=== PATIENT | male | born 1950 | race Caucasian/White ===

== ENCOUNTER 2024-03-06 22:46 | Inpatient (IN) | payer OTHER, SELFPAY ==
[2024-03-06 19:27] VITALS: BMI 22.1
[2024-03-06 19:30] VITALS: BP 133/78
[2024-03-06] MEDS: MORPHINE SULFATE 4 MG IV (21:06)
[2024-03-06] MEDS: ZOFRAN 4 MG IV (21:06)
[2024-03-06 21:09] LABS: % Basophils 0.1 % (0-2); % Immature Granulocytes 0.8 % (0-0.5); % Lymphocytes 7.8 % (20.5-51.1); % Monocytes 3.4 % (1.7-9.3); % Neutrophils 87.9 % (42.2-75.2); Absolute Immature Granulocytes 0.1 10^3/uL (0-0.05); Absolute Monocytes 0.4 10^3/uL (0.1-0.6); Absolute Neutrophils 11.5 10^3/uL (1.4-6.5); Hematocrit 31.8 % (39.0-52.0); Hemoglobin 11.1 g/dL (13.0-18.0); Mean Corp Hgb Conc. 34.9 g/dL (33.0-37.0); Mean Corpuscular Hgb 29.1 pg (27.0-31.0); Mean Corpuscular Volume 83.2 fL (80.0-94.0); Mean Platelet Volume 10.3 fL (7.4-10.4); Nucleated Red Blood Cells % 0 % (-); Platelet Count 184 10^3/uL (130-400); Red Blood Cell Count 3.82 10^6/uL (4.70-6.10); Red Cell Dist. Width 13.3 % (11.5-14.5); White Blood Cell Count 13.1 10^3/uL (4.8-10.8)
[2024-03-06 21:23] LABS: ALT (SGPT) 20 U/L (0-50); AST (SGOT) 34 U/L (17-59); Albumin 4.4 g/dl (3.5-5.0); Alkaline Phosphatase 99 U/L (38-126); Blood Urea Nitrogen 55 mg/dl (9-20); Calcium 9.4 mg/dl (8.4-10.2); Carbon Dioxide 17 mmol/L (22-30); Chloride 100 mmol/L (98-107); Estimated Creatinine Clearance 20 ml/min; Glucose 172 mg/dl (70-99); Potassium 4.8 mmol/L (3.5-5.1); Sodium 131 mmol/L (135-145); Total Bilirubin 0.7 mg/dl (0.2-1.3); Total Protein 7.5 g/dl (6.3-8.2); eGFR 20.57
[2024-03-06 21:27] VITALS: BP 148/109
[2024-03-06] MEDS: DILAUDID 0.5 MG IV (21:39)
[2024-03-06 21:45] LABS: Urine Albumin Trace (Neg - Trace); Urine Bilirubin 1+ (Negative); Urine Glucose Negative (Negative); Urine Ketone Trace (Negative); Urine Leukocyte Negative (Negative); Urine Nitrite Negative (Negative); Urine Occult Blood Trace (Negative); Urine Urobilinogen Negative (Neg - 1+)
[2024-03-06 21:46] LABS: Urine Character Clear (Clear); Urine Color Yellow
--- NOTE | 2024-03-06 21:47 | ED.GENMED ---
History of Present Illness
General
Chief Complaint: Abdominal Pain
Source: patient and family
Exam Limitations: clinical condition
Time Seen by Provider: 03/06/24 20:22
Travel History
Have you had any contact with someone who has COVID-19?: No
Do you have any symptoms of coronavirus? Fever > 100 degrees, chills, cough, shortness of breath, sore throat, loss of taste or smell, muscle aches, or headache?: No
History of Present Illness
History of Present Illness:
74-year-old male who presents with severe lower abdominal pain. Patient states last urination was around 1 PM. Patient states he was sitting at home and got a little dizzy and then got severe pain. Pain is in his lower pelvis and lower abdomen
rating it around his rectum and scrotum. Also radiates to his low back. No fevers. No vomiting. Pain came on relatively suddenly
Past History
Past History
ED Past Medical History: HTN, Hypercholesterolemia, MS and Other (Patient reports history of kidney disease)
Phy Exam
Physical Exam
Physical Exam:
CONSTITUTIONAL Patient alert and oriented to person, place and time. Severe pain distress. Vital signs reviewed.
HEAD atraumatic, normocephalic.
EYES eyelids normal to inspection, Extraocular muscles intact, Conjunctiva normal, Sclera normal.
NECK normal range of motion, Trachea midline, no jugular venous distention.
RESPIRATORY CHEST No respiratory distress noted, Chest expansion equal
ABDOMEN moderate lower abdominal distention, severe lower abdominal tenderness..
BACK normal inspection, no obvious deformities
UPPER EXTREMITY range of motion normal, Motor strength normal, no cyanosis, no edema.
LOWER EXTREMITY range of motion normal, Motor strength normal, no cyanosis, no edema.
NEURO Speech normal, No focal motor deficits, [place] coma scale 15, Memory normal, Cranial Nerves intact to screening exam.
Course
Orders/Labs/Results
Orders:
Orders
03/06/24 20:36
Kraft Placement- Treatment ONCE
Reason for insertion: Acute Retention
03/06/24 20:37
CT Abd/pel Without Iv Or Oral Urgent
Comment:
Reason For Exam: severe abd pain
03/06/24 20:55
Morphine Sulfate 4 mg IV NOW STA
Ondansetron Injectable [Zofran] 4 mg IV NOW STA
03/06/24 21:04
Complete Blood Count/With Diff Urgent
Comprehensive Metabolic Panel Urgent
03/06/24 21:30
Urinalysis Reflex To Culture Urgent
Date Specimen was Collected: 03/06/24
Time Specimen was Collected: 21:28
Urine Microscopic Reflex Cult Urgent
03/06/24 21:32
CT Abd/pelvis Angio W/wo Iv Stat
Comment:
Reason For Exam: RUPTURED ILIAC ANEURYSM
03/06/24 21:36
Type+Screen Urgent
PT/INR [Prothrombin Time] Urgent
PTT Urgent
03/06/24 21:37
HYDROmorphone [Dilaudid] 0.5 mg .ROUTE .STK-MED ONE
03/06/24 21:38
HYDROmorphone [Dilaudid] 0.5 mg IV NOW STA
03/06/24 21:45
IV Insert/Care/Rem.- Treatment PRN
03/06/24 21:52
* Blood Bank Products Urgent
Blood Bank Products: *Packed RBC Leuko(PRBC's)
Quantity: 2
Transfuse Today: Yes
Reason: Bleeding
03/06/24 22:04
Heparin Sodium,Porcine/Ns/Pf [Heparin 2000 Units/1000 ml] 2,000 unit in 1,000 ml .ROUTE .STK-MED
Lidocaine HCl/Pf [Xylocaine-Mpf 1% Vial] 50 mg .ROUTE .STK-MED ONE
03/06/24 22:21
Admit/Transfer Patient As Directed
Co-Sign Provider:
Level of Care: Inpatient admission
Assign to:: ICU
Physician / Group: Que
Diagnosis: R Internal Iliac Artery Aneurysm
Reason for Hospitalization: R Internal Iliac Artery Aneurysm
Expected length of stay greater than two midnights?: Yes
ELOS- Estimated Length of Stay in days: 5
I certify the patient meets the requirements for IP care: Yes
03/06/24 22:22
Code Status As Directed
Resuscitation Status: Full Code
03/06/24 22:24
Fentanyl Citrate/Pf [Sublimaze] 100 mcg .ROUTE .STK-MED ONE
03/06/24 22:37
HYDROmorphone [Dilaudid] 0.25 mg IV PACU-Q5MPRN PRN
HYDROmorphone [Dilaudid] 0.5 mg IV PACU-Q5MPRN PRN
Meperidine [Demerol] 12.5 mg IV PACU-Q5MPRN PRN
Ondansetron Injectable [Zofran] 4 mg IV PACU-ONCEPRN PRN
Prochlorperazine [Compazine] 5 mg IV PACU-ONCEPRN PRN
Notify MD As Directed
Notify physician if: for SDS patients with known or suspected sleep obstructive sleep apnea, monitor in the
PACU.
Notify MD for any apneic/desaturation episodes
O2 Therapy [RESP] Urgent
Titrate/Wean O2 to maintain O2 sat greater than (%): 92
Special Instructions: -Provide supplemental oxygen to achieve O2 sat of 92% or greater.
-After 15 min, may wean O2 and discontinue if patient is able to maintain O2 sat of 92%
or greater during recovery period.
If patient is a discharge home, without oxygen therapy, notify anestheiologist if
unable to maintain O2 SAT of 92% or greater on room air for MD clearance.
03/06/24 22:45
0.9% Sodium Chloride 1000 ml [Nss] 1,000 ml IV PER PROTOCOL
Abnormal Lab Results
03/06/24 03/06/24 03/06/24
21:04 21:30 21:36
WBC 13.1 H 10^3/uL
(4.8-10.8)
RBC 3.82 L 10^6/uL
(4.70-6.10)
Hgb 11.1 L g/dL
(13.0-18.0)
Hct 31.8 L %
(39.0-52.0)
Abs Immat Gran (auto) 0.1 H 10^3/uL
(0-0.05)
Absolute Neuts (auto) 11.5 H 10^3/uL
(1.4-6.5)
Absolute Lymphs (auto) 1.0 L 10^3/uL
(1.2-3.4)
Immature Gran % 0.8 H %
(0-0.5)
Neutrophils % 87.9 H %
(42.2-75.2)
Lymphocytes % 7.8 L %
(20.5-51.1)
Sodium 131 L mmol/L
(135-145)
Carbon Dioxide 17 L mmol/L
(22-30)
BUN 55 H mg/dl
(9-20)
Creatinine 3.1 H mg/dL
(0.7-1.3)
Glucose 172 H mg/dl
(70-99)
Urine Ketones Trace A
(Negative)
Ur Occult Blood Reflex Trace A
(Negative)
Urine Bilirubin 1+ A
(Negative)
Urine RBC 7-10 A /HPF
(0-2)
Urine Bacteria (Reflex) Few A
(Negative)
Crossmatch IS Only See Detail
03/06/24 21:04
03/06/24 21:04
Vital Signs
Initial and Last Documented VS:
Initial Vital Signs
Pulse Resp BP Pulse Ox
75 18 133/78 95
03/06/24 19:30 03/06/24 19:30 03/06/24 19:30 03/06/24 19:30
Last Documented Vital Signs
Pulse Resp BP Pulse Ox
92 15 148/109 95
03/06/24 21:45 03/06/24 21:45 03/06/24 21:27 03/06/24 19:30
MDM/Problems Addressed
Differential Diagnosis Includes:
Bladder outlet obstruction, perforated bowel, aortic aneurysm, vascular emergency
MDM/Problems Addressed:
Ruptured internal iliac artery rhythm, acute renal failure
*Radiology
Radiology exam reviewed: preliminary read by ED provider
*Pulse Oximetry
Patient hypoxic: no
*Nail Machine Operator Interpretation
Rate: normal
Interpretation: normal
Rhythm: sinus
*Critical Care Note
Total Time (30-74mins, 75-104mins- exclusive of procedures): 80 minutes
Data Reviewed
Source: patient and family
Prescriptions/Medications Considered But Not Given:
Consider blood transfusion but so far blood pressure okay
Patient Management
Discussion with other providers: Hospitalist and Labor Relations Specialist (Dr. Regalado)
Escalation/DeEscalation of care consider admission/obs:
74-year-old male with acute onset of severe lower abdominal and back pain. Found to have ruptured internal iliac aneurysm. Immediately upon CT, discussed with vascular. Reviewed CT and vascular OR team was called in. Patient remains
hemodynamically stable at this time. Still does have pain and attempting to control pain. ICU aware. 2 units of blood are on hold. Hospitalist aware
ED Attending Note
-
Portions of this chart may have been created with voice recognition software.� Occasional wrong word or��sound alike� substitutions may have occurred due to the inherent limitations of voice recognition software.
Discharge Plan
Departure
Patient Disposition: Admit
Date of Disposition: 03/06/24
Time of Disposition: 21:44
Admit to: ICU
Presentation/result/management discussed w/ accepting MD/DO: Hospitalist
Discharge Problem:
RUPTURED INTERNAL ILIAC ARTERY ANEURYSM , Acute renal failure
Interventions
Interventions:
*Risk Screen - Suicide Last Done: 03/06/24 19:30
*General Assessment Last Done: 03/06/24 19:30
*Neglect/Abuse Screening Last Done: 03/06/24 19:30
*Nursing Disposition Last Done: 03/06/24 22:58
SV-Oonvnj-Bcxdiozqav Assessment Last Done: 03/06/24 21:58
Discharge Date and Time
Discharge Date/Time: 03/06/24 22:59
--- NOTE | 2024-03-06 21:54 | PHANOTE ---
med rec note daughter in room stated that patient pcp placed patient Lasix 20mg daily, Imdur 60mg daily, Coreg 6.25 bid, hydralazine 25mg, [id number] daily Synthroid 75mcg daily on hold since 02/24/24
[2024-03-06 21:55] LABS: Urine Squamous Cell 0-2 /LPF (Few)
[2024-03-06 21:56] LABS: Urine Bacteria Few (Negative); Urine White Cell 0-2 /HPF (0-5)
[2024-03-06 22:05] LABS: INR 1.16; PT 14.6 Sec (11.4-14.6)
--- NOTE | 2024-03-06 22:35 | W.PN.UPDATE ---
Update Note
Progress Note Update
Seen and examined in preop area. Discussed with the emergency room on my way to the hospital emergently. Briefly 74-year-old male with no prior knowledge of aneurysmal history. Presented with acute onset of lower abdominal pain. Significant pain
noted. Was having urinary retention today as well. Kraft catheter was inserted due to bladder findings on ultrasound in ER. Noncontrast CAT scan was concerning for internal iliac artery aneurysm and rupture. CT angiogram quickly ordered as per
my request. Completed and reviewed by me. On exam/patient is awake and alert. He is moderately uncomfortable. His hemodynamics are reasonable as noted in the charting. His abdomen is soft. He is tender diffusely in the lower quadrant specially
on the right side. His feet are warm with palpable pedal pulses.
CT angiogram reviewed. Large likely saccular/plaque rupture related internal iliac artery aneurysm. Measures 8.5 x 7.7 cm. Heavily calcified vessels.
Plan/ Emergent OR for emergent endovascular (possible open) repair of ruptured internal iliac artery aneurysm (right). Discussed with patient. Plan for likely coil embolization and stent graft exclusion. Discussed with patient possible need for
staged abdominal exploration or washout/decompression of hematoma if needed. Discussed emergent nature. Patient understands all wishes to proceed.
--- NOTE | 2024-03-06 22:40 | HPS.HSE ---
Family Physician
-
Family Physician: Bo Miller
Chief Complaint
-
Abd Pain
History of Present Illness
Patient is a 74y M with PMH significant for ASCVD who presents to ED complaining of abdominal pain. History obtained from patient and family at the bedside. Patient has felt somewhat poorly for the past 3-4 days. He has had mild malaise, poor
appetite and other vague symptoms for much of the week. Today around 3 PM patient developed acute and severe lower abdominal pain. He had persistent and severe pain at home and presented to the ED for further evaluation. Patient was in
significant pain and CT scan done in the ED revealed ruptured R internal iliac artery aneurysm.
Medical History
Past Medical History
Past Medical History: Reports Other
Additional Past Medical History:
ASCVD
ADAN s/p Cardiac Cath / LA (Resolved / Improved)
Chronic HFpEF
Past Surgical History: Reports Other
Additional Past Surgical History:
PTCA with Stent x 5 total
Right Inguinal Herniorrhaphy
Social History
Tobacco: Non-smoker
Alcohol: Daily
Drug: None
Family History
Family History: Not pertinent
Allergies / Home Medications
Allergies reflects when Allergies were last updated in [facility].
Home Medications with original date entered in [facility]
Allergy/Medication List:
Allergies
Allergy/AdvReac Type Severity Reaction Status Date / Time
No Known Allergies Allergy Unverified 03/06/24 19:34
Home Medications
aspirin 81 mg tablet,delayed release 81 mg PO DAILY 03/06/24
atorvastatin 80 mg tablet (Lipitor) 80 mg PO DAILY 03/06/24
Review of Systems
-
History Source: Patient and Family
Constitutional: Denies Fever or Chills
Respiratory: Denies Cough or Trouble Breathing
Cardiac: Denies Chest Pain or Palpitations
Abdomen/GI: Reports Abdominal Pain; Denies Nausea, Vomiting or Diarrhea
: Reports Flank Pain; Denies Dysuria or Frequency
Musculoskeletal: Denies Joint Pain or Edema
Neurological: Denies Dizzy or Headache
Physical Exam
Vital Signs
Vital Signs
Pulse Resp BP Pulse Ox
92 15 148/109 95
03/06/24 21:45 03/06/24 21:45 03/06/24 21:27 03/06/24 19:30
Physical Exam
General: Other (74y M in severe distress secondary to abdominal pain.)
HEENT: Moist mucous membranes and PERRLA
Respiratory: Other (Decreased at bases - otherwise clear.)
Cardiac: S1/S2 and Tachycardia; No Murmur
GI: Other (Exquisite tenderness in the lower abdomen.)
Musculoskeletal: No Clubbing, No Cyanosis and No Edema
Neuro: AO x 3
Hematologic/Lymphatic: Other (Pedal pulses are appreciable bilaterally.)
Laboratory Results
-
03/06/24 21:04
03/06/24 21:04
Laboratory Results
PT 14.6 Sec (11.4-14.6) 03/06/24 21:36
INR 1.16 03/06/24 21:36
APTT 25.0 Sec (23.4-35.0) 03/06/24 21:36
Total Bilirubin 0.7 mg/dl (0.2-1.3) 03/06/24 21:04
AST 34 U/L (17-59) 03/06/24 21:04
ALT 20 U/L (0-50) 03/06/24 21:04
Alkaline Phosphatase 99 U/L (38-126) 03/06/24 21:04
Impression/Plan
-
A/P: Patient is a 74y M with PMH significant for ASCVD who presents to ED complaining of abdominal pain.
Acute Right Internal Iliac Artery Aneurysm Rupture
Intra-Abdominal Hematoma secondary to the above
- Patient taken emergently to the OR for Vascular Surgery / repair of ruptured aneurysm.
- Post-op admit to ICU for ongoing care.
- Post-op instructions per Vascular Surgery.
- Impulse control with IV labetalol for high BP / pulse / etc.
- Adjust meds as needed for adequate hemodynamic control.
- Pain control / supportive care as needed.
Acute Blood Loss Anemia secondary to the above
- Follow H&H and transfuse as needed for Hgb < 7 or symptoms.
- Hemostasis / bleeding control as noted above.
- Hold antiplatelets acutely, but would resume low-dose ASA when OK with Vascular Surgery.
Obstructive Uropathy secondary to abdominal hematoma
ADAN secondary to the above
- SCr = 3.1. No available baseline, but normal renal function per daughter.
- CT shows R ureteral compression / obstruction secondary to hematoma.
- Follow post-op for changes.
- If hematoma not evacuated / obstruction persists, would need IR for perc nephrostomy placement.
- IVF support, avoid nephrotoxic agents as able, avoid hypotension.
- Follow for improvement in renal function / return to baseline.
- Risk for secondary kidney injury as well given CTA, endovascular procedure, etc.
ASCVD
- Stable. History of PTCA with 5 coronary stents.
- Most prior hospitalizations were at [facility]. Send for records.
- Currently on only ASA 81mg and atorvastatin as an outpatient.
- Follow for any new chest pain, dyspnea, etc.
- Monitor on tele. EKG PRN.
Benign Hypertension
Chronic HFpEF
- Stable. No evidence of volume overload on exam.
- Daughter notes that Imdur and daily Lasix (20mg) were discontinued mid-January.
- No other recent med changes.
- Follow I/Os, daily weights, etc.
- Monitor for evidence of hypervolemia and dose diuretics PRN.
Alcohol Use Disorder
- Daily alcohol intake per family.
- Monitor MSAS and treat with BZDs PRN for any withdrawal symptoms.
- Monitor labs / lytes and replace or replete as needed.
DVT Prophylaxis: SCDs
Code Status: Full
[2024-03-06 23:39] LABS: Glucose - Point of Care 149 mg/dl (70-99)
[2024-03-07] VITALS (27 sets, daily range): BP systolic 122–187; BP diastolic 70–109; BMI 22.1
[2024-03-07 01:00] LABS: Glucose - Point of Care 132 mg/dl (70-99)
--- NOTE | 2024-03-07 01:00 | W.IMMPOSTOP ---
Surgical Immed Post Op Note
-
Primary Surgeon: Fabricio
Assisting Surgeon: None
Pre-op Diagnosis: Ruptured R internal iliac artery aneurysm
Post-op Diagnosis: same
Procedure Performed: Endovascular repair ruptured R internal iliac artery aneurysm with coil embolization and placement of external iliac artery stent graft (overlapping x 2) with [place] Excluder iliac limbs x 2. Percutaneous R femoral artery
closure. 6F angioseal closure L femoral artery.
Anesthesia Type: General
Specimen / Cultures: none
Estimated Blood Loss: 75cc
Complications: none
Operative Findings: palpable 2+ R DP/PT and 2+ L PT upon completion
[2024-03-07] MEDS: DILAUDID 0.25 MG IV (01:06)
[2024-03-07] MEDS: DEMEROL 12.5 MG IV ×2 (01:06→01:15)
[2024-03-07] MEDS: NSS 1000 IV ×2 (01:31→13:52)
[2024-03-07 01:44] LABS: Hemoglobin 9.1 g/dL (13.0-18.0); Mean Corpuscular Hgb 29.2 pg (27.0-31.0); Mean Corpuscular Volume 83.3 fL (80.0-94.0); Mean Platelet Volume 10.6 fL (7.4-10.4); Platelet Count 133 10^3/uL (130-400); Red Blood Cell Count 3.12 10^6/uL (4.70-6.10); Red Cell Dist. Width 13.6 % (11.5-14.5); White Blood Cell Count 10.5 10^3/uL (4.8-10.8)
[2024-03-07 01:57] LABS: Blood Urea Nitrogen 52 mg/dl (9-20); Carbon Dioxide 17 mmol/L (22-30); Chloride 106 mmol/L (98-107); Estimated Creatinine Clearance 22 ml/min; Glucose 138 mg/dl (70-99); Sodium 132 mmol/L (135-145); eGFR 23.24
[2024-03-07] MEDS: TRANDATE 10 MG IV (02:25)
--- NOTE | 2024-03-07 03:30 | PTCARENOTE ---
Rec'd patient from PACU around 0200. Patient in bed. AAOx3. Right and left groins assessed. Right groin approximated, closed with surgical glue. Left groin covered with dressing; c/d/i. +Doppler dp and pt pulses bilaterally. NSR on tele monitor. BP
elevated. Left radial a-line alarming for SBP 190-200s. Labetalol administered as ordered with little improvement. Order for Cardene gtt obtained. Goal SBP 100-[address] Regalado. +BS. Right lower abdomen distended; slightly tender. No BMs. Kraft in
place. Patient educated on restrictions and bedrest orders. No complaints. Call golden within reach.
[2024-03-07] MEDS: CARDENE 200 IV (03:33)
--- NOTE | 2024-03-07 03:38 | PTCARENOTE ---
Cardene gtt initiated.
--- NOTE | 2024-03-07 06:55 | W.PN.UPDATE ---
Update Note
Progress Note Update
Patient is hypertensive with SBP 190s- 200s, Labetalol was given and not effective. Cardene gtt was started.
[2024-03-07] MEDS: THIAMINE INJECTION 200 MG IV ×2 (07:41→19:52)
[2024-03-07] MEDS: PROTONIX IV 40 MG IV (07:41)
[2024-03-07] MEDS: NSS (PRESERVATIVE FREE) 10 ML IV (07:41)
[2024-03-07] MEDS: FOLVITE 1 MG PO (07:42)
[2024-03-07 07:44] LABS: Hematocrit 24.6 % (39.0-52.0); Hemoglobin 8.6 g/dL (13.0-18.0); Mean Corpuscular Volume 82.8 fL (80.0-94.0); Mean Platelet Volume 10.7 fL (7.4-10.4); Platelet Count 133 10^3/uL (130-400); Red Blood Cell Count 2.97 10^6/uL (4.70-6.10); Red Cell Dist. Width 13.5 % (11.5-14.5); White Blood Cell Count 8.4 10^3/uL (4.8-10.8)
--- NOTE | 2024-03-07 07:46 | W.PN.HOSP.TC ---
Today's Communication/Plan
-
further care per vascular
follow H&H, transfuse as needed
control BP
Assessment / Plan
Assessment / Plan
pt is a 74 year old male
Acute Right Internal Iliac Artery Aneurysm Rupture with Intra-Abdominal Hematoma--Patient taken emergently to the OR for Vascular Surgery/repair of ruptured aneurysm--apprec vascular input--follow H&H, control BP--further care per vascular surgery
Acute Blood Loss Anemia due to ruptured iliac artery aneurysm--trend H&H and transfuse as needed--Hold antiplatelets acutely, but would resume low-dose ASA when OK with Vascular Surgery.
ADAN due to Obstructive Uropathy secondary to abdominal hematoma--await labs--CT shows R ureteral compression/obstruction secondary to hematoma--If obstruction persists, would need IR for perc nephrostomy placement--IVF support, avoid nephrotoxic
agents as able, avoid hypotension-- Risk for secondary kidney injury as well given CTA, endovascular procedure, etc--consider renal consult if no improvement
ASCVD--Stable--History of PTCA with 5 coronary stents--Currently on only ASA 81mg and atorvastatin as an outpatient.
Essential Hypertension with Chronic HFpEF-- no exacerbation--Daughter notes that Imdur and daily Lasix (20mg) were discontinued mid-January--Follow I/Os, daily weights, etc.
Alcohol Use Disorder--Daily alcohol intake per family--Monitor MSAS and treat with BZDs PRN for any withdrawal symptom--Monitor labs / lytes and replace or replete as needed.
DVT Prophylaxis: SCDs
Code Status: Full
Anticipated Discharge: > 48 hours
Subjective/Interval History
-
Date of Service: March 07, 2024
pt without c/o--has virtually no pain
Objective Data
-
Labs:
Laboratory Results
03/06/24 03/06/24 03/07/24
21:04 21:36 01:36
WBC 13.1 H 10.5
Hgb 11.1 L 9.1 L
Hct 31.8 L 26.0 L
Plt Count 184 133 D
PT 14.6
INR 1.16
APTT 25.0
Sodium 131 L 132 L
Potassium 4.8 5.0
Chloride 100 106
Carbon Dioxide 17 L 17 L
BUN 55 H 52 H
Creatinine 3.1 H 2.8 H
Glucose 172 H 138 H
Calcium 9.4 8.0 L
Total Bilirubin 0.7
AST 34
ALT 20
Alkaline Phosphatase 99
03/07/24 03/07/24 03/07/24
07:20 07:20 07:20
WBC 8.4
Hgb 8.6 L Pending
Hct 24.6 L Pending
Plt Count 133
PT Pending
INR Pending
APTT Pending
Sodium Pending
Potassium Pending
Chloride Pending
Carbon Dioxide Pending
BUN Pending
Creatinine Pending
Glucose Pending
Calcium Pending
Total Bilirubin
AST
ALT
Alkaline Phosphatase
03/07/24 03/07/24
13:10 19:10
WBC
Hgb Pending Pending
Hct Pending Pending
Plt Count
PT
INR
APTT
Sodium
Potassium
Chloride
Carbon Dioxide
BUN
Creatinine
Glucose
Calcium
Total Bilirubin
AST
ALT
Alkaline Phosphatase
Vital Signs:
max temp for 24 hours
03/07/24
01:45
Temp 98.8 F
Vital Signs
Temp Pulse Resp BP Pulse Ox
97.9 F 69 15 127/71 100
03/07/24 07:30 03/07/24 06:00 03/07/24 06:00 03/07/24 05:00 03/07/24 06:00
I&O
03/06/24 03/07/24 03/08/24
06:59 06:59 06:59
Intake Total 700 / 700
Output Total 450 / 450
Balance 250 / 250
Review of Systems
-
All other systems: Reviewed and negative
Physical Exam
-
General: Well Developed, Well Nourished and No Apparent Distress
HEENT: Normocephalic and Atraumatic; Negative Oxygen
Respiratory: Clear to Auscultation; Negative Wheezes or Rhonchi
Cardiac: Regular Rhythm and S1/S2; Negative Murmur
GI: Soft, Nontender, Nondistended and Normal Bowel Sounds
Genito-urinary: Kraft
Musculoskeletal: No Clubbing, No Cyanosis and No Edema
Neuro: Awake and Alert
[2024-03-07 07:53] LABS: INR 1.25; PT 15.5 Sec (11.4-14.6)
[2024-03-07 07:54] LABS: APTT 29.3 Sec (23.4-35.0)
[2024-03-07 07:59] LABS: Magnesium 2.1 mg/dl (1.6-2.3)
[2024-03-07 07:59] LABS: Blood Urea Nitrogen 53 mg/dl (9-20); Calcium 8.4 mg/dl (8.4-10.2); Carbon Dioxide 19 mmol/L (22-30); Chloride 105 mmol/L (98-107); Estimated Creatinine Clearance 21 ml/min; Glucose 159 mg/dl (70-99); Potassium 4.8 mmol/L (3.5-5.1); Sodium 133 mmol/L (135-145); eGFR 22.29
--- NOTE | 2024-03-07 08:11 | PTCARENOTE ---
Rec'd pt at 0700. Pt AAOx3, follows commands, ARREDONDO. Monitor SR. Lungs CTA, pox 97% RA. Cardene gtts infusing at 5mg/hr, right radial a-line in place, SBP~20mm higher on a-line than NIBP. Kraft draining yellow urine. Right groin puncture site intact,
surgical adhesive in place. Left groin with dressing C/D/I. +weak palpable PT/DP pulses. Pt states he has minimal groin soreness, not requiring any medical intervention.
--- NOTE | 2024-03-07 11:22 | CON.INTV ---
Consultation
Consultation Request
Date/Time Consultation Requested: 03/06/2024
Date/Time Consultation Performed: 03/06/2024
Requesting Provider: Dr. Grey
Performing Provider: Dr. Jarod Mcnulty
Reason for Consultation: Status post repair of ruptured aneurysm by vascular
Medical History
-
History of Present Illness:
74-year-old male with past medical history significant for peripheral vascular disease, came to the emergency room on 03/06/2024 complaining of abdominal pain. Apparently he has not been feeling well 3 to 4 days prior to coming to the emergency room.
Afternoon of admission developed acute lower abdominal pain. CT of the chest in the emergency room revealed rupture right internal iliac artery aneurysm.
Emergently taken by vascular for repair.
Underwent internal iliac artery aneurysm: Polarization with placement of external iliac artery stent graft. Right femoral artery closure.
Currently in the critical care unit.
Past Medical History
Past Medical History: Other (See assessment and plan section)
Social History
Tobacco: Non-smoker
Alcohol: Daily
Drug: None
Family History
Family History: Reviewed & Not Pertinent
Allergies / Home Medications
Allergies
Allergy/AdvReac Type Severity Reaction Status Date / Time
No Known Allergies Allergy Unverified 03/06/24 19:34
Home Medications
�Medication �Instructions �Recorded �Confirmed �Last Taken �Type
aspirin 81 mg tablet,delayed 81 mg PO DAILY Blood Clot 03/06/24 03/06/24 03/06/24 History
release Prevention/Tx
atorvastatin 80 mg tablet (Lipitor) 80 mg PO DAILY High Cholesterol 03/06/24 03/06/24 03/06/24 History
Review of Systems
-
History Source: Patient
All other systems: Negative unless noted
Vitals / Labs / Diagnostic Testing
Vital Signs
Temp Pulse Resp BP Pulse Ox
98.4 F 82 17 130/80 98
03/07/24 11:19 03/07/24 08:45 03/07/24 08:45 03/07/24 08:00 03/07/24 08:45
Lab Data
03/07/24 07:20
Laboratory Results
03/06/24 03/07/24
21:36 07:20
PT 14.6 15.5 H
INR 1.16 1.25
APTT 25.0 29.3
Diagnostic Testing:
Physical Exam
-
HEENT: Normocephalic
Cardiovascular: S1/S2 and Regular Rhythm
Respiratory: Clear and Non-Labored Respirations
GI: Soft and Non Distended
Neurology: Awake, Oriented, AO x 3 and No Motor Deficits
Skin: Warm and Other (Right groin incision appears intact without hematoma)
General: Respiratory Distress (n)
Assessment
-
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
Status post:Endovascular repair ruptured R internal iliac artery aneurysm with coil embolization and placement of external iliac artery stent graft (overlapping x 2) with Rollingstone Excluder iliac limbs x 2. Percutaneous R femoral artery closure 03/06/2024
Acute blood loss anemia
Acute kidney injury-obstructive uropathy secondary to abdominal hematoma
CT abdomen pelvis reviewed: Large retroperitoneal hematoma compressing the ureter in the right with hydronephrosis
Non-anion gap metabolic acidosis secondary to renal dysfunction
Conditions present prior admission:
Coronary artery disease status post coronary stents in the past
Hypertension
Daily alcohol use
Hypertension
Chronic heart failure with preserved ejection fraction
Assessment and plan:
Postoperative day 0
Hemodynamically stable
Pain relatively controlled
Vascular surgery following
Continue with neurovascular checks
Analgesia with narcotics, watch respiratory status closely.
-
Hemodynamic monitoring
Blood pressure control-nicardipine
May need to start oral antihypertensive
-
Acute blood loss anemia: Status post 1 unit packed red blood cells
Follow H&H
Benign abdominal exam
Continue to monitor closely
-
Acute kidney injury: Obstructive uropathy
Follow BMP, electrolytes, urinary output. Kraft with clear urine
Repeat labs later
Hopefully improves as the hematoma has stabilized.
Continue IV hydration
If there is no improvement may need to consult renal and interventional radiology
At risk for contrast-induced nephropathy as well
-
Follow metabolic acidosis, if worsening then bicarbonate drip may be needed.
-
Daily alcohol use: Monitor for alcohol withdrawal.
MSAS protocol
-
Regular diet with aspiration precautions
-
DVT prophylaxis with SCDs
-
If stable later today, may consider discontinuation of arterial line and possibly transfer to telemetry. Will reevaluate in the afternoon.
--- NOTE | 2024-03-07 12:23 | W.CON.NEPH ---
Consultation
-
Date/Time Consultation Requested: 03/07/24 0930
Date/Time Consultation Performed: 03/07/24 1230
Requesting Provider: Girish Garcia
Performing Provider: Arin Sofia
Reason for Consultation: ADAN with CKD
Medical History
-
Chief Complaint: abd pain
History of Present Illness:
74y M with PMH significant for ASCVD s/p stent on ASA, CKD stage 3b, hyperkalemia, chr anemia, HLD on statin who presents to ED complaining of abdominal pain. Patient has felt somewhat poorly for the past 3-4 days. He has had mild malaise, poor
appetite and other vague symptoms for much of the week. He had persistent and severe pain and unable to urinate at home and presented to the ED for further evaluation on 03/06 and found to have ruptured R internal iliac artery aneurysm with abd
hematoma and Rt ureter compression with Right side hydronephrosis. He is s/p Endovascular repair ruptured R internal iliac artery aneurysm with coil embolization and placement of external iliac artery stent graft emergently on 03/06/2024. His cr on
admit was at3.1 and now at 2.9. His BP increased post op in ICU hence briefly on cardene gtt. He denies use of NSAIDs, no CP or sob. He has h/o DCHF but no longer on diuretics.
Had admit at [facility] in Nov and treated for ?CHF, cr was 2.5 improved to 2 at d/c, He supposed to be Plavix, levothyroxine, Imdur, coreg, hydralazine, lasix, Lisinopril from d/c but he is not taking them since Nov.
Past Medical History
ASCVD
ADAN s/p Cardiac Cath / NH (Resolved / Improved)
Chronic HFpEF
CKD3b
Past Surgical History: Other (PTCA with Stent x 5 total Right Inguinal Herniorrhaphy)
Social History
retired [employer]
Tobacco: Non-Smoker
Alcohol: Daily (1-2beer daily)
Drug: None
Living: With Family
Family History
no CKD
Family History: Not Pertinent
Allergies / Home Medications
Allergy/AdvReac Type Severity Reaction Status Date / Time
No Known Allergies Allergy Unverified 03/06/24 19:34
�Medication �Instructions �Recorded �Confirmed �Type
aspirin 81 mg tablet,delayed 81 mg PO DAILY Blood Clot 03/06/24 03/06/24 History
release Prevention/Tx
atorvastatin 80 mg tablet (Lipitor) 80 mg PO DAILY High Cholesterol 03/06/24 03/06/24 History
Review of Systems
-
all complete 12 point ROS have been inquired and found negative other than stated in HPI
Physical Exam
Vital Signs
Vital Signs
Temp Pulse Resp BP Pulse Ox
98.4 F 75 15 137/80 99
03/07/24 11:19 03/07/24 11:15 03/07/24 11:15 03/07/24 11:18 03/07/24 11:15
Lab Results
WBC 8.4 10^3/uL (4.8-10.8) 03/07/24 07:20
RBC 2.97 10^6/uL (4.70-6.10) L 03/07/24 07:20
Plt Count 133 10^3/uL (130-400) 03/07/24 07:20
eGFR 22.29 03/07/24 07:20
Albumin 4.4 g/dl (3.5-5.0) 03/06/24 21:04
CT angio:4/5
Abnormal Lab Results
03/06/24 03/06/24 03/06/24
21:04 21:30 21:36
WBC 13.1 H
RBC 3.82 L
Hgb 11.1 L
Hct 31.8 L
MPV
Abs Immat Gran (auto) 0.1 H
Absolute Neuts (auto) 11.5 H
Absolute Lymphs (auto) 1.0 L
Immature Gran % 0.8 H
Neutrophils % 87.9 H
Lymphocytes % 7.8 L
PT
Sodium 131 L
Carbon Dioxide 17 L
BUN 55 H
Creatinine 3.1 H
Glucose 172 H
Calcium
Urine Ketones Trace A
Ur Occult Blood Reflex Trace A
Urine Bilirubin 1+ A
Urine RBC 7-10 A
Urine Bacteria (Reflex) Few A
POC Glucose
Crossmatch IS Only See Detail
03/06/24 03/07/24 03/07/24
23:25 00:57 01:36
WBC
RBC 3.12 L
Hgb 9.1 L
Hct 26.0 L
MPV 10.6 H
Abs Immat Gran (auto)
Absolute Neuts (auto)
Absolute Lymphs (auto)
Immature Gran %
Neutrophils %
Lymphocytes %
PT
Sodium 132 L
Carbon Dioxide 17 L
BUN 52 H
Creatinine 2.8 H
Glucose 138 H
Calcium 8.0 L
Urine Ketones
Ur Occult Blood Reflex
Urine Bilirubin
Urine RBC
Urine Bacteria (Reflex)
POC Glucose 149 H 132 H
Crossmatch IS Only
03/07/24
07:20
WBC
RBC 2.97 L
Hgb 8.6 L
Hct 24.6 L
MPV 10.7 H
Abs Immat Gran (auto)
Absolute Neuts (auto)
Absolute Lymphs (auto)
Immature Gran %
Neutrophils %
Lymphocytes %
PT 15.5 H
Sodium 133 L
Carbon Dioxide 19 L
BUN 53 H
Creatinine 2.9 H
Glucose 159 H
Calcium
Urine Ketones
Ur Occult Blood Reflex
Urine Bilirubin
Urine RBC
Urine Bacteria (Reflex)
POC Glucose
Crossmatch IS Only
CLINICAL INDICATION: Ruptured right iliac aneurysm.
TECHNIQUE: A CT examination of the abdomen and pelvis was performed without intravenous contrast. A CTA examination of the abdomen and pelvis was performed following the administration of nonionic intravenous contrast material. Images were acquired
during the arterial and portal venous phases of enhancement. Oral contrast was not administered. Coronal and sagittal reformatted images were obtained. 3-D reformatted images were obtained. Automatic exposure control radiation dose reduction
technology was utilized.
COMPARISON: Comparison is made with a noncontrast CT examination of the abdomen and pelvis performed 03/06/2024 at 21:15 hours.
FINDINGS:
CHEST: There is severe calcific atherosclerotic plaque in the coronary arteries and descending thoracic aorta. There is a 1.3 x 0.9 x 1.7 cm saccular aneurysm or penetrating ulcer protruding from the left side of the distal descending thoracic
aorta. The imaged lower lungs are clear.
ABDOMEN: There is moderate to severe atrophy of the medial segment of the left lobe of the liver. There is mild diffuse thickening of the gallbladder wall. There is no pericholecystic inflammation. There is no biliary dilatation. The pancreas and
spleen appear normal. The right adrenal gland appears normal. There is a 1.1 cm adenoma in the body of the left adrenal gland.
There is severe right hydroureteronephrosis secondary to an obstruction of the distal right ureter which is located between the large right internal iliac artery aneurysm and urinary bladder, surrounded by acute extraperitoneal hemorrhage. There is
mild left hydroureteronephrosis. There is moderate bilateral renal cortical volume loss. The right renal nephrogram is delayed compared with the left.
There is severe calcific atherosclerotic plaque in the abdominal aorta, superior mesenteric artery, left renal artery, and iliac arteries. There is fusiform aneurysmal dilatation of the infrarenal abdominal aorta measuring 2.6 cm AP dimension. There
is no retroperitoneal or mesenteric lymphadenopathy.
There is no abnormal distention or wall thickening in the stomach, duodenum, or jejunum. There is no upper abdominal ascites or pneumoperitoneum.
PELVIS: There is no abnormal small bowel wall thickening or distention. The appendix is not clearly identified. Most of the colon is collapsed. There is no ascites. There is no pelvic lymphadenopathy. There is a Salas catheter in the urinary
bladder. The urinary bladder is displaced anteriorly and collapsed.
There is a large 7.9 x 8.4 x 7.3 cm right internal iliac artery aneurysm which has ruptured into the extraperitoneum of the right side of the pelvis. There is evidence for acute arterial extravasation from the inferior and posterior wall the
ruptured aneurysm. There is a large acute extraperitoneal hemorrhage in the pelvis which extends posteriorly into the presacral space and surrounds the rectum. The hemorrhage extends anteriorly around the urinary bladder extending over the dome of
the urinary bladder. There is high attenuation extravasated contrast material accumulating anterior and to the left of the aneurysm between the urinary bladder and aneurysm on the portal venous phase of imaging measuring 4.2 x 7.2 cm in size (axial
image #94, series #601). The large aneurysm displaces the right external iliac artery anteriorly.
SKELETON: There are chronic superior endplate fractures of T11, L1, and L2 with moderate loss of vertebral body height at L1 and mild loss of vertebral body height at T11 and L2. There is severe discogenic degenerative disease at L4/L5 and L5/S1.
There is moderate bilateral facet joint arthrosis at L4/L5 and L5/S1. There is mild bilateral osteoarthritis of the sacroiliac joints. There is very severe osteoarthritis in the right hip. There is mild to moderate osteoarthritis in the left hip.
IMPRESSION:
1. LARGE AMOUNT of ACUTE ACTIVE ARTERIAL EXTRAVASATION from a LARGE 8.4 cm ACUTE RUPTURED RIGHT INTERNAL ILIAC ARTERY ANEURYSM into a large extensive extraperitoneal hemorrhage.
2. LARGE ACUTE EXPANDING EXTRAPERITONEAL HEMORRHAGE in the right side, inferior, and anterior aspect of the extraperitoneal space of the pelvis with extravasated contrast material accumulating anterior to the aneurysm and posterior to the urinary
bladder.
3. Fusiform infrarenal abdominal aortic aneurysm (2.6 cm AP dimension).
4. Severe calcific atherosclerotic plaque in the abdominal aorta, superior mesenteric artery, left renal artery, and iliac arteries.
5. Severe right hydronephrosis secondary to distal right ureteral obstruction.
6. Mild left hydroureteronephrosis.
7. Moderate chronic bilateral renal disease.
8. Salas catheter within the urinary bladder.
9. 1.7 cm saccular aneurysm or penetrating ulcer along the left side of the distal descending thoracic aorta.
CXR:
IMPRESSION:
1. Clear lungs.
2. Mild cardiomegaly without evidence of decompensated CHF.
Physical Exam
General: Awake, Alert, Oriented, AOx3, No Distress and Nontoxic
HEENT: EOMI and Anicteric
Respiratory: Clear, Normal Excursion and Nonlabored Respirations
Cardiac: S1/S2, Regular Rate/Rhythm and Other
Abdomen: Soft, Nontender and Other (mild distension)
Musculoskeletal: No Cyanosis and No Edema
Skin: No Rash
Neuro: Nonfocal/Grossly Intact
Psych: Mood/afflect pleasant, Insight/judgement good and Appropriate
Assessment/Plan
-
IMP:
Acute Right Internal Iliac Artery Aneurysm Rupture
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
Intra-Abdominal Hematoma secondary to the above
Acute Blood Loss Anemia secondary to the above
ADAN with CKD [id number] -baseline cr 2-2.5 in [facility]
Obstructive Uropathy secondary to abdominal hematoma
Non gap met acidosis
ASCVD-History of PTCA with 5 coronary stents.
Benign Hypertension
Chronic HFpEF
Alcohol Use Disorder
h/o hyperkalemia
HYpoantremia
PLan:
A/w abd pain, found ruptured R iliac art aneurysm s/p repair on 03/06 emergently
ADAN with CKD [id number] from extrinsic obst from above, hydro Rt>left noted on CT
expect to improve now that compression relieved on distal ureter, however has contrast exposure on 03/06
UA with microhematuria, no prior baseline UA
keep salas, non oliguric, may need to check imaging for hdyro in next few days
monitor hb and prn transfusion
BP are high off cardene gtt,restart coreg and hydralazine as previously he was on
vol status stable
would still cont IVF today
labs in am
d/w nursing and vasc
Data Reviewed
-
Radiology: Report Reviewed by me
CT Scan: Report Reviewed by me
Labs: Labs Reviewed by me and Discussed with Patient
--- NOTE | 2024-03-07 13:07 | W.PN.VS ---
Today's Communication / Plan
-
See plan below for today 03/07/2024.
Assessment/Plan
-
Postoperative day #1 status post endovascular repair of ruptured right internal iliac artery aneurysm.
� Overall doing well.
� I asked nephrology to see, currently Dr. Erickson is seeing patient. She notes that he does have history of chronic renal insufficiency with baseline creatinine between 2-2.5 (per [facility] notes). Appreciate their assistance. Will defer continuation
of IV fluids to them. She also is working on PO antihypertensive control.
� Arterial line can be removed, discussed with nursing.
� Continue Kraft for today, per nephrology as well.
� Out of bed to chair.
-
Total Time Spent with Patient (in minutes): 15
Subjective Data
-
Date of Service: March 07, 2024
Patient without complaints this morning. He notes his abdominal pain preoperatively has essentially resolved. Slight discomfort in the groins at incision sites. But otherwise no complaints. Feels well.
Objective Data
-
Vital Signs
Temp Pulse Resp BP Pulse Ox
98.4 F 75 15 137/80 99
03/07/24 11:19 03/07/24 11:15 03/07/24 11:15 03/07/24 11:18 03/07/24 11:15
Intake and Output
03/06/24 03/07/24 03/08/24
06:59 06:59 06:59
Intake Total 700 / 825 815.0 / 815.0
Output Total 450 / 450
Balance 250 / 375 815.0 / 815.0
Intake:
Oral fluids 240 / 240
IV fluids (Total) 700 / 825 575.0 / 575.0
Cardene 100 / 125 75.0 / 75.0
Normosol 200 / 200
Nss 1,000 ml @ 100 mls/hr IV . 400 / 500 500 / 500
[facility] Rx#:[id number]
Output:
Urine, Kraft 450 / 450
Calcium 8.4 mg/dl (8.4-10.2) 03/07/24 07:20
Magnesium 2.1 mg/dl (1.6-2.3) 03/07/24 01:36
Total Bilirubin 0.7 mg/dl (0.2-1.3) 03/06/24 21:04
AST 34 U/L (17-59) 03/06/24 21:04
ALT 20 U/L (0-50) 03/06/24 21:04
Alkaline Phosphatase 99 U/L (38-126) 03/06/24 21:04
Total Protein 7.5 g/dl (6.3-8.2) 03/06/24 21:04
Albumin 4.4 g/dl (3.5-5.0) 03/06/24 21:04
Physical Exam
-
Afebrile.
Awake and alert.
Abdomen is soft, still mildly full/distended but much better than yesterday and much softer. He is not tender at all really.
Groins are flat bilaterally. Right groin small incision clean dry and intact, left groin puncture site flat.
Feet warm with easily palpable PT pulses bilaterally.
Labs reviewed.
--- NOTE | 2024-03-07 13:10 | OR.RPT ---
Operative Report
Operative Report
PROCEDURE DATE: 03/06/2024
Preoperative diagnosis: Ruptured right internal iliac artery aneurysm
Postoperative diagnosis: Same
Procedure:
1. Emergent endovascular repair of ruptured right internal iliac artery aneurysm with: #1 coil embolization of internal iliac artery aneurysm using multiple Cook Lisa coils. #2 endovascular exclusion of internal iliac artery with iliac limb
stent graft placement extending from right common iliac artery to external iliac artery.
2. Percutaneous right common femoral artery closure.
3. Left common femoral artery 6 Serbian Angio-Seal closure.
Surgeon: Fabricio
Hematology Technologist: None
Complications: None
Anesthesia: General
Indications for procedure:
Ruptured right internal iliac artery aneurysm (over 8 cm diameter). Risk/benefits/alternatives of emergent repair were discussed. Patient understood all wish to proceed.
Description of procedure:
Patient was identified brought to the operating room placed on the table in supine position. Placement of invasive arterial line was undertaken. After the adequate administration of anesthesia he was immediately prepped and draped in the standard
surgical fashion. A standard preoperative timeout was undertaken and everybody was in agreement the plan. Left common femoral artery access was obtained in the standard fashion using a micropuncture kit under direct duplex ultrasound guidance. 6
Serbian sheath was then advanced over a 0.035 inch wire. Lizama's the catheter was advanced into the abdominal aorta. A distal infrarenal aortogram pelvic angiogram was obtained to identify the aortic bifurcation and iliac anatomy. I could
easily see filling into the large internal iliac artery aneurysm. Next, I gained wire access into the right common femoral artery using a flopping on hydrophilic wire and then advanced a glide catheter (exchanged out my lizama's the catheter).
Next I exchanged for a Storq wire and then an up and over 6 Serbian sheath which was positioned just short of the iliac bifurcation. Next using a flopping on hydrophilic wire and a glide catheter, I was able to selectively cannulate the internal
iliac artery. Angiogram confirmed I was in the internal iliac artery. There was about a 1.5 to 2 cm neck in the internal iliac artery of normal artery prior to the aneurysm. Therefore I elected to see if I could cannulate the outflow. I did note
that there were 2 outflow vessels emanating from the inferior most aspect of the aneurysm. However these proved too difficult to try to cannulate given the size of the aneurysm. At this point I felt it would be best to embolize the aneurysm with
coils and excluded.
Therefore, at this point I advanced my sheath into the right internal iliac artery (the 6 Serbian up and over sheath). I maintained wire access with a Storq wire into the aneurysm. Next, I cannulated the right common femoral artery using a
micropuncture kit under direct duplex ultrasound guidance. I then advanced a 6 Serbian sheath over a 0.035 inch wire. I made a small 1 cm incision around the sheath entry site and used blunt hemostats to bluntly dissect the track for the
percutaneous suture. Next I used Pro-glide percutaneous sutures and preclosed technique and deployed these 2 sutures at the 10:00 and 2:00 positions with suture strands tagged outside the skin. I then exchanged for a short 11 Serbian sheath. I
difficulty passing my 11 Serbian sheath up past a tortuosity in the external iliac artery. I therefore then used a floppy angled hydrophilic wire and a glide catheter to gain aortic access. Once I did this I then advanced my catheter and exchanged
for an Amplatz wire. Now I was able to pass my sheath up further.
At this point, I advanced a Marsh catheter up the Storq wire from the left sided 6 Serbian up and over sheath access into the internal iliac artery. Through the Marsh catheter is now I advanced/deployed multiple coils. I used essentially
all the coils that we had using Cook Lisa 20 mm, 18 mm, 12 mm, 10 mm, 8 mm coils. Multiple coils were placed in order to pack into the aneurysm sac. It did not still quite feel the aneurysm sac but there was a good nice tight packing of coils
which I felt would be prothrombotic. Once satisfied I then withdrew my sheath and catheter out of the internal iliac artery, and gained wire access from the left sided sheath access into the aorta and left my sheath in the left common iliac artery.
I exchanged out now my a Marsh catheter for a lizama's the catheter. Power injection was performed in order to identify and rikki the iliac anatomy on the right side to place my iliac stent. I performed power injection with a marker pigtail
up the right side so I could measure the length needed. I felt a 10 cm length iliac limb would suffice. I therefore then exchanged my right-sided short 11 Serbian sheath over the Amplatz wire for a [place] 12 Serbian dry seal sheath which was advanced
into the aorta. Next I used a 16 mm x 12 mm x 10 cm [place] excluder iliac limb which I positioned from the common iliac extending into the external iliac artery. I positioned it such that it would be positioned across the origin of the internal
iliac artery. I was satisfied with the positioning and then withdrew my sheath and deployed it. I then balloon molded the proximal and distal seal zones as well as the central part of it with a Coda balloon. Completion angiogram now demonstrated
reasonable positioning of the stent, however I could see filling into the aneurysm still in an antegrade fashion (type Ia endoleak). I felt that this was coming from the stent graft not well opposing the wall of the iliac artery where it was
tortuous. I therefore had room to extend more proximally and then used an additional [place] excluder iliac limb 16 mm x 16 mm x 9.5 cm. I was able to advance this up into a more straight segment of the very proximal right common iliac artery and
overlap sufficiently into the other stent graft more distally. Once satisfied with position I then deployed that. The entirety of the limb including overlap sites and proximal and distal seal zones was then balloon molded with a Coda balloon.
Completion angiogram now demonstrated excellent result. There was good flow through the iliac limbs/stent graft. There was no type Ia or type Ib endoleak noted. Only on very delayed imaging could minimal retrograde flow be seen into the aneurysm
sac from collaterals. However given the bulk/size of the embolization mass that I created, I was satisfied that this would likely completely thrombosed. At this point I was very satisfied.
I then withdrew my right-sided sheath as I cinched down my Pro-glide sutures sequentially. Hemostasis was noted and therefore the wire was withdrawn and the suture strands were tightened with a knot pusher. The knots were then locked. The suture
strands were cut. Hemostasis was fully achieved and there was an excellent femoral pulse in the groin. Next on the left side, I exchanged out my lizama's the catheter over a Storq wire. I then used a 6 Serbian Angio-Seal to seal the common
femoral artery. Full hemostasis was noted and there is a good pulsation in the common femoral artery. At this point is very satisfied. The small right-sided incision was closed with interrupted 4-0 Monocryl suture. Dermabond was applied.
Dressings were applied to the left sided puncture site. The patient tolerated the procedure well. Upon completion it easily palpable bilateral PT pulses.
[2024-03-07 13:46] LABS: Hematocrit 23.3 % (39.0-52.0); Hemoglobin 8.2 g/dL (13.0-18.0)
[2024-03-07 13:57] LABS: Blood Urea Nitrogen 52 mg/dl (9-20); Calcium 8.5 mg/dl (8.4-10.2); Carbon Dioxide 20 mmol/L (22-30); Chloride 102 mmol/L (98-107); Estimated Creatinine Clearance 21 ml/min; Glucose 195 mg/dl (70-99); Potassium 4.6 mmol/L (3.5-5.1); Sodium 134 mmol/L (135-145); eGFR 22.29
[2024-03-07] MEDS: APRESOLINE 10 MG PO ×2 (14:07→21:24)
--- NOTE | 2024-03-07 14:18 | PTCARENOTE ---
A-line Dc'd. SBP 160-170's, PO Hydralazine given. Daughter at bedside, updated.
[2024-03-07] MEDS: COREG 6.25 MG PO (19:53)
[2024-03-07 20:09] LABS: Hematocrit 21.4 % (39.0-52.0); Hemoglobin 7.5 g/dL (13.0-18.0)
--- NOTE | 2024-03-07 21:00 | PTCARENOTE ---
Received pt resting comfortably in bed. AAOx3. Lungs clear on RA. HR 70s SR. + BS. Some swelling noted to RLQ - soft. Pt c/o minor pain w/ movement - not requiring medication. L groin site dressing CDI. R groin site approx w/ glue CDI. + DP and PT
pulses. Kraft in place draining yellow urine w/ sediment. IVF infusing.
[2024-03-08] VITALS (26 sets, daily range): BP systolic 124–193; BP diastolic 68–107; BMI 22.8
[2024-03-08] MEDS: NSS 1000 IV (00:07)
--- NOTE | 2024-03-08 00:28 | PTCARENOTE ---
Pt w/ + pulses. Sites CDI. Pt becoming mildly irritable with frequency of neurovascular checks.
[2024-03-08 01:30] LABS: Hemoglobin 7.3 g/dL (13.0-18.0); Mean Corp Hgb Conc. 35.3 g/dL (33.0-37.0); Mean Corpuscular Hgb 29.4 pg (27.0-31.0); Mean Corpuscular Volume 83.5 fL (80.0-94.0); Mean Platelet Volume 10.9 fL (7.4-10.4); Platelet Count 126 10^3/uL (130-400); Red Blood Cell Count 2.48 10^6/uL (4.70-6.10); Red Cell Dist. Width 13.7 % (11.5-14.5); White Blood Cell Count 11.4 10^3/uL (4.8-10.8)
[2024-03-08 01:36] LABS: Hematocrit 20.7 % (39.0-52.0)
[2024-03-08 01:45] LABS: ALT (SGPT) 12 U/L (0-50); AST (SGOT) 28 U/L (17-59); Albumin 3.3 g/dl (3.5-5.0); Alkaline Phosphatase 64 U/L (38-126); Blood Urea Nitrogen 51 mg/dl (9-20); Calcium 8.5 mg/dl (8.4-10.2); Carbon Dioxide 20 mmol/L (22-30); Chloride 107 mmol/L (98-107); Estimated Creatinine Clearance 21 ml/min; Glucose 111 mg/dl (70-99); Magnesium 2.1 mg/dl (1.6-2.3); Potassium 4.4 mmol/L (3.5-5.1); Sodium 135 mmol/L (135-145); Total Bilirubin 0.5 mg/dl (0.2-1.3)
--- NOTE | 2024-03-08 01:45 | PTCARENOTE ---
Reported hgb/hct to [employer].
--- NOTE | 2024-03-08 02:48 | PTCARENOTE ---
Relayed hgb/hct results to Dr. Regalado. He advised to give 1 unit PRBC. Pt already has an active order and consent. Will give 1 unit of PRBCs.
[2024-03-08] MEDS: APRESOLINE 10 MG IV (05:18)
--- NOTE | 2024-03-08 05:24 | PTCARENOTE ---
Pt very irritable w/ any care. BP 193/107. Pt c/o LLE cramp. Would not let me evaluate - Stated 'I get these sometimes, there is nothing you will see'. + DP/PT pulses.
--- NOTE | 2024-03-08 07:00 | W.PN.VS ---
Today's Communication / Plan
-
see plan below for today 03/08/24.
Assessment/Plan
-
Postoperative day #2 status post endovascular repair of ruptured right internal iliac artery aneurysm.
� Give second unit of PRBC (hgb trended down to 7.2). May be somewhat dilutional with IV fluids - but he could slowly ooze in pelvis as well (aneurysm coil embolized and excluded but small retrograde branches could persistently ooze).
-cont ICU monitoring
-renal function stable. Creat 3.0. Likely d/c salas tomorrow (or today if ok w nephrology). IVF per nephrology.
-OOB to chair.
-
Total Time Spent with Patient (in minutes): 15
Subjective Data
-
Date of Service: March 08, 2024
Patient without sig c/o this AM. No abd pain.
Objective Data
-
Vital Signs
Temp Pulse Resp BP Pulse Ox
98.5 F 69 18 146/82 95
03/08/24 05:07 03/08/24 06:30 03/08/24 06:30 03/08/24 06:00 03/08/24 06:30
Intake and Output
03/07/24 03/08/24 03/09/24
06:59 06:59 06:59
Intake Total 700 / 825 3115.0 / 3115.0
Output Total 450 / 450 900 / 900
Balance 250 / 375 2215.0 / 2215.0
Intake:
Oral fluids 240 / 240
IV fluids (Total) 700 / 825 2375.0 / 2375.0
Cardene 100 / 125 75.0 / 75.0
Normosol 200 / 200
Nss 1,000 ml @ 100 mls/hr IV . 400 / 500 2300 / 2300
Q10H MARIAH Rx#:[id number]
Blood Products 250 / 250
Packed red blood cells 250 / 250
Blood Product Amount Infused ( 250 / 250
mL)
Packed Rbc Leukoreduced Unit 250 / 250
[id number]
Output:
Urine, Salas 450 / 450 900 / 900
Lab Results
03/08/24 01:12
Calcium 8.5 mg/dl (8.4-10.2) 03/08/24 01:12
Magnesium 2.1 mg/dl (1.6-2.3) 03/08/24 01:12
Total Bilirubin 0.5 mg/dl (0.2-1.3) 03/08/24 01:12
AST 28 U/L (17-59) 03/08/24 01:12
ALT 12 U/L (0-50) 03/08/24 01:12
Alkaline Phosphatase 64 U/L (38-126) 03/08/24 01:12
Total Protein 6.0 g/dl (6.3-8.2) L 03/08/24 01:12
Albumin 3.3 g/dl (3.5-5.0) L 03/08/24 01:12
Physical Exam
-
Afebrile.
UOP 800 cc overnight
Awake, alert
Abd soft, mild distended/full still. Non tender.
Groins flat b/l. R inc c/d/i. L puncture site flat.
Feet warm, palp PT pulses b/l.
Hgb as noted down to 7.2, one unit transfused after that.
[2024-03-08] MEDS: FOLVITE 1 MG PO (08:04)
[2024-03-08] MEDS: APRESOLINE 25 MG PO ×3 (08:04→22:01)
[2024-03-08] MEDS: COREG 6.25 MG PO ×2 (08:04→20:05)
[2024-03-08] MEDS: NSS (PRESERVATIVE FREE) 10 ML IV (08:04)
[2024-03-08] MEDS: THIAMINE INJECTION 200 MG IV ×2 (08:05→20:06)
[2024-03-08] MEDS: PROTONIX IV 40 MG IV (08:05)
--- NOTE | 2024-03-08 09:21 | W.PN.HOSP.TC ---
Today's Communication/Plan
-
transfuse as needed
further care per vascular
will sign off, call with questions
Assessment / Plan
Assessment / Plan
pt is a 74 year old male
Acute Right Internal Iliac Artery Aneurysm Rupture with Intra-Abdominal Hematoma--Patient taken emergently to the OR for Vascular Surgery/repair of ruptured aneurysm--apprec vascular input--follow H&H, transfuse as needed-- control BP--further care
per vascular surgery
Acute Blood Loss Anemia due to ruptured iliac artery aneurysm--trend H&H and transfuse as needed--Hold antiplatelets acutely, but would resume low-dose ASA when OK with Vascular Surgery.
ADAN due to Obstructive Uropathy secondary to abdominal hematoma--await labs--CT shows R ureteral compression/obstruction secondary to hematoma--If obstruction persists, would need IR for perc nephrostomy placement--IVF support, avoid nephrotoxic
agents as able, avoid hypotension-- Risk for secondary kidney injury as well given CTA, endovascular procedure, etc--consider renal consult if no improvement
ASCVD--Stable--History of PTCA with 5 coronary stents--Currently on only ASA 81mg and atorvastatin as an outpatient.
Essential Hypertension with Chronic HFpEF-- no exacerbation--Daughter notes that Imdur and daily Lasix (20mg) were discontinued mid-January--Follow I/Os, daily weights, etc.
Alcohol Use Disorder--Daily alcohol intake per family--Monitor MSAS and treat with BZDs PRN for any withdrawal symptom--Monitor labs / lytes and replace or replete as needed.
DVT Prophylaxis: SCDs
Code Status: Full
will sign off
Anticipated Discharge: > 48 hours
Subjective/Interval History
-
Date of Service: March 08, 2024
pt without c/o
Objective Data
-
Labs:
Laboratory Results
03/08/24 03/08/24 03/08/24
01:12 07:30 20:00
WBC 11.4 H
Hgb 7.3 L Cancelled Pending
Hct 20.7 L* Cancelled Pending
Plt Count 126 L
Sodium 135
Potassium 4.4
Chloride 107
Carbon Dioxide 20 L
BUN 51 H
Creatinine 3.0 H
Glucose 111 H
Calcium 8.5
Total Bilirubin 0.5
AST 28
ALT 12
Alkaline Phosphatase 64
Vital Signs:
max temp for 24 hours
03/08/24
03:17
Temp 98.7 F
Vital Signs
Temp Pulse Resp BP Pulse Ox
98.4 F 77 21 158/87 95
03/08/24 08:23 03/08/24 08:23 03/08/24 08:23 03/08/24 08:23 03/08/24 06:30
I&O
03/07/24 03/08/24 03/09/24
06:59 06:59 06:59
Intake Total 700 / 825 3115.0 / 3215.0 100 / 100
Output Total 450 / 450 1700 / 1700
Balance 250 / 375 1415.0 / 1515.0 100 / 100
Review of Systems
-
All other systems: Reviewed and negative
Physical Exam
-
General: Well Developed, Well Nourished and No Apparent Distress
HEENT: Normocephalic and Atraumatic
Respiratory: Clear to Auscultation; Negative Wheezes or Rhonchi
Cardiac: Regular Rhythm and S1/S2; Negative Murmur
GI: Soft, Nondistended, Normal Bowel Sounds and Tender (bilateral lower abdomen)
Musculoskeletal: No Clubbing, No Cyanosis and No Edema
Neuro: Awake
--- NOTE | 2024-03-08 09:52 | PTCARENOTE ---
Rec'd pt at 0700. Pt sleeping but easily awakens, pt states that he feels very tired and 'may have been grumpy to the nurse overnight.' Pt pleasant and cooperative at this time. Monitor SR. Lungs CTA, pox 97% RA. +BS, abd soft with unchanged swollen
RLQ. Pt denies any pain. Right groin with surgical adhesive in place, left groin dressing C/D/I. +palpable DP/PT pulses. 1 unit PRBC transfusing at this time. Pt resting comfortably.
--- NOTE | 2024-03-08 10:22 | W.PN.INTV ---
Today's Communication / Plan
Recommendations
Continue gentle IV fluids
Transfusion today
Antihypertensive
Follow H&H
Follow renal function
Assessment
-
74-year-old man with past medical history significant for coronary artery disease, came to the emergency room complaining of abdominal pain. Prior to admission did not feel well for the last 3 to 4 days. Then developed severe lower abdominal pain.
He was found to have a rupture right internal iliac aneurysm. Also found to have acute kidney injury
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
Status post:Endovascular repair ruptured R internal iliac artery aneurysm with coil embolization and placement of external iliac artery stent graft (overlapping x 2) with [place] Excluder iliac limbs x 2. Percutaneous R femoral artery closure 03/06/2024
Acute blood loss anemia
Acute kidney injury-obstructive uropathy secondary to abdominal hematoma
CT abdomen pelvis reviewed: Large retroperitoneal hematoma compressing the ureter in the right with hydronephrosis
Non-anion gap metabolic acidosis secondary to renal dysfunction
Conditions present prior admission:
Coronary artery disease status post coronary stents in the past
Hypertension
Daily alcohol use
Hypertension
Chronic heart failure with preserved ejection fraction
Assessment and plan:
Postoperative day 1
Hemodynamically stable
Pain is controlled, inguinal incision without hematoma.
Peripheral pulses present.
Vascular surgery following-correspondence reviewed
Continue with neurovascular checks
Analgesia with narcotics, watch respiratory status closely.
-
Hemodynamic monitoring
Patient antihypertensive-Started on carvedilol and hydralazine
-
Acute blood loss anemia: Transfusion today. Second unit
Follow H&H
Benign abdominal exam
Continue to monitor closely
-
Acute kidney injury: Obstructive uropathy from hematoma.
At risk for contrast-induced nephropathy as well
Follow BMP, electrolytes, urinary output. Kraft with clear urine-nonoliguric
Creatinine and BUN is stable.
Acidosis is stable
Hopefully improves as the hematoma has stabilized.
Continue IV hydration
Encourage oral intake
Nephrology following the patient.
-
Daily alcohol use: Monitor for alcohol withdrawal.
MSAS protocol
-
Regular diet with aspiration precautions
-
DVT prophylaxis with SCDs
-
Continue ICU monitoring for additional 24 hours.
If stable tomorrow transfer to [facility].
Subjective Dataa
Subjective Data
Date of Service:
Date of Service: March 08, 2024
Chief Complaint: Dough Raiser Follow Up (Acute right internal iliac artery aneurysm rupture status post repair/intra-abdominal hematoma.)
Subjective:
Patient denies nausea, vomiting or abdominal pain
Tolerating diet
Denies shortness of breath at rest
Review of Systems
General: Fever (n)
Cardiopulmonary: Dyspnea (none at rest), Cough (n) and Sputum Production (n)
GI: Abdominal Pain (n) and Nausea (n)
Objective Data
Data Reviewed
Vital Signs / I&O / Oxygen:
Vital Signs
Temp Pulse Resp BP Pulse Ox
98.4 F 69 20 149/84 95
03/08/24 08:23 03/08/24 09:45 03/08/24 09:45 03/08/24 09:00 03/08/24 09:45
Intake and Output
03/07/24 03/08/24 03/09/24
06:59 06:59 06:59
Intake Total 700 / 825 3115.0 / 3215.0 100 / 100
Output Total 450 / 450 1700 / 1700
Balance 250 / 375 1415.0 / 1515.0 100 / 100
SaO2 95
Nasal Cannula flow liters per 2
minute
Physical Exam
General: Respiratory Distress (n)
HEENT: Normocephalic
Cardiovascular: S1-S2
Respiratory: Clear and Non-Labored Respirations
GI: Soft and Non Distended
Neurology: Awake, Alert and AO x 3
Skin: Warm
Labs/Micro/Reports
Lab Data
03/08/24 01:12
--- NOTE | 2024-03-08 12:14 | W.PN.NEPH.PH ---
Today's Communication / Plan
-
wean off IVF
monitor labs and BPs
Assessment/Plan
-
IMP:
Acute Right Internal Iliac Artery Aneurysm Rupture
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
Intra-Abdominal Hematoma secondary to the above
Acute Blood Loss Anemia secondary to the above
ADAN with CKD [id number] -baseline cr 2-2.5 in ECW
Obstructive Uropathy secondary to abdominal hematoma
Non gap met acidosis
ASCVD-History of PTCA with 5 coronary stents.
Benign Hypertension
Chronic HFpEF
Alcohol Use Disorder
h/o hyperkalemia
HYpoantremia
PLan:
A/w abd pain, found ruptured R iliac art aneurysm s/p repair on 03/06 emergently
ADAN with CKD [id number] from extrinsic obst from above, hydro Rt>left noted on CT
expect to improve now that compression relieved on distal ureter, however has contrast exposure on 03/06
UA with microhematuria, no prior baseline UA
keep salas, non oliguric, may need to check imaging for hdyro in next few days
cr up at 3 seem non oliguric
monitor hb post transfusion
BP are high started coreg and hydralazine 03/07
vol status stable
wean off IVF today
labs in am
d/w nursing
-
-
Date of Service: March 08, 2024
CC / HPI / ROS
-
Chief Complaint:
ADAN, with CKD 3b
History of Present Illness:
cr up at 3, non oliguric with salas
BP better with meds this am
hb low 7.3, for PRBC
wt increasing
Review of Systems:
no cp or sob
feels well but tired
Labs
-
Labs:
WBC 11.4 10^3/uL (4.8-10.8) H 03/08/24 01:12
RBC 2.48 10^6/uL (4.70-6.10) L 03/08/24 01:12
Plt Count 126 10^3/uL (130-400) L 03/08/24 01:12
Sodium 135 mmol/L (135-145) 03/08/24 01:12
Potassium 4.4 mmol/L (3.5-5.1) 03/08/24 01:12
Chloride 107 mmol/L (98-107) 03/08/24 01:12
Carbon Dioxide 20 mmol/L (22-30) L 03/08/24 01:12
BUN 51 mg/dl (9-20) H 03/08/24 01:12
Creatinine 3.0 mg/dL (0.7-1.3) H 03/08/24 01:12
eGFR 21.40 03/08/24 01:12
Glucose 111 mg/dl (70-99) H 03/08/24 01:12
Calcium 8.5 mg/dl (8.4-10.2) 03/08/24 01:12
Albumin 3.3 g/dl (3.5-5.0) L 03/08/24 01:12
Physical Exam
-
Vital Signs:
Vital Signs
Temp Pulse Resp BP Pulse Ox
99.4 F 75 22 157/89 95
03/08/24 11:19 03/08/24 10:43 03/08/24 10:43 03/08/24 10:43 03/08/24 09:45
Cardiovascular:: Regular rate and rhythm
Respiratory:: Bilateral: CTA
Lung Excursion:: Normal
Abdomen:: Distended, Nontender and Soft
Extremity Edema:: None: Bilateral:
Salas Catheter: Yes
[2024-03-08] MEDS: NSS IV (12:44)
[2024-03-08] MEDS: TUMS 2 TABLET PO (13:13)
--- NOTE | 2024-03-08 16:17 | PTCARENOTE ---
Pt back to bed at this time. Family at bedside.
[2024-03-08] MEDS: ZOFRAN 4 MG IV (17:06)
--- NOTE | 2024-03-08 20:14 | PTCARENOTE ---
Assumed care of pt at 1900. Pt is A/O x4, pleasant and cooperative with care. No c/o pain. Neurovascular checks done, WNL, see flowsheet. SR 70s-80s on monitor, SpO2 97% on RA. Pt resting in bed watching TV, demonstrates ability to turn himself in
bed. See nursing shift assessment flowsheet for full physical assessment details. H&H drawn and pending.
[2024-03-08 20:36] LABS: Hematocrit 27.1 % (39.0-52.0)
[2024-03-08 20:38] LABS: Hemoglobin 9.5 g/dL (13.0-18.0)
[2024-03-09] VITALS (22 sets, daily range): BP systolic 58–174; BP diastolic 56–106; BMI 21.9
--- NOTE | 2024-03-09 00:10 | PTCARENOTE ---
Physical and neurovascular assessments unchanged. No c/o pain. Pt has been resting with eyes closed. SR 70s-80s on monitor, SpO2 94-95% on RA.
--- NOTE | 2024-03-09 04:30 | PTCARENOTE ---
Physical and neurovascular assessments unchanged. Pt has been asleep most of the shift. No c/o pain. SR 70s on monitor.
[2024-03-09 04:57] LABS: Hematocrit 26.1 % (39.0-52.0); Hemoglobin 8.8 g/dL (13.0-18.0); Mean Corp Hgb Conc. 33.7 g/dL (33.0-37.0); Mean Corpuscular Volume 86.1 fL (80.0-94.0); Mean Platelet Volume 10.8 fL (7.4-10.4); Platelet Count 113 10^3/uL (130-400); Red Blood Cell Count 3.03 10^6/uL (4.70-6.10); Red Cell Dist. Width 14.3 % (11.5-14.5); White Blood Cell Count 10.2 10^3/uL (4.8-10.8)
[2024-03-09 05:27] LABS: Blood Urea Nitrogen 45 mg/dl (9-20); Calcium 8.4 mg/dl (8.4-10.2); Carbon Dioxide 23 mmol/L (22-30); Chloride 106 mmol/L (98-107); Estimated Creatinine Clearance 22 ml/min; Glucose 103 mg/dl (70-99); Potassium 4.6 mmol/L (3.5-5.1); Sodium 136 mmol/L (135-145); eGFR 22.29
--- NOTE | 2024-03-09 07:20 | W.PN.INTV ---
Today's Communication / Plan
Recommendations
PSA injection per IR
Follow hemoglobin, platelets
Maintain Kraft catheter
Follow-up for bowel movement
Maintain in ICU for now
Assessment
-
74-year-old man with past medical history significant for coronary artery disease, came to the emergency room complaining of abdominal pain. Prior to admission did not feel well for the last 3 to 4 days. Then developed severe lower abdominal pain.
He was found to have a rupture right internal iliac aneurysm. Also found to have acute kidney injury
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
Status post:Endovascular repair ruptured R internal iliac artery aneurysm with coil embolization and placement of external iliac artery stent graft (overlapping x 2) with [place] Excluder iliac limbs x 2. Percutaneous R femoral artery closure 03/06/2024
Lleft groin pseudoaneurysm per ultrasound on 03/09
Acute blood loss anemia
Acute kidney injury-obstructive uropathy secondary to abdominal hematoma
CT abdomen pelvis reviewed: Large retroperitoneal hematoma compressing the ureter in the right with hydronephrosis
Non-anion gap metabolic acidosis secondary to renal dysfunction
Conditions present prior admission:
Coronary artery disease status post coronary stents in the past
Hypertension
Daily alcohol use
Hypertension
Chronic heart failure with preserved ejection fraction
Assessment and plan:
At this time, patient appears to be comfortable. Findings with left groin noted, pseudoaneurysm confirmed per ultrasound
Status post thrombin injection per IR
Distal pulses intact, no leg pain
Moving forward
Continue with management per vascular
Repeat ultrasound 03/10, higher correspondence reviewed
Follow platelets, follow hemoglobin
Repeat CBC later p.m.
Urine output noted, creatinine 2.9.
Admission creatinine 3.1. Patient denies any prior history of kidney disease
Urine output 1700 cc over the last 24 hours
Obstructive uropathy from hematoma suggested
Continue IV fluids
Maintain Kraft catheter for now
Follow blood pressure
Hydralazine, labetalol as needed
Coreg and hydralazine started per nephrology
Patient not on any outpatient antihypertensive therapy
Alcohol use noted
Continue with MSAS protocol, NIH 0
Regular diet with aspiration precautions
DVT prophylaxis with SCDs. Bedrest for 3 hours post PSA injection with thrombin
GI prophylaxis: Not indicated
Continue ICU monitoring for additional 24 hours.
If stable tomorrow transfer to [facility].
Reviewed with critical care nursing, respiratory care, pharmacy
Reviewed with vascular team
Subjective Dataa
Subjective Data
Date of Service:
Date of Service: March 09, 2024
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
Subjective:
Patient is without complaints. Denies shortness of breath, chest pain, nausea, abdominal pain. Has yet to move bowels. Has some mild left groin pain, denies leg pain
Objective Data
Data Reviewed
Vital Signs / I&O / Oxygen:
Vital Signs
Temp Pulse Resp BP Pulse Ox
99.1 F 66 21 154/73 94
03/09/24 03:47 03/09/24 06:00 03/09/24 06:00 03/09/24 06:00 03/09/24 06:00
Intake and Output
03/08/24 03/09/24 03/10/24
06:59 06:59 06:59
Intake Total 3115.0 / 3455.0 1550 / 1550
Output Total 1700 / 1700 1725 / 1725
Balance 1415.0 / 1755.0 -175 / -175
SaO2 94
Nasal Cannula flow liters per 2
minute
Physical Exam
General: Comfortable
HEENT: Normocephalic and Anicteric
Cardiovascular: S1-S2, Regular Rhythm, Murmur (n), Rub (n), Peripheral Edema (n), Other (Sequentials in place) and Other (Right groin incision intact. Left groin dressed, fullness pulsatile abnormality noted. Mild tender)
Respiratory: Clear, Wheeze (n), Crackles (n), Rhonchi (n) and Non-Labored Respirations
GI: Soft, Distended (Slightly distended) and Non Tender
Neurology: Awake, Alert and No Motor Deficits (Moves all extremities)
Skin: Warm, Cyanosis (n), Jaundice (n) and Rash (n)
Labs/Micro/Reports
Lab Data
03/09/24 04:32
[2024-03-09] MEDS: NSS (PRESERVATIVE FREE) 10 ML IV (08:30)
[2024-03-09] MEDS: APRESOLINE 25 MG PO ×3 (08:30→22:12)
[2024-03-09] MEDS: THIAMINE INJECTION 200 MG IV ×2 (08:31→20:29)
[2024-03-09] MEDS: PROTONIX IV 40 MG IV (08:31)
[2024-03-09] MEDS: COREG 6.25 MG PO ×2 (08:31→20:29)
[2024-03-09] MEDS: FOLVITE PO (08:32)
[2024-03-09 09:03] LABS: Hematocrit 26.1 % (39.0-52.0); Hemoglobin 8.8 g/dL (13.0-18.0)
--- NOTE | 2024-03-09 09:11 | W.PN.VS ---
Addendum entered and electronically signed by Enrrique Salas III, MD 03/09/24 13:22:
This patient was seen and examined with DORIAN Paige and DORIAN Chatman. I agree with the history and physical exam as well as the assessment and plan. I have the following additions:
Weekend events noted
Imaging reviewed
Clinically doing well this morning
Abdomen soft
Left groin pseudoaneurysm palpable on physical exam
Left femoral pseudoaneurysm successfully injected by interventional radiology this morning
Reconsult medicine for assistance with hypertensive regimen
Noncompliant patient
Monitor hemoglobin trend
Monitor creatinine and urine output
Signed:
Enrrique Salas III, MD
[facility]
[phone] (mciw)
Original Note:
Today's Communication / Plan
-
See below.
Assessment/Plan
-
Postoperative day #3 status post endovascular repair of ruptured right internal iliac artery aneurysm.
�Stat left femoral groin ultrasound preformed determined presence of pseudoaneurysm, NPO
- Consult to IR for thrombin injection of left femoral pseudoaneurysm
-cont ICU monitoring
-renal function stable. Creat 2.9 IVF and salas management per nephrology.
-Bedrest until IR
Subjective Data
-
Date of Service: March 09, 2024
Patient seen and examined at bedside, reports improvement in ABD pain and nausea. Denies fever, chills, and chest pain.
Objective Data
-
Vital Signs
Temp Pulse Resp BP Pulse Ox
98.6 F 61 19 166/80 96
03/09/24 07:37 03/09/24 08:31 03/09/24 08:00 03/09/24 08:31 03/09/24 08:00
Intake and Output
03/08/24 03/09/24 03/10/24
06:59 06:59 06:59
Intake Total 3115.0 / 3455.0 1550 / 1550
Output Total 1700 / 1700 1725 / 1725
Balance 1415.0 / 1755.0 -175 / -175
Intake:
Oral fluids 240 / 480 1200 / 1200
IV fluids (Total) 2375.0 / 2475.0 100 / 100
Cardene 75.0 / 75.0
Nss 1,000 ml @ 100 mls/hr IV . 2300 / 2400 100 / 100
Q10H MARIAH Rx#:[id number]
Blood Products 250 / 250
Packed red blood cells 250 / 250
Blood Product Amount Infused ( 250 / 250 250 / 250
mL)
Packed Rbc Leukoreduced Unit 250 / 250
[id number]
Packed Rbc Leukoreduced Unit 250 / 250
[id number]
Output:
Urine, Salas 1700 / 1700 1725 / 1725
Lab Results
03/09/24 04:32
Calcium 8.4 mg/dl (8.4-10.2) 03/09/24 04:32
Magnesium 2.1 mg/dl (1.6-2.3) 03/08/24 01:12
Total Bilirubin 0.5 mg/dl (0.2-1.3) 03/08/24 01:12
AST 28 U/L (17-59) 03/08/24 01:12
ALT 12 U/L (0-50) 03/08/24 01:12
Alkaline Phosphatase 64 U/L (38-126) 03/08/24 01:12
Total Protein 6.0 g/dl (6.3-8.2) L 03/08/24 01:12
Albumin 3.3 g/dl (3.5-5.0) L 03/08/24 01:12
Physical Exam
-
Afebrile.
Awake, alert
Abd soft, non-distended, non-tender
Right groin CDI, exofin covering CDI, all surrounding compartments soft, left groin with pulsatile small mass noted medial to puncture site.
Feet warm, palp PT pulses b/l.
--- NOTE | 2024-03-09 10:15 | CM ---
CM following re: discharge planning.
Discussed in Rounds, reviewed pt's chart, met with pt.
Pt is a 74 year old male, admitted with primary dx of POD #2 status post endovascular repair of ruptured right internal iliac artery aneurysm.
Pt reports he lives with daughter and her family in a 2SH, 3 steps to enter, has 3 supportive children. Pt decried himself as independent in al areas [employer]. No DME, VN or SNF history.
CM consult to assist pt with substance abuse treatment resources noted. Pt declined having drinking problem. Pt stated he has one or two beers daily and does not see it as a problem. Pt declined [facility] referral, accepted [facility] brochure.
PCP: Bo Kinney
Pharmacy: [facility].
D/C plan: home with anticipated no needs. family to transport at discharge.
CM will follow with discharge plan updates as hospitalization progresses
--- NOTE | 2024-03-09 10:36 | CON.VAS ---
Consultation
Consultation Request
Performing Provider: Fabricio
Reason for Consultation: Iliac aneurysm
Medical History
-
Chief Complaint: Abd pain
History of Present Illness:
Seen and examined in preop area by Dr Regalado. Discussed with the emergency room on my way to the hospital emergently. Briefly 74-year-old male with no prior knowledge of aneurysmal history. Presented with acute onset of lower abdominal pain.
Significant pain noted. Was having urinary retention today as well. Kraft catheter was inserted due to bladder findings on ultrasound in ER. Noncontrast CAT scan was concerning for internal iliac artery aneurysm and rupture. CT angiogram quickly
ordered as per my request. Completed and reviewed by me. On exam/patient is awake and alert. He is moderately uncomfortable. His hemodynamics are reasonable as noted in the charting. His abdomen is soft. He is tender diffusely in the lower
quadrant specially on the right side. His feet are warm with palpable pedal pulses.
CT angiogram reviewed. Large likely saccular/plaque rupture related internal iliac artery aneurysm. Measures 8.5 x 7.7 cm. Heavily calcified vessels.
It is noted from prior charting that pt has been prescribed plavix s/p recent coronary stenting that he is not taking. Four BP medications that he also stopped taking and lasix. He DC'd these medications omn his out as an outpatient. His most recent
hospitalization was in December at [facility] where he had coronary stenting and CHF management.
Past Medical History
Past Medical History: CAD, CHF (recent hospitalization), HTN, Hypercholesterolemia, PA and Renal Failure (stage 3)
Past Surgical History: Cardiac (stentingx5 this nov/dec)
Social History
Alcohol: Daily
Living: Alone
Family History
Family History: Reviewed & Not Pertinent
Allergies / Home Medications
Allergy/AdvReac Type Severity Reaction Status Date / Time
No Known Allergies Allergy Unverified 03/06/24 19:34
�Medication �Instructions �Recorded �Confirmed �Type
aspirin 81 mg tablet,delayed 81 mg PO DAILY Blood Clot 03/06/24 03/06/24 History
release Prevention/Tx
atorvastatin 80 mg tablet (Lipitor) 80 mg PO DAILY High Cholesterol 03/06/24 03/06/24 History
Review of Systems
-
History Source: Patient
All other systems: Negative unless noted
Constitutional: Reports No Symptoms
EENT: Reports No Symptoms
Respiratory: Reports No Symptoms
Cardiac: Reports No Symptoms
Vascular: Denies Leg Pain / Claudication
Abdomen/GI: Reports Pain
: Reports No Symptoms
Musculoskeletal: Reports No Symptoms
Skin: Reports No Symptoms
Neurological: Reports No Symptoms
Endocrine: Reports No Symptoms
Physical Exam
Vital Signs
Temp Pulse Resp BP Pulse Ox
98.6 F 61 20 158/88 97
03/09/24 07:37 03/09/24 10:06 03/09/24 10:06 03/09/24 10:06 03/09/24 10:06
Lab Results
03/09/24 04:32
Physical Exam
General: No Apparent Distress
HEENT: Normocephalic and Atraumatic
Respiratory: Non Labored Respirations
Cardiac: Negative JVD
Breast: Deferred by me
GI: Other (tender diffusely in the lower quadrant specially on the right side)
Musculoskeletal: No Clubbing and No Cyanosis
Skin: Warm
Psych: Calm
Pulses: Bilateral Dorsalis Pedis: +2
Assessment / Plan
-
Plan/ Emergent OR for emergent endovascular (possible open) repair of ruptured internal iliac artery aneurysm (right). Discussed with patient. Plan for likely coil embolization and stent graft exclusion. Discussed with patient possible need for
staged abdominal exploration or washout/decompression of hematoma if needed. Discussed emergent nature. Patient understands all wishes to proceed.
--- NOTE | 2024-03-09 11:03 | PTCARENOTE ---
Updated assessment, vital signs ongoing and as documented. Follow up at bedside this am vascular team at bedside, stat ultrasound too evaluate left groin. Follow up plan patient to IR. Quahogger team in and out at bedside with patient this am.
Patient presently in IR now. Will follow up with vascular team. Repeat labs as ordered with follow up. Continue assessment trends, vascular follow up.
--- NOTE | 2024-03-09 11:37 | W.PN.UPDATE ---
Update Note
Progress Note Update
- s/p left groin US guided thrombin injection
- approx 200 units of thrombin injected into PSA with adjunctive us guided compression of the sac. Post images showed no further flow within the psa.
- rec bed rest for next 3 hours.
- recheck left groin ultrasound tomorrow.
--- NOTE | 2024-03-09 12:23 | PTCARENOTE ---
Continue follow up vascular checks, site checks and trends. Patient states he's feeling good. No chief complaints to offer. Follow up flat for 3hours, leg straight, review follow up plan with patient, and patient verbalized. Continue follow up vs,
vascular trends and assessment update.
[2024-03-09] MEDS: TYLENOL 650 MG PO (15:29)
--- NOTE | 2024-03-09 15:39 | W.PN.NEPH.PH ---
Today's Communication / Plan
-
- Cr stable, CTM
- plan for repeat imaging in a few days if Cr does not continue to improve
Assessment/Plan
-
IMP:
Acute Right Internal Iliac Artery Aneurysm Rupture
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
Intra-Abdominal Hematoma secondary to the above
Acute Blood Loss Anemia secondary to the above
ADAN with CKD [id number] -baseline cr 2-2.5 in ECW
Obstructive Uropathy secondary to abdominal hematoma
Non gap met acidosis
ASCVD-History of PTCA with 5 coronary stents.
Benign Hypertension
Chronic HFpEF
Alcohol Use Disorder
h/o hyperkalemia
HYpoantremia
PLan:
A/w abd pain, found ruptured R iliac art aneurysm s/p repair on 03/06 emergently. now s/p PSA injection per IR
ADAN with CKD [id number] from extrinsic obst from above, hydro Rt>left noted on CT
expect to improve now that compression relieved on distal ureter, however has contrast exposure on 03/06
UA with microhematuria, no prior baseline UA
keep salas, non oliguric, may need to check imaging for hdyro in next few days
cr up at 2.9 seem non oliguric
monitor hb post transfusion
BP are high started coreg and hydralazine 03/07
vol status stable
d/w pt
-
-
Date of Service: March 09, 2024
CC / HPI / ROS
-
Chief Complaint:
ADAN, with CKD 3b
History of Present Illness:
cr up at 2.9, non oliguric with salas
BP better with meds
Hgb 8.8
wt increasing
Review of Systems:
no cp or sob
feels well but tired
Labs
-
Labs:
WBC 10.2 10^3/uL (4.8-10.8) 03/09/24 04:35
RBC 3.03 10^6/uL (4.70-6.10) L 03/09/24 04:35
Plt Count 113 10^3/uL (130-400) L 03/09/24 04:35
Sodium 136 mmol/L (135-145) 03/09/24 04:32
Potassium 4.6 mmol/L (3.5-5.1) 03/09/24 04:32
Chloride 106 mmol/L (98-107) 03/09/24 04:32
Carbon Dioxide 23 mmol/L (22-30) 03/09/24 04:32
BUN 45 mg/dl (9-20) H 03/09/24 04:32
Creatinine 2.9 mg/dL (0.7-1.3) H 03/09/24 04:32
eGFR 22.29 03/09/24 04:32
Glucose 103 mg/dl (70-99) H 03/09/24 04:32
Calcium 8.4 mg/dl (8.4-10.2) 03/09/24 04:32
Albumin 3.3 g/dl (3.5-5.0) L 03/08/24 01:12
Physical Exam
-
Vital Signs:
Vital Signs
Temp Pulse Resp BP Pulse Ox
98.4 F 69 16 155/79 98
03/09/24 15:00 03/09/24 15:29 03/09/24 15:00 03/09/24 15:29 03/09/24 15:00
Cardiovascular:: Regular rate and rhythm
Respiratory:: Bilateral: Coarse
Lung Excursion:: Normal
Abdomen:: Distended and Tender
Bowel Sounds:: Normal
Extremity Edema:: None: Bilateral:
Salas Catheter: Yes
--- NOTE | 2024-03-09 16:06 | PTCARENOTE ---
No noted assessment changes. Vascular sites to b/l groins intact. Head of bed elevated by RN. Patient denies pain or discomfort some tenderness at left groin site. Band-aid intact. Vascular checks unchanged noted palpable flow reconfirmed with
biphasic Doppler flow tones. Continue follow up assessment and vital signs trends.
[2024-03-09 19:09] LABS: Hepatitis C Antibody Negative (Negative)
--- NOTE | 2024-03-09 20:00 | PTCARENOTE ---
Received pt. at 1900. Pt. alert and oriented. No complaints of pain or discomfort at this time. Heart rhythm normal sinus. Blood pressure normotensive. Both groin sites intact, no hematoma noted, pt. denies tenderness. Currently on room air. Lungs
sound clear. Pt. on a regular diet. Kraft catheter in place, draining without issue. Skin as documented. Discussed plan of care. Vital signs stable at this time.
[2024-03-09] MEDS: HEPARIN 5000 UNITS SC (20:29)
[2024-03-09 21:05] LABS: Hematocrit 29.1 % (39.0-52.0); Hemoglobin 9.9 g/dL (13.0-18.0)
[2024-03-10] VITALS (17 sets, daily range): BP systolic 141–180; BP diastolic 73–104; BMI 23.2
--- NOTE | 2024-03-10 00:10 | PTCARENOTE ---
Pt. assessment unchanged. Neurovascular checks normal. Groin sites intact. No hematoma noted. Pt. states he has no pain or discomfort. Vital signs stable at this time.
--- NOTE | 2024-03-10 04:00 | PTCARENOTE ---
Pt. assessment remains unchanged. AM labs drawn. Vital signs stable at this time.
[2024-03-10 04:12] LABS: Hematocrit 25.8 % (39.0-52.0); Hemoglobin 8.8 g/dL (13.0-18.0); Mean Corp Hgb Conc. 34.1 g/dL (33.0-37.0); Mean Corpuscular Volume 85.1 fL (80.0-94.0); Mean Platelet Volume 10.9 fL (7.4-10.4); Platelet Count 121 10^3/uL (130-400); Red Blood Cell Count 3.03 10^6/uL (4.70-6.10); Red Cell Dist. Width 14.1 % (11.5-14.5); White Blood Cell Count 9.3 10^3/uL (4.8-10.8)
[2024-03-10 04:35] LABS: Blood Urea Nitrogen 43 mg/dl (9-20); Calcium 8.1 mg/dl (8.4-10.2); Carbon Dioxide 20 mmol/L (22-30); Chloride 109 mmol/L (98-107); Estimated Creatinine Clearance 23 ml/min; Glucose 90 mg/dl (70-99); Potassium 4.4 mmol/L (3.5-5.1); Sodium 134 mmol/L (135-145); eGFR 24.28
[2024-03-10] MEDS: APRESOLINE 10 MG IV (06:09)
[2024-03-10] MEDS: TYLENOL 650 MG PO (06:09)
--- NOTE | 2024-03-10 08:02 | W.PN.INTV ---
Today's Communication / Plan
Recommendations
Follow hemoglobin
Repeat ultrasound with successful thrombin injection of PSA
Increase activity as able per vascular
Kraft catheter remains in place. Follow urine output/creatinine
Defer repeat imaging to nephrology
Advance diet if okay with vascular
Okay for transfer out of ICU if okay with vascular. We will sign off. Please call with questions
Assessment
-
74-year-old man with past medical history significant for coronary artery disease, came to the emergency room complaining of abdominal pain. Prior to admission did not feel well for the last 3 to 4 days. Then developed severe lower abdominal pain.
He was found to have a rupture right internal iliac aneurysm. Also found to have acute kidney injury
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
Status post:Endovascular repair ruptured R internal iliac artery aneurysm with coil embolization and placement of external iliac artery stent graft (overlapping x 2) with [place] Excluder iliac limbs x 2. Percutaneous R femoral artery closure 03/06/2024
Left groin pseudoaneurysm per ultrasound on 03/09
s/p PSA thrombin injection
Acute blood loss anemia
Acute kidney injury-obstructive uropathy secondary to abdominal hematoma
CT abdomen pelvis reviewed: Large retroperitoneal hematoma compressing the ureter in the right with hydronephrosis
Non-anion gap metabolic acidosis secondary to renal dysfunction
Conditions present prior admission:
Coronary artery disease status post coronary stents in the past
Hypertension
Daily alcohol use
Hypertension
Chronic heart failure with preserved ejection fraction
Assessment and plan:
At this time, patient appears to be comfortable. Findings with left groin noted, status post PSA injection with thrombin 03/09
Status post thrombin injection per IR
Distal pulses intact, no leg pain
Repeat ultrasound today with successful thrombosed pseudoaneurysm
Moving forward
Continue with management per vascular
Follow platelets, follow hemoglobin
Urine output noted, creatinine 2.7.
Admission creatinine 3.1. Patient denies any prior history of kidney disease
Urine output adequate
Obstructive uropathy from hematoma suggested
Continue IV fluids
Maintain Kraft catheter for now
Nephrology following. May require repeat imaging
Follow blood pressure
Hydralazine, labetalol as needed
Coreg and hydralazine started per nephrology
Patient not on any outpatient antihypertensive therapy
Alcohol use noted
Continue with MSAS protocol, NIH 0
Regular diet with aspiration precautions
Advance diet as able, pending okay from vascular
DVT prophylaxis with SCDs. Out of bed to chair per vascular
GI prophylaxis: Not indicated
Okay for transfer out of ICU. We will sign off. Please call with questions
Reviewed with critical care nursing, respiratory care, pharmacy
Reviewed with vascular team
Subjective Dataa
Subjective Data
Date of Service:
Date of Service: March 10, 2024
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
Subjective:
Patient is without any complaints. Denies any significant groin pain. He does have some mild abdominal discomfort, denies nausea, shortness of breath, chest pain. Lying flat on room air, conversant
Objective Data
Data Reviewed
Vital Signs / I&O / Oxygen:
Vital Signs
Temp Pulse Resp BP Pulse Ox
98.5 F 71 18 180/95 98
03/10/24 04:00 03/10/24 06:00 03/10/24 06:00 03/10/24 06:09 03/10/24 04:00
Intake and Output
03/09/24 03/10/24 03/11/24
06:59 06:59 06:59
Intake Total 1550 / 1550 920 / 920
Output Total 1725 / 1725 1065 / 1065
Balance -175 / -175 -145 / -145
SaO2 98
Nasal Cannula flow liters per 2
minute
Physical Exam
General: Comfortable
HEENT: Normocephalic and Anicteric
Cardiovascular: S1-S2, Regular Rhythm, Murmur (n), Rub (n), Peripheral Edema (n), Other (Sequentials in place) and Other (Right groin incision intact. Left groin intact, mild induration/fullness, minimal tenderness)
Respiratory: Clear, Wheeze (n), Crackles (n), Rhonchi (n) and Non-Labored Respirations
GI: Soft, Distended (Slightly distended) and Tender (Mild right lower quadrant)
Neurology: Awake, Alert and No Motor Deficits (Moves all extremities)
Skin: Warm, Cyanosis (n), Jaundice (n) and Rash (n)
Labs/Micro/Reports
Lab Data
03/10/24 03:42
03/10/24 03:42
[2024-03-10] MEDS: HEPARIN 5000 UNITS SC ×2 (08:05→20:22)
[2024-03-10] MEDS: NSS (PRESERVATIVE FREE) 10 ML IV (08:05)
[2024-03-10] MEDS: PROTONIX IV 40 MG IV (08:05)
[2024-03-10] MEDS: COREG 6.25 MG PO ×2 (08:05→20:22)
[2024-03-10] MEDS: APRESOLINE 50 MG PO ×3 (08:06→21:33)
[2024-03-10] MEDS: VITAMIN B1 100 MG PO ×2 (08:06→20:22)
[2024-03-10] MEDS: FOLVITE 1 MG PO (08:06)
--- NOTE | 2024-03-10 08:26 | W.PN.HOSP.TC ---
Today's Communication/Plan
-
increased hydralazine
Assessment / Plan
Assessment / Plan
pt is a 74 year old male
Acute Right Internal Iliac Artery Aneurysm Rupture with Intra-Abdominal Hematoma--Patient taken emergently to the OR for Vascular Surgery/repair of ruptured aneurysm, then developed left groin pseudoaneurysm injected by IR--apprec vascular/IR--s/p 2
units pRBC- control BP--further care per vascular surgery
Acute Blood Loss Anemia due to ruptured iliac artery aneurysm--s/p 2 units pRBC--resume low dose asa once cleared by vascular surgery
ADAN due to Obstructive Uropathy secondary to abdominal hematoma---CT shows R ureteral compression/obstruction secondary to hematoma--avoid nephrotoxic agents as able, avoid hypotension-- Risk for secondary kidney injury as well given CTA,
endovascular procedure, etc--renal managing--cont salas
ASCVD--Stable--History of PTCA with 5 coronary stents--Currently on only ASA 81mg and atorvastatin as an outpatient--restart meds as soon as able if cleared by vascular
Essential Hypertension with Chronic HFpEF-- no exacerbation--Daughter notes that Imdur and daily Lasix (20mg) were discontinued mid-January--Follow I/Os, daily weights, etc--increased hydralazine to 50 mg TID (coreg and hydralazine started by renal)
Alcohol Use Disorder--Daily alcohol intake per family--no signs of DTs--Monitor MSAS--Monitor labs/lytes and replace or replete as needed--potassium and magnesium WNL
DVT Prophylaxis: SCDs
Code Status: Full
Anticipated Discharge: > 48 hours
Subjective/Interval History
-
Date of Service: March 10, 2024
asked to come back to see patient for medical management
Objective Data
-
Labs:
Laboratory Results
03/09/24 03/10/24
20:45 03:42
WBC 9.3
Hgb 9.9 L 8.8 L
Hct 29.1 L 25.8 L
Plt Count 121 L
Sodium 134 L
Potassium 4.4
Chloride 109 H
Carbon Dioxide 20 L
BUN 43 H
Creatinine 2.7 H
Glucose 90
Calcium 8.1 L
Vital Signs:
max temp for 24 hours
03/10/24
04:00
Temp 98.5 F
Vital Signs
Temp Pulse Resp BP Pulse Ox
98.5 F 64 18 141/82 98
03/10/24 04:00 03/10/24 08:06 03/10/24 06:00 03/10/24 08:06 03/10/24 04:00
I&O
03/09/24 03/10/24 03/11/24
06:59 06:59 06:59
Intake Total 1550 / 1550 920 / 920
Output Total 1725 / 1725 1065 / 1065
Balance -175 / -175 -145 / -145
Review of Systems
-
All other systems: Reviewed and negative
Physical Exam
-
General: Well Developed, Well Nourished and No Apparent Distress
HEENT: Normocephalic and Atraumatic; Negative Oxygen
Respiratory: Clear to Auscultation; Negative Wheezes or Rhonchi
Cardiac: Regular Rhythm and S1/S2
GI: Soft, Nontender, Nondistended and Normal Bowel Sounds
Musculoskeletal: No Clubbing, No Cyanosis and No Edema
Neuro: Awake
Psych: Calm
--- NOTE | 2024-03-10 08:27 | CM ---
Patient seen at bedside with physician. Patient stated that prior to moving in with his daughter and son in law he was living in an encampment in the [facility]. Patient indicated that he was a [place] and enjoyed being outside. Patient has no PCP and
would be open to list of PCP options, however in prior assessment patient indicated that he used Dr. Kinney. CM will confirm with patient daughter. Patient unsure of pharmacy also. CM will continue to follow for discharge planning needs.
Plan; home with daughter/ watch for VN needs.
--- NOTE | 2024-03-10 09:00 | W.PN.VS ---
Addendum entered and electronically signed by Enrrique Salas III, MD 03/10/24 11:00:
This patient was seen and examined with DORIAN Paige. I agree with the history and physical exam as well as the assessment and plan.
Trend creatinine and monitor urine output closely
Monitor Hgb
Abd soft
Follow-up left groin ultrasound status post thrombin injection yesterday
Overall appears well clinically.
Signed:
Enrrique Salas III, MD
[facility]
[phone] (cell)
Original Note:
Today's Communication / Plan
-
See below
Assessment/Plan
-
Postoperative day #4 status post endovascular repair of ruptured right internal iliac artery aneurysm, POD #1 left groin US guided thrombin injection
�Repeat ultrasound at left groin to confirm resolution of pseudoaneurysm pending this a.m.
-Cont ICU monitoring
-renal function stable. Creat 2.7 IVF and salas management per nephrology.
-Bedrest until repeat ultrasound
Subjective Data
-
Date of Service: March 10, 2024
Patient seen and examined bedside, reports continue improvement in abdominal discomfort. Tolerated p.o. diet overnight. Denies nausea, vomiting, fever, and chills. Denies bilateral lower extremity pain.
Objective Data
-
Vital Signs
Temp Pulse Resp BP Pulse Ox
98.4 F 55 19 142/73 97
03/10/24 08:47 03/10/24 10:00 03/10/24 10:00 03/10/24 10:00 03/10/24 08:47
Intake and Output
03/09/24 03/10/24 03/11/24
06:59 06:59 06:59
Intake Total 1550 / 1550 920 / 920 60 / 60
Output Total 1725 / 1725 1065 / 1090 100 / 100
Balance -175 / -175 -145 / -170 -40 / -40
Intake:
Oral fluids 1200 / 1200 920 / 920 60 / 60
IV fluids (Total) 100 / 100 0 / 0
Cardene 0 / 0
Nss 1,000 ml @ 100 mls/hr IV . 100 / 100
Q10H MARIAH Rx#:[id number]
Blood Product Amount Infused ( 250 / 250
mL)
Packed Rbc Leukoreduced Unit 250 / 250
[id number]
Output:
Urine, Salas 1724 106 / 1090 100 / 100
Lab Results
03/10/24 03:42
03/10/24 03:42
Calcium 8.1 mg/dl (8.4-10.2) L 03/10/24 03:42
Magnesium 2.1 mg/dl (1.6-2.3) 03/08/24 01:12
Total Bilirubin 0.5 mg/dl (0.2-1.3) 03/08/24 01:12
AST 28 U/L (17-59) 03/08/24 01:12
ALT 12 U/L (0-50) 03/08/24 01:12
Alkaline Phosphatase 64 U/L (38-126) 03/08/24 01:12
Total Protein 6.0 g/dl (6.3-8.2) L 03/08/24 01:12
Albumin 3.3 g/dl (3.5-5.0) L 03/08/24 01:12
Physical Exam
-
Afebrile.
Awake, alert
Abd soft, mildly distended, non-tender
Right groin CDI, exofin covering CDI, all surrounding compartments soft, left groin soft, can palpate small area of swelling at previous location of pseudoaneurysm, nontender, no ecchymosis, all other surrounding compartments soft
Salas draining clear yellow urine
Feet warm, palp PT pulses b/l.
--- NOTE | 2024-03-10 09:17 | PTCARENOTE ---
Update with vascular team thru morning. Await follow up ultrasound to discuss nutrition, mobility, PT/OT. Hospitalist team also into see patient. Continue follow up with replanter. Lab trends as ordered. Updated assessment, vital signs ongoing and
as documented. Patient verbalizes understanding of cares this am. Continue teaching and supportive cares.
--- NOTE | 2024-03-10 09:46 | PTCARENOTE ---
Ultrasound/Radiology team at [facility]. Will update vascular and follow any changes in cares.
--- NOTE | 2024-03-10 13:40 | PN.CDI ---
CDI
- -
CDI:
Physician Documentation Request
Admit Date: 03/06/24 22:46
Dear Doctor Loco,
Patient admitted with acute right internal iliac artery aneurysm rupture.
Na levels documented below:
Laboratory Tests
03/06/24 03/07/24 03/07/24
21:04 01:36 07:20
Sodium 131 L 132 L 133 L
Based on the above, please clarify in the progress notes, the appropriate diagnosis, if significant, that supports the above abnormalities and additional evaluation, monitoring and/or treatment rendered:
Hyponatremia
Insignificant abnormal lab finding
Other
Use of terms such as suspected, likely, concern for, or probable (associated with a specific diagnosis that is being evaluated, monitored, or treated as if it exists) are acceptable and can be coded in the inpatient setting, when documented at the
time of discharge.
Thank you,
Janice HOOD,RN,CCDS
CDI Specialist
Available via tiger text
Please use your independent medical judgment in providing your response.
--- NOTE | 2024-03-10 14:30 | W.PN.NEPH.PH ---
Today's Communication / Plan
-
- continue to monitor Cr
Assessment/Plan
-
IMP:
Acute Right Internal Iliac Artery Aneurysm Rupture
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
Intra-Abdominal Hematoma secondary to the above
Acute Blood Loss Anemia secondary to the above
ADAN with CKD [id number] -baseline cr 2-2.5 in ECW
Obstructive Uropathy secondary to abdominal hematoma
Non gap met acidosis
ASCVD-History of PTCA with 5 coronary stents.
Benign Hypertension
Chronic HFpEF
Alcohol Use Disorder
h/o hyperkalemia
HYpoantremia
PLan:
A/w abd pain, found ruptured R iliac art aneurysm s/p repair on 03/06 emergently. now s/p PSA injection per IR
ADAN with CKD [id number] from extrinsic obst from above, hydro Rt>left noted on CT
expect to improve now that compression relieved on distal ureter, however has contrast exposure on 03/06
UA with microhematuria, no prior baseline UA
keep salas, non oliguric, may need to check imaging for hdyro in next few days
Cr improved to 2.7, peak 3
monitor hb post transfusion
BP are high started coreg and hydralazine 03/07
vol status stable
d/w pt
-
-
Date of Service: March 10, 2024
CC / HPI / ROS
-
Chief Complaint:
ADAN, with CKD 3b
History of Present Illness:
cr up at 2.7, non oliguric with salas
BP better with meds
Hgb 8.8
wt increasing
Review of Systems:
no cp or sob
feels well but tired
Labs
-
Labs:
WBC 9.3 10^3/uL (4.8-10.8) 03/10/24 03:42
RBC 3.03 10^6/uL (4.70-6.10) L 03/10/24 03:42
Hgb 8.8 g/dL (13.0-18.0) L 03/10/24 03:42
Hct 25.8 % (39.0-52.0) L 03/10/24 03:42
Plt Count 121 10^3/uL (130-400) L 03/10/24 03:42
Sodium 134 mmol/L (135-145) L 03/10/24 03:42
Potassium 4.4 mmol/L (3.5-5.1) 03/10/24 03:42
Chloride 109 mmol/L (98-107) H 03/10/24 03:42
Carbon Dioxide 20 mmol/L (22-30) L 03/10/24 03:42
BUN 43 mg/dl (9-20) H 03/10/24 03:42
Creatinine 2.7 mg/dL (0.7-1.3) H 03/10/24 03:42
eGFR 24.28 03/10/24 03:42
Glucose 90 mg/dl (70-99) 03/10/24 03:42
Calcium 8.1 mg/dl (8.4-10.2) L 03/10/24 03:42
Albumin 3.3 g/dl (3.5-5.0) L 03/08/24 01:12
Physical Exam
-
Vital Signs:
Vital Signs
Temp Pulse Resp BP Pulse Ox
98.6 F 74 20 147/77 98
03/10/24 12:37 03/10/24 12:37 03/10/24 12:37 03/10/24 12:37 03/10/24 12:38
Cardiovascular:: Regular rate and rhythm
Respiratory:: Bilateral: CTA
Lung Excursion:: Normal
Abdomen:: Nontender and Soft
Bowel Sounds:: Normal
Extremity Edema:: None: Bilateral:
Salas Catheter: Yes
--- NOTE | 2024-03-10 15:54 | PTCARENOTE ---
Patient in and out of bed to chair, with supervision. Tolerating well. Continue to reinforce teaching. No c/c to offer. Update patient for possibel transfer. Continue follow up i/o. Hourly rounds, frequent patient safety checks, call in reach and in
use.
--- NOTE | 2024-03-10 17:31 | PTCARENOTE ---
Continue update with patient and family. Returnt to bed one person supervision. Follow up assessment unchanged. VS and BP medications as ordered. Presently resting in bed call golden at side and in use.
--- NOTE | 2024-03-10 21:00 | PTCARENOTE ---
Pt resting comfortably in bed, pulses palpable no c/o pain. Upon assessment, RLQ tender to palpation. Pt reported not having had a BM in 4 days. Colace/senna given. Will monitor.
[2024-03-10] MEDS: SENOKOT 17.1999999999999993 MG PO (21:33)
[2024-03-10] MEDS: COLACE 100 MG PO (21:33)
[2024-03-11] VITALS (16 sets, daily range): BP systolic 116–173; BP diastolic 65–89; PULSE 80; BMI 22.0; BMI 22.2
[2024-03-11 05:25] LABS: Hematocrit 30.8 % (39.0-52.0); Hemoglobin 10.3 g/dL (13.0-18.0); Mean Corp Hgb Conc. 33.4 g/dL (33.0-37.0); Mean Corpuscular Hgb 29.3 pg (27.0-31.0); Mean Corpuscular Volume 87.5 fL (80.0-94.0); Mean Platelet Volume 10.9 fL (7.4-10.4); Platelet Count 145 10^3/uL (130-400); Red Blood Cell Count 3.52 10^6/uL (4.70-6.10); Red Cell Dist. Width 13.7 % (11.5-14.5)
[2024-03-11 05:50] LABS: Blood Urea Nitrogen 41 mg/dl (9-20); Calcium 8.4 mg/dl (8.4-10.2); Carbon Dioxide 20 mmol/L (22-30); Chloride 107 mmol/L (98-107); Estimated Creatinine Clearance 25 ml/min; Glucose 124 mg/dl (70-99); Magnesium 2.1 mg/dl (1.6-2.3); Potassium 4.1 mmol/L (3.5-5.1); Sodium 133 mmol/L (135-145); eGFR 25.41
--- NOTE | 2024-03-11 08:06 | W.PN.VS ---
Addendum entered and electronically signed by Girish Regalado MD 03/11/24 08:17:
Seen and examined with TELESERVICES REPRESENTATIVE. Agree with findings as noted below. Patient overall feels well. Notes slight abdominal discomfort lower abdomen. Exam relatively stable. Abdomen is soft. Mild to moderate tender lower central/right lower quadrant.
Hemoglobin improved to 10.3.
Plan/as discussed and noted below. Hemoglobin has stabilized now. No evidence of ongoing bleeding. Hopefully salas out today. BP control.
Original Note:
Today's Communication / Plan
-
Seen and assessed with Dr. Regalado
Assessment/Plan
-
Postoperative day #5 status post endovascular repair of ruptured right internal iliac artery aneurysm, POD #2 left groin US guided thrombin injection
� Doing well from vascular perspective
- DC Salas catheter when okay with nephrology
- Out of bed/ambulation
-Blood pressure management per nephrology
Subjective Data
-
Date of Service: March 11, 2024
Patient seen at bedside this a.m. with Dr. Regalado. Patient offers no real complaints this morning. Patient states he has not had a bowel movement in some time, he received Senokot last night. He is open to trying something else if he does not have
success this morning. No events overnight. Salas catheter in place
Objective Data
-
Vital Signs
Temp Pulse Resp BP Pulse Ox
99.6 F 86 22 137/84 98
03/11/24 07:34 03/11/24 02:00 03/11/24 02:00 03/11/24 02:00 03/11/24 01:12
Intake and Output
03/10/24 03/11/24 03/12/24
06:59 06:59 06:59
Intake Total 920 / 920 1480 / 1480
Output Total 1065 / 1090 1430 / 1430
Balance -145 / -170 50 / 50
Intake:
Oral fluids 920 / 920 1480 / 1480
IV fluids (Total) 0 / 0
Cardene 0 / 0
Output:
Urine, Salas 1065 / 1090 1430 / 1430
Lab Results
03/11/24 05:09
03/11/24 05:09
Calcium 8.4 mg/dl (8.4-10.2) 03/11/24 05:09
Magnesium 2.1 mg/dl (1.6-2.3) 03/11/24 05:09
Total Bilirubin 0.5 mg/dl (0.2-1.3) 03/08/24 01:12
AST 28 U/L (17-59) 03/08/24 01:12
ALT 12 U/L (0-50) 03/08/24 01:12
Alkaline Phosphatase 64 U/L (38-126) 03/08/24 01:12
Total Protein 6.0 g/dl (6.3-8.2) L 03/08/24 01:12
Albumin 3.3 g/dl (3.5-5.0) L 03/08/24 01:12
Physical Exam
-
Afebrile
Awake, alert
Abd soft, mildly distended, mildly tender on palpation
Right groin CDI, exofin covering CDI, all surrounding compartments soft, left groin soft, can palpate small area of swelling at previous location of pseudoaneurysm, nontender, no ecchymosis, all other surrounding compartments soft
Salas draining clear yellow urine
Feet warm, palp PT pulses b/l.
Hemoglobin improved to 10.3
Creat improved to 2.6
[2024-03-11] MEDS: COREG 6.25 MG PO ×2 (08:23→19:46)
[2024-03-11] MEDS: COLACE 100 MG PO ×2 (08:23→19:47)
[2024-03-11] MEDS: HEPARIN 5000 UNITS SC ×2 (08:23→19:47)
[2024-03-11] MEDS: FOLVITE 1 MG PO (08:23)
[2024-03-11] MEDS: APRESOLINE 50 MG PO ×3 (08:24→21:34)
[2024-03-11] MEDS: SENOKOT 17.1999999999999993 MG PO ×2 (08:24→19:46)
[2024-03-11] MEDS: TYLENOL 650 MG PO ×2 (08:25→14:56)
--- NOTE | 2024-03-11 09:02 | CM ---
Patient seen at bedside with physician. Patient indicated that he was still sore. PT/OT to assess.Patient plan is home with daughter. CM will continue to follow for discharge planning needs.
Plan; home with VN, pending PT/OT assessment
[2024-03-11] MEDS: VITAMIN B1 100 MG PO ×2 (10:07→19:46)
--- NOTE | 2024-03-11 10:18 | W.PN.HOSP.TC ---
Today's Communication/Plan
-
d/c planning by vascular
BP improved
likely will need salas at d/c
PT/OT
Assessment / Plan
Assessment / Plan
pt is a 74 year old male
Acute Right Internal Iliac Artery Aneurysm Rupture with Intra-Abdominal Hematoma--Patient taken emergently to the OR for Vascular Surgery/repair of ruptured aneurysm, then developed left groin pseudoaneurysm injected by IR--apprec vascular/IR--s/p 2
units pRBC- control BP--further care per vascular surgery
Acute Blood Loss Anemia due to ruptured iliac artery aneurysm--s/p 2 units pRBC--resume low dose asa once cleared by vascular surgery
ADAN due to Obstructive Uropathy secondary to abdominal hematoma---CT shows R ureteral compression/obstruction secondary to hematoma--avoid nephrotoxic agents as able, avoid hypotension-- Risk for secondary kidney injury as well given CTA,
endovascular procedure, etc--renal managing--cont salas
ASCVD--Stable--History of PTCA with 5 coronary stents--Currently on only ASA 81mg and atorvastatin as an outpatient--restart meds as soon as able if cleared by vascular
Essential Hypertension with Chronic HFpEF-- no exacerbation--Daughter notes that Imdur and daily Lasix (20mg) were discontinued mid-January--Follow I/Os, daily weights, etc--increased hydralazine to 50 mg TID (coreg and hydralazine started by
renal)--BP better
Alcohol Use Disorder--Daily alcohol intake per family--no signs of DTs, cancel MSAS --Monitor labs/lytes and replace or replete as needed--potassium and magnesium WNL
hyponatremia--from pain/IVF--insignificant
DVT Prophylaxis: SCDs
Code Status: Full
PT/OT/bowel regimen
Anticipated Discharge: 24 - 48 hours
Subjective/Interval History
-
Date of Service: March 11, 2024
pt c/o abdominal pain otherwise ok
Objective Data
-
Labs:
Laboratory Results
03/11/24
05:09
WBC 10.0
Hgb 10.3 L
Hct 30.8 L
Plt Count 145
Sodium 133 L
Potassium 4.1
Chloride 107
Carbon Dioxide 20 L
BUN 41 H
Creatinine 2.6 H
Glucose 124 H
Calcium 8.4
Vital Signs:
max temp for 24 hours
03/10/24
23:43
Temp 100.4 F H
Vital Signs
Temp Pulse Resp BP Pulse Ox
99.6 F 74 20 155/82 98
03/11/24 07:34 03/11/24 08:38 03/11/24 08:38 03/11/24 08:38 03/11/24 08:42
I&O
03/10/24 03/11/24 03/12/24
06:59 06:59 06:59
Intake Total 920 / 920 1480 / 1720 240 / 240
Output Total 1065 / 1090 1430 / 1480 80 / 80
Balance -145 / -170 50 / 240 160 / 160
Review of Systems
-
All other systems: Reviewed and negative
Physical Exam
-
General: Well Developed, Well Nourished and No Apparent Distress
HEENT: Normocephalic and Atraumatic
Respiratory: Clear to Auscultation; Negative Wheezes or Rhonchi
Cardiac: Regular Rhythm and S1/S2; Negative Murmur
GI: Soft, Normal Bowel Sounds, Tender and Distended
Genito-urinary: Salas
Musculoskeletal: No Clubbing, No Cyanosis and No Edema
Skin: Warm
Neuro: Awake
--- NOTE | 2024-03-11 11:38 | W.PN.NEPH.PH ---
Today's Communication / Plan
-
recheck US, if no hydro d/c salas
Assessment/Plan
-
IMP:
Acute Right Internal Iliac Artery Aneurysm Rupture
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
Intra-Abdominal Hematoma secondary to the above
Acute Blood Loss Anemia secondary to the above
ADAN with CKD [id number] -baseline cr 2-2.5 in ECW
Obstructive Uropathy secondary to abdominal hematoma
Non gap met acidosis
ASCVD-History of PTCA with 5 coronary stents.
Benign Hypertension
Chronic HFpEF
Alcohol Use Disorder
h/o hyperkalemia
HYpoantremia
PLan:
A/w abd pain, found ruptured R iliac art aneurysm s/p repair on 03/06 emergently. now s/p Thrombin injection per IR
ADAN with CKD [id number] from extrinsic obst from above, hydro Rt>left noted on CT
cr is improving to 2.6 close to baseline,s/p contrast exposure on 03/09
UA with microhematuria, no prior baseline UA
check renal US to see if hydro improving and likely try VT
hb stable post pRBC
BP improving with coreg and hydralazine
vol status stable
d/w pt and nursing
-
-
Date of Service: March 11, 2024
CC / HPI / ROS
-
Chief Complaint:
ADAN, with CKD 3b
History of Present Illness:
cr better at 2.6, non oliguric with salas
BP better with meds
Hgb 10.3 post PRBC
wt decreasing
Review of Systems:
no cp or sob
feels well
Labs
-
Labs:
WBC 10.0 10^3/uL (4.8-10.8) 03/11/24 05:09
RBC 3.52 10^6/uL (4.70-6.10) L 03/11/24 05:09
Hgb 10.3 g/dL (13.0-18.0) L 03/11/24 05:09
Hct 30.8 % (39.0-52.0) L 03/11/24 05:09
Plt Count 145 10^3/uL (130-400) 03/11/24 05:09
Sodium 133 mmol/L (135-145) L 03/11/24 05:09
Potassium 4.1 mmol/L (3.5-5.1) 03/11/24 05:09
Chloride 107 mmol/L (98-107) 03/11/24 05:09
Carbon Dioxide 20 mmol/L (22-30) L 03/11/24 05:09
BUN 41 mg/dl (9-20) H 03/11/24 05:09
Creatinine 2.6 mg/dL (0.7-1.3) H 03/11/24 05:09
eGFR 25.41 03/11/24 05:09
Glucose 124 mg/dl (70-99) H 03/11/24 05:09
Calcium 8.4 mg/dl (8.4-10.2) 03/11/24 05:09
Albumin 3.3 g/dl (3.5-5.0) L 03/08/24 01:12
Physical Exam
-
Vital Signs:
Vital Signs
Temp Pulse Resp BP Pulse Ox
99.6 F 74 23 117/68 98
03/11/24 07:34 03/11/24 11:00 03/11/24 11:00 03/11/24 10:00 03/11/24 08:42
Cardiovascular:: Regular rate and rhythm
Respiratory:: Bilateral: CTA
Lung Excursion:: Normal
Abdomen:: Nontender and Soft
Extremity Edema:: None: Bilateral:
Salas Catheter: Yes
--- NOTE | 2024-03-11 14:45 | PTCARENOTE ---
Patient assessment unchanged. In and out of bed to chair with supervision and one assist to monitor. Continue hourly rounds and safety checks. Hospitalist rounded and bedside this morning. Nephrology at bedside this morning. Panning to follow up
ultrasound abdomen, then will plan trial for salas removal. Continue with mobility and ambulation. Assessment, vital signs ongoing and as documented. Call golden in reach, patient return to bed to nap this afternoon. Continue to follow on rounds.
--- NOTE | 2024-03-11 20:00 | PTCARENOTE ---
Assumed care of patient at 1900, physical assessment as documented. Patient remains with salas catheter, renal US resulted and Dr. Erickson made aware via TT. Salas catheter to remain in at this time. Patient c/o tenderness in lower quadrants of abd,
similar to prior. L groin puncture site intact. R groin incision CDI. Pedal pulses palpable. Patient ambulated with assistance to bathroom, +BM. Remains on tele, awaiting new bed assignment. Call golden within reach, continue with current care plan.
--- NOTE | 2024-03-11 23:35 | TRANSFER ---
Report given to 2N RN, patient transferred in bed to 2131 with all belongings.
[2024-03-12] MEDS: TYLENOL 650 MG PO (00:36)
[2024-03-12 03:30] VITALS: BP 110/67
[2024-03-12 04:57] LABS: Hematocrit 27.4 % (39.0-52.0); Hemoglobin 9.1 g/dL (13.0-18.0); Mean Corp Hgb Conc. 33.2 g/dL (33.0-37.0); Mean Corpuscular Hgb 29.1 pg (27.0-31.0); Mean Corpuscular Volume 87.5 fL (80.0-94.0); Mean Platelet Volume 10.7 fL (7.4-10.4); Platelet Count 158 10^3/uL (130-400); Red Blood Cell Count 3.13 10^6/uL (4.70-6.10); Red Cell Dist. Width 13.9 % (11.5-14.5); White Blood Cell Count 11.6 10^3/uL (4.8-10.8)
[2024-03-12 05:30] LABS: Blood Urea Nitrogen 42 mg/dl (9-20); Calcium 8.5 mg/dl (8.4-10.2); Carbon Dioxide 21 mmol/L (22-30); Chloride 104 mmol/L (98-107); Estimated Creatinine Clearance 23 ml/min; Glucose 95 mg/dl (70-99); Potassium 4.1 mmol/L (3.5-5.1); Sodium 133 mmol/L (135-145); eGFR 24.28
[2024-03-12 06:00] VITALS: BMI 22.0
[2024-03-12 08:04] VITALS: BP 123/62
--- NOTE | 2024-03-12 08:05 | W.PN.VS ---
Addendum entered and electronically signed by Girish Regalado MD 03/12/24 08:19:
Seen and examined with TOOL AND CUTTER GRINDER. Agree with findings as noted below. Patient without significant complaints. He had 3 bowel movements yesterday. Abdomen is soft. Mild residual tenderness to deeper palpation in the pelvis. Groins are flat
bilaterally. No hematoma. Easily palpable 2+ PT pulses bilaterally. Plan/stable from a vascular perspective. Labs reviewed. Persistent hydro noted on ultrasound. Will defer to nephrology regarding Kraft catheter management and/or urology
evaluation if needed for hydro versus removal of Kraft catheter.
Original Note:
Today's Communication / Plan
-
Patient seen evaluated bedside with Dr. Girish Regalado, below plan reviewed with attending
Assessment/Plan
-
Postoperative day #6 status post endovascular repair of ruptured right internal iliac artery aneurysm, POD #3 left groin US guided thrombin injection
� Doing well from vascular perspective
- DC Kraft catheter when okay with nephrology
- Out of bed/ambulation
-Blood pressure management per nephrology/hospitalist
-Appreciate recommendations from consultants
- PT/OT
-Dispo planning
Subjective Data
-
Date of Service: March 12, 2024
Patient seen evaluated bedside, reports very mild ongoing ABD cramping that continues to be vastly improved from presentation. Denies nausea, vomiting, fever, and chills. Reports bowel movement since yesterday.
Objective Data
-
Vital Signs
Temp Pulse Resp BP Pulse Ox
99 F 72 18 123/62 96
03/12/24 08:04 03/12/24 08:04 03/12/24 08:04 03/12/24 08:04 03/12/24 03:30
Intake and Output
03/11/24 03/12/24 03/13/24
06:59 06:59 06:59
Intake Total 1480 / 1720 1320 / 1320
Output Total 1430 / 1480 1305 / 1305
Balance 50 / 240 15 / 15
Intake:
Oral fluids 1480 / 1720 1320 / 1320
Output:
Urine, Kraft 1430 / 1480 1305 / 1305
Lab Results
03/12/24 04:44
03/12/24 04:44
Calcium 8.5 mg/dl (8.4-10.2) 03/12/24 04:44
Magnesium 2.0 mg/dl (1.6-2.3) 03/12/24 04:44
Total Bilirubin 0.5 mg/dl (0.2-1.3) 03/08/24 01:12
AST 28 U/L (17-59) 03/08/24 01:12
ALT 12 U/L (0-50) 03/08/24 01:12
Alkaline Phosphatase 64 U/L (38-126) 03/08/24 01:12
Total Protein 6.0 g/dl (6.3-8.2) L 03/08/24 01:12
Albumin 3.3 g/dl (3.5-5.0) L 03/08/24 01:12
Physical Exam
-
Afebrile
Awake, alert
Abd soft, mildly distended, mildly tender on palpation
Right groin CDI, exofin covering CDI, all surrounding compartments soft, left groin soft, can palpate small area of swelling at previous location of pseudoaneurysm, nontender, no ecchymosis, all other surrounding compartments soft
Kraft draining clear yellow urine
Feet warm, palp PT pulses b/l
[2024-03-12] MEDS: MIRALAX 17 GRAMS PO (09:52)
[2024-03-12] MEDS: APRESOLINE 50 MG PO ×3 (09:53→22:47)
[2024-03-12] MEDS: COLACE 100 MG PO ×2 (09:53→21:02)
[2024-03-12] MEDS: VITAMIN B1 100 MG PO ×2 (09:53→21:02)
[2024-03-12] MEDS: SENOKOT 17.1999999999999993 MG PO ×2 (09:54→21:02)
[2024-03-12] MEDS: COREG 6.25 MG PO ×2 (09:54→21:03)
[2024-03-12] MEDS: HEPARIN 5000 UNITS SC ×2 (09:54→21:02)
[2024-03-12] MEDS: FOLVITE 1 MG PO (09:54)
[2024-03-12 11:08] VITALS: BP 110/62
--- NOTE | 2024-03-12 12:23 | W.PN.HOSP.TC ---
Today's Communication/Plan
-
salas management per renal
BP improved
Assessment / Plan
Assessment / Plan
pt is a 74 year old male
Acute Right Internal Iliac Artery Aneurysm Rupture with Intra-Abdominal Hematoma--Patient taken emergently to the OR for Vascular Surgery/repair of ruptured aneurysm, then developed left groin pseudoaneurysm injected by IR--apprec vascular/IR--s/p 2
units pRBC- control BP--further care per vascular surgery--with increasing WBC count and intermittent fevers, any role for re-CT scanning pt?
Acute Blood Loss Anemia due to ruptured iliac artery aneurysm--s/p 2 units pRBC--resume low dose asa once cleared by vascular surgery
ADAN due to Obstructive Uropathy secondary to abdominal hematoma---CT shows R ureteral compression/obstruction secondary to hematoma--avoid nephrotoxic agents as able, avoid hypotension-- Risk for secondary kidney injury as well given CTA,
endovascular procedure, etc--renal managing-- salas management per renal
ASCVD--Stable--History of PTCA with 5 coronary stents--Currently on only ASA 81mg and atorvastatin as an outpatient--restart meds as soon as able if cleared by vascular
Essential Hypertension with Chronic HFpEF-- no exacerbation--Daughter notes that Imdur and daily Lasix (20mg) were discontinued mid-January--Follow I/Os, daily weights, etc--increased hydralazine to 50 mg TID (coreg and hydralazine started by
renal)--BP better
Alcohol Use Disorder--Daily alcohol intake per family--no signs of DTs, cancel MSAS --Monitor labs/lytes and replace or replete as needed--potassium and magnesium WNL
hyponatremia--from pain/IVF--insignificant
DVT Prophylaxis: SCDs
Code Status: Full
PT/OT/bowel regimen
Anticipated Discharge: 24 - 48 hours
Subjective/Interval History
-
Date of Service: March 12, 2024
pt still quite tender in abdomen
Objective Data
-
Labs:
Laboratory Results
03/12/24
04:44
WBC 11.6 H
Hgb 9.1 L
Hct 27.4 L
Plt Count 158
Sodium 133 L
Potassium 4.1
Chloride 104
Carbon Dioxide 21 L
BUN 42 H
Creatinine 2.7 H
Glucose 95
Calcium 8.5
Vital Signs:
max temp for 24 hours
03/11/24
23:40
Temp 100.9 F H
Vital Signs
Temp Pulse Resp BP Pulse Ox
98 F 77 18 110/62 94
03/12/24 11:08 03/12/24 11:08 03/12/24 11:08 03/12/24 11:08 03/12/24 11:08
I&O
03/11/24 03/12/24 03/13/24
06:59 06:59 06:59
Intake Total 1480 / 1720 1320 / 1320
Output Total 1430 / 1480 1305 / 1305
Balance 50 / 240 15
Review of Systems
-
All other systems: Reviewed and negative
Physical Exam
-
General: Well Developed, Well Nourished and No Apparent Distress
HEENT: Normocephalic and Atraumatic
Respiratory: Clear to Auscultation; Negative Wheezes, Rales, Rhonchi or Crackles
Cardiac: Regular Rhythm and S1/S2; Negative Murmur
GI: Normal Bowel Sounds, Tender and Distended; Negative Soft (firm)
Musculoskeletal: No Clubbing, No Cyanosis and No Edema
Neuro: Awake and Alert
--- NOTE | 2024-03-12 14:43 | W.PN.NEPH.PH ---
Today's Communication / Plan
-
see plan
Assessment/Plan
-
IMP:
Acute Right Internal Iliac Artery Aneurysm Rupture
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
Intra-Abdominal Hematoma secondary to the above
Acute Blood Loss Anemia secondary to the above
ADAN with CKD [id number] -baseline cr 2-2.5 in [facility]W
Obstructive Uropathy secondary to abdominal hematoma
Non gap met acidosis
ASCVD-History of PTCA with 5 coronary stents.
Benign Hypertension
Chronic HFpEF
Alcohol Use Disorder
h/o hyperkalemia
HYpoantremia
PLan:
A/w abd pain, found ruptured R iliac art aneurysm s/p repair on 03/06 emergently. now s/p Thrombin injection per IR
ADAN with CKD [id number] from extrinsic obst from above, hydro Rt>left noted on CT
cr is stable 2.7,s/p contrast exposure on 03/09
UA with microhematuria, no prior baseline UA
renal US show persistent hydro, appt input, ok to d/c salas
for CT abd today per vasc to eval hematoma
monitor hb decreasing
BP improving with coreg and hydralazine
vol status stable
d/w pt
-
-
Date of Service: March 12, 2024
CC / HPI / ROS
-
Chief Complaint:
ADAN, with CKD 3b
History of Present Illness:
cr stable at 2.7, non oliguric with salas
BP better with meds
Hgb low at 9.1
wt decreasing
Review of Systems:
no cp or sob
feels well
c/o abd pain but controlled
Labs
-
Labs:
WBC 11.6 10^3/uL (4.8-10.8) H 03/12/24 04:44
RBC 3.13 10^6/uL (4.70-6.10) L 03/12/24 04:44
Hgb 9.1 g/dL (13.0-18.0) L 03/12/24 04:44
Hct 27.4 % (39.0-52.0) L 03/12/24 04:44
Plt Count 158 10^3/uL (130-400) 03/12/24 04:44
Sodium 133 mmol/L (135-145) L 03/12/24 04:44
Potassium 4.1 mmol/L (3.5-5.1) 03/12/24 04:44
Chloride 104 mmol/L (98-107) 03/12/24 04:44
Carbon Dioxide 21 mmol/L (22-30) L 03/12/24 04:44
BUN 42 mg/dl (9-20) H 03/12/24 04:44
Creatinine 2.7 mg/dL (0.7-1.3) H 03/12/24 04:44
eGFR 24.28 03/12/24 04:44
Glucose 95 mg/dl (70-99) 03/12/24 04:44
Calcium 8.5 mg/dl (8.4-10.2) 03/12/24 04:44
Albumin 3.3 g/dl (3.5-5.0) L 03/08/24 01:12
Physical Exam
-
Vital Signs:
Vital Signs
Temp Pulse Resp BP Pulse Ox
98 F 77 18 110/62 94
03/12/24 11:08 03/12/24 11:08 03/12/24 11:08 03/12/24 11:08 03/12/24 13:00
Cardiovascular:: Regular rate and rhythm
Respiratory:: Bilateral: CTA
Lung Excursion:: Normal
Abdomen:: Distended, Soft and Tender (milt TTP on deep palpation)
Extremity Edema:: None: Bilateral:
Salas Catheter: Yes
[2024-03-12 15:06] VITALS: BP 133/76
[2024-03-12 19:25] VITALS: BP 118/61
--- NOTE | 2024-03-12 20:32 | CONS.URO ---
Consultation
-
Performing Provider: Peffer
Reason for Consultation: Hydronephrosis
Medical History
History of Present Illness
74M admitted for ruptured iliac artery aneurysm s/p repair
Found to have severe R hydro, mild L hydro on admission CT
This is likely due to large pelvic hematoma
Had urinary retention on admission
Urology consulted for persistent hydro on repeat US and CT and salas management
He has no baseline bothersome LUTS or history of retention
Past Medical History
Past Medical History: Other (ASCVD ADAN s/p Cardiac Cath / [place] (Resolved / Improved) Chronic HFpEF, CKD III)
Past Surgical History: Other (PTCA with Stent x 5 total Right Inguinal Herniorrhaphy)
Social History
Tobacco: Non-smoker
Alcohol: Daily
Drug: None
Family History
Family History: Reviewed & Not Pertinent
Allergies/Home Medications
Allergies
Allergy/AdvReac Type Severity Reaction Status Date / Time
No Known Allergies Allergy Unverified 03/06/24 19:34
Home Medications
�Medication �Instructions �Recorded �Confirmed �Type
aspirin 81 mg tablet,delayed 81 mg PO DAILY Blood Clot 03/06/24 03/06/24 History
release Prevention/Tx
atorvastatin 80 mg tablet (Lipitor) 80 mg PO DAILY High Cholesterol 03/06/24 03/06/24 History
Physical Exam
Vital Signs
Vital Signs
Temp Pulse Resp BP Pulse Ox
98 F 76 18 133/76 95
03/12/24 15:06 03/12/24 17:16 03/12/24 15:06 03/12/24 17:16 03/12/24 15:06
Lab / Testing Results
Laboratory Results
03/12/24 04:44
03/12/24 04:44
Physical Exam
General: Well Developed, Well Nourished and No Apparent Distress
Respiratory: Clear and Non Labored Respirations
GI: Soft and Non Tender
Genito-urinary: No Costovertebral Tend
Neuro: AO x 3
Psych: Calm and Intact Judgement
Assessment / Plan
-
74M with urinary retention and R>L hydronephrosis 2/2 large pelvic retroperitoneal hematoma from ruptured iliac artery aneurysm
ADAN on CKD improved and nearing baseline
Persistent hydronephrosis on repeat imaging with stable pelvic hematoma
- Given lack of sepsis, improved renal function nearing baseline, and lack of CVA tenderness or flank pain, it is reasonable to continue observation of hydronephrosis. Recommend repeat imaging in about 2 weeks to eval again.
- If sepsis develops due to UTI, or symptoms of more acute obstruction develop, patient may require percutaneous nephrostomy or ureteral stent placement
- Trend creatinine
- Urinary retention due to bladder displacement from hematoma
- Will attempt trial of void today, however the hematoma is stable and he may still need salas catheter
- PVR bladder scan
Increasing WBC - ordered urinalysis and culture. May be simply due to inflammatory response to hematoma vs infection
Data Reviewed
-
CT Scan: Image personally visualized and interpreted
Lab Data: Labs Reviewed
[2024-03-12 23:25] VITALS: BP 135/75
[2024-03-12 23:57] LABS: Urine Albumin Trace (Neg - Trace); Urine Bilirubin Negative (Negative); Urine Character Slightly Cloudy (Clear); Urine Color Yellow; Urine Glucose Negative (Negative); Urine Ketone Negative (Negative); Urine Leukocyte 1+ (Negative); Urine Nitrite Negative (Negative); Urine Occult Blood 1+ (Negative); Urine Specific Gravity 1.015 (<1.030); Urine Urobilinogen Negative (Neg - 1+)
[2024-03-13 00:37] LABS: Urine Amorphous Seen; Urine Bacteria Many (Negative); Urine Mucus Moderate; Urine Squamous Cell >30 /LPF (Few)
[2024-03-13 00:38] LABS: Urine Red Blood Cell 16-20 /HPF (0-2); Urine White Cell 40-50 /HPF (0-5)
[2024-03-13] MEDS: TUMS 2 TABLET PO (02:48)
[2024-03-13 03:15] VITALS: BP 124/67
[2024-03-13 06:00] VITALS: BMI 21.8
[2024-03-13 06:07] LABS: Hemoglobin 8.6 g/dL (13.0-18.0); Mean Corp Hgb Conc. 34.4 g/dL (33.0-37.0); Mean Corpuscular Hgb 29.4 pg (27.0-31.0); Mean Corpuscular Volume 85.3 fL (80.0-94.0); Mean Platelet Volume 10.7 fL (7.4-10.4); Platelet Count 175 10^3/uL (130-400); Red Blood Cell Count 2.93 10^6/uL (4.70-6.10); Red Cell Dist. Width 13.7 % (11.5-14.5); White Blood Cell Count 10.2 10^3/uL (4.8-10.8)
[2024-03-13 06:41] LABS: Blood Urea Nitrogen 47 mg/dl (9-20); Calcium 8.6 mg/dl (8.4-10.2); Carbon Dioxide 18 mmol/L (22-30); Chloride 103 mmol/L (98-107); Estimated Creatinine Clearance 24 ml/min; Glucose 97 mg/dl (70-99); Magnesium 2.1 mg/dl (1.6-2.3); Potassium 4.4 mmol/L (3.5-5.1); Sodium 133 mmol/L (135-145); eGFR 25.41
[2024-03-13 07:30] VITALS: BP 131/77
[2024-03-13] MEDS: HEPARIN 5000 UNITS SC ×2 (08:23→20:42)
[2024-03-13] MEDS: APRESOLINE 50 MG PO ×3 (08:28→23:23)
[2024-03-13] MEDS: VITAMIN B1 100 MG PO ×2 (08:28→20:40)
[2024-03-13] MEDS: COLACE 100 MG PO ×2 (08:29→20:41)
[2024-03-13] MEDS: SENOKOT 17.1999999999999993 MG PO ×2 (08:29→20:41)
[2024-03-13] MEDS: COREG 6.25 MG PO ×2 (08:29→20:41)
[2024-03-13] MEDS: FOLVITE 1 MG PO (08:29)
[2024-03-13] MEDS: MIRALAX PO (08:30)
--- NOTE | 2024-03-13 08:42 | W.PN.URO.CBU ---
Today's Communication / Plan
-
PVR bladder scan
F/U urine culture
Outpatient imaging re-eval for hydronephrosis unless signs of obstruction worsen
Assessment / Plan
-
74M with urinary retention and R>L hydronephrosis 2/2 large pelvic retroperitoneal hematoma from ruptured iliac artery aneurysm
ADAN on CKD improved and near baseline
Persistent hydronephrosis on repeat imaging with stable pelvic hematoma
- Given lack of sepsis, improved renal function nearing baseline, and lack of CVA tenderness or flank pain, it is reasonable to continue observation of hydronephrosis. Recommend repeat imaging outpatient in 3-4 weeks to eval again
- If sepsis develops due to UTI, or symptoms of more acute obstruction develop, patient may require percutaneous nephrostomy or ureteral stent placement
- Urinary retention due to bladder displacement from hematoma
- Trial of void successful 03/12 - voided several times without difficulty
- PVR bladder scan today to confirm emptying
- Creatinine stable
- Urinalysis and culture sent due to leukocytosis which is now resolved. Low grade fever may be due to inflammatory response to hematoma, less likely urinary infection
Diagnosis
-
Date of Service: March 13, 2024
-
Patient Diagnosis:
Pelvic hematoma
Rutured iliac aneurysm
R hydronephrosis
ADAN on CKD
Urinary retention
Post Op Day:
Subjective
-
voided normally after salas removed yesterday
No voiding complaints or dysuria, no straining, no hematuria
HGB decreased slightly
Objective
-
Vital Signs
Temp Pulse Resp BP Pulse Ox
98 F 70 16 131/77 96
03/13/24 07:30 03/13/24 08:28 03/13/24 07:30 03/13/24 08:28 03/13/24 07:30
Intake and Output
03/12/24 03/13/24 03/14/24
06:59 06:59 06:59
Intake Total 1320 / 1320 880 / 880
Output Total 1305 / 1305 1100 / 1100
Balance 15 -220 / -220
Intake:
Oral fluids 1320 / 1320 880 / 880
Output:
Urine, Salas 1305 / 1305 400 / 400
Urine, Voided 700 / 700
Other:
Number of approximated MODERATE 1
amounts of urine
Laboratory Results
03/13/24 05:22
Physical Exam
-
General - well developed, well nourished, no acute distress
Chest - clear bilaterally
Abdomen - soft, non-tender
Skin - warm & dry with no rash
Neuro - AOx3, no motor deficits
Extremities - no clubbing, no cyanosis, no edema
--- NOTE | 2024-03-13 09:23 | W.PN.VS ---
Addendum entered and electronically signed by Enrrique Kraft III, MD 03/13/24 15:55:
This patient was seen and examined with DORIAN Chatman. I agree with the history and physical exam as well as the assessment and plan. I have the following additions:
Patient is comfortable
No events overnight
Hemoglobin is stable
Abd soft, NT
Urology issues remain an active problem
Follow-up UA
PVRs
Follow creatinine
Signed:
Enrrique Kraft III, MD
[facility]
[phone] (xvpr)
Original Note:
Today's Communication / Plan
-
Seen and assessed with Dr. Kraft
Assessment/Plan
-
Postoperative day #7 status post endovascular repair of ruptured right internal iliac artery aneurysm, POD #3 left groin US guided thrombin injection
� Recheck hemoglobin at 12:00 if stable can likely DC
- Doing well from vascular perspective
- Out of bed/ambulation
-Blood pressure management per nephrology/hospitalist
-Appreciate recommendations from consultants
- PT/OT
-Dispo planning
Subjective Data
-
Date of Service: March 13, 2024
Patient seen at bedside this a.m. with Dr. Kraft. Patient has no complaints. Patient resting comfortably in bed.
Objective Data
-
Vital Signs
Temp Pulse Resp BP Pulse Ox
98 F 70 16 131/77 96
03/13/24 07:30 03/13/24 08:28 03/13/24 07:30 03/13/24 08:28 03/13/24 07:30
Intake and Output
03/12/24 03/13/24 03/14/24
06:59 06:59 06:59
Intake Total 1320 / 1320 880 / 880
Output Total 1305 / 1305 1100 / 1100
Balance 15 / 15 -220 / -220
Intake:
Oral fluids 1320 / 1320 880 / 880
Output:
Urine, Kraft 1305 / 1305 400 / 400
Urine, Voided 700 / 700
Other:
Number of approximated MODERATE 1
amounts of urine
Lab Results
03/13/24 05:22
Calcium 8.6 mg/dl (8.4-10.2) 03/13/24 05:22
Magnesium 2.1 mg/dl (1.6-2.3) 03/13/24 05:22
Total Bilirubin 0.5 mg/dl (0.2-1.3) 03/08/24 01:12
AST 28 U/L (17-59) 03/08/24 01:12
ALT 12 U/L (0-50) 03/08/24 01:12
Alkaline Phosphatase 64 U/L (38-126) 03/08/24 01:12
Total Protein 6.0 g/dl (6.3-8.2) L 03/08/24 01:12
Albumin 3.3 g/dl (3.5-5.0) L 03/08/24 01:12
Physical Exam
-
Afebrile
Awake, alert
Abd soft
Bilateral groins clean dry and intact and soft
Voiding on his own
Feet warm, palp PT pulses b/l
--- NOTE | 2024-03-13 09:34 | W.PN.HOSP.TC ---
Today's Communication/Plan
-
Blood pressure controlled
Pain better but still tenderness
Leukocytosis resolved
No fevers in the past 24 hours
Assessment / Plan
Assessment / Plan
Physical Exam
General: Well Developed, Well Nourished and No Apparent Distress
HEENT: Normocephalic and Atraumatic
Respiratory: Clear to Auscultation
Cardiac: Regular Rhythm and S1/S2
GI: Normal Bowel Sounds, Tender and Distended; Negative Soft (firm)
Musculoskeletal: No Clubbing, No Cyanosis and No Edema
Neuro: Awake and Alert
Patient is a 74 year old male
Assessment/Plan
[address] Mik[address]la Campos from vascular� 74 yo male with acute right internal iliac artery aneurysm rupture repaired by vascular--got 2 units packed red blood cells for blood loss--developed acute kidney injury due to obstructive uropathy from the
hematoma--we have been asked to manage medically--Dr. Adan signed off but then vascular asked hospitalist team to come back--blood pressure good--Salas management per renal--developing fevers, increased white count with more abdominal
discomfort/tenderness--spoke with Girish--got CT scan noncontrast abdomen and pelvis--results noted.
Acute Right Internal Iliac Artery Aneurysm Rupture with Intra-Abdominal Hematoma--Patient taken emergently to the OR for Vascular Surgery/repair of ruptured aneurysm, then developed left groin pseudoaneurysm injected by IR--apprec vascular/IR--s/p 2
units pRBC- control BP--further care per vascular surgery--with increasing WBC count and intermittent fevers, repeat CT was done with no concerning findings for infection
Acute Blood Loss Anemia due to ruptured iliac artery aneurysm--s/p 2 units pRBC--resume low dose asa once cleared by vascular surgery
ADAN due to Obstructive Uropathy secondary to abdominal hematoma---CT shows R ureteral compression/obstruction secondary to hematoma--avoid nephrotoxic agents as able, avoid hypotension-- Risk for secondary kidney injury as well given CTA,
endovascular procedure, etc--renal managing-- salas management per renal
ASCVD--Stable--History of PTCA with 5 coronary stents--Currently on only ASA 81mg and atorvastatin as an outpatient--restart meds as soon as able if cleared by vascular
Essential Hypertension with Chronic HFpEF-- no exacerbation--Daughter notes that Imdur and daily Lasix (20mg) were discontinued mid-January--Follow I/Os, daily weights, etc--hydralazine was recently increased to 50 mg TID (coreg and hydralazine
started by renal)--BP better
Alcohol Use Disorder--Daily alcohol intake per family--no signs of DTs, MSAS had been cancelled --Monitor labs/lytes and replace or replete as needed--potassium and magnesium WNL
hyponatremia--from pain/IVF--insignificant
DVT Prophylaxis: SCDs
Code Status: Full
PT/OT/bowel regimen
Anticipated Discharge: > 48 hours
Subjective/Interval History
-
Date of Service: March 13, 2024
Patient was seen and examined. He reported no new significant symptoms, preparing box tender in the abdomen.
Objective Data
-
Labs:
Laboratory Results
03/13/24 03/13/24
05:22 12:49
WBC 10.2
Hgb 8.6 L Pending
Hct 25.0 L Pending
Plt Count 175
Sodium 133 L
Potassium 4.4
Chloride 103
Carbon Dioxide 18 L
BUN 47 H
Creatinine 2.6 H
Glucose 97
Calcium 8.6
Vital Signs:
Vital Signs
Temp Pulse Resp BP Pulse Ox
98 F 70 16 131/77 96
03/13/24 07:30 03/13/24 08:28 03/13/24 07:30 03/13/24 08:28 03/13/24 07:30
I&O
03/12/24 03/13/24 03/14/24
06:59 06:59 06:59
Intake Total 1320 / 1320 880 / 880
Output Total 1305 / 1305 1100 / 1100
Balance /
--- NOTE | 2024-03-13 09:59 | CM ---
Reviewed the chart notes and spoke with the patient at the bedside. IMM signed and placed on the chart. The patient is anticipating being discharged to home today with no needs. Discussed possible need for VN. Patient declined. The patient's
daughter will provide transportation home. CM continues to be available to patient/family and is monitoring medical plan for needs at discharge.
Plan: Discharge to home when medically stable. No needs anticipated.
[2024-03-13 11:23] VITALS: BP 116/71
--- NOTE | 2024-03-13 12:37 | W.PN.NEPH.PH ---
Today's Communication / Plan
-
- sign off
Assessment/Plan
-
IMP:
Acute Right Internal Iliac Artery Aneurysm Rupture
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
Intra-Abdominal Hematoma secondary to the above
Acute Blood Loss Anemia secondary to the above
ADAN with CKD [id number] -baseline cr 2-2.5 in [facility]W
Obstructive Uropathy secondary to abdominal hematoma
Non gap met acidosis
ASCVD-History of PTCA with 5 coronary stents.
Benign Hypertension
Chronic HFpEF
Alcohol Use Disorder
h/o hyperkalemia
HYpoantremia
PLan:
A/w abd pain, found ruptured R iliac art aneurysm s/p repair on 03/06 emergently. now s/p Thrombin injection per IR
ADAN with CKD stage 3b-likely from extrinsic obst from above, hydro Rt>left noted on CT
cr is almost back to baseline at 2.6, s/p contrast exposure on 03/09
UA with microhematuria, no prior baseline UA
renal US show persistent hydro, d/c Kraft, plan for PVR bladder scan today to confirm emptying. f/u with outpatient
for CT abd today per vasc to eval hematoma
monitor hb decreasing
BP improving with coreg and hydralazine
vol status stable
Nephrology will sign off at this time. Plan for follow up with nephrology in 6-8 weeks.
-
-
Date of Service: March 13, 2024
CC / HPI / ROS
-
Chief Complaint:
ADAN, with CKD 3b
History of Present Illness:
cr stable at 2.6, non oliguric, Kraft d/c
BP better with meds
Hgb low at 8.6
wt decreasing
Review of Systems:
no cp or sob
feels well
c/o abd pain but controlled
Labs
-
Labs:
WBC 10.2 10^3/uL (4.8-10.8) 03/13/24 05:22
RBC 2.93 10^6/uL (4.70-6.10) L 03/13/24 05:22
Plt Count 175 10^3/uL (130-400) 03/13/24 05:22
Sodium 133 mmol/L (135-145) L 03/13/24 05:22
Potassium 4.4 mmol/L (3.5-5.1) 03/13/24 05:22
Chloride 103 mmol/L (98-107) 03/13/24 05:22
Carbon Dioxide 18 mmol/L (22-30) L 03/13/24 05:22
BUN 47 mg/dl (9-20) H 03/13/24 05:22
Creatinine 2.6 mg/dL (0.7-1.3) H 03/13/24 05:22
eGFR 25.41 03/13/24 05:22
Glucose 97 mg/dl (70-99) 03/13/24 05:22
Calcium 8.6 mg/dl (8.4-10.2) 03/13/24 05:22
Albumin 3.3 g/dl (3.5-5.0) L 03/08/24 01:12
Physical Exam
-
Vital Signs:
Vital Signs
Temp Pulse Resp BP Pulse Ox
97.7 F 71 17 116/71 96
03/13/24 11:23 03/13/24 11:23 03/13/24 11:23 03/13/24 11:23 03/13/24 11:23
Cardiovascular:: Regular rate and rhythm
Respiratory:: Bilateral: Coarse
Lung Excursion:: Normal
Abdomen:: Nontender and Soft
Bowel Sounds:: Normal
Extremity Edema:: None: Bilateral:
Kraft Catheter: No
[2024-03-13 14:17] LABS: Hematocrit 28.7 % (39.0-52.0); Hemoglobin 9.5 g/dL (13.0-18.0)
[2024-03-13 15:22] VITALS: BP 118/68
--- NOTE | 2024-03-13 16:10 | W.PN.UPDATE ---
Update Note
Progress Note Update
Bladder scans today post void in 200s
This afternoon scan is 200cc, 3 hours after last void
Trend PVR. Some elevation at this point is acceptable
Urinalysis showed bacteria but patient has no UTI symptoms
Repeat UA, consider abx course if suspicious for infection
Likely stable for discharge from urology standpoint tomorrow
[2024-03-13 20:32] VITALS: BP 162/83
[2024-03-13 23:43] VITALS: BP 163/85
[2024-03-14 04:30] VITALS: BP 130/73
[2024-03-14 06:00] VITALS: BMI 21.5
--- NOTE | 2024-03-14 07:07 | W.PN.VS ---
Today's Communication / Plan
-
as above
Assessment/Plan
-
Postoperative day #8 status post endovascular repair of ruptured right internal iliac artery aneurysm, POD #4 left groin US guided thrombin injection
� hgb stable
-cr stable/at baseline
-per nursing, PVRs low
-ok to d/c home
Subjective Data
-
Date of Service: March 14, 2024
No acute events. Has no complaints and says he has been urinating with no issues
Objective Data
-
Vital Signs
Temp Pulse Resp BP Pulse Ox
98.5 F 69 16 130/73 95
03/14/24 04:30 03/14/24 04:30 03/14/24 04:30 03/14/24 04:30 03/14/24 04:30
Intake and Output
03/13/24 03/14/24 03/15/24
06:59 06:59 06:59
Intake Total 880 / 880 180 / 180
Output Total 1100 / 1100 625 / 625
Balance -220 / -220 -445 / -445
Intake:
Oral fluids 880 / 880 180 / 180
Output:
Urine, Kraft 400 / 400
Urine, Voided 700 / 700 625 / 625
Other:
Number of approximated MODERATE 1
amounts of urine
Number of approximated LARGE 3
amounts of urine
Lab Results
03/13/24 13:01
03/13/24 05:22
Calcium 8.6 mg/dl (8.4-10.2) 03/13/24 05:22
Magnesium 2.1 mg/dl (1.6-2.3) 03/13/24 05:22
Total Bilirubin 0.5 mg/dl (0.2-1.3) 03/08/24 01:12
AST 28 U/L (17-59) 03/08/24 01:12
ALT 12 U/L (0-50) 03/08/24 01:12
Alkaline Phosphatase 64 U/L (38-126) 03/08/24 01:12
Total Protein 6.0 g/dl (6.3-8.2) L 03/08/24 01:12
Albumin 3.3 g/dl (3.5-5.0) L 03/08/24 01:12
Physical Exam
-
NAD
access site c/d/i
[2024-03-14 07:25] VITALS: BP 139/77
[2024-03-14] MEDS: APRESOLINE 50 MG PO (08:09)
[2024-03-14] MEDS: COLACE 100 MG PO (08:09)
[2024-03-14] MEDS: VITAMIN B1 100 MG PO (08:10)
[2024-03-14] MEDS: COREG 6.25 MG PO (08:10)
[2024-03-14] MEDS: MIRALAX 17 GRAMS PO (08:10)
[2024-03-14] MEDS: FOLVITE 1 MG PO (08:10)
[2024-03-14] MEDS: SENOKOT 17.1999999999999993 MG PO (08:13)
[2024-03-14] MEDS: HEPARIN SC (08:21)
[2024-03-14] MEDS: PREVNAR 20 0.5 ML IM (08:21)
[2024-03-14] MEDS: TYLENOL 650 MG PO (08:25)
[2024-03-14 11:05] LABS: Hematocrit 26.1 % (39.0-52.0); Hemoglobin 8.6 g/dL (13.0-18.0); Mean Corpuscular Hgb 29.2 pg (27.0-31.0); Mean Corpuscular Volume 88.5 fL (80.0-94.0); Mean Platelet Volume 10.1 fL (7.4-10.4); Platelet Count 206 10^3/uL (130-400); Red Blood Cell Count 2.95 10^6/uL (4.70-6.10); Red Cell Dist. Width 13.7 % (11.5-14.5); White Blood Cell Count 8.3 10^3/uL (4.8-10.8)
--- NOTE | 2024-03-14 11:05 | W.PN.HOSP.TC ---
Today's Communication/Plan
-
Monitor vital signs see plan
Fevers resolved
If patient has UTI symptoms then can start antibiotics
Patient to follow-up with PCP closely outpatient if develops UTI symptoms
Medicine will sign off, please call us for any questions
Assessment / Plan
Assessment / Plan
Physical Exam
General: Well Developed, Well Nourished and No Apparent Distress
HEENT: Normocephalic and Atraumatic
Respiratory: Clear to Auscultation
Cardiac: Regular Rhythm and S1/S2
GI: Normal Bowel Sounds, Tender and Distended; Negative Soft (firm)
Musculoskeletal: No Clubbing, No Cyanosis and No Edema
Neuro: Awake and Alert
Patient is a 74 year old male
Assessment/Plan
[address] Mik[address]la Campos from vascular� 74 yo male with acute right internal iliac artery aneurysm rupture repaired by vascular--got 2 units packed red blood cells for blood loss--developed acute kidney injury due to obstructive uropathy from the
hematoma--we have been asked to manage medically--Dr. Adan signed off but then vascular asked hospitalist team to come back--blood pressure good--Kraft management per renal--developing fevers, increased white count with more abdominal
discomfort/tenderness--spoke with Girish--got CT scan noncontrast abdomen and pelvis--results noted. urine cx with gram neg; patient has no dysuria or frequency concerning for UTI. Advised him if he develops the symptoms then he needs to speak to his
physician regarding UTI and antibiotics. Fevers resolved on its own. Suspect secondary to hematoma
Acute Right Internal Iliac Artery Aneurysm Rupture with Intra-Abdominal Hematoma--Patient taken emergently to the OR for Vascular Surgery/repair of ruptured aneurysm, then developed left groin pseudoaneurysm injected by IR--apprec vascular/IR--s/p 2
units pRBC- control BP--further care per vascular surgery--with increasing WBC count and intermittent fevers, repeat CT was done with no concerning findings for infection
Acute Blood Loss Anemia due to ruptured iliac artery aneurysm--s/p 2 units pRBC--resume low dose asa once cleared by vascular surgery
ADAN due to Obstructive Uropathy secondary to abdominal hematoma---CT shows R ureteral compression/obstruction secondary to hematoma--avoid nephrotoxic agents as able, avoid hypotension-- Risk for secondary kidney injury as well given CTA,
endovascular procedure, etc--renal managing--
ASCVD--Stable--History of PTCA with 5 coronary stents--Currently on only ASA 81mg and atorvastatin as an outpatient--restart meds as soon as able if cleared by vascular
Essential Hypertension with Chronic HFpEF-- no exacerbation--Daughter notes that Imdur and daily Lasix (20mg) were discontinued mid-January--Follow I/Os, daily weights, etc--hydralazine was recently increased to 50 mg TID (coreg and hydralazine
started by renal)--BP better
Alcohol Use Disorder--Daily alcohol intake per family--no signs of DTs, MSAS had been cancelled --Monitor labs/lytes and replace or replete as needed--potassium and magnesium WNL
hyponatremia--from pain/IVF--insignificant
DVT Prophylaxis: SCDs
Code Status: Full
PT/OT/bowel regimen
Anticipated Discharge: Today
Subjective/Interval History
-
Date of Service: March 14, 2024
denies pain
Objective Data
-
Labs:
Laboratory Results
03/14/24
10:56
WBC Pending
Hgb Pending
Hct Pending
Plt Count Pending
Sodium Pending
Potassium Pending
Chloride Pending
Carbon Dioxide Pending
BUN Pending
Creatinine Pending
Glucose Pending
Calcium Pending
Vital Signs:
Vital Signs
Temp Pulse Resp BP Pulse Ox
98.3 F 62 16 139/77 97
03/14/24 07:25 03/14/24 07:25 03/14/24 07:25 03/14/24 07:25 03/14/24 07:25
I&O
03/13/24 03/14/24 03/15/24
06:59 06:59 06:59
Intake Total 880 / 880 180 / 180
Output Total 1100 / 1100 625 / 625
Balance -220 / -220 -445 / -445
[2024-03-14 11:20] VITALS: BP 120/64
[2024-03-14 11:23] LABS: Blood Urea Nitrogen 47 mg/dl (9-20); Calcium 8.5 mg/dl (8.4-10.2); Carbon Dioxide 22 mmol/L (22-30); Chloride 104 mmol/L (98-107); Estimated Creatinine Clearance 22 ml/min; Glucose 111 mg/dl (70-99); Sodium 134 mmol/L (135-145); eGFR 23.24
--- NOTE | 2024-03-14 11:32 | CM ---
CM reviewed chart and noted dc order
Bedside meeting with pt- continues to declined VN or outpt therapy
He has already alerted dtr of dc today
Discharge Disposition- home no needs
[2024-03-14 15:20] VITALS: BP 134/71
--- NOTE | 2024-03-16 08:00 | W.PN.UPDATE ---
Update Note
Progress Note Update
I spoke with infectious disease pharmacist concerning patient's urinary culture results. Low suspicion for infection but culture is positive. 7 days of ciprofloxacin sent to patient's pharmacy. Patient did not leave phone number for himself. So
I called the daughter, I spoke with Stephanie and informed her of the antibiotic. Also educated on UTI type symptoms and to call last if patient becomes symptomatic. Daughter is agreeable and understands.
== END 2024-03-14 16:55 | disposition home or self-care (01) | DRG 270 ==
LOC: 2 NORTH 22:46
PROVIDERS: Hospitalist; Internal Medicine; Nurse Practitioner; Nurse Practitioner Acute Care; Nurse Practitioner Primary Care; Radiology Diagnostic Radiology; ADMITTING PHYSICIAN Surgery Vascular Surgery; CONSULT PHYSICIAN Internal Medicine; CONSULT PHYSICIAN Internal Medicine Critical Care Medicine; CONSULT PHYSICIAN Urology; EMERGENCY PHYSICIAN Emergency Medicine; FAMILY PHYSICIAN Internal Medicine
PROC: 04LE3DZ Occlusion of Right Internal Iliac Artery with Intraluminal Device, Percutaneous Approach (ICD-10-PCS; 2024-03-06)
PROC: 04VE3DZ Restriction of Right Internal Iliac Artery with Intraluminal Device, Percutaneous Approach (ICD-10-PCS; 2024-03-06)
PROC: 30233N1 Transfusion of Nonautologous Red Blood Cells into Peripheral Vein, Percutaneous Approach (ICD-10-PCS; 2024-03-08)
PROC: 3E053GC Introduction of Other Therapeutic Substance into Peripheral Artery, Percutaneous Approach (ICD-10-PCS; 2024-03-09)
PROC: 3E0234Z Introduction of Serum, Toxoid and Vaccine into Muscle, Percutaneous Approach (ICD-10-PCS; 2024-03-14)
DX: I72.3 Aneurysm of iliac artery (principal); K68.3 Retroperitoneal hematoma; D62 Acute posthemorrhagic anemia; N17.9 Acute kidney failure, unspecified; I50.32 Chronic diastolic (congestive) heart failure; E87.20 Acidosis, unspecified; N13.1 Hydronephrosis with ureteral stricture, not elsewhere classified; I13.0 Hypertensive heart and chronic kidney disease with heart failure and stage 1 through stage 4 chronic kidney disease, or unspecified chronic kidney disease; I25.10 Atherosclerotic heart disease of native coronary artery without angina pectoris; I72.4 Aneurysm of artery of lower extremity; I71.43 Infrarenal abdominal aortic aneurysm, without rupture; F10.10 Alcohol abuse, uncomplicated; E78.00 Pure hypercholesterolemia, unspecified; I73.9 Peripheral vascular disease, unspecified; N18.32 Chronic kidney disease, stage 3b; D63.1 Anemia in chronic kidney disease; R31.29 Other microscopic hematuria; I25.2 Old myocardial infarction; Z23 Encounter for immunization; Z79.82 Long term (current) use of aspirin; Z79.899 Other long term (current) drug therapy; Z95.5 Presence of coronary angioplasty implant and graft
CPT/HCPCS: 36002; 37242; 37799; 51702; 71045; 74174; 74176; 76770; 76942; 80048; 80053; 81003; 81015; 82962; 83735; 85014; 85018; 85025; 85027; 85610; 85730; 86803; 86850; 86900; 86901; 86920; 87077; 87086; 87186; 90677; 93005; 93926; 96374; 96375; 97116; 97163; 97166; 97530; 97535; 99291; 99292; C1760; C1769; C1892; C1894; C2628; G0009; P9016; Q9967

== ENCOUNTER → 2024-04-22 09:53 | Outpatient (REF) | payer OTHER, SELFPAY | LOC: RAD 09:53 | PROVIDERS: ATTENDING PHYSICIAN Physician Assistant; FAMILY PHYSICIAN Internal Medicine; REFERRING PHYSICIAN Urology | DX: N13.30 Unspecified hydronephrosis (principal); I72.3 Aneurysm of iliac artery | CPT/HCPCS: 74176; 93922; 93978 ==

== ENCOUNTER → 2024-06-03 10:29 | Outpatient (REF) | payer OTHER, SELFPAY | LOC: RAD 10:29 | PROVIDERS: ATTENDING PHYSICIAN Urology; FAMILY PHYSICIAN Internal Medicine | DX: N13.8 Other obstructive and reflux uropathy (principal); N13.5 Crossing vessel and stricture of ureter without hydronephrosis | CPT/HCPCS: 78707; A9539 ==

== ENCOUNTER 2024-06-18 06:24 | Day surgery (SDC) | payer OTHER, SELFPAY ==
[2024-06-17 09:31] LABS: Hematocrit 34.7 % (39.0-52.0); Hemoglobin 11.5 g/dL (13.0-18.0); Mean Corp Hgb Conc. 33.1 g/dL (33.0-37.0); Mean Corpuscular Hgb 29.4 pg (27.0-31.0); Mean Corpuscular Volume 88.7 fL (80.0-94.0); Mean Platelet Volume 10.4 fL (7.4-10.4); Platelet Count 181 10^3/uL (130-400); Red Blood Cell Count 3.91 10^6/uL (4.70-6.10); Red Cell Dist. Width 14.5 % (11.5-14.5); White Blood Cell Count 5.4 10^3/uL (4.8-10.8)
[2024-06-17 10:05] LABS: INR 1.08
[2024-06-17 10:32] LABS: ALT (SGPT) 16 U/L (0-50); AST (SGOT) 36 U/L (17-59); Albumin 4.2 g/dl (3.5-5.0); Alkaline Phosphatase 86 U/L (38-126); Blood Urea Nitrogen 36 mg/dl (9-20); Calcium 9.3 mg/dl (8.4-10.2); Carbon Dioxide 23 mmol/L (22-30); Chloride 107 mmol/L (98-107); Glucose 92 mg/dl (70-99); Potassium 5.4 mmol/L (3.5-5.1); Sodium 139 mmol/L (135-145); Total Bilirubin 0.7 mg/dl (0.2-1.3); Total Protein 7.2 g/dl (6.3-8.2); eGFR 26.63
[2024-06-17 11:15] LABS: Urine Albumin Negative (Neg - Trace); Urine Bilirubin Negative (Negative); Urine Character Clear (Clear); Urine Color Yellow; Urine Glucose Negative (Negative); Urine Ketone Negative (Negative); Urine Leukocyte Negative (Negative); Urine Nitrite Negative (Negative); Urine Occult Blood Negative (Negative); Urine Urobilinogen Negative (Neg - 1+)
[2024-06-18] VITALS (9 sets, daily range): BP systolic 114–173; BP diastolic 71–116; BMI 22.7
[2024-06-18] MEDS: NORMOSOL-R 1000 IV (10:20)
== END 2024-06-18 13:50 | disposition home or self-care (01) ==
LOC: SDS 06:24
PROVIDERS: ATTENDING PHYSICIAN Urology
DX: N13.1 Hydronephrosis with ureteral stricture, not elsewhere classified (principal); N13.8 Other obstructive and reflux uropathy
CPT/HCPCS: 52332; 74420; 76000; 80053; 81003; 85027; 85610; 86850; 86900; 86901; 87070; 93005; C2617

== ENCOUNTER → 2024-11-05 08:05 | Outpatient (REF) | payer OTHER, SELFPAY | LOC: HWRAD 08:05 | PROVIDERS: ATTENDING PHYSICIAN Surgery Vascular Surgery; FAMILY PHYSICIAN Internal Medicine | DX: I72.3 Aneurysm of iliac artery (principal) | CPT/HCPCS: 74176 ==

== ENCOUNTER 2024-12-31 06:20 | Day surgery (SDC) | payer OTHER, SELFPAY ==
--- NOTE | 2024-12-29 15:27 | PTCARENOTE ---
Abn ECG 11/10/[address] No, no further intervention.
[2024-12-31] VITALS (8 sets, daily range): BP systolic 98–137; BP diastolic 63–75; BMI 22.3
[2024-12-31] MEDS: NORMOSOL-R/PLASMALYTE-A 1000 IV (07:55)
== END 2024-12-31 12:45 | disposition home or self-care (01) ==
LOC: SDS 06:20
PROVIDERS: ATTENDING PHYSICIAN Urology
DX: N13.1 Hydronephrosis with ureteral stricture, not elsewhere classified (principal); N13.30 Unspecified hydronephrosis; I72.3 Aneurysm of iliac artery
CPT/HCPCS: 52332; 74018; 76000; C2625

== ENCOUNTER → 2025-02-16 07:38 | Outpatient (REF) | payer OTHER, SELFPAY | LOC: PAVMRI 07:38 | PROVIDERS: ATTENDING PHYSICIAN Surgery Vascular Surgery; FAMILY PHYSICIAN Internal Medicine | DX: I72.3 Aneurysm of iliac artery (principal) | CPT/HCPCS: 74185; A9585 ==

== ENCOUNTER 2025-06-17 06:48 | Inpatient (IN) | payer OTHER, SELFPAY ==
[2025-06-11 09:00] LABS: Hematocrit 34.9 % (39.0-52.0); Hemoglobin 11.2 g/dL (13.0-18.0); Mean Corp Hgb Conc. 32.1 g/dL (33.0-37.0); Mean Corpuscular Volume 88.6 fL (80.0-94.0); Platelet Count 218 10^3/uL (130-400); Red Cell Dist. Width 14.2 % (11.5-14.5)
[2025-06-11 09:06] LABS: INR 1.04; PT 13.9 Sec (11.4-14.6)
[2025-06-11 09:07] LABS: APTT 30.2 Sec (23.4-35.0)
[2025-06-11 09:24] LABS: Blood Urea Nitrogen 33 mg/dl (9-20); Calcium 9.0 mg/dl (8.4-10.2); Carbon Dioxide 28 mmol/L (22-30); Chloride 107 mmol/L (98-107); Glucose 92 mg/dl (70-99); Potassium 5.3 mmol/L (3.5-5.1); Sodium 141 mmol/L (135-145); eGFR 29.25
[2025-06-11 13:52] VITALS: BMI 23.4
[2025-06-17] VITALS (16 sets, daily range): BP systolic 30–143; BP diastolic 57–94; BMI 23.4
[2025-06-17] MEDS: NSS 1000 IV ×2 (07:29→16:55)
--- NOTE | 2025-06-17 12:08 | W.IMMPOSTOP ---
Surgical Immed Post Op Note
-
Primary Surgeon: Meryl
Assisting Surgeon: Walter
Pre-op Diagnosis: R ureteral obstruction
Post-op Diagnosis: same
Procedure Performed: Right ureteral reimplant, psoas hitch, excision of perivesical lesion
Anesthesia Type: gen
Specimen / Cultures: perivesical lesion
Estimated Blood Loss:
Complications: none
Operative Findings: intraop frozen specimen of a firm lesion near bladder wall was benign - old hematoma/inflammation
Negative leak test from ureter anastomosis and anterior bladder wall closure
Minimal hematuria
Stable iliac aneurysm which was not disturbed
[2025-06-17 13:24] LABS: Hematocrit 30.1 % (39.0-52.0); Hemoglobin 9.8 g/dL (13.0-18.0); Mean Corp Hgb Conc. 32.6 g/dL (33.0-37.0); Mean Corpuscular Volume 88.8 fL (80.0-94.0); Platelet Count 157 10^3/uL (130-400); Red Cell Dist. Width 14.5 % (11.5-14.5)
[2025-06-17 13:44] LABS: Blood Urea Nitrogen 31 mg/dl (9-20); Calcium 7.8 mg/dl (8.4-10.2); Carbon Dioxide 23 mmol/L (22-30); Chloride 112 mmol/L (98-107); Estimated Creatinine Clearance 32 ml/min; Glucose 110 mg/dl (70-99); Potassium 4.8 mmol/L (3.5-5.1); Sodium 140 mmol/L (135-145); eGFR 36.79
[2025-06-17] MEDS: APRESOLINE 50 MG PO (16:05)
[2025-06-17] MEDS: LIPITOR 80 MG PO (16:06)
--- NOTE | 2025-06-17 17:06 | PTCARENOTE ---
Received patient from PACU via bed. Pt AAOX3. IVFs infusing without difficulty. Pox: 96% RA. Family at bedside. Call golden within reach. Plan of care ongoing.
[2025-06-17] MEDS: LOVENOX 40 MG SC (17:48)
[2025-06-17] MEDS: SENOKOT 17.2 MG PO (20:20)
[2025-06-17] MEDS: COREG 6.25 MG PO (20:25)
[2025-06-17] MEDS: APRESOLINE PO (21:54)
[2025-06-18] VITALS (7 sets, daily range): BP systolic 115–173; BP diastolic 64–92
[2025-06-18] MEDS: PERCOCET 5/325 1 TABLET PO (01:02)
[2025-06-18] MEDS: DILAUDID 0.5 MG IV ×3 (02:35→12:51)
[2025-06-18] MEDS: MYLICON 80 MG PO (02:42)
[2025-06-18] MEDS: PERCOCET 5/325 2 TABLET PO ×2 (03:34→19:28)
[2025-06-18] MEDS: ZOFRAN 4 MG IV (03:35)
--- NOTE | 2025-06-18 04:00 | PTCARENOTE ---
Addendum entered by Ashley Unger RN 06/18/25 05:14:
Pt continues w/ abd pain and it more distended and full. Bloody drainage coming from incision site. Wound reinforced with ABD dressing. TOOTH CUTTER PINION notified and has seen the pt. IVF restarted.
Original Note:
Pt c/o abd pain. Pt was given pain meds, see MAR. RN notice his urine output decrease and has been bloody. 3 way Kraft catheter was irrigated per order. A few number of large clots came out. Pt c/o abd pain and was given a break through pain med. TOOTH CUTTER PINION
senior construction estimator notified. Will continue w/ tx plan.
[2025-06-18] MEDS: DILAUDID 0.25 MG IV (04:37)
[2025-06-18] MEDS: NSS 1000 IV ×2 (04:56→07:33)
[2025-06-18 05:36] LABS: Hematocrit 27.5 % (39.0-52.0); Hemoglobin 8.9 g/dL (13.0-18.0); Mean Corp Hgb Conc. 32.4 g/dL (33.0-37.0); Mean Corpuscular Volume 88.4 fL (80.0-94.0); Platelet Count 166 10^3/uL (130-400); Red Cell Dist. Width 14.7 % (11.5-14.5)
[2025-06-18 06:00] LABS: Blood Urea Nitrogen 39 mg/dl (9-20); Calcium 8.0 mg/dl (8.4-10.2); Carbon Dioxide 22 mmol/L (22-30); Chloride 112 mmol/L (98-107); Estimated Creatinine Clearance 31 ml/min; Glucose 151 mg/dl (70-99); Potassium 4.7 mmol/L (3.5-5.1); Sodium 137 mmol/L (135-145); eGFR 34.59
--- NOTE | 2025-06-18 07:01 | W.PN.UPDATE ---
Update Note
Progress Note Update
overnight RN reported patient is having hematuria and RN been irrigating without much clots, still continuous to be blood color urine. In AM RN also noted his dressing being soiled with blood, advised to reinforced the dressing. Patient is now with
complain of stomach feeling bloated and uncomfortable. Patient seen and evaluated, Abd distended, firm, + hypoactive BS, tender, denies nausea, vomiting, Stable VS. will order CT abd/pelvis without contrast. VS stable at present, doing labs,
continuing fluids. TT Urologist.
--- NOTE | 2025-06-18 07:05 | W.PN.URO.CBU ---
Today's Communication / Plan
-
- STAT CTAP w/o to eval for large fluid collection, distended bladder, hydronephrosis
- Anemia - some expected dilutional decrease, possibly some post op bleeding. Trend CBC
- Continue PRN pain medication
- NPO
- IVF
Assessment / Plan
-
75M POD 1 s/p open R ureteral reimplant
- Catheter irrigated this morning with clots, difficult to irrigate well
- STAT CTAP w/o to eval for large fluid collection, distended bladder, hydronephrosis
- Anemia - some expected dilutional decrease, possibly some post op bleeding. Trend CBC
- Continue PRN pain medication
- NPO
- IVF
Diagnosis
-
Date of Service: June 18, 2025
-
Patient Diagnosis:
R ureteral obstruction
s/p R ureteral reimplant, psoas hitch 06/17/25
Subjective
-
significant pain overnight
hematuria with poor catheter drainage requiring irrigation
Objective
-
Vital Signs
Temp Pulse Resp BP Pulse Ox
98.4 F 55 20 167/92 96
06/18/25 03:05 06/18/25 04:30 06/18/25 04:30 06/18/25 04:30 06/18/25 04:30
Intake and Output
06/17/25 06/18/25 06/19/25
06:59 06:59 06:59
Intake Total 1680 / 1680
Output Total 1390 / 1390
Balance 290 / 290
Intake:
Oral fluids 480 / 480
IV fluids (Total) 1200 / 1200
normosol 400 / 400
Output:
Drain Output (Total) 155 / 155
Right Abdomen Jamshid-Gilbert 155 / 155
Urine, Kraft 1175 / 1175
True urine output from hand 60 / 60
irrigation
Laboratory Results
06/18/25 04:54
06/18/25 04:54
Physical Exam
-
General - well developed, well nourished, no acute distress
Chest - clear
Abdomen - soft, distended, tender
No CVAT
Skin - warm & dry with no rash
Neuro - AOx3, no motor deficits
Extremities - no clubbing, no cyanosis, no edema
Incision - spotting at inferior aspect
Kraft in place, red drainage, some clots
[2025-06-18] MEDS: SENOKOT 17.2 MG PO ×2 (08:55→19:29)
[2025-06-18] MEDS: ASPIR LOW (ENTERIC COATED) 81 MG PO (08:55)
[2025-06-18] MEDS: COREG 6.25 MG PO ×2 (08:56→19:29)
[2025-06-18] MEDS: APRESOLINE 50 MG PO ×3 (08:56→22:15)
--- NOTE | 2025-06-18 10:09 | CM ---
CM following re: discharge planning.
Reviewed pt's chart, met with pt.
Pt is a 75 year old male, admitted with primary dx of POD 1 s/p open R ureteral reimplant.
Pt reports he used to live in [facility], liked it very much and daughter decided to bring him to her house. Pt reports he lives with daughter and her family in a 2[place], 3 steps to enter, has 3 supportive children. 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 No DME, VN or SNF history.
PCP: Thong Calderon
Pharmacy: [facility].
D/C plan: home with anticipated no needs. Family to transport at discharge.
CM will follow with discharge plan updates as hospitalization progresses
[2025-06-18] MEDS: LIPITOR 80 MG PO (14:39)
[2025-06-18] MEDS: LOVENOX 40 MG SC (17:24)
--- NOTE | 2025-06-18 18:56 | W.PN.UPDATE ---
Update Note
Progress Note Update
CT scan today showed pelvic hematoma, in line with expected post op bleeding
Otherwise no evidence of urine leak, bladder rupture, or disruption of anastomosis
Continued regular diet
Minimal hematuria
Pain significantly improved
Continue routine post op management
Drain out prior to discharge
CM consult for home salas care and staple removal
targeting discharge for 06/20
[2025-06-19] VITALS (10 sets, daily range): BP systolic 94–151; BP diastolic 48–81
[2025-06-19 04:57] LABS: Hematocrit 20.2 % (39.0-52.0); Hemoglobin 6.5 g/dL (13.0-18.0); Mean Corp Hgb Conc. 32.2 g/dL (33.0-37.0); Mean Corpuscular Volume 90.6 fL (80.0-94.0); Platelet Count 116 10^3/uL (130-400); Red Cell Dist. Width 15.0 % (11.5-14.5)
[2025-06-19 05:18] LABS: Blood Urea Nitrogen 44 mg/dl (9-20); Calcium 7.8 mg/dl (8.4-10.2); Carbon Dioxide 23 mmol/L (22-30); Chloride 112 mmol/L (98-107); Estimated Creatinine Clearance 23 ml/min; Glucose 106 mg/dl (70-99); Potassium 4.8 mmol/L (3.5-5.1); Sodium 140 mmol/L (135-145); eGFR 24.13
--- NOTE | 2025-06-19 06:01 | W.PN.URO.CBU ---
Today's Communication / Plan
-
transfuse 2 U PRBCs --- consent on chart; patient verbally reaffirmed consent
Assessment / Plan
-
75M POD 1 s/p open R ureteral reimplant
- Anemia - post op bleeding
Diagnosis
-
Date of Service: June 19, 2025
-
Patient Diagnosis:
R ureteral obstruction
s/p R ureteral reimplant, psoas hitch 06/17/25
blood-loss anemia
Subjective
-
'I feel fine.'
Objective
-
Vital Signs
Temp Pulse Resp BP Pulse Ox
98.2 F 66 17 108/58 98
06/18/25 23:03 06/19/25 05:31 06/18/25 23:03 06/19/25 05:31 06/18/25 23:03
Intake and Output
06/17/25 06/18/25 06/19/25
06:59 06:59 06:59
Intake Total 1680 / 1680 1480 / 1480
Output Total 1390 / 1390 1115 / 1115
Balance 290 / 290 365 / 365
Intake:
Oral fluids 480 / 480 480 / 480
IV fluids (Total) 1200 / 1200 1000 / 1000
normosol 400 / 400
Output:
Drain Output (Total) 155 / 155 215 / 215
Right Abdomen Jamshid-Gilbert 155 / 155 215 / 215
Urine, Kraft 1175 / 1175 900 / 900
True urine output from hand 60 / 60
irrigation
Laboratory Results
06/19/25 04:07
Hct 20%
hgb 6.5
Physical Exam
-
General - well developed, well nourished, no acute distress
Chest - clear bilaterally
Abdomen - soft, non-tender, positive bowel sounds, no distention; HARRY with dried blood at skin and dark thin blood in bulb
Neuro - AOx3, no motor deficits
Extremities - no clubbing, no cyanosis, no edema
Incisions - intact
[2025-06-19] MEDS: SENOKOT 17.2 MG PO ×2 (07:41→21:08)
[2025-06-19] MEDS: ASPIR LOW (ENTERIC COATED) 81 MG PO (07:41)
[2025-06-19] MEDS: COREG 6.25 MG PO ×2 (07:41→21:08)
[2025-06-19] MEDS: APRESOLINE 50 MG PO ×3 (07:41→21:08)
--- NOTE | 2025-06-19 14:15 | PTCARENOTE ---
Patient received 2 units of PRBCS'. No s/s of transfusion reaction noted. Pox: 95% Call golden within reach. Plan of care ongoing.
--- NOTE | 2025-06-19 15:03 | CM ---
Referral to [facility] for RN services for salas and wound care.
[2025-06-19] MEDS: LIPITOR 80 MG PO (15:09)
[2025-06-19] MEDS: LOVENOX 40 MG SC (17:07)
[2025-06-19] MEDS: PERCOCET 5/325 2 TABLET PO (21:08)
[2025-06-19] MEDS: DILAUDID 0.5 MG IV (23:19)
--- NOTE | 2025-06-20 00:16 | W.PN.UPDATE ---
Addendum entered and electronically signed by DORIAN Dee 06/20/25 03:42:
holding lovenox given ongoing hematuria.
Addendum entered and electronically signed by DORIAN Dee 06/20/25 00:31:
will make pt NPO in case he needs to go to OR for clot evacuation.
Original Note:
Update Note
Progress Note Update
0000 Eval pt for cloggd 3 way cath despite multiple irrigations by RN. This SENIOR TRAINING AND DEVELOPMENT REP also attempted irrigation with a few clots but liquid passing through cath and coming out penis. PT in alot of pain and discomfort. Kraft #22 fr d/c and #24 inserted with
return of bloody urine. Will order cBI to prevent further clogging issues.
[2025-06-20 01:23] LABS: Hematocrit 28.0 % (39.0-52.0); Hemoglobin 9.4 g/dL (13.0-18.0)
[2025-06-20] MEDS: DILAUDID 0.5 MG IV ×2 (02:51→19:18)
[2025-06-20] MEDS: VALIUM INJECTION 1 MG IV (03:43)
--- NOTE | 2025-06-20 04:20 | PTCARENOTE ---
06/19 5855 Patients salas was clotted and was not able to irrigate after multiple attempts. Reached out to urology with no response. Contacted Thea ALARCON. EDITOR also attempted irrigation with a few clots but liquid passing through cath and
coming out penis. PT in alot of pain and discomfort. Salas #22 fr d/c and #24 inserted with return of bloody urine. CBI started to prevent further clogging issues. Patient made NPO in case he needs to go to OR for clot evacuation.
Will continue to monitor and will reach out to urology if any other issues.
[2025-06-20 06:45] LABS: Blood Urea Nitrogen 41 mg/dl (9-20); Calcium 7.8 mg/dl (8.4-10.2); Carbon Dioxide 21 mmol/L (22-30); Chloride 112 mmol/L (98-107); Estimated Creatinine Clearance 25 ml/min; Glucose 106 mg/dl (70-99); Potassium 4.4 mmol/L (3.5-5.1); Sodium 141 mmol/L (135-145); eGFR 26.47
[2025-06-20 07:05] VITALS: BP 151/92
[2025-06-20] MEDS: SENOKOT 17.2 MG PO ×2 (08:15→21:18)
[2025-06-20] MEDS: COREG 6.25 MG PO ×2 (08:15→21:18)
[2025-06-20] MEDS: ASPIR LOW (ENTERIC COATED) 81 MG PO (08:15)
[2025-06-20] MEDS: APRESOLINE 50 MG PO ×2 (08:15→22:57)
[2025-06-20] MEDS: MORPHINE SULFATE 4 MG IV (08:19)
--- NOTE | 2025-06-20 08:24 | W.PN.URO.CBU ---
Today's Communication / Plan
-
stat CT cystogram
Assessment / Plan
-
75M POD s/p open R ureteral reimplant
concern for bladder rupture
Diagnosis
-
Date of Service: June 20, 2025
-
Patient Diagnosis:
R ureteral obstruction
s/p R ureteral reimplant, psoas hitch 06/17/25
blood-loss anemia
Subjective
-
significant abdominal-pelvic pain
Objective
-
Vital Signs
Temp Pulse Resp BP Pulse Ox
98.4 F 94 16 151/92 97
06/20/25 07:05 06/20/25 07:05 06/20/25 07:05 06/20/25 07:05 06/20/25 07:05
Intake and Output
06/19/25 06/20/25 06/21/25
06:59 06:59 06:59
Intake Total 1480 / 1480 1960 / 1960
Output Total 1115 / 1115 1050 / 1050 -500 / -500
Balance 365 / 365 910 / 910 500 / 500
Intake:
Oral fluids 480 / 480 960 / 960
IV fluids (Total) 1000 / 1000
Blood products 500 / 500
Blood Product Amount Infused ( 500 / 500
mL)
Packed Rbc Leukoreduced Unit 250 / 250
[id number]
Packed Rbc Leukoreduced Unit 250 / 250
[id number]
Output:
Drain Output (Total) 215 / 215 100 / 100
Right Abdomen Jamshid-Gilbert 215 / 215 100 / 100
Urine, Kraft 900 / 900 950 / 950
True Urine Output from CBI -500 / -500
Laboratory Results
06/20/25 01:06
06/20/25 04:13
Physical Exam
-
General - in acute distress
Abdomen - tender, moderate distention
Genitalia - 24 Fr 3-way Kraft cannot be hand-flushed normally; new, expanded fenestration 24 Fr 3-way Kraft inserted -- still cannot be normally hand-irrigated
--- NOTE | 2025-06-20 11:08 | W.PN.UPDATE ---
Update Note
Progress Note Update
CT cystogram: reviewed in-person with Dr Og, demonstrates clotted blood in bladder and hematoma adjacent to bladder but infused contrast DOES NOT escape bladder
Patient apprised. He does NOT want additional hand-irrigation of bladder at this time.
[2025-06-20] MEDS: PERCOCET 5/325 1 TABLET PO (12:04)
[2025-06-20] MEDS: LIPITOR 80 MG PO (14:19)
[2025-06-20 15:05] VITALS: BP 91/74
[2025-06-20] MEDS: APRESOLINE PO (15:52)
[2025-06-20] MEDS: TYLENOL 650 MG PO (21:22)
[2025-06-20 23:38] VITALS: BP 120/65
[2025-06-21] VITALS (14 sets, daily range): BP systolic 20–180; BP diastolic 62–105
[2025-06-21] MEDS: PERCOCET 5/325 1 TABLET PO ×2 (00:33→22:01)
--- NOTE | 2025-06-21 08:00 | W.PN.URO.CBU ---
Today's Communication / Plan
-
continue CBI
Assessment / Plan
-
75M POD s/p open R ureteral reimplant
CT cysto gram on 06/20 ruled-out bladder rupture; significant blood clot in bladder
Diagnosis
-
Date of Service: June 21, 2025
-
Patient Diagnosis:
R ureteral obstruction
s/p R ureteral reimplant, psoas hitch 06/17/25
blood-loss anemia
Subjective
-
comfortable now
Objective
-
Vital Signs
Temp Pulse Resp BP Pulse Ox
98.3 F 75 16 120/65 96
06/20/25 23:38 06/20/25 23:38 06/20/25 23:38 06/20/25 23:38 06/20/25 23:38
Intake and Output
06/20/25 06/21/25 06/22/25
06:59 06:59 06:59
Intake Total 1960 / 1960 480 / 480
Output Total 1050 / 1050 1140 / 1140
Balance 910 / 910 -660 / -660
Intake:
Oral fluids 960 / 960 480 / 480
Blood products 500 / 500
Blood Product Amount Infused ( 500 / 500
mL)
Packed Rbc Leukoreduced Unit 250 / 250
[id number]
Packed Rbc Leukoreduced Unit 250 / 250
[id number]
Output:
Drain Output (Total) 100 / 100 60 / 60
Right Abdomen Jamshid-Gilbert 100 / 100 60 / 60
Urine, Kraft 950 / 950
True Urine Output from CBI 1080 / 1080
Laboratory Results
06/20/25 04:13
CBC - pending
Physical Exam
-
General - well developed, well nourished, no acute distress
Chest - clear bilaterally
Abdomen - soft, non-tender, positive bowel sounds, no distention
Genitalia - pink urine via Kraft
[2025-06-21 08:08] LABS: Hematocrit 21.1 % (39.0-52.0); Hemoglobin 6.8 g/dL (13.0-18.0); Mean Corp Hgb Conc. 32.2 g/dL (33.0-37.0); Mean Corpuscular Volume 90.6 fL (80.0-94.0); Platelet Count 101 10^3/uL (130-400); Red Cell Dist. Width 15.1 % (11.5-14.5)
--- NOTE | 2025-06-21 08:43 | W.PN.UPDATE ---
Update Note
Progress Note Update
AM H&H came back with Hgb < 7
will transfuse
--- NOTE | 2025-06-21 10:01 | CM ---
Chart reviewed and patient to return to home when stable.
Plan; To follow with patient progress, see if physician orders visiting nurse services.
[2025-06-21] MEDS: ASPIR LOW (ENTERIC COATED) PO (10:11)
[2025-06-21] MEDS: COREG 6.25 MG PO ×2 (10:11→22:00)
[2025-06-21] MEDS: SENOKOT 17.2 MG PO ×2 (10:11→22:22)
[2025-06-21] MEDS: APRESOLINE 50 MG PO ×3 (10:12→22:01)
[2025-06-21] MEDS: DILAUDID 0.5 MG IV ×2 (10:24→15:51)
--- NOTE | 2025-06-21 10:44 | VNURNOTE ---
Home Health Liaison met with patient and daughter at bedside to discuss [facility] nurse/therapy, visits, schedule and homebound status. Patient is agreeable and understands that visits at home will be 2-3 x per week to assess and teach medical and
salas management. Patient is aware that [facility] will contact them for start of care in 1-2 days after discharge from . Patient has 2 large dogs at home, pet policy reviewed and pt and daughter agreeable.
[facility] referral accepted in [facility].
--- NOTE | 2025-06-21 12:49 | W.PN.SURGUPD ---
Surgical Update
Surgical Update
Patient is currently receiving a unit of PRBC
Daughter at the bedside
He is in no acute distress
Passing flatus
Tolerating diet
---
VSS
Breathing in an unlabored fashion
Abdomen w/o focal tenderness/ecchymosis
Kraft draining essentially clear urine on slow drip CBI: shayan-catheter leakage with bladder spasm
Plan:
Repeat CBC later this afternoon
Labs in AM
Discussed the possibility of moving toward open bladder clot evacuation should the patient's condition deteriorate: no indication for intervention at this time
[2025-06-21] MEDS: DETROL LA 4 MG PO (13:28)
[2025-06-21] MEDS: LIPITOR 80 MG PO (13:29)
[2025-06-21] MEDS: VALIUM INJECTION 5 MG IV (14:36)
--- NOTE | 2025-06-21 17:38 | W.PN.SURGUPD ---
Surgical Update
Surgical Update
Nursing has struggled all afternoon to keep this patient clean and comfortable
He continues to suffer painful bladder spasms every few minutes with bloody urine drainage around the 3 way Kraft that is in place
In an additional attempt to help diminish the clot burden in the urinary bladder and render the patient comfortable and prevent bladder rupture I exchanged his existing Kraft with a latex free 24 Fr Kraft with augmented drainage ports to n o avail.
I have instructed the patient that I advise he undergo open cystotomy with evacuation of the large bladder clot burden as the clot remains refractory to bedside evacuation
I advised him the risks of surgery which include persistent bleeding, possible bladder or ureteral injury, the risk of anesthesia and the possibility of PA, stroke and pneumonia. He consents to surgery: written and verbal
I have also spoken to his daughter by phone and apprised her of the situation: we will speak more at the bedside just before surgery this evening
--- NOTE | 2025-06-21 18:19 | PTCARENOTE ---
late entry: Patient in unrelieved pain since this afternoon. Large amounts of bloody urine leaking around catheter. Patient passing clots through urethra around catheter. Hand irrigation unsuccessful. Dr. Watson came to reassess patient. Opted to
take to OR. Report given to David, patient transported to pre-op area.
--- NOTE | 2025-06-21 20:06 | W.IMMPOSTOP ---
Surgical Immed Post Op Note
-
Primary Surgeon: Walter
Assisting Surgeon: Miguel
Pre-op Diagnosis: Clot urine retention, gross hematuria, acute blood loss anemia, chronic renal insufficiency
Post-op Diagnosis: Same, plus probable bladder perforation
Procedure Performed: Exploratory laparotomy with open cystotomy and evacuation of clot; placement of SP tube
Anesthesia Type: GET
Specimen / Cultures: None
Estimated Blood Loss: 100 ml
Complications: None
--- NOTE | 2025-06-21 20:28 | HPS.HSE ---
Family Physician
-
Family Physician: DORIAN Rahman
Chief Complaint
-
Complicated hematuria
History of Present Illness
This is a 75-year-old male with past medical history of CAD status post multiple stents, AAA status post AAA repair, 2023, hypertension, hyperlipidemia, CHF, CKD, ureteral obstruction status post right ureteral stent placement and ureteral stent
exchange who has been having persistent hydronephrosis despite stent position, minimal change in light 7 cm pelvic aneurysm/hematoma, recommended surgical correction of obstruction and need for robotic versus open right ureteral reimplant. Patient
scheduled for OR.
He is status post right ureteral reimplant, psoas lesion excision of perivesical lesion. Stable iliac aneurysm found which was not disturbed.
Postoperatively patient course was complicated by uncontrolled hematuria status post three-way catheter with CBI. Developed low blood loss anemia requiring transfusion. He continued to have painful bladder spasms despite three-way Salas with
bloody urine drainage around the Salas. Suspect large clot burden in the urinary bladder. Attempted catheter changes to augment drainage to no avail. Patient then underwent open cystotomy with evacuation of the large bladder clot burden and
placement of a suprapubic tube.
Medical History
Past Medical History
Past Medical History: Reports Other
Additional Past Medical History:
ASCVD
ADAN s/p Cardiac Cath / [place] (Resolved / Improved)
Chronic HFpEF
Past Surgical History: Reports Other
Additional Past Surgical History:
PTCA with Stent x 5 total
Right Inguinal Herniorrhaphy
Social History
Tobacco: Non-smoker
Alcohol: Daily
Drug: None
Family History
Family History: Not pertinent
Allergies / Home Medications
Allergies reflects when Allergies were last updated in [facility].
Home Medications with original date entered in [facility]
Allergy/Medication List:
Allergies
Allergy/AdvReac Type Severity Reaction Status Date / Time
No Known Allergies Allergy Unverified 03/06/24 19:34
Home Medications
aspirin 81 mg tablet,delayed release 81 mg PO DAILY 03/06/24
atorvastatin 80 mg tablet (Lipitor) 80 mg PO DAILY 03/06/24
Review of Systems
-
Unable to obtain full review of systems at this time due to: Acuity
Physical Exam
Vital Signs
Vital Signs
Temp Pulse Resp BP Pulse Ox
98.4 F 80 16 119/73 94
06/21/25 18:01 06/21/25 18:01 06/21/25 18:01 06/21/25 18:01 06/21/25 18:01
Physical Exam
General: Well Developed, Well Nourished and No Apparent Distress
HEENT: NormoCephalic, Moist mucous membranes, Atraumatic and Oxygen
Respiratory: Clear
Cardiac: S1/S2 and Regular Rhythm; No Murmur or Rub
GI: Soft, Non Tender, Non Distended, Distended, Ostomy and Other (HARRY tube with serosanguinous drainage. Abdominal incision with Band-Aid in place clean dry and intact. Suprapubic catheter); No Organomegaly
Rectal: Deferred by Provider
Genito-urinary: Salas, Suprapubic Tube and Continuous Bladder Irrigation
Musculoskeletal: No Clubbing, No Cyanosis and No Edema
Skin: No Rash
Neuro: Nonfocal/grossly intact
Psych: Calm
Laboratory Results
-
Laboratory Results
PT 13.9 Sec (11.4-14.6) 06/11/25 08:01
INR 1.04 06/11/25 08:01
APTT 30.2 Sec (23.4-35.0) 06/11/25 08:01
Data Reviewed
-
CT Scan: Report Reviewed by me
Medical Tests (Nuc Med, Echo, EKG etc): Image Personally Visualized and interpreted
Lab Data: Labs Reviewed by me
Old Records: Reviewed
Impression/Plan
-
IMPRESSION:
Postop day 0 status post exploratory laparotomy, open cystectomy with evacuation of large clot burden and placement of suprapubic tube.
PLAN:
1. Hematuria - Severe with blood loss anemia requiring transfusion and now s/p cystectomy, clot burden evacuation and placement of suprapubic catheter
- admit to icu for close monitoring overnight
- h&h q 8
- transfuse for Hgb < 7
- hold AC for now
- monitor i/os
- routine bladder scan
- npo for now
- maintenance fluids
- continue CBI via suprapubic catheter and salas catheter
- shayan-operative abx per urology
-pain control and antiemetics
- urology following
- ICU consult
2. CAD with h/o CHF preserved EF - euvolemic. No immediate post op cardiac complication
- telemetry
- continue aspirin, statin
- continue carvedilol
- restart hydralazine in am
DVT PPX - SCDs for now
Code status - Full Code
[2025-06-21 20:54] LABS: Hematocrit 26.5 % (39.0-52.0); Hemoglobin 8.9 g/dL (13.0-18.0); Mean Corp Hgb Conc. 33.6 g/dL (33.0-37.0); Mean Corpuscular Volume 86.3 fL (80.0-94.0); Platelet Count 99 10^3/uL (130-400); Red Cell Dist. Width 16.4 % (11.5-14.5)
[2025-06-21 21:06] LABS: ALT (SGPT) 13 U/L (0-50); AST (SGOT) 34 U/L (17-59); Albumin 2.9 g/dl (3.5-5.0); Alkaline Phosphatase 39 U/L (38-126); Blood Urea Nitrogen 50 mg/dl (9-20); Calcium 8.2 mg/dl (8.4-10.2); Carbon Dioxide 23 mmol/L (22-30); Chloride 113 mmol/L (98-107); Estimated Creatinine Clearance 29 ml/min; Glucose 113 mg/dl (70-99); Potassium 5.2 mmol/L (3.5-5.1); Sodium 138 mmol/L (135-145); Total Protein 5.3 g/dl (6.3-8.2); eGFR 32.62
[2025-06-21] MEDS: D5LR 1000 IV (21:41)
[2025-06-21 22:11] LABS: Magnesium 2.4 mg/dl (1.6-2.3)
[2025-06-21 22:14] LABS: Hematocrit 27.5 % (39.0-52.0); Hemoglobin 9.2 g/dL (13.0-18.0); Mean Corp Hgb Conc. 33.5 g/dL (33.0-37.0); Mean Corpuscular Volume 85.9 fL (80.0-94.0); Platelet Count 105 10^3/uL (130-400); Red Cell Dist. Width 16.7 % (11.5-14.5)
[2025-06-21 22:39] LABS: INR 1.08; PT 14.4 Sec (11.4-14.6)
[2025-06-21 22:40] LABS: APTT 23.7 Sec (23.4-35.0)
--- NOTE | 2025-06-21 22:59 | PTCARENOTE ---
Received patient AAOx2, drowsy, family at bedside. CHG bath done. Roxycodone given for pain 03/11. NS 80s-90s, BP 140s-150s/80s-90s, afebrile. SONY stockings on and SCDs. 95% on room air, lung sounds clear. Abdomen soft, distended, positive bowel
sounds. Suprapubic catheter in place, original postop dressing CDI. Right HARRY drain putting out serosanguineous fluid. [address] catheter with CBI, pink punch color urine. PIVs patent, WNL. IVF ongoing, call golden within reach.
[2025-06-22] VITALS (26 sets, daily range): BP systolic 100–149; BP diastolic 59–84; BMI 23.7
--- NOTE | 2025-06-22 02:31 | PTCARENOTE ---
Patients urine now a yellow clear color, otherwise assessment unchanged from previous. Call golden within reach.
--- NOTE | 2025-06-22 02:32 | DOWNTIME ---
There was a [employer] Client Product Developer Downtime on 06/22/2025 from 0100 to 06/22/2025 at 0220. Downtime documentation of patient's care, including medication administrations, has been reconciled in the electronic record per guidelines. Refer to the
patient's paper chart under the miscellaneous tab to see printed paper medication records and downtime forms.
[2025-06-22 04:10] LABS: Hematocrit 23.2 % (39.0-52.0); Hemoglobin 7.9 g/dL (13.0-18.0); Mean Corp Hgb Conc. 34.1 g/dL (33.0-37.0); Mean Corpuscular Volume 85.3 fL (80.0-94.0); Platelet Count 95 10^3/uL (130-400); Red Cell Dist. Width 16.9 % (11.5-14.5)
--- NOTE | 2025-06-22 04:25 | PTCARENOTE ---
Labs sent, patient AAOx3, otherwise assessment unchanged from previous. Call golden within reach.
[2025-06-22 04:34] LABS: Blood Urea Nitrogen 51 mg/dl (9-20); Calcium 7.9 mg/dl (8.4-10.2); Carbon Dioxide 22 mmol/L (22-30); Chloride 113 mmol/L (98-107); Estimated Creatinine Clearance 29 ml/min; Glucose 154 mg/dl (70-99); Potassium 5.4 mmol/L (3.5-5.1); Sodium 138 mmol/L (135-145); eGFR 32.62
[2025-06-22] MEDS: DEXTROSE 50% SYRINGE 25 GRAMS IV (06:09)
[2025-06-22] MEDS: NOVOLIN R 10 UNITS IV (06:10)
[2025-06-22] MEDS: CALCIUM GLUCONATE 100 IV (06:17)
[2025-06-22] MEDS: ANCEF 5 IV ×2 (06:17→17:03)
[2025-06-22 06:19] LABS: Glucose - Point of Care 173 mg/dl (70-99)
[2025-06-22 07:39] LABS: Glucose - Point of Care 235 mg/dl (70-99)
[2025-06-22] MEDS: SENOKOT 17.2 MG PO ×2 (07:48→19:54)
[2025-06-22] MEDS: APRESOLINE 50 MG PO ×3 (07:48→21:08)
[2025-06-22] MEDS: COREG 6.25 MG PO ×2 (07:49→19:55)
[2025-06-22] MEDS: DETROL LA 4 MG PO (07:49)
--- NOTE | 2025-06-22 08:28 | CON.INTV ---
Consultation
Consultation Request
Date/Time Consultation Requested: 06/21/2025 - 2115
Date/Time Consultation Performed: 06/22/2025 - 821
Requesting Provider: Dr. Mccarty
Performing Provider: Dr. Garcia
Reason for Consultation: post-op clot evacuation from bladder
Medical History
-
Chief Complaint: Planned right ureteral reimplantation
History of Present Illness:
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
with right ureteral reimplantation with psoas hitch. In March 2024, patient had a large acute rupture of his right internal iliac artery aneurysm causing a significant extraperitoneal hemorrhage which caused severe right-sided hydronephrosis, as
well as mild left hydroureteronephrosis. On 06/18/2024, patient underwent right ureteral stent placement due to significant right ureteral obstruction. On 01/04/2025, patient underwent right ureteral stent exchange. Unfortunately his hydro ureteral
nephrosis remains moderate to severe on his right side. Surgical correction of the obstruction was discussed in the office with Dr. Sheth on 04/07/2025. Patient underwent right ureteral reimplantation with a psoas hitch and excision of perivesical
lesion on 06/17/2025. Intraoperative frozen specimen of this firm lesion near the bladder wall was benign, likely an old hematoma/inflammation. The iliac aneurysm remained stable and was not disturbed, per operative note. I after this procedure,
patient developed bladder spasms with hematuria + clots. Patient also had stomach discomfort with abdominal bloating. CT abdomen/pelvis on 06/18/2025 showed mild right-sided hydronephrosis with slightly progressed left-sided hydronephrosis compared
to prior imaging of an abdominal MRI from 02/16/2025. Patient did require blood transfusions of PRBC x 2 on 06/19, and required another 2 units PRBC on 06/21. CT cystogram performed on 06/20 showing no urinary bladder leak or evidence of rupture.
Patient then underwent an exploratory laparotomy on the evening of 06/21 with cystotomy and evacuation of blood clots that had unfortunately filled up the bladder, with placement of a suprapubic cystostomy tube. There was 100 cc EBL from this
procedure, with no immediate complications. Patient transferred to the ICU postoperatively, and emd teacher services consulted for additional management/recommendations.
Patient seen and evaluated this morning. Heart rate 61, BP 122/67 and breathing comfortably on room air, saturating 97%. He feels much better, denying abdominal pain, bladder spasms, penile pain, JAY, fevers or chills. Currently on CBI with
pink-colored urine and small amount of clots. Daughter present at bedside, Stephanie, and all questions were answered.
PMHx: Bilateral hydronephrosis with right-sided hydroureteronephrosis due to pelvic hematoma/aneurysm sac after ruptured iliac aneurysm, hypertension, hypercholesterolemia, chronic HFpEF, CKD, CAD s/p coronary stent, BPH with LUTS, history of
complicated UTI, PVD
PSHx: Rotator cuff repair, repair of ruptured right internal iliac artery, right ureteral stent (06/2024) with ureteral stent exchange (12/2024)
Past Medical History
Past Medical History: Other (Above as per HPI)
Past Surgical History: Other (Above as per HPI)
Social History
Tobacco: Non-smoker
Alcohol: Occasional
Drug: None
Family History
Family History: CAD (Father), Hypertension (Father) and Other (Mother: Alzheimer's disease)
Allergies / Home Medications
Allergies
Allergy/AdvReac Type Severity Reaction Status Date / Time
No Known Allergies Allergy Verified 06/17/25 07:21
Home Medications
�Medication �Instructions �Recorded �Confirmed �Last Taken �Type
aspirin 81 mg tablet,delayed 81 mg PO DAILY Blood Clot 03/06/24 06/17/25 06/16/25 08:00 History
release Prevention/Tx
atorvastatin 80 mg tablet (Lipitor) 80 mg PO 1400 High Cholesterol 03/06/24 06/17/25 06/16/25 20:00 History
carvedilol 6.25 mg tablet 6.25 mg PO BID #60 tabs 03/14/24 06/17/25 06/16/25 20:00 Rx
hydralazine 50 mg tablet 50 mg PO TID #90 tabs 03/14/24 06/17/25 06/16/25 20:00 Rx
multivitamin 1 tab PO DAILY 06/16/24 06/17/25 06/16/25 12:00 History
oxycodone-acetaminophen 5 mg-325 1 tab PO Q4HPRN PRN moderate pain 06/18/25 Unknown Rx
mg tablet #20 tabs
Review of Systems
-
History Source: Patient
All other systems: Negative unless noted
Vitals / Labs / Diagnostic Testing
Vital Signs
Temp Pulse Resp BP Pulse Ox
98.3 F 58 15 140/74 97
06/22/25 08:07 06/22/25 08:45 06/22/25 08:45 06/22/25 08:00 06/22/25 08:00
Laboratory Results
06/21/25
21:56
PT 14.4
INR 1.08
APTT 23.7
Diagnostic Testing:
Physical Exam
-
HEENT: Normocephalic and Anicteric
Cardiovascular: S1/S2 and Peripheral Edema (negative)
Respiratory: Clear, Wheeze (negative), Rales (negative), Rhonchi (negative) and Non-Labored Respirations
GI: Soft, Non Distended, Non Tender and Normal Bowel Sounds
Neurology: AO x 3 and Tremors (negative)
Skin: Warm, Dry and Other (Bandage across lower abdomen)
General: Respiratory Distress, Pain (Occasional in lower abdomen/bladder region), Fever (negative) and Chills (negative)
Assessment
-
Assessment: 75-year-old male with a past medical history of hypertension, hypercholesterolemia, chronic HFpEF, CKD, CAD s/p coronary stent, BPH with LUTS and history of emergent endovascular pair of ruptured right internal iliac artery aneurysm who
presents with right ureteral reimplantation with psoas hitch. In March 2024, patient had a large acute rupture of his right internal iliac artery aneurysm causing a significant extraperitoneal hemorrhage which caused severe right-sided
hydronephrosis, as well as mild left hydroureteronephrosis. On 06/18/2024, patient underwent right ureteral stent placement due to significant right ureteral obstruction. On 01/04/2025, patient underwent right ureteral stent exchange. Unfortunately
his hydro ureteral nephrosis remains moderate to severe on his right side. Surgical correction of the obstruction was discussed in the office with Dr. Sheth on 04/07/2025. Patient underwent right ureteral reimplantation with a psoas hitch and
excision of perivesical lesion on 06/17/2025. Intraoperative frozen specimen of this firm lesion near the bladder wall was benign, likely an old hematoma/inflammation. The iliac aneurysm remained stable and was not disturbed, per operative note. I
after this procedure, patient developed bladder spasms with hematuria + clots. Patient also had stomach discomfort with abdominal bloating. CT abdomen/pelvis on 06/18/2025 showed mild right-sided hydronephrosis with slightly progressed left-sided
hydronephrosis compared to prior imaging of an abdominal MRI from 02/16/2025. Patient did require blood transfusions of PRBC x 2 on 06/19, and required another 2 units PRBC on 06/21. CT cystogram performed on 06/20 showing no urinary bladder leak or
evidence of rupture. Patient then underwent an exploratory laparotomy on the evening of 06/21 with cystotomy and evacuation of blood clots that had unfortunately filled up the bladder, with placement of a suprapubic cystostomy tube. There was 100
cc EBL from this procedure, with no immediate complications. Patient transferred to the ICU postoperatively, and emd teacher services consulted for additional management/recommendations.
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
history of complicated UTI, PVD, ectatic abdominal aorta
Impression:
#Persistent right hydronephrosis due to extraperitoneal hemorrhage as sequelae from right internal iliac artery aneurysm (s/p coil embolization + stent graft placement) with Hx of right ureteral stent placement (06/2024) with ureteral stent exchange
(12/2024)
#Persistent right-sided ureteral obstruction s/p ureteral reimplantation with psoas hitch and excision of perivesical lesion (OR date: 06/17/2025)
#Postoperative hematuria with clot urine retention + intractable bladder spasms/pain s/p exploratory laparotomy with cystotomy and evacuation of clot with placement of SPT (POD #1)
#Acute blood loss anemia due to hematuria s/p multiple blood transfusions (2 units PRBC on 06/19 + 2 units PRBC on 06/21/2025)
#Thrombocytopenia (he is chronically low with baseline between 113�220)
#History of right internal iliac artery aneurysm complicated by acute rupture requiring emergent endovascular repair with coil embolization + endovascular internal iliac artery exclusion with iliac limb stent graft placement (03/07/2024)
#CKD (baseline creatinine approximately 2)
#Hyperglycemia
#BPH with LUTS
#History of complicated UTI
#PVD
#Ectatic abdominal aorta
Plan:
Postoperative management as per urology service
Continue CBI - pink-colored urine currently with small clots as of 06/22/2025
Continue surgical intensive care unit monitoring
Supplemental oxygen as needed to maintain SpO2 >90-94% - currently on room air breathing comfortably, saturating 97%
prn nebulized bronchodilators - not currently bronchospastic
Incentive spirometry encouraged 10x per hour for at least 4 hrs a day
Aspiration precautions
Pain control
Hold antiplatelet + anticoagulants for now, until instructed otherwise per urology
Of note, pathology from posterior bladder wall lesion from OR on 06/17/2025 shows hematoma with no evidence of a neoplastic process
Maintain MAP>65
Replete electrolytes with K>4, Mg>2
Maintain euglycemia with goal BG 140-180; HbA1c is pending
Urology service following-correspondence and operative notes reviewed
Transfuse blood products as needed to keep Hb>7-8g/dL, and plt>50k (given hematuria), with goal INR<1.8
DVT prophylaxis: SCDs for now
Early nutrition
Early mobilization
Code status: Full code
Discussed case with Urology + Hospitalist and patient is appropriate for downgrade out of ICU to telemetry. No additional recommendations at this time. Engineering Faculty Member/Pulmonary service will now sign off. Thank you for allowing us to be involved in
the care of this patient. Please reconsult if there are any additional questions/concerns, or if patient's respiratory status deteriorates.
Total time spent today was 58 minutes for this encounter. Time includes reviewing laboratory test/imaging results, reviewing pertinent medical records, obtaining and reviewing medical history, performing an appropriate exam, ordering medications,
tests and procedures. Time also includes documentation of this encounter, coordinating patient care and communicating with other healthcare professionals. Total time does not include separately billed tests performed on this date of service.
[2025-06-22 09:04] LABS: Glucose - Point of Care 213 mg/dl (70-99)
--- NOTE | 2025-06-22 09:25 | W.PN.URO.CBU ---
Today's Communication / Plan
-
Will follow Hgb and transfuse as warranted
Keep CBI slow drip
Clear liquids
Assessment / Plan
-
75M POD s/p open R ureteral reimplant
CT cysto gram on 06/20 ruled-out bladder rupture; significant blood clot in bladder
Open cystotomy with evacuation of clot and SP tube placement 06/21/25
Diagnosis
-
Date of Service: June 22, 2025
-
Patient Diagnosis:
R ureteral obstruction
s/p R ureteral reimplant, psoas hitch 06/17/25
blood-loss anemia/clot urine retention
s/p open cystostomy with clot evacuation and placement SP tube 06/21/25
Subjective
-
Comfortable
No bladder spasms
Hungry
Objective
-
Vital Signs
Temp Pulse Resp BP Pulse Ox
98.3 F 58 15 140/74 97
06/22/25 08:07 06/22/25 08:45 06/22/25 08:45 06/22/25 08:00 06/22/25 08:00
Intake and Output
06/21/25 06/22/25 06/23/25
06:59 06:59 06:59
Intake Total 480 / 480 800 / 850 150 / 150
Output Total 1140 / 1140 90194 / 37107
Balance -660 / -660 -48489 / -40908 150 / 150
Intake:
Oral fluids 480 / 480
IV fluids (Total) 550 / 600 150 / 150
D5lr 1,000 ml @ 50 mls/hr IV . 450 / 500 150 / 150
Q20H MARIAH Rx#:[id number]
normosol 100 / 100
Blood Product Amount Infused ( 250 / 250
mL)
Packed Rbc Leukoreduced Unit 250 / 250
[id number]
Output:
Drain Output (Total)
Right Abdomen Jamshid-Gilbert
True Urine Output from CBI 1080 / 5297 54921 / 13722
Laboratory Results
06/22/25 03:59
Review of Systems
-
Constitutional: Fatigue
Respiratory: No Symptoms
Cardiac: No Symptoms
Abdomen/GI: No Symptoms
Musculoskeletal: No Symptoms
Neurological: No Symptoms
Physical Exam
-
General - well developed, well nourished, no acute distress
Abdomen - soft, non-tender, positive bowel sounds, no CVAT, SP tube, dressing dry
Genitalia - normal with Kraft draining light peach urine on slow drip CBI
Skin - warm & dry with no rash
Neuro - AOx3, no motor deficits
Extremities - no clubbing, no cyanosis, no edema
Dressing - clean, dry, intact
[2025-06-22] MEDS: DILAUDID 0.5 MG IV ×2 (11:26→19:56)
--- NOTE | 2025-06-22 11:54 | W.PN.HOSP.TC ---
Addendum entered and electronically signed by Jono Jonas DO 06/22/25 17:48:
ADAN on CKD 3B -ADAN resolved.
Original Note:
Today's Communication/Plan
-
Recheck labs
Hemoglobin A1c
PT/OT
Telemetry transfer
Assessment / Plan
Assessment / Plan
Gen-AAOx3, NAD
HEENT-NC, AT, anicteric, clear oral mm
Neck-supple
CV-reg, no M, +S1/S2
Lungs-clear B/L
Abd-soft, NT, ND, suprapubic catheter, dressings intact
Ext-no edema
Musculoskeletal-no cyanosis, clubbing
Skin-warm and dry
Neuro-grossly non-focal
Psych-calm, cooperative
Chronic bilateral hydronephrosis -ureteral compression due to pelvic hematoma/aneurysm sac after ruptured iliac aneurysm.
Admitted June 17 for surgical correction of obstruction with plan for open ureteral reimplant, performed 06/17.
Developed postoperative hematuria requiring transfusion, 4 units transfused so far.
CT scan on June 18 showed pelvic hematoma without urine leak or bladder rupture.
Subsequent CT cystogram June 20 showed clotted blood in the bladder and hematoma adjacent to the bladder without extravasation of contrast from the bladder.
Has been getting continuous bladder irrigation for several days.
Noted to have clot urine retention and intractable bladder spasms and bladder pain. Subsequently went back to the OR 06/21 for exploratory laparotomy with cystotomy and evacuation of bladder clot, placement of suprapubic cystostomy tube.
Transferred to hospitalist service evening of June 21.
Currently stable in the medical intensive care unit with plans for transfer to telemetry. Clear liquid diet per urology.
Acute blood loss anemia -blood loss anemia due to significant hematuria and operative blood loss. Admission hemoglobin 9.8 on June 17, transfused 4 units of blood, hemoglobin 7.9 this morning. Repeat hemoglobin pending for this afternoon.
Hemodynamically stable. Baseline hemoglobin appears to be around 11. Therefore this is acute on chronic anemia. Etiology of chronic anemia unclear, possibly due to CKD.
Aspirin and anticoagulation on hold.
Hyperkalemia -potassium 5.4 this morning. Repeat pending. Treated with 10 units of IV insulin, 25 g dextrose. Order Lokelma if potassium remains elevated on labs this afternoon.
Acute thrombocytopenia -most likely consumptive thrombocytopenia due to significant blood loss anemia. Monitor for now.
Hyperglycemia -rule out DM2. Check hemoglobin A1c. Glucose this morning elevated, 154 on BMP, 235 on Accu-Chek.
History of ruptured Right internal iliac artery aneurysm/intra-abdominal hematoma - treated in March 2024 with coil embolization and iliac limb stent graft placement extending from right common iliac artery to external iliac artery.
CKD 3B -admission creatinine 1.9, 2.1 this morning. Monitor for now.
Essential hypertension -stable.
Hyperlipidemia -atorvastatin.
Chronic heart failure preserved EF -stable.
CAD -stable. History of 5 coronary stents.
Alcohol use disorder
Full code
PT/OT
Anticipated Discharge: > 48 hours
Subjective/Interval History
-
Date of Service: June 22, 2025
Patient seen/examined. No complaints.
Objective Data
-
Labs:
Laboratory Results
06/22/25 06/22/25 06/22/25
03:59 08:18 13:00
WBC 7.0 Pending
Hgb 7.9 L Pending
Hct 23.2 L Pending
Plt Count 95 L Pending
Sodium 138 Pending
Potassium 5.4 H Pending Pending
Chloride 113 H Pending
Carbon Dioxide 22 Pending
BUN 51 H Pending
Creatinine 2.1 H Pending
Glucose 154 H Pending
Calcium 7.9 L Pending
Vital Signs:
Vital Signs
Temp Pulse Resp BP Pulse Ox
98.3 F 58 15 140/74 97
06/22/25 08:07 06/22/25 08:45 06/22/25 08:45 06/22/25 08:00 06/22/25 08:00
I&O
06/21/25 06/22/25 06/23/25
06:59 06:59 06:59
Intake Total 480 / 480 800 / 850 150 / 150
Output Total 1140 / 1140 53362 / 64387
Balance -660 / -660 -14631 / -11779 150 / 150
Review of Systems
-
History Source: Patient
All other systems: Reviewed and negative
[2025-06-22 12:29] LABS: Glucose - Point of Care 200 mg/dl (70-99)
[2025-06-22 13:32] LABS: Hematocrit 24.7 % (39.0-52.0); Hemoglobin 8.3 g/dL (13.0-18.0); Mean Corp Hgb Conc. 33.6 g/dL (33.0-37.0); Mean Corpuscular Volume 86.7 fL (80.0-94.0); Platelet Count 107 10^3/uL (130-400); Red Cell Dist. Width 17.2 % (11.5-14.5)
[2025-06-22 13:45] LABS: Blood Urea Nitrogen 45 mg/dl (9-20); Calcium 8.5 mg/dl (8.4-10.2); Carbon Dioxide 24 mmol/L (22-30); Chloride 110 mmol/L (98-107); Estimated Creatinine Clearance 29 ml/min; Glucose 199 mg/dl (70-99); Potassium 5.1 mmol/L (3.5-5.1); Sodium 137 mmol/L (135-145); eGFR 32.62
[2025-06-22] MEDS: LIPITOR 80 MG PO (14:45)
[2025-06-22] MEDS: PERCOCET 5/325 1 TABLET PO (14:45)
--- NOTE | 2025-06-22 17:31 | PN.CDI ---
CDI
- -
CDI:
Physician Documentation Request
Admit Date: 06/17/25 06:48
Dear Doctor Sumi,
Please review the following and provide your response in the progress notes.
Clinical Indicators:
Pt admitted for surgical correction of obstruction with plan for open ureteral reimplant.
PMHx includes CKD 3b
Laboratory Tests
06/17/25 06/18/25 06/19/25
12:14 04:54 04:07
Creatinine 1.9 H 2.0 H 2.7 H
eGFR 36.79 34.59 24.13
Clarify which of the following accurately represents the patient's renal status:
Acute kidney injury - see criteria
CKD3b Only
Other
Criteria for ADAN*
1 Increase in serum creatinine by > or = to 0.3 mg/dL (> or = to 26.5 micromol/L) within 48 hours, OR
2 Increase in serum creatinine to > or = to 1.5 times baseline, which is known or presumed to have occurred within 7 days, OR
3 Urine volume < 0.5 nL/kg/hour for six hours
Stages of Chronic Kidney Disease*
Level Description GFR
G1 Normal or High >90
G2 Mildly decreased 60-89
G3a Mildly to moderately decreased 45-59
G3b Moderately to severely decreased 30-44
G4 Severely decreased 15-29
G5 Kidney failure <15
Use of terms such as suspected, likely, concern for, or probable (associated with a specific diagnosis that is being evaluated, monitored, or treated as if it exists) are acceptable and can be coded in the inpatient setting, when documented at the
time of discharge.
Thank you,
Samiar Dye RN, BSN
CDI Specialist
[place] [facility]
Please use your independent medical judgment in providing your response.
*Source: Kidney Disease: Improving Global Outcomes (KDIGO) 2012
--- NOTE | 2025-06-22 20:57 | PTCARENOTE ---
Pt transported via bed with all of his belongings.
[2025-06-23] VITALS (8 sets, daily range): BP systolic 93–120; BP diastolic 54–74; PULSE 62–67; O2SAT 95; BMI 24.1
[2025-06-23] MEDS: PERCOCET 5/325 2 TABLET PO ×2 (05:28→21:18)
[2025-06-23] MEDS: ANCEF 5 IV ×2 (05:29→17:49)
[2025-06-23] MEDS: FLUSH (NSS) 2 FLUSH IV (05:29)
[2025-06-23 05:58] LABS: Hematocrit 23.8 % (39.0-52.0); Hemoglobin 7.9 g/dL (13.0-18.0); Mean Corp Hgb Conc. 33.2 g/dL (33.0-37.0); Mean Corpuscular Volume 86.9 fL (80.0-94.0); Platelet Count 113 10^3/uL (130-400); Red Cell Dist. Width 17.2 % (11.5-14.5)
[2025-06-23 06:02] LABS: Blood Urea Nitrogen 39 mg/dl (9-20); Calcium 8.3 mg/dl (8.4-10.2); Carbon Dioxide 27 mmol/L (22-30); Chloride 110 mmol/L (98-107); Estimated Creatinine Clearance 31 ml/min; Glucose 104 mg/dl (70-99); Magnesium 2.2 mg/dl (1.6-2.3); Potassium 4.9 mmol/L (3.5-5.1); Sodium 139 mmol/L (135-145); eGFR 34.59
--- NOTE | 2025-06-23 08:34 | W.PN.URO.CBU ---
Today's Communication / Plan
-
Advance diet
May resume low dose aspirin 06/24/25
Stop CBI at 1300 today
Will remove HARRY tomorrow if output remains negligible
Assessment / Plan
-
75M POD s/p open R ureteral reimplant
CT cysto gram on 06/20 ruled-out bladder rupture; significant blood clot in bladder
Open cystotomy with evacuation of clot and SP tube placement 06/21/25
Diagnosis
-
Date of Service: June 23, 2025
-
Patient Diagnosis:
Post Op Day:
Patient Diagnosis:
R ureteral obstruction
s/p R ureteral reimplant, psoas hitch 06/17/25
blood-loss anemia/clot urine retention
s/p open cystostomy with clot evacuation and placement SP tube 06/21/25
Subjective
-
Comfortable
Tolerating diet
Passing flatus
Objective
-
Vital Signs
Temp Pulse Resp BP Pulse Ox
98.5 F 65 16 100/58 95
06/23/25 07:27 06/23/25 07:27 06/23/25 07:27 06/23/25 07:27 06/23/25 07:27
Intake and Output
06/22/25 06/23/25 06/24/25
06:59 06:59 06:59
Intake Total 800 / 850 1280 / 1280
Output Total 72802 / 57305 1460 / 1460
Balance -30851 / -89122 -180 / -180
Intake:
Oral fluids 580 / 580
IV fluids (Total) 550 / 600 700 / 700
D5lr 1,000 ml @ 50 mls/hr IV . 450 / 500 700 / 700
Q20H MARIAH Rx#:[id number]
normosol 100 / 100
Blood Product Amount Infused ( 250 / 250
mL)
Packed Rbc Leukoreduced Unit 250 / 250
[id number]
Output:
Drain Output (Total)
Right Abdomen Jamshid-Gilbert
True Urine Output from CBI 38648 / 86799 1450 / 1450
Laboratory Results
06/23/25 05:24
06/23/25 05:24
Review of Systems
-
Constitutional: Fatigue
Respiratory: No Symptoms
Cardiac: No Symptoms
Neurological: No Symptoms
Physical Exam
-
General - well developed, well nourished, no acute distress
Abdomen - soft, non-tender, positive bowel sounds, no CVAT, dressing dry
Genitalia - normal with Kraft draining kashif urine
Neuro - AOx3, no motor deficits
Counseling
-
Will advance diet
[2025-06-23 08:40] LABS: Glycohemoglobin (HgbA1c) 5.6 % (4.0-5.6)
[2025-06-23] MEDS: DETROL LA 4 MG PO (09:35)
[2025-06-23] MEDS: APRESOLINE 50 MG PO ×3 (09:37→21:18)
[2025-06-23] MEDS: PERCOCET 5/325 1 TABLET PO ×2 (09:37→17:54)
[2025-06-23] MEDS: SENOKOT 17.2 MG PO ×2 (09:37→21:18)
[2025-06-23] MEDS: COREG 6.25 MG PO ×2 (09:38→21:18)
[2025-06-23] MEDS: THERAGRAN 1 TABLET PO (09:38)
--- NOTE | 2025-06-23 13:22 | W.PN.HOSP.TC ---
Today's Communication/Plan
-
Continue current care
Assessment / Plan
Assessment / Plan
Gen-AAOx3, NAD
HEENT-NC, AT, anicteric, clear oral mm
Neck-supple
CV-reg, no M, +S1/S2
Lungs-clear B/L
Abd-soft, NT, ND, suprapubic catheter, dressings intact
Ext-no edema
Musculoskeletal-no cyanosis, clubbing
Skin-warm and dry
Neuro-grossly non-focal
Psych-calm, cooperative
Chronic bilateral hydronephrosis -ureteral compression due to pelvic hematoma/aneurysm sac after ruptured iliac aneurysm.
Admitted June 17 for surgical correction of obstruction with plan for open ureteral reimplant, performed 06/17.
Developed postoperative hematuria requiring transfusion, 4 units transfused so far.
CT scan on June 18 showed pelvic hematoma without urine leak or bladder rupture.
Subsequent CT cystogram June 20 showed clotted blood in the bladder and hematoma adjacent to the bladder without extravasation of contrast from the bladder.
Has been getting continuous bladder irrigation for several days.
Noted to have clot urine retention and intractable bladder spasms and bladder pain. Subsequently went back to the OR 06/21 for exploratory laparotomy with cystotomy and evacuation of bladder clot, placement of suprapubic cystostomy tube.
Transferred to hospitalist service evening of June 21.
Diet advanced to solids.
Acute blood loss anemia -blood loss anemia due to significant hematuria and operative blood loss. Admission hemoglobin 9.8 on June 17, transfused 4 units of blood, hemoglobin stable at 7.9 this morning.
Hemodynamically stable. Baseline hemoglobin appears to be around 11. Therefore this is acute on chronic anemia. Etiology of chronic anemia unclear, possibly due to CKD.
Aspirin and anticoagulation on hold.
Urology okay with resuming aspirin 06/24.
Hyperkalemia -resolved.
Acute thrombocytopenia -most likely consumptive thrombocytopenia due to significant blood loss anemia. Monitor for now.
Hyperglycemia -hemoglobin A1c 5.6%.
History of ruptured Right internal iliac artery aneurysm/intra-abdominal hematoma - treated in March 2024 with coil embolization and iliac limb stent graft placement extending from right common iliac artery to external iliac artery.
ADAN on CKD 3B -ADAN resolved. Renal function back to baseline.
Essential hypertension -stable.
Hyperlipidemia -atorvastatin.
Chronic heart failure preserved EF -stable.
CAD -stable. History of 5 coronary stents.
Alcohol use disorder
Full code
PT/OT -Home PT recommended.
Anticipated Discharge: 24 - 48 hours
Subjective/Interval History
-
Date of Service: June 23, 2025
Patient seen and examined, no complaints.
Objective Data
-
Labs:
Laboratory Results
06/23/25
05:24
WBC 11.3 H
Hgb 7.9 L
Hct 23.8 L
Plt Count 113 L
Sodium 139
Potassium 4.9
Chloride 110 H
Carbon Dioxide 27
BUN 39 H
Creatinine 2.0 H
Glucose 104 H
Calcium 8.3 L
Vital Signs:
Vital Signs
Temp Pulse Resp BP Pulse Ox
98.3 F 65 16 99/61 96
06/23/25 11:15 06/23/25 11:15 06/23/25 11:15 06/23/25 11:15 06/23/25 11:15
I&O
06/22/25 06/23/25 06/24/25
06:59 06:59 06:59
Intake Total 800 / 850 1280 / 1280
Output Total 15907 / 33445 1460 / 1460
Balance -23834 / -96981 -180 / -180
Review of Systems
-
History Source: Patient
All other systems: Reviewed and negative
[2025-06-23] MEDS: LIPITOR 80 MG PO (14:38)
--- NOTE | 2025-06-23 23:27 | PTCARENOTE ---
will do it in the morning. will check in the morning as well.
[2025-06-24 03:00] VITALS: BP 100/58
[2025-06-24] MEDS: ANCEF 5 IV ×2 (05:16→17:12)
[2025-06-24] MEDS: PERCOCET 5/325 2 TABLET PO ×2 (05:17→22:24)
[2025-06-24 05:25] VITALS: BMI 24.0
[2025-06-24 06:31] LABS: Hematocrit 24.9 % (39.0-52.0); Hemoglobin 8.0 g/dL (13.0-18.0); Mean Corp Hgb Conc. 32.1 g/dL (33.0-37.0); Mean Corpuscular Volume 89.2 fL (80.0-94.0); Platelet Count 127 10^3/uL (130-400); Red Cell Dist. Width 16.8 % (11.5-14.5)
[2025-06-24 06:41] LABS: Blood Urea Nitrogen 39 mg/dl (9-20); Calcium 8.2 mg/dl (8.4-10.2); Carbon Dioxide 28 mmol/L (22-30); Chloride 109 mmol/L (98-107); Estimated Creatinine Clearance 31 ml/min; Glucose 88 mg/dl (70-99); Potassium 4.7 mmol/L (3.5-5.1); Sodium 139 mmol/L (135-145); eGFR 34.59
[2025-06-24 07:25] VITALS: BP 105/60
--- NOTE | 2025-06-24 09:57 | W.PN.URO.CBU ---
Today's Communication / Plan
-
Continue to increase activity
HARRY drain removed intact 06/24/25
Assessment / Plan
-
75M POD s/p open R ureteral reimplant
Open cystotomy with evacuation of clot and SP tube placement 06/21/25
Diagnosis
-
Date of Service: June 24, 2025
-
Patient Diagnosis:
R ureteral obstruction
s/p R ureteral reimplant, psoas hitch 06/17/25
blood-loss anemia/clot urine retention
s/p open cystostomy with clot evacuation and placement SP tube 06/21/25
Subjective
-
Feels well
No abdominal pain
Tolerating regular diet
Flatus
Up and OOB
Objective
-
Vital Signs
Temp Pulse Resp BP Pulse Ox
98.4 F 82 18 105/60 94
06/24/25 07:25 06/24/25 07:25 06/24/25 07:25 06/24/25 07:25 06/24/25 07:25
Intake and Output
06/23/25 06/24/25 06/25/25
06:59 06:59 06:59
Intake Total 1280 / 1280 960 / 960
Output Total 1460 / 1460 3602 / 3602
Balance -180 / -180 -2642 / -2642
Intake:
Oral fluids 580 / 580 960 / 960
IV fluids (Total) 700 / 700
D5lr 1,000 ml @ 50 mls/hr IV . 700 / 700
Q20H MARIAH Rx#:[id number]
Output:
Drain Output (Total) 2
Right Abdomen Jamshid-Gilbert
Urine, Kraft 3600 / 3600
True Urine Output from CBI 1450 / 1450
Laboratory Results
06/24/25 05:17
06/24/25 05:17
Review of Systems
-
Constitutional: Fatigue
Respiratory: No Symptoms
Cardiac: No Symptoms
Abdomen/GI: No Symptoms
Musculoskeletal: No Symptoms
Neurological: No Symptoms
Physical Exam
-
General - well developed, well nourished, no acute distress
Abdomen - soft, non-tender, positive bowel sounds, no CVAT, incision clean, SP tube plugged
Genitalia - normal with Kraft draining kashif urine
Skin - warm & dry with no rash
Neuro - AOx3, no motor deficits
Counseling
-
Discussed with Hospitalist
Resume low dose aspirin today
Anticipate discharge in 24 hours
--- NOTE | 2025-06-24 10:13 | W.PN.HOSP.TC ---
Today's Communication/Plan
-
Bowel regimen
Assessment / Plan
Assessment / Plan
Gen-AAOx3, NAD
HEENT-NC, AT, anicteric, clear oral mm
Neck-supple
CV-reg, no M, +S1/S2
Lungs-clear B/L
Abd-soft, NT, ND, suprapubic catheter, dressings intact
Ext-no edema
Musculoskeletal-no cyanosis, clubbing
Skin-warm and dry
Neuro-grossly non-focal
Psych-calm, cooperative
Chronic bilateral hydronephrosis -ureteral compression due to pelvic hematoma/aneurysm sac after ruptured iliac aneurysm.
Admitted June 17 for surgical correction of obstruction with plan for open ureteral reimplant, performed 06/17.
Developed postoperative hematuria requiring transfusion, 4 units transfused so far.
CT scan on June 18 showed pelvic hematoma without urine leak or bladder rupture.
Subsequent CT cystogram June 20 showed clotted blood in the bladder and hematoma adjacent to the bladder without extravasation of contrast from the bladder.
Has been getting continuous bladder irrigation for several days.
Noted to have clot urine retention and intractable bladder spasms and bladder pain. Subsequently went back to the OR 06/21 for exploratory laparotomy with cystotomy and evacuation of bladder clot, placement of suprapubic cystostomy tube.
Transferred to hospitalist service evening of June 21.
Diet advanced to solids.
HARRY drain removed 06/24
Acute blood loss anemia -blood loss anemia due to significant hematuria and operative blood loss. Admission hemoglobin 9.8 on June 17, transfused 4 units of blood, hemoglobin stable at 8.0 this morning.
Hemodynamically stable. Baseline hemoglobin appears to be around 11. Therefore this is acute on chronic anemia. Etiology of chronic anemia unclear, possibly due to CKD.
Resume aspirin today as per urology.
Constipation -no bowel movements in the hospital. Bowel regimen ordered.
Hyperkalemia -resolved.
Acute thrombocytopenia -most likely consumptive thrombocytopenia due to significant blood loss anemia. Monitor for now.
Hyperglycemia -hemoglobin A1c 5.6%. DM2 ruled out.
History of ruptured Right internal iliac artery aneurysm/intra-abdominal hematoma - treated in March 2024 with coil embolization and iliac limb stent graft placement extending from right common iliac artery to external iliac artery.
ADAN on CKD 3B -ADAN resolved. Renal function back to baseline.
Essential hypertension -stable.
Hyperlipidemia -atorvastatin.
Chronic heart failure preserved EF -stable.
CAD -stable. History of 5 coronary stents.
Alcohol use disorder
Full code
PT/OT -Home PT recommended.
Dispo -anticipate discharge home tomorrow with VN. Discussed with urology service. Close outpatient follow-up.
Anticipated Discharge: Within 24 hours
Subjective/Interval History
-
Date of Service: June 24, 2025
Patient seen and examined. No complaints.
Objective Data
-
Labs:
Laboratory Results
06/24/25
05:17
WBC 9.7
Hgb 8.0 L
Hct 24.9 L
Plt Count 127 L
Sodium 139
Potassium 4.7
Chloride 109 H
Carbon Dioxide 28
BUN 39 H
Creatinine 2.0 H
Glucose 88
Calcium 8.2 L
Vital Signs:
Vital Signs
Temp Pulse Resp BP Pulse Ox
98.4 F 82 18 105/60 94
06/24/25 07:25 06/24/25 07:25 06/24/25 07:25 06/24/25 07:25 06/24/25 07:25
I&O
06/23/25 06/24/25 06/25/25
06:59 06:59 06:59
Intake Total 1280 / 1280 960 / 960
Output Total 1460 / 1460 3602 / 3602
Balance -180 / -180 -2642 / -2642
Review of Systems
-
History Source: Patient
All other systems: Reviewed and negative
[2025-06-24] MEDS: DETROL LA 4 MG PO (10:30)
[2025-06-24] MEDS: MIRALAX 17 GRAMS PO (10:30)
[2025-06-24] MEDS: SENOKOT 17.2 MG PO ×2 (10:31→20:40)
[2025-06-24] MEDS: DULCOLAX 10 MG RECTAL (10:31)
[2025-06-24] MEDS: APRESOLINE 50 MG PO ×2 (10:31→17:07)
[2025-06-24] MEDS: COREG 6.25 MG PO ×2 (10:31→20:41)
[2025-06-24] MEDS: THERAGRAN 1 TABLET PO (10:32)
[2025-06-24 11:05] VITALS: BP 105/47
--- NOTE | 2025-06-24 14:26 | CM ---
POD #3, IV/Ancef, Salas, HARRY drain removed. Discharge POC: Home with [facility] PT/OT, RN for salas and wound care.
[2025-06-24 15:00] VITALS: BP 110/74
[2025-06-24] MEDS: LIPITOR 80 MG PO (17:07)
[2025-06-24] MEDS: PERCOCET 5/325 1 TABLET PO (18:04)
[2025-06-24 19:00] VITALS: BP 118/65
[2025-06-24] MEDS: APRESOLINE PO (22:24)
[2025-06-24 23:00] VITALS: BP 98/56
[2025-06-25 03:00] VITALS: BP 102/58
[2025-06-25] MEDS: ANCEF 5 IV ×2 (05:49→18:21)
[2025-06-25] MEDS: FLUSH (NSS) 2 FLUSH IV (05:49)
[2025-06-25 06:00] VITALS: BMI 23.3
[2025-06-25 06:55] LABS: Hematocrit 23.6 % (39.0-52.0); Hemoglobin 7.6 g/dL (13.0-18.0); Mean Corp Hgb Conc. 32.2 g/dL (33.0-37.0); Mean Corpuscular Volume 89.1 fL (80.0-94.0); Nucleated Red Blood Cells % 0 % (-); Platelet Count 133 10^3/uL (130-400); Red Cell Dist. Width 16.5 % (11.5-14.5)
[2025-06-25 07:00] VITALS: BP 105/60
--- NOTE | 2025-06-25 08:52 | W.PN.HOSP.TC ---
Addendum entered and electronically signed by Jono Jonas DO 06/25/25 11:17:
Dr. Rivera requesting to monitor overnight given mild hematuria. Hold off on discharge.
Original Note:
Today's Communication/Plan
-
Discharge
Assessment / Plan
Assessment / Plan
Gen-AAOx3, NAD
HEENT-NC, AT, anicteric, clear oral mm
Neck-supple
CV-reg, no M, +S1/S2
Lungs-clear B/L
Abd-soft, NT, ND, suprapubic catheter, dressings intact
Ext-no edema
Musculoskeletal-no cyanosis, clubbing
Skin-warm and dry
Neuro-grossly non-focal
Psych-calm, cooperative
Chronic bilateral hydronephrosis -ureteral compression due to pelvic hematoma/aneurysm sac after ruptured iliac aneurysm.
Admitted June 17 for surgical correction of obstruction with plan for open ureteral reimplant, performed 06/17.
Developed postoperative hematuria requiring transfusion, 4 units transfused so far.
CT scan on June 18 showed pelvic hematoma without urine leak or bladder rupture.
Subsequent CT cystogram June 20 showed clotted blood in the bladder and hematoma adjacent to the bladder without extravasation of contrast from the bladder.
Has been getting continuous bladder irrigation for several days.
Noted to have clot urine retention and intractable bladder spasms and bladder pain. Subsequently went back to the OR 06/21 for exploratory laparotomy with cystotomy and evacuation of bladder clot, placement of suprapubic cystostomy tube.
Transferred to hospitalist service evening of June 21.
Diet advanced to solids.
HARRY drain removed 06/24
Acute blood loss anemia -blood loss anemia due to significant hematuria and operative blood loss. Admission hemoglobin 9.8 on June 17, transfused 4 units of blood, hemoglobin 7.6 this morning. Asymptomatic.
Hemodynamically stable. Baseline hemoglobin appears to be around 11. Therefore this is acute on chronic anemia. Etiology of chronic anemia unclear, possibly due to CKD.
Order placed to resume aspirin on 06/24, unclear why it was not administered.
Constipation -had a bowel movement last night, brown stool. Continue bowel regimen.
Hyperkalemia -resolved.
Acute thrombocytopenia -most likely consumptive thrombocytopenia due to significant blood loss anemia. Counts are improving.
Hyperglycemia -hemoglobin A1c 5.6%. DM2 ruled out.
History of ruptured Right internal iliac artery aneurysm/intra-abdominal hematoma - treated in March 2024 with coil embolization and iliac limb stent graft placement extending from right common iliac artery to external iliac artery.
ADAN on CKD 3B -ADAN resolved. Renal function back to baseline.
Essential hypertension -stable.
Hyperlipidemia -atorvastatin.
Chronic heart failure preserved EF -stable.
CAD -stable. History of 5 coronary stents.
Alcohol use disorder
Full code
PT/OT -Home PT recommended.
Dispo -anticipate discharge home today with VN. Discussed with urology service. Close outpatient follow-up.
Left a slip with dip unit operator for CBC/BMP to be done on Thursday 06/28.
Anticipated Discharge: Today
Subjective/Interval History
-
Date of Service: June 25, 2025
Patient seen and examined. No complaints.
Objective Data
-
Labs:
Laboratory Results
06/25/25
06:16
WBC 9.9
Hgb 7.6 L
Hct 23.6 L
Plt Count 133
Vital Signs:
Vital Signs
Temp Pulse Resp BP Pulse Ox
98.4 F 69 16 105/60 96
06/25/25 07:00 06/25/25 07:00 06/25/25 07:00 06/25/25 07:00 06/25/25 07:00
I&O
06/24/25 06/25/25 06/26/25
06:59 06:59 06:59
Intake Total 960 / 960 240 / 240
Output Total 3602 / 3602 600 / 600
Balance -2642 / -4752 -360 / -360
Review of Systems
-
History Source: Patient
All other systems: Reviewed and negative
[2025-06-25] MEDS: DETROL LA 4 MG PO (08:58)
[2025-06-25] MEDS: COREG 6.25 MG PO ×2 (08:58→20:11)
[2025-06-25] MEDS: ASPIR LOW (ENTERIC COATED) 81 MG PO (08:59)
[2025-06-25] MEDS: THERAGRAN 1 TABLET PO (08:59)
[2025-06-25] MEDS: APRESOLINE PO (09:00)
[2025-06-25] MEDS: MIRALAX PO (09:01)
[2025-06-25] MEDS: SENOKOT PO (09:01)
--- NOTE | 2025-06-25 10:25 | W.PN.URO.CBU ---
Today's Communication / Plan
-
observe
Assessment / Plan
-
75M POD s/p open R ureteral reimplant
Open cystotomy with evacuation of clot and SP tube placement 06/21/25
pt slowly improving
hgb stable
tolerating diet- moving bowels
given mild hematuria- will observe in house today and any recurrent clot obstruction would be very difficult
reviewed with pt and med team
observe with sp tube plugged
hgb in am
continue ancef
arrange VN
Diagnosis
-
Date of Service: June 25, 2025
-
Patient Diagnosis:
R ureteral obstruction
s/p R ureteral reimplant, psoas hitch 06/17/25
blood-loss anemia/clot urine retention
s/p open cystostomy with clot evacuation and placement SP tube 06/21/25
Subjective
-
pt feels ok
urine kashif to dark blood today
sp tube plugged
is moving bowels
hgb stable
Objective
-
Vital Signs
Temp Pulse Resp BP Pulse Ox
98.4 F 69 16 105/60 96
06/25/25 07:00 06/25/25 08:58 06/25/25 07:00 06/25/25 09:00 06/25/25 07:00
Intake and Output
06/24/25 06/25/25 06/26/25
06:59 06:59 06:59
Intake Total 960 / 960 240 / 240 120 / 120
Output Total 3602 / 3602 600 / 600
Balance -2642 / -2642 -360 / -360 120 / 120
Intake:
Oral fluids 960 / 960 240 / 240 120 / 120
Output:
Drain Output (Total) 2 / 2
Right Abdomen Jamshid-Gilbert
Urine, Salas 3600 / 3600 600 / 600
Laboratory Results
06/25/25 06:16
06/24/25 05:17
Review of Systems
-
Constitutional: Fatigue
Respiratory: No Symptoms
Cardiac: No Symptoms
Abdomen/GI: Abdominal Pain (improved)
Physical Exam
-
General - no acute distress
Abdomen - soft, non-tender
Genitalia - normal- salas in place
Skin - warm & dry with no rash
Neuro - AOx3, no motor deficits
Extremities - no clubbing, no cyanosis, no edema
Incision - clean, dry
[2025-06-25 11:00] VITALS: BP 93/56
[2025-06-25] MEDS: LIPITOR 80 MG PO (14:40)
[2025-06-25 15:14] VITALS: BP 113/61
--- NOTE | 2025-06-25 15:30 | PTCARENOTE ---
Bedside report received from day shift RN @ 15:30. Orders and chart reviewed. VSS. No further changes at this time. Will continue to observe and report any changes. Detailed report will be given to nightshift RN.
[2025-06-25] MEDS: APRESOLINE 50 MG PO ×2 (17:01→22:45)
[2025-06-25] MEDS: PERCOCET 5/325 2 TABLET PO (18:40)
[2025-06-25 19:14] VITALS: BP 114/66
[2025-06-25] MEDS: SENOKOT 17.2 MG PO (20:08)
[2025-06-25 23:12] VITALS: BP 110/56
[2025-06-26 02:37] VITALS: BP 111/62
[2025-06-26 06:00] VITALS: BMI 22.7
[2025-06-26] MEDS: ANCEF 5 IV ×2 (06:04→17:43)
[2025-06-26 06:33] LABS: Hematocrit 24.9 % (39.0-52.0); Hemoglobin 8.1 g/dL (13.0-18.0); Mean Corp Hgb Conc. 32.5 g/dL (33.0-37.0); Mean Corpuscular Volume 88.9 fL (80.0-94.0); Nucleated Red Blood Cells % 0 % (-); Platelet Count 147 10^3/uL (130-400); Red Cell Dist. Width 15.8 % (11.5-14.5)
[2025-06-26 06:55] LABS: Blood Urea Nitrogen 35 mg/dl (9-20); Calcium 7.9 mg/dl (8.4-10.2); Carbon Dioxide 25 mmol/L (22-30); Chloride 106 mmol/L (98-107); Estimated Creatinine Clearance 32 ml/min; Glucose 96 mg/dl (70-99); Potassium 3.9 mmol/L (3.5-5.1); Sodium 135 mmol/L (135-145); eGFR 36.79
[2025-06-26 07:05] VITALS: BP 110/60
[2025-06-26 08:02] LABS: Total Iron Binding Capacity 166 ug/dl (261-462)
[2025-06-26 08:08] LABS: Iron < 20 ug/dl (49-181)
[2025-06-26] MEDS: MIRALAX PO (08:27)
[2025-06-26] MEDS: ASPIR LOW (ENTERIC COATED) 81 MG PO (08:28)
[2025-06-26] MEDS: VITAMIN B1 100 MG PO (08:28)
[2025-06-26] MEDS: COREG 6.25 MG PO ×2 (08:28→20:28)
[2025-06-26] MEDS: THERAGRAN 1 TABLET PO (08:28)
[2025-06-26] MEDS: DETROL LA 4 MG PO (08:28)
[2025-06-26] MEDS: APRESOLINE PO ×3 (08:30→21:55)
[2025-06-26] MEDS: SENOKOT PO ×2 (08:30→20:28)
--- NOTE | 2025-06-26 08:54 | W.PN.URO.CBU ---
Today's Communication / Plan
-
Kraft catheter to drainage
Continue IV Ancef
VN confirmation prior to discharge
Possible d/c home Sun 06/27
Assessment / Plan
-
75M POD s/p open R ureteral reimplant
06/21/25: s/p open cystotomy with evacuation of clot and SP tube placement
+Flatus and BMs.
Tolerating diet.
Hematuria resolved o/n.
H/H stable w/o evidence of bleeding.
Diagnosis
-
Date of Service: June 26, 2025
-
Patient Diagnosis:
R ureteral obstruction
s/p R ureteral reimplant + psoas hitch 06/17/25
Acute blood anemia/clot urinary retention
s/p open cystostomy with clot evacuation and placement SP tube 06/21/25
Subjective
-
Had large BM this morning.
Passing flatus.
Feels well.
Urine concentrated yellow in tubing w/o blood or clots.
Objective
-
Vital Signs
Temp Pulse Resp BP Pulse Ox
98.9 F 80 18 110/60 96
06/26/25 07:05 06/26/25 07:05 06/26/25 07:05 06/26/25 07:05 06/26/25 07:05
Intake and Output
06/25/25 06/26/25 06/27/25
06:59 06:59 06:59
Intake Total 240 / 240 720 / 720
Output Total 600 / 600 1750 / 1750
Balance -360 / -360 -1030 / -1030
Intake:
Oral fluids 240 / 240 720 / 720
Output:
Urine, Kraft 600 / 600 1750 / 1750
Laboratory Results
06/26/25 05:57
06/26/25 05:57
Physical Exam
-
General - well developed, well nourished, no acute distress
Abdomen - soft, non-tender, non-distended
Genitalia - normal, SPT capped, urethral Kraft catheter w/ concentrated yellow UOP
Incision - clean, dry
Dressing - clean, dry, intact
Care Review
Data Reviewed
Discussed with: Nursing and Family
CT Scan: Report Pers Reviewed and Image Pers Reviewed
Total Time Spent with Patient (in minutes): 35
[2025-06-26 10:04] LABS: Ferritin 289.0 ng/ml (17.9-464.0)
[2025-06-26 10:19] LABS: Vitamin B12 724 pg/ml (239-931)
--- NOTE | 2025-06-26 13:03 | W.PN.HOSP.TC ---
Today's Communication/Plan
-
IV iron
Kraft catheter to drainage
Ancef
Possible discharge tomorrow per urology
Assessment / Plan
Assessment / Plan
75-year-old man admitted because of complicated hematuria. Patient has a history of ureteral obstruction status post right ureteral stent placement and ureteral stent exchange. Despite that he had persistent hydronephrosis and 7 cm pelvic
aneurysm/hematoma. Patient underwent right ureteral reimplant and excision of perivesical lesion. Postoperatively course was complicated with uncontrolled hematuria requiring CBI anemia requiring transfusion, continued to have bladder spasms
likely secondary to clot burden in the urinary bladder. Patient then underwent open cystotomy with evacuation of the large bladder clot burden and placement of suprapubic tube.
CVS: S1-S2 normal
Chest: CTA B/L
Abdomen: Soft, midline incision with kandi look stable,Bowel sounds present
Extremities: No edema
# Hematuria
Severe acute blood loss anemia secondary to above status post 4 units of PRBC this admission
Patient underwent cystectomy, clot evacuation and placement of suprapubic catheter
Iron deficiency anemia noted-IV iron ordered discussed with patient and daughter
Urology following
# Chronic bilateral hydronephrosis-ureteral compression due to pelvic hematoma/aneurysm sac after ruptured iliac aneurysm
Admitted June 17 for surgical correction of obstruction with plan for open ureteral reimplant, performed 06/17.
Developed postoperative hematuria requiring transfusion, 4 units transfused so far.
CT scan on June 18 showed pelvic hematoma without urine leak or bladder rupture.
Subsequent CT cystogram June 20 showed clotted blood in the bladder and hematoma adjacent to the bladder without extravasation of contrast from the bladder.
Small left inferior rectus abdominis intramuscular hematoma.
Has been getting continuous bladder irrigation for several days.
Noted to have clot urine retention and intractable bladder spasms and bladder pain. Subsequently went back to the OR 06/21 for exploratory laparotomy with cystotomy and evacuation of bladder clot, placement of suprapubic cystostomy tube.
Transferred to hospitalist service evening of June 21.
Diet advanced to solids.
# Coronary disease with history of 5 coronary stents
Aspirin resumed, continue hydralazine, Coreg, statin
# Chronic HFpEF
# Hyperglycemia -hemoglobin A1c 5.6%.
# Constipation resolved
# Hyperkalemia-resolved
# Acute thrombocytopenia-likely secondary to consumption
# Essential hypertension-continue hydralazine, Coreg
# Hyperlipidemia-continue atorvastatin
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
# ADAN on CKD 3B -ADNA resolved. Renal function back to baseline.
# AAA rupture with repair in March 2024
# Daily alcohol use-continue thiamine
# DVT prophylaxis-SCDs
# Full code
Discussed with daughter at bedside
Part of this note was created using voice recognition system. Occasional wrong word or��sound alike� substitutions may have inadvertently occurred due to the inherent limitations of voice recognition software. If noted kindly bring it to my
attention for correction.
Anticipated Discharge: Within 24 hours
Subjective/Interval History
-
Date of Service: June 26, 2025
Objective Data
-
Labs:
Laboratory Results
06/26/25
05:57
WBC 11.6 H
Hgb 8.1 L
Hct 24.9 L
Plt Count 147
Sodium 135
Potassium 3.9
Chloride 106
Carbon Dioxide 25
BUN 35 H
Creatinine 1.9 H
Glucose 96
Calcium 7.9 L
Vital Signs:
Vital Signs
Temp Pulse Resp BP Pulse Ox
98.9 F 80 18 110/60 96
06/26/25 07:05 06/26/25 07:05 06/26/25 07:05 06/26/25 07:05 06/26/25 07:05
I&O
06/25/25 06/26/25 06/27/25
06:59 06:59 06:59
Intake Total 240 / 240 720 / 720 240 / 240
Output Total 600 / 600 1750 / 1750
Balance -360 / -360 -1030 / -1030 240 / 240
[2025-06-26] MEDS: FERRLECIT 110 MG IV (14:23)
[2025-06-26] MEDS: LIPITOR 80 MG PO (14:23)
[2025-06-26 15:05] VITALS: BP 107/58
[2025-06-26 15:56] VITALS: O2SAT 95
[2025-06-26] MEDS: PERCOCET 5/325 1 TABLET PO (20:27)
--- NOTE | 2025-06-26 22:18 | PTCARENOTE ---
Refused. Said he will do it in the morning. Will ask again if possible
[2025-06-26 23:00] VITALS: BP 105/57; BP 112/54
[2025-06-27] VITALS (7 sets, daily range): BP systolic 114–131; BP diastolic 60–71; BMI 22.5
[2025-06-27] MEDS: ANCEF 5 IV ×2 (06:36→19:10)
[2025-06-27 07:44] LABS: Hematocrit 24.0 % (39.0-52.0); Hemoglobin 7.7 g/dL (13.0-18.0)
[2025-06-27] MEDS: APRESOLINE 50 MG PO ×3 (08:23→21:09)
[2025-06-27] MEDS: DETROL LA 4 MG PO (08:23)
[2025-06-27] MEDS: ASPIR LOW (ENTERIC COATED) 81 MG PO (08:23)
[2025-06-27] MEDS: THERAGRAN 1 TABLET PO (08:24)
[2025-06-27] MEDS: COREG 6.25 MG PO ×2 (08:24→20:30)
[2025-06-27] MEDS: VITAMIN B1 100 MG PO (08:24)
--- NOTE | 2025-06-27 09:41 | W.PN.URO.CBU ---
Addendum entered and electronically signed by Dwayne Hernandez MD 06/27/25 14:00:
No clinical evidence of new/recurrent bleeding - benign abdominal/suprapubic exam, incision c/d/i, and urine clear yellow in tubing (SPT capped, CBI off >72 hrs).
Per discussion w/ Hospitalist - plan for observation today w/ PRBC transfusion for Hgb 7.7.
Possible d/c tomorrow pending AM labs.
Original Note:
Today's Communication / Plan
-
OK to d/c home from urologic perspective
VN for home catheter care and wound care
Maintain SPT capped and Kraft catheter to drainage bag
F/U will be scheduled by office for Kraft catheter removal and subsequent stent removal
Assessment / Plan
-
75M POD s/p open R ureteral reimplant
06/21/25: s/p open cystotomy with evacuation of clot and SP tube placement
+Flatus and BMs.
Tolerating diet.
Hematuria resolved.
H/H globally stable in last 72 hrs - no evidence of bleeding based on clear UOP and benign abdominal exam.
Diagnosis
-
Date of Service: June 27, 2025
-
Patient Diagnosis:
R ureteral obstruction
s/p R ureteral reimplant + psoas hitch 06/17/25
Acute blood anemia/clot urinary retention
s/p open cystostomy with clot evacuation and placement SP tube 06/21/25
Subjective
-
+flatus/BMs.
Denies abdominal or suprapubic pain.
Urine clear yellow in tubing.
Objective
-
Vital Signs
Temp Pulse Resp BP Pulse Ox
99.5 F 68 16 118/64 96
06/27/25 07:10 06/27/25 08:24 06/27/25 07:10 06/27/25 08:24 06/27/25 07:10
Intake and Output
06/26/25 06/27/25 06/28/25
06:59 06:59 06:59
Intake Total 720 / 720 480 / 480 480 / 480
Output Total 1750 / 1750 650 / 650 500 / 500
Balance -1030 / -1030 -170 / -170 -20 / -20
Intake:
Oral fluids 720 / 720 480 / 480 480 / 480
Output:
Urine, Kraft 1750 / 1750 650 / 650
Urine, Voided 500 / 500
Laboratory Results
06/27/25 07:16
06/26/25 05:57
Physical Exam
-
General - well developed, well nourished, no acute distress
Abdomen - soft, non-tender, non-distended, no incisional pain or distention
- SPT capped, urethral catheter w/ clear yellow UOP
Neuro - AOx3, no motor deficits
Incision - clean, dry
Dressing - clean, dry, intact
Counseling
-
D/w Hospitalist
Care Review
Data Reviewed
Discussed with: Hospitalist and Nursing
CT Scan: Report Pers Reviewed and Image Pers Reviewed
Total Time Spent with Patient (in minutes): 55
[2025-06-27] MEDS: MIRALAX PO (10:01)
[2025-06-27] MEDS: SENOKOT PO (10:02)
--- NOTE | 2025-06-27 11:58 | W.PN.HOSP.TC ---
Today's Communication/Plan
-
Blood transfusion
Assessment / Plan
Assessment / Plan
75-year-old man admitted because of complicated hematuria. Patient has a history of ureteral obstruction status post right ureteral stent placement and ureteral stent exchange. Despite that he had persistent hydronephrosis and 7 cm pelvic
aneurysm/hematoma. Patient underwent right ureteral reimplant and excision of perivesical lesion. Postoperatively course was complicated with uncontrolled hematuria requiring CBI anemia requiring transfusion, continued to have bladder spasms
likely secondary to clot burden in the urinary bladder. Patient then underwent open cystotomy with evacuation of the large bladder clot burden and placement of suprapubic tube.
CVS: S1-S2 normal
Chest: CTA B/L
Abdomen: Soft, midline incision with kandi look stable,Bowel sounds present
Extremities: No edema
Patient is very sleepy and fatigued
# Hematuria
Severe acute blood loss anemia secondary to above status post 4 units of PRBC this admission
Patient underwent cystectomy, clot evacuation and placement of suprapubic catheter
No active hematuria.
Iron deficiency anemia noted-IV iron ordered discussed with patient and daughter
Discussed with daughter who feels that patient has a lot of symptoms secondary to anemia feeling fatigue lack of energy therefore we will go ahead and give 1 unit of blood today 06/27/27. Patient also has a history of coronary artery disease with
stents. He is feeling fatigued even in bed at rest.
# Chronic bilateral hydronephrosis-ureteral compression due to pelvic hematoma/aneurysm sac after ruptured iliac aneurysm
Admitted June 17 for surgical correction of obstruction with plan for open ureteral reimplant, performed 06/17.
Developed postoperative hematuria requiring transfusion, 4 units transfused so far.
CT scan on June 18 showed pelvic hematoma without urine leak or bladder rupture.
Subsequent CT cystogram June 20 showed clotted blood in the bladder and hematoma adjacent to the bladder without extravasation of contrast from the bladder.
Small left inferior rectus abdominis intramuscular hematoma.
Has been getting continuous bladder irrigation for several days.
Noted to have clot urine retention and intractable bladder spasms and bladder pain. Subsequently went back to the OR 06/21 for exploratory laparotomy with cystotomy and evacuation of bladder clot, placement of suprapubic cystostomy tube.
Transferred to hospitalist service evening of June 21.
Diet advanced to solids.
# Coronary disease with history of 5 coronary stents
Aspirin resumed, continue hydralazine, Coreg, statin
# Chronic HFpEF
# Hyperglycemia -Hemoglobin A1c 5.6%.
# Constipation resolved
# Hyperkalemia-resolved
# Acute thrombocytopenia-likely secondary to consumption
# Essential hypertension-continue hydralazine, Coreg
# Hyperlipidemia-continue atorvastatin
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
# ADAN on CKD 3B -ADAN resolved. Renal function back to baseline.
# AAA rupture with repair in March 2024
# Daily alcohol use-continue thiamine
# DVT prophylaxis-SCDs
# Full code
Discussed with daughter on the phone. Wants to proceed with blood transfusion.
D/W Urology
D/W RN
Part of this note was created using voice recognition system. Occasional wrong word or��sound alike� substitutions may have inadvertently occurred due to the inherent limitations of voice recognition software. If noted kindly bring it to my
attention for correction.
Anticipated Discharge: Within 24 hours
Subjective/Interval History
-
Date of Service: June 27, 2025
Objective Data
-
Labs:
Laboratory Results
06/27/25
07:16
Hgb 7.7 L
Hct 24.0 L
Vital Signs:
Vital Signs
Temp Pulse Resp BP Pulse Ox
99.5 F 68 16 118/64 96
06/27/25 07:10 06/27/25 08:24 06/27/25 07:10 06/27/25 08:24 06/27/25 07:10
I&O
06/26/25 06/27/25 06/28/25
06:59 06:59 06:59
Intake Total 720 / 720 480 / 480 480 / 480
Output Total 1750 / 1750 650 / 650 500 / 500
Balance -1030 / -1030 -170 / -170 -20 / -20
[2025-06-27] MEDS: PERCOCET 5/325 2 TABLET PO (13:47)
[2025-06-27] MEDS: LIPITOR 80 MG PO (13:47)
[2025-06-27] MEDS: FERRLECIT 110 MG IV (14:18)
[2025-06-27] MEDS: SENOKOT 17.2 MG PO (20:30)
[2025-06-28] MEDS: ANCEF 5 IV (05:40)
[2025-06-28 06:00] VITALS: BMI 22.6
[2025-06-28 07:02] LABS: Hematocrit 27.0 % (39.0-52.0); Hemoglobin 8.7 g/dL (13.0-18.0); Mean Corp Hgb Conc. 32.2 g/dL (33.0-37.0); Mean Corpuscular Volume 86.3 fL (80.0-94.0); Platelet Count 174 10^3/uL (130-400); Red Cell Dist. Width 15.9 % (11.5-14.5)
[2025-06-28 07:05] VITALS: BP 136/71
[2025-06-28] MEDS: VITAMIN B1 100 MG PO (09:49)
[2025-06-28] MEDS: DETROL LA 4 MG PO (09:49)
[2025-06-28] MEDS: COREG 6.25 MG PO (09:49)
[2025-06-28] MEDS: ASPIR LOW (ENTERIC COATED) 81 MG PO (09:49)
[2025-06-28] MEDS: APRESOLINE 50 MG PO (09:49)
[2025-06-28] MEDS: THERAGRAN 1 TABLET PO (09:49)
[2025-06-28] MEDS: SENOKOT PO (10:01)
[2025-06-28] MEDS: MIRALAX PO (10:02)
--- NOTE | 2025-06-28 10:10 | W.PN.URO.CBU ---
Today's Communication / Plan
-
OK to d/c home from urologic perspective
Discontinue additional antibiotics
Continue aspirin 81 mg daily
F/U 06/29 as scheduled in office for SPT removal
Assessment / Plan
-
75M POD s/p open R ureteral reimplant
06/21/25: s/p open cystotomy with evacuation of clot and SP tube placement
+Flatus and BMs.
Tolerating diet.
Hematuria resolved.
H/H 8.7 (from 7.7) s/p 1u PRBC prior to discharge per Hospitalist.
H/H globally stable in >72 hrs - no evidence of bleeding based on clear UOP and benign abdominal exam.
Diagnosis
-
Date of Service: June 28, 2025
-
Patient Diagnosis:
R ureteral obstruction
s/p R ureteral reimplant + psoas hitch 06/17/25
Acute blood anemia/clot urinary retention
s/p open cystostomy with clot evacuation and placement SP tube 06/21/25
Subjective
-
Tolerating diet.
+flatus/BMs.
Urine clear per Kraft catheter.
SPT capped.
Objective
-
Vital Signs
Temp Pulse Resp BP Pulse Ox
98.3 F 71 16 136/71 97
06/28/25 07:05 06/28/25 07:05 06/28/25 07:05 06/28/25 07:05 06/28/25 07:05
Intake and Output
06/27/25 06/28/25 06/29/25
06:59 06:59 06:59
Intake Total 480 / 480 970 / 970
Output Total 650 / 650 2325 / 2325
Balance -170 / -170 -1355 / -1355
Intake:
Oral fluids 480 / 480 720 / 720
Blood Product Amount Infused ( 250 / 250
mL)
Packed Rbc Leukoreduced Unit 250 / 250
[id number]
Output:
Urine, Kraft 650 / 650 1825 / 1825
Urine, Voided 500 / 500
Laboratory Results
06/28/25 06:39
06/26/25 05:57
Physical Exam
-
General - well developed, well nourished, no acute distress
Abdomen - soft, non-tender, non-distended, no incisional pain or distention, SPT capped
- Kraft catheter w/ clear yellow UOP
Extremities - no clubbing, no cyanosis, no edema
Incision - clean, dry
Dressing - clean, dry, intact
--- NOTE | 2025-06-28 12:21 | W.PN.HOSP.TC ---
Today's Communication/Plan
-
Discharge home after IV iron today.
Assessment / Plan
Assessment / Plan
75-year-old man admitted because of complicated hematuria. Patient has a history of ureteral obstruction status post right ureteral stent placement and ureteral stent exchange. Despite that he had persistent hydronephrosis and 7 cm pelvic
aneurysm/hematoma. Patient underwent right ureteral reimplant and excision of perivesical lesion. Postoperatively course was complicated with uncontrolled hematuria requiring CBI anemia requiring transfusion, continued to have bladder spasms
likely secondary to clot burden in the urinary bladder. Patient then underwent open cystotomy with evacuation of the large bladder clot burden and placement of suprapubic tube.
CVS: S1-S2 normal
Chest: CTA B/L
Abdomen: Soft, midline incision with kandi look stable,Bowel sounds present
Extremities: No edema
AAO3
Feels better
# Hematuria
Severe acute blood loss anemia secondary to above status post 4 units of PRBC this admission. Transfused 1 more unit on 06/27/2025 hemoglobin appropriately has rising.
Patient underwent cystectomy, clot evacuation and placement of suprapubic catheter
No active hematuria.
Iron deficiency anemia noted-IV iron ordered discussed with patient and daughter
# Chronic bilateral hydronephrosis-ureteral compression due to pelvic hematoma/aneurysm sac after ruptured iliac aneurysm
Admitted June 17 for surgical correction of obstruction with plan for open ureteral reimplant, performed 06/17.
Developed postoperative hematuria requiring transfusion, 4 units transfused so far.
CT scan on June 18 showed pelvic hematoma without urine leak or bladder rupture.
Subsequent CT cystogram June 20 showed clotted blood in the bladder and hematoma adjacent to the bladder without extravasation of contrast from the bladder.
Small left inferior rectus abdominis intramuscular hematoma.
Has been getting continuous bladder irrigation for several days.
Noted to have clot urine retention and intractable bladder spasms and bladder pain. Subsequently went back to the OR 06/21 for exploratory laparotomy with cystotomy and evacuation of bladder clot, placement of suprapubic cystostomy tube.
Transferred to hospitalist service evening of June 21.
Diet advanced to solids. Tolerating
# Coronary disease with history of 5 coronary stents
Aspirin resumed, continue hydralazine, Coreg, statin
# Chronic HFpEF
# Hyperglycemia -Hemoglobin A1c 5.6%.
# Constipation resolved
# Hyperkalemia-resolved
# Acute thrombocytopenia-likely secondary to consumption. Better
# Essential hypertension-continue hydralazine, Coreg
# Hyperlipidemia-continue atorvastatin
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
# ADAN on CKD 3B -ADAN resolved. Renal function back to baseline.
# AAA rupture with repair in March 2024
# Daily alcohol use-continue thiamine
# DVT prophylaxis-SCDs
# Full code
D/W Urology on-call. No more need for any antibiotics
Patient has an appointment with Dr. Alfonso tomorrow
D/W RN
Give IV iron early today prior to discharge
More than 30 minutes spent in discharge including
Final examination of the patient
Summarizing hospital stay
Instructions for continuing care to all relevant caregivers
Preparation of discharge records, prescriptions, and referral forms
Total time spent (in minutes): 38 min
Part of this note was created using voice recognition system. Occasional wrong word or��sound alike� substitutions may have inadvertently occurred due to the inherent limitations of voice recognition software. If noted kindly bring it to my
attention for correction.
Anticipated Discharge: Today
Subjective/Interval History
-
Date of Service: June 28, 2025
Objective Data
-
Labs:
Laboratory Results
06/28/25
06:39
WBC 8.1
Hgb 8.7 L
Hct 27.0 L
Plt Count 174
Vital Signs:
Vital Signs
Temp Pulse Resp BP Pulse Ox
98.3 F 71 16 136/71 97
07/28/25 07:05 06/28/25 07:05 06/28/25 07:05 06/28/25 07:05 06/28/25 07:05
I&O
06/27/25 06/28/25 06/29/25
06:59 06:59 06:59
Intake Total 480 / 480 970 / 970
Output Total 650 / 650 2325 / 2325
Balance -170 / -170 -1355 / -1355
--- NOTE | 2025-06-28 12:28 | W.DS.TRANS ---
Addendum entered and electronically signed by Yaya Fink MD 06/28/25 16:50:
Dictation- [id number]
Original Note:
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
-
Discharge Instructions:
Sleep Apnea Risk Intermediate
Discharge Diagnosis/Procedures Right ureteral obstruction
Right ureteral reimplant with psoas hitch
Take back for bladder repair/blood clot
evacuation and supra-pubic tube placement
Iron deficiency anemia
Coronary artery disease
High cholesterol
Diet No restrictions
Activity No strenuous activity
Additional Activity avoid lifting, straining, strenuous activity for
4 weeks post surgery
Driving Restrictions No driving
Bathing Restrictions OK to Shower
Other Services VN
Wound Care gently rinse incisions in the shower
Instructions:
Stand-Alone Forms:
Changes to Home Medications: Yes
Discharge Medications:
DC Medications w/original date entered in [employer]
aspirin 81 mg tablet,delayed release 81 mg PO DAILY Blood Clot Prevention/Tx 03/06/24
atorvastatin 80 mg tablet (Lipitor) 80 mg PO 1400 High Cholesterol 03/06/24
carvedilol 6.25 mg tablet 6.25 mg PO BID #60 tabs 03/14/24
hydralazine 50 mg tablet 50 mg PO TID #90 tabs 03/14/24
multivitamin 1 tab PO DAILY 06/16/24
oxycodone-acetaminophen 5 mg-325 mg tablet 1 tab PO Q4HPRN PRN moderate pain #20 tabs 06/18/25
tramadol 50 mg tablet 50 mg PO Q8H PRN mild to moderate pain #14 tabs 06/25/25
ferrous sulfate 325 mg (65 mg iron) tablet 325 mg PO DAILY anemia #30 tabs 06/28/25
polyethylene glycol 3350 17 gram oral powder packet (ClearLax) 17 g PO DAILY Constipation #30 ea 06/28/25
sennosides 8.6 mg capsule (senna) 8.6 mg PO HS Constipation #30 caps 06/28/25
Home Medication Changes
new
oxycodone-acetaminophen 5 mg-325 mg tablet 1 tab PO Q4HPRN PRN moderate pain #20 tabs 06/18/25
tramadol 50 mg tablet 50 mg PO Q8H PRN mild to moderate pain #14 tabs 06/25/25
ferrous sulfate 325 mg (65 mg iron) tablet 325 mg PO DAILY anemia #30 tabs 06/28/25
polyethylene glycol 3350 17 gram oral powder packet (ClearLax) 17 g PO DAILY Constipation #30 ea 06/28/25
sennosides 8.6 mg capsule (senna) 8.6 mg PO HS Constipation #30 caps 06/28/25
Pending Results: No
--- NOTE | 2025-06-28 12:57 | CM ---
CM following re: discharge planning.
Reviewed pt's chart, met with pt.
Discharge order noted. pt is aware, expressed his agreement with discharge and pt stated his daughter will transport home. IMM reviewed, placed on chart, pt has a copy.
Pt is aware that [facility] will resume VN services upon the discharge.
Please fax discharge instructions to [facility] at [phone].
D/C plan: home with resumptions of [facility] and family support. Daughter to transport.
[2025-06-28] MEDS: LIPITOR 80 MG PO (14:39)
[2025-06-28] MEDS: FERRLECIT 110 MG IV (14:39)
[2025-06-28 15:30] VITALS: BP 125/64
[2025-06-28] MEDS: APRESOLINE PO (16:00)
[2025-06-28] MEDS: ANCEF IV (18:37)
== END 2025-06-28 20:03 | disposition home health service (06) | DRG 654 ==
LOC: 2 SOUTH 06:48
PROVIDERS: Hospitalist; Nurse Practitioner Family; Specialist; ADMITTING PHYSICIAN Urology; ATTENDING PHYSICIAN Hospitalist; CONSULT PHYSICIAN Internal Medicine Critical Care Medicine; CONSULT PHYSICIAN Specialist
PROC: 0TS60ZZ Reposition Right Ureter, Open Approach (ICD-10-PCS; 2025-06-17)
PROC: 0TSB0ZZ Reposition Bladder, Open Approach (ICD-10-PCS; 2025-06-17)
PROC: 0TBB0ZZ Excision of Bladder, Open Approach (ICD-10-PCS; 2025-06-17)
PROC: 0TP90DZ Removal of Intraluminal Device from Ureter, Open Approach (ICD-10-PCS; 2025-06-17)
PROC: 30233N1 Transfusion of Nonautologous Red Blood Cells into Peripheral Vein, Percutaneous Approach (ICD-10-PCS; 2025-06-19)
PROC: 0T9B00Z Drainage of Bladder with Drainage Device, Open Approach (ICD-10-PCS; 2025-06-21)
PROC: 0TCB0ZZ Extirpation of Matter from Bladder, Open Approach (ICD-10-PCS; 2025-06-21)
DX: N13.1 Hydronephrosis with ureteral stricture, not elsewhere classified (principal); D62 Acute posthemorrhagic anemia; K91.871 Postprocedural hematoma of a digestive system organ or structure following other procedure; I13.0 Hypertensive heart and chronic kidney disease with heart failure and stage 1 through stage 4 chronic kidney disease, or unspecified chronic kidney disease; I50.32 Chronic diastolic (congestive) heart failure; N99.840 Postprocedural hematoma of a genitourinary system organ or structure following a genitourinary system procedure; M96.841 Postprocedural hematoma of a musculoskeletal structure following other procedure; I72.3 Aneurysm of iliac artery; N32.89 Other specified disorders of bladder; R31.0 Gross hematuria; R33.8 Other retention of urine; N40.1 Benign prostatic hyperplasia with lower urinary tract symptoms; D69.6 Thrombocytopenia, unspecified; R73.9 Hyperglycemia, unspecified; K59.00 Constipation, unspecified; E87.5 Hyperkalemia; I73.9 Peripheral vascular disease, unspecified; D50.9 Iron deficiency anemia, unspecified; N18.32 Chronic kidney disease, stage 3b; N17.9 Acute kidney failure, unspecified; E78.00 Pure hypercholesterolemia, unspecified; I25.10 Atherosclerotic heart disease of native coronary artery without angina pectoris; Y83.8 Other surgical procedures as the cause of abnormal reaction of the patient, or of later complication, without mention of misadventure at the time of the procedure; Z95.5 Presence of coronary angioplasty implant and graft; Z79.82 Long term (current) use of aspirin
CPT/HCPCS: 36415; 71045; 72192; 74176; 80048; 80053; 82607; 82728; 82962; 83036; 83540; 83550; 83735; 84100; 85014; 85018; 85025; 85027; 85610; 85730; 86850; 86900; 86901; 86920; 88305; 88331; 93005; 97116; 97162; 97167; C1769; C2617; J2916; P9016; P9058

== ENCOUNTER → 2025-07-06 13:29 | Outpatient (REF) | payer OTHER, SELFPAY | LOC: RAD 13:29 | PROVIDERS: ATTENDING PHYSICIAN Specialist | DX: Z98.890 Other specified postprocedural states (principal) | CPT/HCPCS: 51600; 74430; Q9967 ==

== ENCOUNTER 2025-07-15 01:44 | Inpatient (IN) | payer OTHER, SELFPAY ==
[2025-07-14 20:53] VITALS: BP 114/83
[2025-07-14 21:13] LABS: Hematocrit 33.6 % (39.0-52.0); Hemoglobin 11.0 g/dL (13.0-18.0); Mean Corp Hgb Conc. 32.7 g/dL (33.0-37.0); Mean Corpuscular Volume 84.6 fL (80.0-94.0); Nucleated Red Blood Cells % 0 % (-); Platelet Count 338 10^3/uL (130-400); Red Cell Dist. Width 15.4 % (11.5-14.5)
[2025-07-14 21:36] LABS: ALT (SGPT) 16 U/L (0-50); AST (SGOT) 23 U/L (17-59); Albumin 3.2 g/dl (3.5-5.0); Alkaline Phosphatase 74 U/L (38-126); Blood Urea Nitrogen 34 mg/dl (9-20); Calcium 8.6 mg/dl (8.4-10.2); Carbon Dioxide 21 mmol/L (22-30); Chloride 106 mmol/L (98-107); Glucose 138 mg/dl (70-99); Potassium 4.1 mmol/L (3.5-5.1); Sodium 135 mmol/L (135-145); Total Protein 6.7 g/dl (6.3-8.2); eGFR 32.62
--- NOTE | 2025-07-14 22:52 | ED.GENMED ---
History of Present Illness
General
Chief Complaint: Abdominal Symptoms
Source: patient
Time Seen by Provider: 07/14/25 22:22
History of Present Illness
History of Present Illness:
75-year-old male with past medical history of previous AAA, previous NV, hypertension, hyperlipidemia, CKD status post surgery for recurring hydronephrosis on the right ureter presenting to the emergency department for evaluation of gradually
worsening abdominal pain over the last 24 to 48 hours, triage noted patient had 'explosive diarrhea' however this only occurred after patient took a Dulcolax. Last bowel movement was while in the waiting room. Patient states that he has been
urinating, no noted blood within the urine, no urinary frequency/urgency/dysuria. Patient completed antibiotics few days ago for the procedure. Unsure as to what antibiotics patient was on. Based off of record review patient was not discharged
home on antibiotics so this is unclear as to if patient took antibiotics after he followed up as an outpatient. Daughter notes patient had a temperature of 100.5 on Saturday, no fever since then. Patient states the pain is mainly to the lower
abdomen, generalized and an aching sensation that is constant.
Past History
Past History
ED Past Medical History: CAD, HTN, Hypercholesterolemia, NV, Renal failure and Other (Patient reports history of kidney disease)
ED Past Surgical History: Cardiac, Orthopedic, Urological and Other
Social History
Tobacco: Non-smoker
Alcohol: None
Drug: None
Personal:
Living: with family
Review of Systems
Review of Systems
All Other Systems: ROS reviewed and negative except as documented in HPI and ROS
Phy Exam
Physical Exam
Physical Exam:
GENERAL: Alert , in no apparent distress
EYE: clear conjunctiva b/l
HEAD: NCAT
ENT: o/p clr, mmm.
CARDIAC: Regular rate and rhythm .
LUNGS: Clear breath sounds bilaterally, no acute respiratory distress, no wheezes/rales/rhonchi
ABDOMEN: Firm and rigid, guarding with palpation, rebound tenderness noted as well, no cvat, well-healing vertically oriented incision below the umbilicus without any surrounding erythema or wound dehiscence.
NEUROLOGICAL: Alert and oriented
SKIN: Warm and dry, skin intact.
MUSCULOSKELETAL: No edema, well perfused.
PSYCH: Normal and appropriate interaction.
Scores
Heart Failure Risk
Heart Failure Risk Score: Not Applicable
Heart Score for Chest Pain Patients
STEMI patient?: Not applicable
Withdrawal Assessment of Alcohol
Withdrawal Assessment Completed?: Not applicable
Course
Orders/Labs/Results
Orders:
Orders
07/14/25 21:01
Complete Blood Count/With Diff Urgent
07/14/25 21:02
Type+Screen Urgent
Comprehensive Metabolic Panel Urgent
Lactic Acid Urgent
07/14/25 22:31
CT Abd/pel Without Iv Or Oral Urgent
Comment:
Reason For Exam: lower abd pain, recent surgery, CKD
Urinalysis Reflex To Culture Urgent
STOOL [C difficile Antigen & Toxins] Urgent
HAYDE Source: Feces/Stool
Specimen Description:
Date Specimen was Collected: 07/14/25
Time Specimen was Collected: 22:43
HYDROmorphone [Dilaudid] 0.5 mg IV NOW STA
07/14/25 22:32
0.9% Sodium Chloride 1000 ml [Nss] 1,000 ml IV BOLUS
07/14/25 23:17
Blood Culture Q30M
HAYDE Source: Blood/Venous
Specimen Description:
Blood Culture Q30M
HAYDE Source: Blood/Venous
Specimen Description:
Stool Culture Urgent
HAYDE Source: Feces/Stool
Specimen Description:
Date Specimen was Collected: 07/14/25
Time Specimen was Collected: 22:43
Abnormal Lab Results
07/14/25 07/14/25
21:01 21:02
WBC 19.2 H 10^3/uL
(4.8-10.8)
RBC 3.97 L 10^6/uL
(4.70-6.10)
Hgb 11.0 L g/dL
(13.0-18.0)
Hct 33.6 L %
(39.0-52.0)
MCHC 32.7 L g/dL
(33.0-37.0)
RDW 15.4 H %
(11.5-14.5)
Abs Immat Gran (auto) 0.4 H 10^3/uL
(0-0.05)
Absolute Neuts (auto) 16.6 H 10^3/uL
(1.4-6.5)
Absolute Monos (auto) 1.1 H 10^3/uL
(0.1-0.6)
Immature Gran % 1.8 H %
(0-0.5)
Neutrophils % 86.2 H %
(42.2-75.2)
Lymphocytes % 6.2 L %
(20.5-51.1)
Carbon Dioxide 21 L mmol/L
(22-30)
BUN 34 H mg/dl
(9-20)
Creatinine 2.1 H mg/dL
(0.7-1.3)
Glucose 138 H mg/dl
(70-99)
Albumin 3.2 L g/dl
(3.5-5.0)
07/14/25 21:01
07/14/25 21:02
Vital Signs
Initial and Last Documented VS:
Initial Vital Signs
Temp Pulse Resp BP Pulse Ox
99.4 F 103 20 114/83 96
07/14/25 20:53 07/14/25 20:53 07/14/25 20:53 07/14/25 20:53 07/14/25 20:53
Last Documented Vital Signs
Temp Pulse Resp BP Pulse Ox
98.5 F 94 20 111/80 95
07/14/25 22:28 07/14/25 22:28 07/14/25 20:53 07/14/25 23:29 07/14/25 22:53
MDM/Problems Addressed
Differential Diagnosis Includes:
Postoperative complication/bleeding
Urinary tract infection/cystitis/pyelonephritis
Urosepsis/bacteremia
Worsening renal dysfunction
Electrolyte derangement
MDM/Problems Addressed:
75-year-old male presenting to the emergency department for evaluation of worsening abdominal pain, reported fever 2 days ago, afebrile here in the setting of recent abdominal surgery. Labs were initiated on arrival which do show a leukocytosis of
19,000 with a leftward shift. Patient's creatinine 2.1 which appears to be right around his baseline. Lactic acid is within normal limits at 1. Given patient's significant rebound/guarding and firm abdomen will obtain CT scan to further evaluate.
Due to patient's current presentation as well as his renal dysfunction decision was ultimately made to perform noncontrast CT scan. Pain control with IV Dilaudid. Blood cultures ordered. Anticipate admission.
Chronic conditions affecting care: Previous abdomnial surgery and Kidney disease
Acute Exacerbation and/or Progression of Chronic Illness: Previous abdomnial surgery and Kidney disease
*Radiology
Radiology exam reviewed: radiology read reviewed
*Pulse Oximetry
SaO2: 95
Oxygen Mode of Delivery: Room air
Patient hypoxic: no
*Critical Care Note
Total Time (30-74mins, 75-104mins- exclusive of procedures): Not Applicable
Data Reviewed
Review of Other/Old Records Reveals: Labs, Records, Operative Reports and Discharge Summary
Source: patient, records and family
Patient Management
Discussion with other providers: Hospitalist
Escalation/DeEscalation of care consider admission/obs:
CT scan shows severe pancolitis which is most suspicious for C. difficile colitis. Postoperative findings noted to be much improved making suspicion for complications due to surgery less likely. Patient does note pain is improved. Given his age
combined with lab abnormalities and CT findings we will still plan for admission. Antibiotics deferred to hospitalist team. Patient and family are in agreement with this plan.
ED Attending Note
-
Portions of this chart may have been created with voice recognition software.� Occasional wrong word or��sound alike� substitutions may have occurred due to the inherent limitations of voice recognition software.
Discharge Plan
Departure
Patient Disposition: Admit
Date of Disposition: 07/14/25
Time of Disposition: 23:44
Presentation/result/management discussed w/ accepting MD/DO: Hospitalist
Discharge Problem:
Pancolitis, CKD (chronic kidney disease)
Prescriptions:
No Action
atorvastatin [Lipitor] 80 mg Tablet
80 mg PO 1400
aspirin 81 mg Tablet,Delayed Release (Dr/Ec)
81 mg PO DAILY
carvedilol 6.25 mg Tablet
6.25 mg PO BID Qty: 60 0RF
hydralazine 50 mg Tablet
50 mg PO TID Qty: 90 0RF
multivitamin Tablet
1 tab PO DAILY
tramadol 50 mg tablet
50 mg PO Q8H PRN (Reason: mild to moderate pain) Qty: 14 0RF
Referrals:
Thong Calderon CRNP [Family Provider]
Interventions
Interventions:
*Risk Screen - Suicide Last Done: 07/14/25 23:42
*General Assessment Last Done: 07/14/25 20:53
*Neglect/Abuse Screening Last Done: 07/14/25 23:42
*ED- Fall Risk Assessment Last Done: 07/14/25 23:42
*ED COVID-19 Vaccine History Last Done: 07/14/25 23:42
PX-Uqfvgz-Anatfcpdml Assessment Last Done: 07/14/25 23:29
Discharge Date and Time
Print Language: BURUNDIAN
[2025-07-14] MEDS: NSS 1000 IV (23:02)
[2025-07-14] MEDS: DILAUDID 0.5 MG IV (23:02)
[2025-07-14 23:29] VITALS: BP 111/80
[2025-07-15 00:46] VITALS: BP 134/88
--- NOTE | 2025-07-15 01:15 | HPS.HSE ---
Family Physician
-
Family Physician: DORIAN Ramhan
Chief Complaint
-
Abd Pain, Diarrhea
History of Present Illness
Patient is a 75y M with PMH significant for ASCVD, AAA and recent admission for R ureteral re-implantation / diversion who presents to ED complaining of abdominal pain and diarrhea. Patient was discharged to home on 06/28 after urologic surgery
to alleviate R ureteral compression by iliac artery aneurysm.He states that he was feeling fairly well at discharge. He has since had suprapubic catheter and HARRY drain removed.
Patient completed a course of IV Ancef during his hospital stay (06/22 - 06/28). He states that he was on some PO abx after discharge as well - though he is not certain of the name / dates.
For the past two days patient has noted some crampy abdominal pain. He states that he took a Dulcolax for symptoms of constipation. Following this he started with diarrhea. He reports initial gelatinous, non-bloody stools followed by frequent,
watery stools. Pos shaking chills and associated abdominal discomfort. He presented to the ED for further evaluation.
Medical History
Past Medical History
Past Medical History: Reports Other
Additional Past Medical History:
ASCVD
ADAN s/p Cardiac Cath / FL (Resolved / Improved)
Chronic HFpEF
AAA / Iliac Artery Aneurysm
Past Surgical History: Reports Other
Additional Past Surgical History:
06/17 - Right Ureteral Reimplantation
06/21 - Open Clot Evacuation / Bladder Irrigation and SPC Placement
AAA Repair
Cysto / R Ureteral Stent
PTCA with Stent x 5 total
Right Inguinal Herniorrhaphy
Social History
Tobacco: Non-smoker
Alcohol: Daily
Drug: None
Family History
Family History: Not pertinent
Allergies / Home Medications
Allergies reflects when Allergies were last updated in [employer].
Home Medications with original date entered in [employer]
Allergy/Medication List:
Allergies
Allergy/AdvReac Type Severity Reaction Status Date / Time
No Known Allergies Allergy Verified 07/14/25 20:53
Home Medications
aspirin 81 mg tablet,delayed release 81 mg PO DAILY Blood Clot Prevention/Tx 03/06/24
atorvastatin 80 mg tablet (Lipitor) 80 mg PO 1400 High Cholesterol 03/06/24
carvedilol 6.25 mg tablet 6.25 mg PO BID #60 tabs 03/14/24
hydralazine 50 mg tablet 50 mg PO TID #90 tabs 03/14/24
multivitamin 1 tab PO DAILY 06/16/24
tramadol 50 mg tablet 50 mg PO Q8H PRN mild to moderate pain #14 tabs 06/25/25
Review of Systems
-
History Source: Patient
A 12 point ROS was completed and negative except as noted: Yes
Constitutional: Reports Fatigue and Chills; Denies Fever
Respiratory: Denies Cough or Trouble Breathing
Cardiac: Denies Chest Pain or Palpitations
Abdomen/GI: Reports Abdominal Pain and Diarrhea; Denies Nausea, Vomiting, Bloody Stools or Black Stools
: Denies Dysuria or Frequency
Musculoskeletal: Denies Joint Pain or Edema
Neurological: Denies Dizzy or Headache
Psych: Denies Depression or Anxiety
Physical Exam
Vital Signs
Vital Signs
Temp Pulse Resp BP Pulse Ox
98.5 F 69 20 134/88 96
07/14/25 22:28 07/15/25 00:46 07/14/25 20:53 07/15/25 00:46 07/15/25 00:46
Physical Exam
General: Other (75y M in no acute distress.)
HEENT: Moist mucous membranes and PERRLA
Respiratory: Clear; No Wheezes, Rales or Rhonchi
Cardiac: S1/S2 and Regular Rhythm; No Murmur
GI: Other (Abdomen is soft. Pos diffusely tender with voluntary guarding. Pos BS. Lower abdominal midline incision intact / healing well.)
Musculoskeletal: No Clubbing, No Cyanosis and No Edema
Neuro: AO x 3
Laboratory Results
-
07/14/25 21:01
07/14/25 21:02
Laboratory Results
Lactic Acid 1.0 mmol/L (0.7-2.0) 07/14/25 21:02
Total Bilirubin 0.7 mg/dl (0.2-1.3) 07/14/25 21:02
AST 23 U/L (17-59) 07/14/25 21:02
ALT 16 U/L (0-50) 07/14/25 21:
Alkaline Phosphatase 74 U/L (38-126) 07/14/25 21:02
Impression/Plan
-
A/P: Patient is a 75y M with PMH significant for ASCVD, hypertension and CKD who presents to ED complaining of abdominal pain and diarrhea.
Pancolitis
- Admit for further evaluation and treatment.
- Abdominal pain and diarrhea with CT scan showing inflammation of entire colon.
- CDiff seems likely with recent abx, pancolitis, etc. Cover with PO Vanco pending CDiff assay.
- IV Zosyn for now - discontinue if CDiff positive.
- Supportive care including IVFs, pain control, etc.
- Follow for clinical improvement.
s/p Ureteral Reimplantation (06/17)
- Stable. Incision healing well. All tubes / drains removed.
- Urinating without issues.
- Follow for any new complaints.
ASCVD
- Stable. No chest pain or dyspnea.
- Continue current CV med regimen including ASA.
Benign Hypertension
Chronic HFpEF
- Stable. Continue antihypertensive medications with holding parameters.
- No evidence of volume overload on exam.
- Patient is not on chronic diuretic regimen.
CKD III
- Stable. Renal function is at / near known baseline.
- Follow for any changes.
AAA / Iliac Artery Aneurysm
- s/p repair March 2024.
DVT Prophylaxis: SCDs
Code Status: Full
[2025-07-15 01:38] LABS: Urine Character Cloudy (Clear)
[2025-07-15] MEDS: NSS 1000 IV ×3 (02:03→22:18)
[2025-07-15] MEDS: ZOSYN 50 IV ×2 (02:03→08:01)
[2025-07-15 02:08] VITALS: BMI 21.4
[2025-07-15 02:30] LABS: Urine Squamous Cell 26-30 /LPF (Few)
[2025-07-15 02:31] LABS: Urine Red Blood Cell 26-30 /HPF (0-2); Urine White Cell 30-40 /HPF (0-5)
[2025-07-15 04:40] VITALS: BP 122/81
[2025-07-15] MEDS: ULTRAM 50 MG PO (04:52)
[2025-07-15 06:06] LABS: Hematocrit 30.1 % (39.0-52.0); Hemoglobin 9.5 g/dL (13.0-18.0); Mean Corp Hgb Conc. 31.6 g/dL (33.0-37.0); Mean Corpuscular Volume 87.0 fL (80.0-94.0); Platelet Count 291 10^3/uL (130-400); Red Cell Dist. Width 15.6 % (11.5-14.5)
[2025-07-15 06:34] LABS: Blood Urea Nitrogen 31 mg/dl (9-20); Calcium 7.4 mg/dl (8.4-10.2); Carbon Dioxide 21 mmol/L (22-30); Chloride 110 mmol/L (98-107); Estimated Creatinine Clearance 27 ml/min; Glucose 98 mg/dl (70-99); Potassium 3.8 mmol/L (3.5-5.1); Sodium 138 mmol/L (135-145); eGFR 30.85
[2025-07-15 07:58] VITALS: BP 129/75
[2025-07-15] MEDS: APRESOLINE 50 MG PO ×3 (07:59→22:16)
[2025-07-15] MEDS: ASPIR LOW (ENTERIC COATED) 81 MG PO (07:59)
[2025-07-15] MEDS: COREG 6.25 MG PO ×2 (07:59→19:33)
[2025-07-15] MEDS: FIRVANQ 125 MG PO ×3 (08:00→19:33)
[2025-07-15 08:14] VITALS: BMI 21.4
--- NOTE | 2025-07-15 08:30 | VNURNOTE ---
Chart reviewed. Patient is current with [facility]. Will continue to follow hospital course and DC plans.
--- NOTE | 2025-07-15 08:44 | PTCARENOTE ---
Cdiff test came back tox positive. Pt already on enhanced isolation. No BM since last night. Pt alert/pleasant/cooperative.
[2025-07-15 12:00] VITALS: BP 132/75
--- NOTE | 2025-07-15 14:34 | W.PN.HOSP.TC ---
Addendum entered and electronically signed by Cristal Linares MD 07/20/25 07:43:
for CDI reviewer:
Sepsis, POA had already resolved at the time I saw the patient which is why I did not write sepsis in my note
Original Note:
Today's Communication/Plan
-
C. difficile positive�continue p.o. Vanco
Assessment / Plan
Assessment / Plan
A/P: Patient is a 75y M with PMH significant for ASCVD, hypertension and CKD who presents to ED complaining of abdominal pain and diarrhea.
C.diff colitis
- Abdominal pain and diarrhea with CT scan showing inflammation of entire colon.
Continue with p.o. Vanco
Discontinue other antibiotics
- Supportive care including IVFs, pain control
s/p Ureteral Reimplantation (06/17)
- Stable. Incision healing well. All tubes / drains removed.
ASCVD
- Stable. No chest pain or dyspnea.
- Continue current CV med regimen including ASA.
Benign Hypertension
Chronic HFpEF
- Stable. Continue antihypertensive medications with holding parameters.
- No evidence of volume overload on exam.
- Patient is not on chronic diuretic regimen.
CKD III
- Stable. Renal function is at / near known baseline.
- Follow for any changes.
AAA / Iliac Artery Aneurysm
- s/p repair March 2024.
DVT Prophylaxis: SCDs
Code Status: Full
Anticipated Discharge: 24 - 48 hours
Subjective/Interval History
-
Date of Service: July 15, 2025
Patient still notices diarrhea, abdominal cramps
Objective Data
-
Labs:
Laboratory Results
07/15/25
05:03
WBC 17.1 H
Hgb 9.5 L
Hct 30.1 L
Plt Count 291
Sodium 138
Potassium 3.8
Chloride 110 H
Carbon Dioxide 21 L
BUN 31 H
Creatinine 2.2 H
Glucose 98
Calcium 7.4 L
Vital Signs:
Vital Signs
Temp Pulse Resp BP Pulse Ox
98.4 F 69 16 132/75 97
07/15/25 07:58 07/15/25 12:00 07/15/25 12:00 07/15/25 12:00 07/15/25 12:00
Review of Systems
-
All other systems: Reviewed and negative
Physical Exam
-
General: No Apparent Distress
HEENT: Moist Mucous Membranes, Anicteric and PERRLA
Respiratory: Clear to Auscultation; Negative Wheezes, Rales or Rhonchi
Cardiac: Regular Rhythm and S1/S2; Negative Murmur, Rub or Gallop
GI: Soft, Nontender, Nondistended, Normal Bowel Sounds and Other (Surgical wound C/D/I, mild irritation distally)
Musculoskeletal: No Edema
Skin: Warm and Dry; Negative Rash, Ulcers or Lesions
Neuro: Awake and AO x 3
Hematologic / Lymphatic: No Lymphadenopathy
Psych: Calm
Data Reviewed
-
CT Scan: Report Reviewed by me
Labs: Labs Reviewed by me
[2025-07-15] MEDS: LIPITOR 80 MG PO (16:19)
[2025-07-15] MEDS: ZOSYN IV (16:22)
--- NOTE | 2025-07-15 18:30 | PTCARENOTE ---
Patient admit from Ed to 2N. VS documented. No s/s distress noted. orient to room. Call golden within reach. plan of care ongoing.
[2025-07-15 18:49] VITALS: BP 117/62
[2025-07-15 23:24] VITALS: BP 114/63
[2025-07-16] MEDS: FIRVANQ 125 MG PO ×5 (00:56→23:53)
[2025-07-16] MEDS: ULTRAM 50 MG PO ×2 (03:57→21:56)
[2025-07-16 06:34] VITALS: BMI 20.7
[2025-07-16 06:37] LABS: Hematocrit 27.2 % (39.0-52.0); Hemoglobin 8.5 g/dL (13.0-18.0); Mean Corp Hgb Conc. 31.3 g/dL (33.0-37.0); Mean Corpuscular Volume 86.6 fL (80.0-94.0); Nucleated Red Blood Cells % 0 % (-); Platelet Count 270 10^3/uL (130-400); Red Cell Dist. Width 15.7 % (11.5-14.5)
[2025-07-16 07:18] LABS: Blood Urea Nitrogen 31 mg/dl (9-20); Calcium 7.3 mg/dl (8.4-10.2); Carbon Dioxide 14 mmol/L (22-30); Chloride 115 mmol/L (98-107); Estimated Creatinine Clearance 30 ml/min; Glucose 66 mg/dl (70-99); Potassium 3.8 mmol/L (3.5-5.1); Sodium 139 mmol/L (135-145); eGFR 36.79
[2025-07-16 07:40] VITALS: BP 109/63
[2025-07-16] MEDS: NSS 1000 IV ×2 (08:47→18:22)
[2025-07-16] MEDS: APRESOLINE 50 MG PO ×3 (08:48→21:56)
[2025-07-16] MEDS: COREG 6.25 MG PO ×2 (09:01→20:07)
[2025-07-16] MEDS: ASPIR LOW (ENTERIC COATED) 81 MG PO (09:01)
--- NOTE | 2025-07-16 12:58 | PN.CDI ---
CDI
- -
CDI:
Physician Documentation Request
Admit Date: 07/15/25 01:44
Dear Doctor Vijay,
Clinical Indicators:
Patient admitted with C diff colitis.
07/15 H & P, 'Reports Fatigue and Chills'
WBC trend on admission:
07/14/25 07/15/25
21:01 05:03
WBC 19.2 H 17.1 H
HR trend on admission:
07/14/25
20:53 07/14/25
22:28
Pulse 103 94
Please clarify which of the following most accurately describes the status of the patient's infection:
Sepsis, POA
- Systemic manifestations of infection, with 2 or more SIRS criteria which include:
- Fever >100.9 degrees F or hypothermia < 96.8 degrees F
- Leukocytosis - WBC > 12,000 or leukopenia - WBC < 4,000 or > 10% bands
- Tachycardia > 90 beats per minute
- Tachypnea - RR > 20 breaths per minute or PaCO2 , 32mmHg
Source: Merck Manual 2013
C Diff colitis Only, Without Systemic Illness
Other, please specify
Use of terms such as suspected, likely, concern for, or probable (associated with a specific diagnosis that is being evaluated, monitored, or treated as if it exists) are acceptable and can be coded in the inpatient setting, when documented at the
time of discharge.
Thank you,
ERWIN Ramirez RN
CDI Specialist
available via tiger text
Please use your independent medical judgment in providing your response.
--- NOTE | 2025-07-16 13:19 | CM ---
Reviewed the chart notes and spoke with the patient at the bedside. The patient resides with his daughter in a two story home with two steps to enter. The patient is current with VN, referral sent in [facility]. The patient reports cane, shower
chair, and shower rail in home. The patient confirmed his [facility] of choice [facility]. continues to be available to patient/family and is monitoring medical plan for needs at discharge.
Plan: Discharge to home with resumption of VN services.
--- NOTE | 2025-07-16 13:23 | W.PN.HOSP.TC ---
Addendum entered and electronically signed by Cristal Linares MD 07/16/25 13:30:
A/P:
NAGMA 2/2 diarrhea, continue to monitor.
Original Note:
Today's Communication/Plan
-
Continue with p.o. antibiotics and IV fluids. Diet as tolerated.
Assessment / Plan
Assessment / Plan
A/P: Patient is a 75y M with CAD, hypertension and CKD who presents to with abdominal pain and diarrhea, found to have C. dif colitis.
Severe C.diff colitis
- Abdominal pain and diarrhea with CT scan showing inflammation of entire colon.
Continue with p.o. Vanco
Discontinued other antibiotics
- Supportive care including IVFs, pain control
Leukocytosis is improving. If patient has worsening abdominal pain or if WBCs increase, call surgery for eval.
s/p Ureteral Reimplantation (06/17)
- Stable. Incision healing well. All tubes / drains removed.
CAD
- Stable.
- Continue current CV med regimen including ASA.
Benign Hypertension
Chronic HFpEF
- Stable. Continue antihypertensive medications with holding parameters.
BP controlled
CKD III
- Stable, at baseline. Monitor BMP
AAA / Iliac Artery Aneurysm
- s/p repair March 2024.
DVT Prophylaxis: Lovenox
Code Status: Full
Anticipated Discharge: > 48 hours
Subjective/Interval History
-
Date of Service: July 16, 2025
Patient still with much diarrhea, poor appetite, and abdominal pain.
Objective Data
-
Labs:
Laboratory Results
07/16/25
06:09
WBC 16.2 H
Hgb 8.5 L
Hct 27.2 L
Plt Count 270
Sodium 139
Potassium 3.8
Chloride 115 H
Carbon Dioxide 14 L*
BUN 31 H
Creatinine 1.9 H
Glucose 66 L
Calcium 7.3 L
Vital Signs:
Vital Signs
Temp Pulse Resp BP Pulse Ox
97.5 F 65 16 109/63 97
07/16/25 07:40 07/16/25 09:01 07/16/25 07:40 07/16/25 09:01 07/16/25 07:40
I&O
07/15/25 07/16/25 07/17/25
06:59 06:59 06:59
Intake Total 1679 / 0
Balance 1679
Review of Systems
-
All other systems: Reviewed and negative
Physical Exam
-
General: No Apparent Distress
HEENT: Moist Mucous Membranes, Anicteric and PERRLA
Respiratory: Clear to Auscultation; Negative Wheezes, Rales or Rhonchi
Cardiac: Regular Rhythm and S1/S2; Negative Murmur, Rub or Gallop
GI: Soft, Nondistended, Normal Bowel Sounds, Tender and Other (Surgical wound C/D/I, mild irritation distally)
Musculoskeletal: No Edema
Skin: Warm and Dry; Negative Rash, Ulcers or Lesions
Neuro: Awake and AO x 3
Hematologic / Lymphatic: No Lymphadenopathy
Psych: Calm
Data Reviewed
-
Labs: Labs Reviewed by me, Discussed with Physician and Discussed with Patient
[2025-07-16] MEDS: LIPITOR 80 MG PO (14:46)
[2025-07-16 15:59] VITALS: BP 114/58
[2025-07-16] MEDS: LOVENOX 40 MG SC (17:36)
[2025-07-16 23:12] VITALS: BP 127/71
[2025-07-17] MEDS: NSS 1000 IV (04:14)
[2025-07-17 05:43] VITALS: BMI 21.2
[2025-07-17] MEDS: FIRVANQ 125 MG PO ×4 (06:13→23:28)
[2025-07-17 07:51] VITALS: BP 121/69
[2025-07-17 08:27] LABS: Hematocrit 28.2 % (39.0-52.0); Hemoglobin 8.7 g/dL (13.0-18.0); Mean Corp Hgb Conc. 30.9 g/dL (33.0-37.0); Mean Corpuscular Volume 87.9 fL (80.0-94.0); Nucleated Red Blood Cells % 0 % (-); Platelet Count 268 10^3/uL (130-400); Red Cell Dist. Width 15.9 % (11.5-14.5)
[2025-07-17] MEDS: ASPIR LOW (ENTERIC COATED) 81 MG PO (08:56)
[2025-07-17] MEDS: APRESOLINE 50 MG PO ×3 (08:56→20:51)
[2025-07-17] MEDS: COREG 6.25 MG PO ×2 (08:56→20:51)
[2025-07-17 09:25] LABS: ALT (SGPT) < 10 U/L (0-50); AST (SGOT) 18 U/L (17-59); Albumin 2.2 g/dl (3.5-5.0); Alkaline Phosphatase 53 U/L (38-126); Blood Urea Nitrogen 27 mg/dl (9-20); Calcium 7.8 mg/dl (8.4-10.2); Carbon Dioxide 14 mmol/L (22-30); Chloride 118 mmol/L (98-107); Estimated Creatinine Clearance 39 ml/min; Glucose 52 mg/dl (70-99); Potassium 3.9 mmol/L (3.5-5.1); Sodium 140 mmol/L (135-145); Total Protein 4.9 g/dl (6.3-8.2); eGFR 48.85
[2025-07-17 09:52] LABS: Glucose - Point of Care 80 mg/dl (70-99)
[2025-07-17 11:56] LABS: Glucose - Point of Care 83 mg/dl (70-99)
--- NOTE | 2025-07-17 12:04 | CM ---
Per Attending, pending lab results, patient will discharge to home tomorrow with resumption of HH/VN w/ [facility]
--- NOTE | 2025-07-17 12:49 | W.PN.HOSP.TC ---
Today's Communication/Plan
-
continue PO Vanco
switch to bicarbonate IVF and repeat AM BMP
Assessment / Plan
Assessment / Plan
Assessment:
Severe C. diff colitis
- Abdominal pain and diarrhea with CT scan showing inflammation of entire colon.
- continue with p.o. Vanco x 10 day course; 1st episode
- Supportive care including IVFs, pain control
- Leukocytosis is improving. If patient has worsening abdominal pain or if WBCs increase, call surgery for eval.
s/p Ureteral Reimplantation (06/17)
- Stable. Incision healing well. All tubes / drains removed.
CAD
- Stable.
- Continue current CV med regimen including ASA.
Benign Hypertension
Chronic HFpEF
- Stable. Continue antihypertensive medications with holding parameters.
- BP controlled
ADAN on CKD stage 3b
Metabolic acidosis
- switch to Bicarbonate IVF; repeat BMP tomorrow
AAA / Iliac Artery Aneurysm
- s/p repair March 2024.
DVT Prophylaxis: Lovenox
Code Status: Full
Anticipated Discharge: Within 24 hours
Subjective/Interval History
-
Date of Service: July 17, 2025
diarrhea slowly improving. denies abd pain
renal function improving; acidosis on labs.
Objective Data
-
Labs:
Laboratory Results
07/17/25
07:57
WBC 13.9 H
Hgb 8.7 L
Hct 28.2 L
Plt Count 268
Sodium 140
Potassium 3.9
Chloride 118 H
Carbon Dioxide 14 L*
BUN 27 H
Creatinine 1.5 H
Glucose 52 L*
Calcium 7.8 L
Total Bilirubin 0.4
AST 18
ALT < 10
Alkaline Phosphatase 53
Vital Signs:
Vital Signs
Temp Pulse Resp BP Pulse Ox
97.7 F 61 16 121/69 98
07/17/25 07:51 07/17/25 08:56 07/17/25 07:51 07/17/25 08:56 07/17/25 07:51
I&O
07/16/25 07/17/25 07/18/25
06:59 06:59 06:59
Intake Total 1680 / 1680 1680 / 1680
Balance 1680 / 1680 1680 / 1680
Physical Exam
-
General: No Apparent Distress
HEENT: Normocephalic
Respiratory: Negative Wheezes
Cardiac: Regular Rhythm and S1/S2
GI: Soft and Nontender
Neuro: AO x 3
Psych: Calm
Data Reviewed
-
Total Time Spent with Patient (in minutes): 42
Labs: Labs Reviewed by me
[2025-07-17] MEDS: SODIUM BICARBONATE 1150 MEQ IV (13:13)
[2025-07-17] MEDS: LIPITOR 80 MG PO (13:15)
[2025-07-17 15:10] VITALS: BP 121/72
[2025-07-17 15:40] LABS: Glucose - Point of Care 86 mg/dl (70-99)
[2025-07-17] MEDS: LOVENOX 40 MG SC (16:55)
[2025-07-17] MEDS: ULTRAM 50 MG PO (20:59)
--- NOTE | 2025-07-17 21:45 | PTCARENOTE ---
pt with large loose bm incontinent- still not taking in much po. iv fluids running per orders
--- NOTE | 2025-07-17 21:47 | PTCARENOTE ---
low glucose protocol being followed- will check at 0300. am glucose was 52- attempt to get pt to drink fluids was minimally successful
[2025-07-17 23:27] VITALS: BP 134/69
[2025-07-18] MEDS: SODIUM BICARBONATE 1150 MEQ IV (00:55)
[2025-07-18 03:04] LABS: Glucose - Point of Care 79 mg/dl (70-99)
--- NOTE | 2025-07-18 03:07 | PTCARENOTE ---
0300 glucose check was 79
[2025-07-18 06:00] VITALS: BMI 21.7
[2025-07-18 06:04] LABS: Hematocrit 27.2 % (39.0-52.0); Hemoglobin 8.7 g/dL (13.0-18.0); Mean Corp Hgb Conc. 32.0 g/dL (33.0-37.0); Mean Corpuscular Volume 85.3 fL (80.0-94.0); Platelet Count 256 10^3/uL (130-400); Red Cell Dist. Width 15.6 % (11.5-14.5)
[2025-07-18] MEDS: FIRVANQ 125 MG PO ×2 (06:13→12:24)
[2025-07-18 06:27] LABS: ALT (SGPT) < 10 U/L (0-50); AST (SGOT) 19 U/L (17-59); Albumin 2.1 g/dl (3.5-5.0); Alkaline Phosphatase 53 U/L (38-126); Blood Urea Nitrogen 21 mg/dl (9-20); Calcium 7.2 mg/dl (8.4-10.2); Carbon Dioxide 21 mmol/L (22-30); Chloride 113 mmol/L (98-107); Estimated Creatinine Clearance 45 ml/min; Glucose 77 mg/dl (70-99); Potassium 3.4 mmol/L (3.5-5.1); Sodium 138 mmol/L (135-145); Total Protein 4.6 g/dl (6.3-8.2); eGFR 58.01
[2025-07-18 07:39] VITALS: BP 120/71
[2025-07-18] MEDS: COREG 6.25 MG PO (08:49)
[2025-07-18] MEDS: KCL 40 MEQ PO ×2 (08:49→12:24)
[2025-07-18] MEDS: ASPIR LOW (ENTERIC COATED) 81 MG PO (08:57)
[2025-07-18] MEDS: APRESOLINE 50 MG PO (08:57)
--- NOTE | 2025-07-18 10:29 | W.PN.HOSP.TC ---
Today's Communication/Plan
-
PT/OT
home/VN dispo likely today
Assessment / Plan
Assessment / Plan
Assessment:
Severe C. diff colitis
- Abdominal pain and diarrhea with CT scan showing inflammation of entire colon.
- continue with p.o. Vanco x 10 day course; 1st episode
- diet regular: encourage supplements
s/p Ureteral Reimplantation (06/17)
- Stable. Incision healing well. All tubes / drains removed.
- OP Urology f/u
CAD
- Stable.
- Continue current CV med regimen including ASA.
Benign Hypertension
Chronic HFpEF
- Stable. Continue antihypertensive medications with holding parameters.
- BP controlled
ADAN on CKD stage 3b
Metabolic acidosis
- improved with bicarbonate IVF
AAA / Iliac Artery Aneurysm
- s/p repair March 2024.
DVT Prophylaxis: Lovenox
Code Status: Full
Dispo: PT/OT evals. home/VN likely today.
Anticipated Discharge: Today
Subjective/Interval History
-
Date of Service: July 18, 2025
limited appetite at times, and loose stools continue
Objective Data
-
Labs:
Laboratory Results
07/18/25
05:42
WBC 11.4 H
Hgb 8.7 L
Hct 27.2 L
Plt Count 256
Sodium 138
Potassium 3.4 L
Chloride 113 H
Carbon Dioxide 21 L
BUN 21 H
Creatinine 1.3
Glucose 77
Calcium 7.2 L
Total Bilirubin 0.4
AST 19
ALT < 10
Alkaline Phosphatase 53
Vital Signs:
Vital Signs
Temp Pulse Resp BP Pulse Ox
98.1 F 61 17 120/71 96
07/18/25 07:39 07/18/25 08:57 07/18/25 07:39 07/18/25 08:57 07/18/25 07:39
I&O
07/17/25 07/18/25 07/19/25
06:59 06:59 06:59
Intake Total 1680 / 1680 660 / 660
Balance 1680 / 1680 660 / 660
Physical Exam
-
General: No Apparent Distress
HEENT: Normocephalic and Atraumatic
Respiratory: Negative Wheezes
Cardiac: Regular Rhythm and S1/S2
GI: Soft
Genito-urinary: No Costovertebral Tender
Neuro: AO x 3
Psych: Calm
Data Reviewed
-
Total Time Spent with Patient (in minutes): 41
Labs: Labs Reviewed by me
--- NOTE | 2025-07-18 10:34 | W.DS.TRANS ---
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
-
Discharge Instructions:
Sleep Apnea Risk Intermediate
Discharge Diagnosis/Procedures C. Diff colitis, ADAN
Diet 2 Gram Sodium,Supplements
Activity As tolerated
Other Services PT,OT,VN
Instructions:
Stand-Alone Forms:
Changes to Home Medications: No
Discharge Medications:
DC Medications w/original date entered in [facility]
aspirin 81 mg tablet,delayed release 81 mg PO DAILY Blood Clot Prevention/Tx 03/06/24
atorvastatin 80 mg tablet (Lipitor) 80 mg PO 1400 High Cholesterol 03/06/24
carvedilol 6.25 mg tablet 6.25 mg PO BID #60 tabs 03/14/24
hydralazine 50 mg tablet 50 mg PO TID #90 tabs 03/14/24
multivitamin 1 tab PO DAILY 06/16/24
tramadol 50 mg tablet 50 mg PO Q8H PRN mild to moderate pain #14 tabs 06/25/25
vancomycin 125 mg capsule 125 mg PO QID #28 caps 07/18/25
Home Medication Changes
Pending Results: No
Total time spent discharging patient (in min): 41
[2025-07-18 10:38] VITALS: BP 130/73; PULSE 60; O2SAT 96
[2025-07-18 10:41] VITALS: BP 130/73; PULSE 63; O2SAT 96
--- NOTE | 2025-07-18 12:13 | CM ---
Met with patient at bedside;
IMM benefit explained; form signed @ [phone]
Plan: Discharge to home with resumption of Home Health services; [facility] notified of discharge plan via [facility]
[2025-07-18 12:59] VITALS: BP 137/74
[2025-07-18] MEDS: LIPITOR PO (13:30)
== END 2025-07-18 15:28 | disposition home health service (06) | DRG 872 ==
LOC: 2 NORTH 01:44
PROVIDERS: Emergency Medicine; Internal Medicine; Physician Assistant Medical; ADMITTING PHYSICIAN Hospitalist; ATTENDING PHYSICIAN Internal Medicine; EMERGENCY PHYSICIAN Student in an Organized Health Care Education/Training Program
DX: A41.9 Sepsis, unspecified organism (principal); A04.72 Enterocolitis due to Clostridium difficile, not specified as recurrent; E87.20 Acidosis, unspecified; I13.0 Hypertensive heart and chronic kidney disease with heart failure and stage 1 through stage 4 chronic kidney disease, or unspecified chronic kidney disease; I50.32 Chronic diastolic (congestive) heart failure; N17.9 Acute kidney failure, unspecified; I25.10 Atherosclerotic heart disease of native coronary artery without angina pectoris; N18.32 Chronic kidney disease, stage 3b; E78.00 Pure hypercholesterolemia, unspecified; Z86.79 Personal history of other diseases of the circulatory system; Z79.899 Other long term (current) drug therapy
CPT/HCPCS: 74176; 80048; 80053; 81003; 81015; 82962; 83605; 85025; 85027; 86850; 86900; 86901; 87040; 87045; 87046; 87077; 87086; 87186; 87324; 87427; 87449; 97162; 97166

== ENCOUNTER 2025-08-06 22:33 | Inpatient (IN) | payer OTHER, SELFPAY ==
[2025-08-06] VITALS (8 sets, daily range): BP systolic 100–165; BP diastolic 52–105; PULSE 68–85; BMI 19.7
[2025-08-06 17:53] LABS: Hematocrit 29.0 % (39.0-52.0); Hemoglobin 9.3 g/dL (13.0-18.0); Mean Corp Hgb Conc. 32.1 g/dL (33.0-37.0); Mean Corpuscular Volume 85.0 fL (80.0-94.0); Nucleated Red Blood Cells % 0 % (-); Platelet Count 292 10^3/uL (130-400); Red Cell Dist. Width 16.8 % (11.5-14.5)
[2025-08-06 18:04] LABS: ALT (SGPT) 11 U/L (0-50); AST (SGOT) 20 U/L (17-59); Albumin 2.9 g/dl (3.5-5.0); Alkaline Phosphatase 75 U/L (38-126); Blood Urea Nitrogen 23 mg/dl (9-20); Calcium 8.2 mg/dl (8.4-10.2); Carbon Dioxide 23 mmol/L (22-30); Chloride 107 mmol/L (98-107); Glucose 91 mg/dl (70-99); Lipase 54 U/L (23-300); Potassium 3.6 mmol/L (3.5-5.1); Sodium 137 mmol/L (135-145); Total Protein 5.9 g/dl (6.3-8.2); eGFR 39.25
--- NOTE | 2025-08-06 19:24 | ED.GENMED ---
History of Present Illness
<Subhash Salazar MD, Resident - Last Filed: 08/06/25 21:42>
General
Chief Complaint: Abdominal Pain
Source: patient
Exam Limitations: none
Time Seen by Provider: 08/06/25 18:32
History of Present Illness
History of Present Illness:
Patient is a 75-year-old male who presents to the emergency department for acute abdominal pain with poor oral intake. he has a history of AAA rupture with repair, CHF, hypertension, hyperlipidemia, history of [place], CKD stage III, and right ureter
reimplantation. The patient's daughter who was at the bedside provided much of the history for this encounter. Patient's difficulty started with the ureteral reimplantation. Following the reimplantation the patient got a UTI and received IV
Ancef during his hospital stay from 06/22-06/28 and was sent home on oral antibiotics at discharge. Following completion of his antibiotic course he began to feel constipated and received Dulcolax. after receiving Dulcolax the patient started to
have uncontrollable diarrhea with acute abdominal pain and poor oral intake. This led to him presenting to the emergency department on 07/15/2025 for the abdominal pain and diarrhea that he was having. Workup at the hospital led to the discovery
of C. difficile pancolitis and the patient was admitted to the hospital for around 4 days and treated with oral vancomycin. on Saturday the he had a ureteral stent removed during the removal procedure the daughter stated that the urologist noted
that there was some slight inflammation seen. he received ciprofloxacin and took it for 1 day but unfortunately the patient's abdominal cramping with diarrhea returned abruptly. The patient's acute abdominal pain and diarrhea with poor oral intake
prompted the patient to present to the emergency department.
Past History
<Subhash Salazar MD, Resident - Last Filed: 08/06/25 21:42>
Past History
ED Past Medical History: CAD, HTN, Hypercholesterolemia, [place], Renal failure and Other (Patient reports history of kidney disease)
ED Past Surgical History: Cardiac, Orthopedic, Urological and Other
Social History
Tobacco: Non-smoker
Alcohol: None
Drug: None
Personal:
Living: with family
Review of Systems
<Subhash Salazar MD, Resident - Last Filed: 08/06/25 21:42>
Review of Systems
Constitutional: Reports fatigue and other ( Poor oral intake)
EENT: Reports no symptoms
Respiratory: Reports no symptoms
Cardiac: Reports no symptoms
ABD/GI: Reports abdominal pain and diarrhea
: Reports no symptoms
Musculoskeletal: Reports no symptoms
Skin: Reports no symptoms
Neurological: Reports no symptoms
Endocrine: Reports no symptoms
Hematologic/Lymphatic: Reports no symptoms
Psychiatric: Reports no symptoms
Phy Exam
<Subhash Salazar MD, Resident - Last Filed: 08/06/25 21:42>
General Physical Exam
General Presentation: well appearing and moderate distress
General age: appears stated age
General Skin: warm, dry and other ( poor skin turgor)
General Habitus: normal
General Mental: alert
General Hydration: appears well hydrated
Cardiovascular Exam
Cardiovascular Exam: regular rate/rhythm, no edema, no gallop, no JVD, no murmur and normal peripheral pulses
Gastrointestinal Exam
Gastrointestinal Exam: normal bowel sounds, guarding and tender
Psychiatric Exam
Psychiatric Exam: normal mood/affect
Course
<Subhash Salazar MD, Resident - Last Filed: 08/06/25 21:42>
Orders/Labs/Results
Orders:
Orders
08/06/25 17:35
Complete Blood Count/With Diff Urgent
Comprehensive Metabolic Panel Urgent
Lipase Urgent
08/06/25 19:02
Orthostatic VS- Treatment ONCE
08/06/25 19:09
0.9% Sodium Chloride 1000 ml [Nss] 1,000 ml IV 70 mls/hr
08/06/25 19:15
0.9% Sodium Chloride 1000 ml [Nss] 1,000 ml IV 70 mls/hr
08/06/25 19:19
0.9% Sodium Chloride 1000 ml [Nss] 1,000 ml IV BOLUS
08/06/25 19:20
CT Abd/pelvis W Iv Cont Urgent
Comment:
Reason For Exam: abd pain, diarrhea
08/06/25 19:23
Urinalysis Reflex To Culture Urgent
Date Specimen was Collected: 08/06/25
Time Specimen was Collected: 19:13
Urine Microscopic Reflex Cult Urgent
C difficile Antigen & Toxins Urgent
HAYDE Source: ST
Specimen Description:
Date Specimen was Collected: 08/06/25
Time Specimen was Collected: 19:13
Comment: ADD ON
Stool Culture Urgent
HAYDE Source: Feces/Stool
Specimen Description:
Date Specimen was Collected: 08/06/25
Time Specimen was Collected: 19:13
Urine Culture Urgent
HAYDE Source: U
Specimen Description:
Date Specimen was Collected: 08/06/25
Time Specimen was Collected: 19:13
08/06/25 20:03
Vancomycin HCl [Firvanq] 125 mg PO NOW STA
08/06/25 20:49
Add On - Microbiology Urgent
Tests Added?: c diff
08/06/25 20:50
INFECTIOUS DISEASE CONSULT Routine
Consulting Provider: Leanna Holt
Was physician already notified: Yes
08/06/25 22:00
Fidaxomicin [Dificid] 200 mg PO ONCE ONE
08/07/25 02:00
Vancomycin HCl [Firvanq] 125 mg PO Q6
Abnormal Lab Results
08/06/25 08/06/25
17:35 19:23
WBC 15.9 H 10^3/uL
(4.8-10.8)
RBC 3.41 L 10^6/uL
(4.70-6.10)
Hgb 9.3 L g/dL
(13.0-18.0)
Hct 29.0 L %
(39.0-52.0)
MCHC 32.1 L g/dL
(33.0-37.0)
RDW 16.8 H %
(11.5-14.5)
Abs Immat Gran (auto) 0.1 H 10^3/uL
(0-0.05)
Absolute Neuts (auto) 13.4 H 10^3/uL
(1.4-6.5)
Absolute Monos (auto) 0.8 H 10^3/uL
(0.1-0.6)
Immature Gran % 0.6 H %
(0-0.5)
Neutrophils % 84.1 H %
(42.2-75.2)
Lymphocytes % 9.3 L %
(20.5-51.1)
BUN 23 H mg/dl
(9-20)
Creatinine 1.8 H mg/dL
(0.7-1.3)
Calcium 8.2 L mg/dl
(8.4-10.2)
Total Protein 5.9 L g/dl
(6.3-8.2)
Albumin 2.9 L g/dl
(3.5-5.0)
Urine Ketones 1+ A
(Negative)
Ur Occult Blood Reflex 4+ A
(Negative)
Urine Bilirubin 1+ A
(Negative)
Leukocyte Esterase Rfl 3+ A
(Negative)
Urine RBC 7-10 A /HPF
(0-2)
Urine WBC (Reflex) >100 A /HPF
(0-5)
Urine Bacteria (Reflex) Moderate A
(Negative)
Urine Albumin (Reflex) 2+ A
(Neg - Trace)
08/06/25 17:35
08/06/25 17:35
Vital Signs
Initial and Last Documented VS:
Initial Vital Signs
Temp Pulse Resp BP Pulse Ox
99.1 F 74 16 124/105 96
08/06/25 17:28 08/06/25 17:28 08/06/25 17:28 08/06/25 17:28 08/06/25 17:28
Last Documented Vital Signs
Temp Pulse Resp BP Pulse Ox
99.1 F 67 15 109/77 97
08/06/25 17:28 08/06/25 19:08 08/06/25 19:08 08/06/25 19:08 08/06/25 19:26
<Raghav Flowers MD - Last Filed: 08/06/25 20:56>
Orders/Labs/Results
Orders:
Orders
08/06/25 17:35
Complete Blood Count/With Diff Urgent
Comprehensive Metabolic Panel Urgent
Lipase Urgent
08/06/25 19:02
Orthostatic VS- Treatment ONCE
08/06/25 19:09
0.9% Sodium Chloride 1000 ml [Nss] 1,000 ml IV 70 mls/hr
08/06/25 19:15
0.9% Sodium Chloride 1000 ml [Nss] 1,000 ml IV 70 mls/hr
08/06/25 19:19
0.9% Sodium Chloride 1000 ml [Nss] 1,000 ml IV BOLUS
08/06/25 19:20
CT Abd/pelvis W Iv Cont Urgent
Comment:
Reason For Exam: abd pain, diarrhea
08/06/25 19:23
Urinalysis Reflex To Culture Urgent
Date Specimen was Collected: 08/06/25
Time Specimen was Collected: 19:13
Urine Microscopic Reflex Cult Urgent
C difficile Antigen & Toxins Urgent
HAYDE Source: ST
Specimen Description:
Date Specimen was Collected: 08/06/25
Time Specimen was Collected: 19:13
Comment: ADD ON
Stool Culture Urgent
HAYDE Source: Feces/Stool
Specimen Description:
Date Specimen was Collected: 08/06/25
Time Specimen was Collected: 19:13
Urine Culture Urgent
HAYDE Source: U
Specimen Description:
Date Specimen was Collected: 08/06/25
Time Specimen was Collected: 19:13
08/06/25 20:03
Vancomycin HCl [Firvanq] 125 mg PO NOW STA
08/06/25 20:49
Add On - Microbiology Urgent
Tests Added?: c diff
08/06/25 20:50
INFECTIOUS DISEASE CONSULT Routine
Consulting Provider: Leanna Holt
Was physician already notified: Yes
08/06/25 22:00
Fidaxomicin [Dificid] 200 mg PO ONCE ONE
08/07/25 02:00
Vancomycin HCl [Firvanq] 125 mg PO Q6
Abnormal Lab Results
08/06/25 08/06/25
17:35 19:23
WBC 15.9 H 10^3/uL
(4.8-10.8)
RBC 3.41 L 10^6/uL
(4.70-6.10)
Hgb 9.3 L g/dL
(13.0-18.0)
Hct 29.0 L %
(39.0-52.0)
MCHC 32.1 L g/dL
(33.0-37.0)
RDW 16.8 H %
(11.5-14.5)
Abs Immat Gran (auto) 0.1 H 10^3/uL
(0-0.05)
Absolute Neuts (auto) 13.4 H 10^3/uL
(1.4-6.5)
Absolute Monos (auto) 0.8 H 10^3/uL
(0.1-0.6)
Immature Gran % 0.6 H %
(0-0.5)
Neutrophils % 84.1 H %
(42.2-75.2)
Lymphocytes % 9.3 L %
(20.5-51.1)
BUN 23 H mg/dl
(9-20)
Creatinine 1.8 H mg/dL
(0.7-1.3)
Calcium 8.2 L mg/dl
(8.4-10.2)
Total Protein 5.9 L g/dl
(6.3-8.2)
Albumin 2.9 L g/dl
(3.5-5.0)
Urine Ketones 1+ A
(Negative)
Ur Occult Blood Reflex 4+ A
(Negative)
Urine Bilirubin 1+ A
(Negative)
Leukocyte Esterase Rfl 3+ A
(Negative)
Urine RBC 7-10 A /HPF
(0-2)
Urine WBC (Reflex) >100 A /HPF
(0-5)
Urine Bacteria (Reflex) Moderate A
(Negative)
Urine Albumin (Reflex) 2+ A
(Neg - Trace)
08/06/25 17:35
08/06/25 17:35
Vital Signs
Initial and Last Documented VS:
Initial Vital Signs
Temp Pulse Resp BP Pulse Ox
99.1 F 74 16 124/105 96
08/06/25 17:28 08/06/25 17:28 08/06/25 17:28 08/06/25 17:28 08/06/25 17:28
Last Documented Vital Signs
Temp Pulse Resp BP Pulse Ox
99.1 F 67 15 109/77 97
08/06/25 17:28 08/06/25 19:08 08/06/25 19:08 08/06/25 19:08 08/06/25 19:26
<Subhash Salazar MD, Resident - Last Filed: 08/06/25 21:42>
*Pulse Oximetry
SaO2: 97
Oxygen Mode of Delivery: Room air
Patient hypoxic: no
*Critical Care Note
Total Time (30-74mins, 75-104mins- exclusive of procedures): 60
<Subhash Salazar MD, Resident - Last Filed: 08/06/25 21:42>
Update Note
Update Note:
Problem List:
Acute abdominal pain
diarrhea
oral intake
orthostatic hypotension in the outpatient setting
urinary tract infection
acute kidney injury
Leukocytosis
Plan:
CBC and CMP ordered
lipase ordered
orthostatic vitals ordered
normal saline fluid bolus
CT of the abdomen pelvis with contrast
urine analysis with reflex to culture
stool culture
start vancomycin
Differential Diagnoses:
acute pancolitis secondary to C. difficile
urinary tract infection
acute pancreatitis
cholecystitis
ruptured AAA
Radiology:
- CT of the abdomen and pelvis conducted on 08/06/2025:
1. SEVERE ACUTE C. DIFFICILE PANCOLITIS.
2. SEVERE ACUTE CYSTITIS.
3. Small volume of ascites.
4. Moderate chronic bilateral renal disease with urothelial thickening in the right renal pelvis and right ureter which could be secondary to ascending urinary tract infection, inflammation, or urothelial carcinoma.
5. Mild retroperitoneal lymphadenopathy.
6. Stents in the right common and external iliac arteries and embolization coils in the right side of the pelvis bordering a large 7.9 cm right-sided pelvic mass (probably a chronic hematoma).
7. Severe calcific atherosclerotic plaque in the abdominal aorta.
8. Small pericardial effusion.
9. Minimal pleural effusions.
10. 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
11. Very severe osteoarthritis in the right hip.
EKG: Not applicable
Labs:
CMP shows acute kidney injury with a creatinine of 1.8 compared to a baseline of 1.3
CBC with acute leukocytosis with a white blood cell level of 15.9
urinalysis 1+ for ketones, 4+ for occult blood, 3+ leukocyte esterase, moderate bacteria seen
stool culture:
lipase within normal limit
Updates:
Normal saline bolus given
orthostatics within normal limits
CMP for acute kidney injury with a creatinine of 1.8 compared to a baseline of 1.3 possibly due to acute prerenal injury due to dehydration
CBC for acute leukocytosis with a white blood cell of 15.9. This finding along with his physical exam findings of acute abdomen suggest pancolitis secondary to C. difficile based on previous hospital admission. CT of the abdomen and pelvis ordered
CT of the abdomen and pelvis indicated C. difficile pancolitis - patient given vancomycin
vancomycin switched for Dificid based on infectious diseases recommendations.
Patient to be admitted due to acute pancolitis secondary to C. difficile infection
ED Attending Note
<Subhash Salazar MD, Resident - Last Filed: 08/06/25 21:42>
-
Portions of this chart may have been created with voice recognition software.� Occasional wrong word or��sound alike� substitutions may have occurred due to the inherent limitations of voice recognition software.
<Raghav Flowers MD - Last Filed: 08/06/25 20:56>
ED Attending Note
Patient seen and examined by attending physician: Yes
I performed a history and physical exam of patient and discussed management with resident, I reviewed resident's note and agree with documented findings and plan of care.: Yes
ED Attending Note:
I have seen and evaluated the patient with a [id number] encounter. I have spoken to the resident and involved in the medical history, the physical exam, medical decision making.
Evaluation and management service: agree unless noted differently below.
Results interpretation: agree unless noted differently below.
Focused HPI: In short this is a 75-year-old male with recent complicated urologic surgeries requiring repeated courses of antibiotics who unfortunately developed C. difficile colitis requiring hospitalization in early July and oral vancomycin
treatment which she completed 07/24�he returns today with profuse watery diarrhea that started 4 days ago after receiving another dose of antibiotics for UTI (ciprofloxacin is the most recent, had 1 dose this past Saturday) on recent removal of
ureteral stent. He also has significant crampy abdominal pain. No vomiting. Poor appetite.
Physical exam: Awake and alert not in distress. Mucous membranes dry. Abdomen soft diffusely tender.
Medical Decision Makin-year-old male presents with profuse watery diarrhea in the setting of recently treated C. difficile infection. Labs were significant for leukocytosis to 15.9. Chemistry shows ADAN with creatinine of 1.8 from discharge
value of 1.3. Elevated BUN. CT shows signs consistent with pancolitis once again. Stool studies sent off, presumed C. difficile infection. Discussed with infectious disease will start fidaxomicin. Admit for continued management. Discussed with
hospitalist.
Discharge Plan
Departure
Patient Disposition: Admit
Date of Disposition: 08/06/25
Time of Disposition: 20:55
Admit to doctor: Que
Presentation/result/management discussed w/ accepting MD/DO: Hospitalist
Discharge Problem:
Pancolitis, C. difficile colitis
Prescriptions:
No Action
atorvastatin [Lipitor] 80 mg Tablet
80 mg PO 1400
aspirin 81 mg Tablet,Delayed Release (Dr/Ec)
81 mg PO DAILY
carvedilol 6.25 mg Tablet
6.25 mg PO BID Qty: 60 0RF
hydralazine 50 mg Tablet
50 mg PO TID Qty: 90 0RF
multivitamin Tablet
1 tab PO DAILY
tramadol 50 mg tablet
50 mg PO Q8H PRN (Reason: mild to moderate pain) Qty: 14 0RF
vancomycin 125 mg capsule
125 mg PO QID Qty: 28 0RF
Referrals:
Thong Calderon CRNP [Family Provider]
Interventions
Interventions:
*Risk Screen - Suicide Last Done: 08/06/25 18:55
*General Assessment Last Done: 08/06/25 18:55
*Neglect/Abuse Screening Last Done: 08/06/25 18:55
*ED- Fall Risk Assessment Last Done: 08/06/25 18:55
*ED COVID-19 Vaccine History Last Done: 08/06/25 18:55
NN-Ajqlhr-Afcrbsowwq Assessment Last Done: 08/06/25 18:55
Discharge Date and Time
Print Language: [place]
[2025-08-06] MEDS: NSS 1000 IV (19:27)
[2025-08-06 19:31] LABS: Urine Character Slightly Cloudy (Clear)
[2025-08-06 19:42] LABS: Urine White Cell >100 /HPF (0-5)
[2025-08-06] MEDS: DIFICID 200 MG PO (21:13)
--- NOTE | 2025-08-06 22:21 | HPS.HSE ---
Family Physician
-
Family Physician: DORIAN Rahman
Chief Complaint
-
Diarrhea
History of Present Illness
Patient is a 75y M with PMH significant for ASCVD, AAA and recent admission for R ureteral re-implantation / diversion who presents to ED complaining of abdominal pain and diarrhea. Patient was recently admitted to 07/14 - 07/19 with similar
symptoms and was diagnosed with CDioff colitis. He was treated with 10 day course of oral vancomycin. Patient states that his diarrhea has not significant improved - and has become worse since completeing the course of abx. He complains of crampy
lower abdominal pain. He reports watery, frequent stools - more after eating or drinking. He denies any fevers / chills. No N/V. No other current complaints.
Medical History
Past Medical History
Past Medical History: Reports Other
Additional Past Medical History:
ASCVD
ADAN s/p Cardiac Cath / PR (Resolved / Improved)
Chronic HFpEF
AAA / Iliac Artery Aneurysm
Past Surgical History: Reports Other
Additional Past Surgical History:
06/17 - Right Ureteral Reimplantation
06/21 - Open Clot Evacuation / Bladder Irrigation and SPC Placement
AAA Repair
Cysto / R Ureteral Stent
PTCA with Stent x 5 total
Right Inguinal Herniorrhaphy
Social History
Tobacco: Non-smoker
Alcohol: Daily
Drug: None
Family History
Family History: Not pertinent
Allergies / Home Medications
Allergies reflects when Allergies were last updated in [facility].
Home Medications with original date entered in [facility]
Allergy/Medication List:
Allergies
Allergy/AdvReac Type Severity Reaction Status Date / Time
No Known Allergies Allergy Verified 08/06/25 17:30
Home Medications
aspirin 81 mg tablet,delayed release 81 mg PO DAILY Blood Clot Prevention/Tx 03/06/24
atorvastatin 80 mg tablet (Lipitor) 80 mg PO 1400 High Cholesterol 03/06/24
carvedilol 6.25 mg tablet 6.25 mg PO BID #60 tabs 03/14/24
hydralazine 50 mg tablet 50 mg PO TID #90 tabs 03/14/24
multivitamin 1 tab PO DAILY 06/16/24
tramadol 50 mg tablet 50 mg PO Q8H PRN mild to moderate pain #14 tabs 06/25/25
Review of Systems
-
History Source: Patient
A 12 point ROS was completed and negative except as noted: Yes
Constitutional: Reports Fatigue; Denies Fever or Chills
Respiratory: Denies Cough or Trouble Breathing
Cardiac: Denies Chest Pain or Palpitations
Abdomen/GI: Reports Abdominal Pain and Diarrhea; Denies Nausea, Vomiting, Bloody Stools or Black Stools
: Denies Dysuria, Frequency or Flank Pain
Musculoskeletal: Denies Joint Pain or Edema
Neurological: Denies Dizzy or Headache
Physical Exam
Vital Signs
Vital Signs
Temp Pulse Resp BP Pulse Ox
99.1 F 66 16 138/64 97
08/06/25 17:28 08/06/25 21:45 08/06/25 21:45 08/06/25 21:00 08/06/25 21:45
Physical Exam
General: Other (75y M in no acute distress.)
HEENT: Other (Dry MM. Neck supple.)
Respiratory: Clear; No Wheezes, Rales or Rhonchi
Cardiac: S1/S2 and Regular Rhythm; No Tachycardia
GI: Other (Soft, mild lower abdominal tenderness. No rebound / guarding. Pos BS.)
Musculoskeletal: No Clubbing, No Cyanosis and No Edema
Neuro: AO x 3
Laboratory Results
-
08/06/25 17:35
08/06/25 17:35
Laboratory Results
Total Bilirubin 0.6 mg/dl (0.2-1.3) 08/06/25 17:35
AST 20 U/L (17-59) 08/06/25 17:35
ALT 11 U/L (0-50) 08/06/25 17:35
Alkaline Phosphatase 75 U/L (38-126) 08/06/25 17:35
Lipase 54 U/L (23-300) 08/06/25 17:35
Impression/Plan
-
A/P: Patient is a 75y M with PMH significant for ASCVD, hypertension and CKD who presents to ED complaining of recurrent / persistent abdominal pain and diarrhea.
Recurrent / Persistent CDiff Colitis
- Admit for further evaluation and treatment.
- Start Dificid given persistent symptoms despite oral vancomycin course.
- CT scan done in the ED shows severe pancolitis.
- Continue / profuse diarrhea per patient.
- IVF support, pain control, etc.
- Follow for clinical improvement.
- ID evaluation for additional recommendations.
ASCVD
- Stable. No chest pain or dyspnea.
- Continue current CV med regimen including ASA.
Benign Hypertension
Chronic HFpEF
- Stable. Continue antihypertensive medications with holding parameters.
- No evidence of volume overload on exam. Follow closely with IVFs for persistent diarrhea / volume losses.
- Patient is not on chronic diuretic regimen.
ADAN on CKD III
- SCr = 1.8 with unclear baseline.
- Was 1.3 at time of recent discharge - but all prior values have been higher.
- Follow over the next 2-3 days to establish current baseline.
AAA / Iliac Artery Aneurysm
s/p Ureteral Re-implantation
- s/p AAA repair March 2024.
- s/p R ureter re-implantation in June 2025.
DVT Prophylaxis: SCDs
Code Status: Full
[2025-08-06] MEDS: LR 1000 IV (23:24)
[2025-08-06] MEDS: DILAUDID 0.5 MG IV (23:34)
[2025-08-07 00:05] VITALS: BMI 19.7
[2025-08-07 05:28] VITALS: BMI 19.7
[2025-08-07 07:00] VITALS: BP 139/73
[2025-08-07 09:03] LABS: Hematocrit 27.1 % (39.0-52.0); Hemoglobin 8.9 g/dL (13.0-18.0); Mean Corp Hgb Conc. 32.8 g/dL (33.0-37.0); Mean Corpuscular Volume 84.4 fL (80.0-94.0); Platelet Count 272 10^3/uL (130-400); Red Cell Dist. Width 16.8 % (11.5-14.5)
[2025-08-07] MEDS: ASPIR LOW (ENTERIC COATED) 81 MG PO (09:09)
[2025-08-07] MEDS: COREG 6.25 MG PO ×2 (09:10→20:42)
[2025-08-07] MEDS: APRESOLINE 25 MG PO ×2 (09:10→20:42)
[2025-08-07] MEDS: LR 1000 IV ×2 (09:11→20:27)
[2025-08-07] MEDS: DIFICID 200 MG PO ×2 (09:11→20:30)
[2025-08-07 09:38] LABS: Blood Urea Nitrogen 22 mg/dl (9-20); Calcium 8.4 mg/dl (8.4-10.2); Carbon Dioxide 19 mmol/L (22-30); Chloride 111 mmol/L (98-107); Estimated Creatinine Clearance 34 ml/min; Glucose 72 mg/dl (70-99); Potassium 3.5 mmol/L (3.5-5.1); Sodium 139 mmol/L (135-145); eGFR 45.21
--- NOTE | 2025-08-07 10:06 | CON.ID ---
Consultation
-
Date/Time Consultation Requested: August 06, [id number]
Date/Time Consultation Performed: August 07, 2025 1000
Requesting Provider: Dr. Raghav Flowers
Performing Provider: Dr. Leanna Holt
Reason for Consultation: Recurrent C. difficile
Chief Complaint / Past History
Chief Complaint
Diarrhea and abdominal pain
History of Present Illness
75-year-old male with history of CAD, AAA repair, ureteral stricture status post recent right ureteral reimplantation with psoas hitch June 17, 2025 then developed gross hematuria requiring cystoscopy, clot evacuation June 21 and received antibiotic
for E. coli recovered from the urine. He was then hospitalized from July 14[place] when he presented with severe C. difficile pancolitis. He was placed on oral vancomycin and discharged to complete a 10-day course. Patient reports that the
diarrhea did not improve while on oral vancomycin. He continues to have watery stool about every 2 hours worse after eating. He also has abdominal cramping. No abdominal distention. No fevers or chills. He presented back to the ER August 06.
Repeat CT of the abdomen pelvis shows severe pancolitis. Patient currently on a BRAT diet. No nausea or vomiting. He reports since the urological procedure, he has mild burning at the end of urination. No urine urgency or frequency. No flank
pain.
Past History
Additional Past Medical History:
Hypertension
CAD status post stents
Chronic HFpEF
CKD 3
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
Cystoscopy, clot evacuation, SPC placement , SPC subsequently removed
Right inguinal hernia repair
Allergy History:
No Known Allergies Allergy (Verified 08/06/25 17:30)
Medications Reviewed: Yes
Current Antibiotics:
Fidaxomicin
Social History
Tobacco: Non-Smoker
Alcohol: Daily
Drug: None
Family History
Family History: Not Pertinent
Review of Systems
Review of Systems
General: Change in Appetite; Negative Fever or Chills
HEENT: Negative Sinus Problems or Headache
Cardiovascular: Negative Chest Pain or Edema
Respiratory: Negative Dyspnea
Gasteroenterology: Diarrhea; Negative Nausea or Vomiting
Genital / Urological: Negative Flank Pain
Endocrine: Weakness
All systems: All other systems were reviewed and were negative
Vital Signs
Temp Pulse Resp BP Pulse Ox
97.6 F 64 16 139/73 95
08/07/25 07:00 08/07/25 09:10 08/07/25 07:00 08/07/25 09:10 08/07/25 07:00
Physical Exam
Physical Exam
Constitutional: No Acute Distress
Eyes: No Conjunctival Hemorrhage and Sclera Anicteric
Cardiovascular: Regular Rate and S1/S2
Pulmonary: Clear
Gastrointestinal: Soft, Tender (diffuse), Distended (mild) and Decreased Bowel Sounds
Genito-Urinary: Negative CVA Tenderness
Extremities: Negative Edema
Neurological: AO x 3
Lab / Diagnostic Study Results
08/07/25 08:51
08/07/25 08:51
Abs Immat Gran (auto) 0.1 10^3/uL (0-0.05) H 08/06/25 17:35
Absolute Neuts (auto) 13.4 10^3/uL (1.4-6.5) H 08/06/25 17:35
Absolute Lymphs (auto) 1.5 10^3/uL (1.2-3.4) 08/06/25 17:35
Absolute Monos (auto) 0.8 10^3/uL (0.1-0.6) H 08/06/25 17:35
Absolute Basos (auto) 0.0 10^3/uL (0-0.2) 08/06/25 17:35
Immature Gran % 0.6 % (0-0.5) H 08/06/25 17:35
Neutrophils % 84.1 % (42.2-75.2) H 08/06/25 17:35
Lymphocytes % 9.3 % (20.5-51.1) L 08/06/25 17:35
Monocytes % 4.9 % (1.7-9.3) 08/06/25 17:35
Eosinophils % 0.9 % (0-6) 08/06/25 17:35
Basophils % 0.2 % (0-2) 08/06/25 17:35
Ur Squamous Epith Cells 3-5 /LPF (Few) 08/06/25 19:23
Microbiology Results
Micro:
08/06/25 19:23 Salmonella/Shigella Culture - Preliminary
Feces/Stool Culture in Progress
Campylobacter Culture - Preliminary
Culture in Progress
Shiga Toxin Test - Pending
08/06/25 19:23 C. difficile GDH Antigen & Toxins - Final
Feces/Stool Toxigenic C.difficile Positive
08/06/25 19:23 Urine Culture - Pending
Urine
08/06/25 CT a/p:
1. SEVERE ACUTE C. DIFFICILE PANCOLITIS.
2. SEVERE ACUTE CYSTITIS.
3. Small volume of ascites.
4. Moderate chronic bilateral renal disease with urothelial thickening in the right renal pelvis and right ureter which could be secondary to ascending urinary tract infection, inflammation, or urothelial carcinoma.
5. Mild retroperitoneal lymphadenopathy.
6. Stents in the right common and external iliac arteries and embolization coils in the right side of the pelvis bordering a large 7.9 cm right-sided pelvic mass (probably a chronic hematoma).
Assessment / Plan
#Severe C. difficile pancolitis, first recurrence
. Recently completed 10d course of po Vanco for first episode of severe C. diffcolitis
# Leukocytosis
# ADAN on CKD3
- Agree with Fidaxomicin as discussed with ED physician
- Add IV metronidazole.
- Follow stool output and abd pain.
- Trend wbc
- Avoid systemic abx at this time.
-Enhanced contact isolation
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
Hypertension
CAD status post stents
Chronic HFpEF
CKD 3
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
Cystoscopy, clot evacuation, SPC placement , SPC subsequently removed
Right inguinal hernia repair
--- NOTE | 2025-08-07 11:26 | CM ---
CM following re: discharge planning.
Reviewed pt's chart, met with pt.
Pt is a 75 year old male, admitted with primary dx of Recurrent / Persistent CDiff Colitis. PMH includes: ASCVD, AAA and recent admission for R ureteral re-implantation / diversion
The patient reports he resides with his daughter Stephanie in a two story home with two steps to enter. The patient reports he is current with [facility], The patient reports he uses a cane, has shower chair, and shower rail in home.
PT and OT will evaluate the pt to determine a level of care at discharge.
PCP: Thong Calderon
Pharmacy: [facility].
Plan: Discharge to home with resumption of [facility] services and family support.
CM will follow with discharge plan updates as hospitalization progresses
--- NOTE | 2025-08-07 11:44 | W.PN.HOSP.TC ---
Today's Communication/Plan
-
see A/P
Assessment / Plan
Assessment / Plan
HPI: 75 yo M with PMH significant for ASCVD, AAA and recent admission for R ureteral re-implantation / diversion, who presented to ED complaining of abdominal pain and diarrhea. Patient was recently admitted to 07/14 - 07/19 with similar
symptoms and was diagnosed with C Diff colitis. He was treated with 10 day course of oral vancomycin. Patient states that his diarrhea has not significant improved - and has become worse since completing the course of abx. He complained of crampy
lower abdominal pain. He reports watery, frequent stools - more after eating or drinking. He denies any fevers / chills. No N/V. No other current complaints.
A/P:
# Recurrent / Persistent severe CDiff Colitis
first recurrence per ID
CT scan showed severe pancolitis.
Cont with Fidaxomicin, added IV metronidazole.
IVF support, pain control, etc.
ID on board
# ASCVD, stable.
No chest pain or dyspnea.
Continue current CV med regimen including ASA.
# Benign Hypertension
# Chronic HFpEF
Stable. Continue antihypertensive medications with holding parameters.
No evidence of volume overload on exam. Follow closely with IVFs for persistent diarrhea / volume losses.
Patient is not on chronic diuretic regimen.
# ADAN on CKD III
SCr 1.8 -> 1.6 today
# AAA / Iliac Artery Aneurysm
# s/p Ureteral Re-implantation
# s/p AAA repair March 2024.
# s/p R ureter re-implantation in June 2025.
DVT Prophylaxis: SCDs
Code Status: Full
Anticipated Discharge: > 48 hours
Subjective/Interval History
-
Date of Service: August 07, 2025
Objective Data
-
Labs:
Laboratory Results
08/07/25
08:51
WBC 16.0 H
Hgb 8.9 L
Hct 27.1 L
Plt Count 272
Sodium 139
Potassium 3.5
Chloride 111 H
Carbon Dioxide 19 L
BUN 22 H
Creatinine 1.6 H
Glucose 72
Calcium 8.4
Vital Signs:
Vital Signs
Temp Pulse Resp BP Pulse Ox
36.4 C 64 16 139/73 95
08/07/25 07:00 08/07/25 09:10 08/07/25 07:00 08/07/25 09:10 08/07/25 07:00
I&O
08/06/25 08/07/25 08/08/25
06:59 06:59 06:59
Intake Total 1140 / 1140
Balance 1140 / 1140
Review of Systems
-
History Source: Patient
Abdomen/GI: Reports Abdominal Pain and Diarrhea
Physical Exam
-
General: Well Developed, Well Nourished, No Apparent Distress, Comfortable and Conversant
HEENT: Normocephalic and Atraumatic
Respiratory: Non Labored Respirations; Negative Accessory Resp Muscle Use
Cardiac: Regular Rhythm and S1/S2
GI: Soft and Tender (diffusely)
Neuro: Awake and Alert
Psych: Calm and Intact Judgement/Insight
Data Reviewed
-
CT Scan: Report Reviewed by me
Labs: Labs Reviewed by me
[2025-08-07] MEDS: KCL 40 MEQ PO (12:40)
[2025-08-07] MEDS: LIPITOR 80 MG PO (14:28)
[2025-08-07] MEDS: FLAGYL 500 MG 100 IV ×2 (14:29→22:08)
[2025-08-07 14:52] VITALS: BMI 19.7
[2025-08-07 15:00] VITALS: BP 131/68
[2025-08-07] MEDS: DILAUDID 0.5 MG IV (22:14)
[2025-08-07 23:28] VITALS: BP 136/74
[2025-08-08 04:53] VITALS: BMI 20.1
[2025-08-08 07:30] VITALS: BP 141/68
[2025-08-08 07:38] LABS: Hematocrit 25.4 % (39.0-52.0); Hemoglobin 8.0 g/dL (13.0-18.0); Mean Corp Hgb Conc. 31.5 g/dL (33.0-37.0); Mean Corpuscular Volume 85.2 fL (80.0-94.0); Platelet Count 241 10^3/uL (130-400); Red Cell Dist. Width 16.8 % (11.5-14.5)
[2025-08-08] MEDS: FLAGYL 500 MG 100 IV ×3 (07:42→23:34)
[2025-08-08] MEDS: LR 1000 IV (07:43)
[2025-08-08 08:12] LABS: Blood Urea Nitrogen 19 mg/dl (9-20); Calcium 7.8 mg/dl (8.4-10.2); Carbon Dioxide 20 mmol/L (22-30); Chloride 113 mmol/L (98-107); Estimated Creatinine Clearance 40 ml/min; Glucose 77 mg/dl (70-99); Magnesium 1.7 mg/dl (1.6-2.3); Potassium 3.3 mmol/L (3.5-5.1); Sodium 138 mmol/L (135-145); eGFR 53.07
[2025-08-08] MEDS: COREG 6.25 MG PO ×2 (08:33→20:00)
[2025-08-08] MEDS: KCL 20 MEQ PO (08:34)
[2025-08-08] MEDS: APRESOLINE 25 MG PO ×2 (08:34→19:59)
[2025-08-08] MEDS: ASPIR LOW (ENTERIC COATED) 81 MG PO (08:35)
[2025-08-08] MEDS: DIFICID 200 MG PO ×2 (08:35→20:01)
--- NOTE | 2025-08-08 08:49 | W.PN.ID1 ---
Date of Service
Date of Service: August 08, 2025
Today's Communication
Continue fidaxomicin and po metronidazole.
Assessment / Plan
#Severe C. difficile pancolitis, first recurrence
. Recently completed 10d course of po Vanco for first episode of severe C. diffcolitis
# Leukocytosis, improved today
# ADAN on CKD3, improved
- Continue Fidaxomicin (d3)
- Continue IV metronidazole (d2)
- Follow stool output and abd pain.
- Trend wbc
- Avoid systemic abx at this time.
- Monitor closely.
-Enhanced contact isolation
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
Hypertension
CAD status post stents
Chronic HFpEF
CKD 3
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
Cystoscopy, clot evacuation, SPC placement , SPC subsequently removed
Right inguinal hernia repair
Chief Complaint
-: C-diff
Subjective / Review of Systems
abd cramping/pain associated with ambulation
still diarrhea q2-3h. + small pieces of stool.
Vital Signs / Physical Exam
Vital Signs
Vital Signs
Temp Pulse Resp BP Pulse Ox
97.7 F 62 16 141/68 97
08/08/25 07:30 08/08/25 08:33 08/08/25 07:30 08/08/25 08:33 08/08/25 07:30
Physical Exam
Constitutional: Non-toxic
Cardiovascular: Regular Rate and S1/S2
Pulmonary: Clear
Gastrointestinal: Soft, Tender (diffuse moderate), Distended (mild) and Normal Bowel Sounds
Genito-Urinary: Negative CVA Tenderness
Extremities: Negative Edema
Neurological: AO x 3
Objective Data
Lab Data
Lab Results
08/08/25 07:02
08/08/25 07:02
Estimated Creat Clear 40 ml/min 08/08/25 07:02
Total Bilirubin 0.6 mg/dl (0.2-1.3) 08/06/25 17:35
AST 20 U/L (17-59) 08/06/25 17:35
ALT 11 U/L (0-50) 08/06/25 17:35
Alkaline Phosphatase 75 U/L (38-126) 08/06/25 17:35
Most recent labs reviewed.
Micro Results:
08/06/25 19:23 Salmonella/Shigella Culture - Preliminary
Feces/Stool Culture in Progress
Campylobacter Culture - Preliminary
Culture in Progress
Shiga Toxin Test - Pending
08/06/25 19:23 Urine Culture - Final
Urine
08/06/25 19:23 C. difficile GDH Antigen & Toxins - Final
Feces/Stool Toxigenic C.difficile Positive
08/06/25 CT a/p:
1. SEVERE ACUTE C. DIFFICILE PANCOLITIS.
2. SEVERE ACUTE CYSTITIS.
3. Small volume of ascites.
4. Moderate chronic bilateral renal disease with urothelial thickening in the right renal pelvis and right ureter which could be secondary to ascending urinary tract infection, inflammation, or urothelial carcinoma.
5. Mild retroperitoneal lymphadenopathy.
6. Stents in the right common and external iliac arteries and embolization coils in the right side of the pelvis bordering a large 7.9 cm right-sided pelvic mass (probably a chronic hematoma).
[2025-08-08] MEDS: NSS with KCL 40 MEQ 1000 IV (09:53)
--- NOTE | 2025-08-08 10:13 | W.PN.HOSP.TC ---
Today's Communication/Plan
-
see A/P
Assessment / Plan
Assessment / Plan
HPI: 75 yo M with PMH significant for ASCVD, AAA and recent admission for R ureteral re-implantation / diversion, who presented to ED complaining of abdominal pain and diarrhea. Patient was recently admitted to 07/14 - 07/19 with similar
symptoms and was diagnosed with C Diff colitis. He was treated with 10 day course of oral vancomycin. Patient states that his diarrhea has not significant improved - and has become worse since completing the course of abx. He complained of crampy
lower abdominal pain. He reports watery, frequent stools - more after eating or drinking. He denies any fevers / chills. No N/V. No other current complaints.
A/P:
# Recurrent / Persistent severe CDiff Colitis
first recurrence per ID
CT scan showed severe pancolitis.
Cont with Fidaxomicin, added IV metronidazole.
IVF support, pain control, etc.
ID on board
# Hypokalemia
replete
# ASCVD, stable.
No chest pain or dyspnea.
Continue current CV med regimen including ASA.
# Benign Hypertension
# Chronic HFpEF
Stable. Continue antihypertensive medications with holding parameters.
No evidence of volume overload on exam. Follow closely with IVFs for persistent diarrhea / volume losses.
Patient is not on chronic diuretic regimen.
# ADAN on CKD III
SCr 1.8 -> 1.4 today
# AAA / Iliac Artery Aneurysm
# s/p Ureteral Re-implantation
# s/p AAA repair March 2024.
# s/p R ureter re-implantation in June 2025.
DVT Prophylaxis: SCDs
Code Status: Full
DW RN
total time 51 min
Anticipated Discharge: > 48 hours
Subjective/Interval History
-
Date of Service: August 08, 2025
Objective Data
-
Labs:
Laboratory Results
08/08/25
07:02
WBC 14.6 H
Hgb 8.0 L
Hct 25.4 L
Plt Count 241
Sodium 138
Potassium 3.3 L
Chloride 113 H
Carbon Dioxide 20 L
BUN 19
Creatinine 1.4 H
Glucose 77
Calcium 7.8 L
Vital Signs:
Vital Signs
Temp Pulse Resp BP Pulse Ox
36.5 C 62 16 141/68 97
08/08/25 07:30 08/08/25 08:33 08/08/25 07:30 08/08/25 08:33 08/08/25 07:30
I&O
08/07/25 08/08/25 08/09/25
06:59 06:59 06:59
Intake Total 1140 / 1140 690 / 690
Balance 1140 / 1140 690 / 690
Review of Systems
-
History Source: Patient
Abdomen/GI: Reports Diarrhea (still profuse per pt )
Physical Exam
-
General: Well Developed, Well Nourished, No Apparent Distress, Comfortable and Conversant
HEENT: Normocephalic and Atraumatic
Respiratory: Non Labored Respirations; Negative Accessory Resp Muscle Use
Cardiac: Regular Rhythm and S1/S2
GI: Soft and Tender (diffusely)
Neuro: Awake and Alert
Psych: Calm and Intact Judgement/Insight
Data Reviewed
-
CT Scan: Report Reviewed by me
Labs: Labs Reviewed by me
[2025-08-08] MEDS: LIPITOR 80 MG PO (15:05)
[2025-08-08 15:40] VITALS: BP 133/74
[2025-08-08 23:00] VITALS: BP 126/65
[2025-08-09] MEDS: NSS with KCL 40 MEQ 1000 IV ×2 (00:39→14:34)
[2025-08-09] MEDS: DILAUDID 0.5 MG IV (00:47)
[2025-08-09 04:44] VITALS: BMI 20.4
[2025-08-09] MEDS: FLAGYL 500 MG 100 IV ×3 (06:06→22:08)
[2025-08-09 07:30] VITALS: BP 145/76
[2025-08-09 07:36] LABS: Hematocrit 27.3 % (39.0-52.0); Hemoglobin 8.5 g/dL (13.0-18.0); Mean Corp Hgb Conc. 31.1 g/dL (33.0-37.0); Mean Corpuscular Volume 85.6 fL (80.0-94.0); Platelet Count 262 10^3/uL (130-400); Red Cell Dist. Width 16.9 % (11.5-14.5)
[2025-08-09 07:59] LABS: Blood Urea Nitrogen 17 mg/dl (9-20); Calcium 8.1 mg/dl (8.4-10.2); Carbon Dioxide 18 mmol/L (22-30); Chloride 117 mmol/L (98-107); Estimated Creatinine Clearance 40 ml/min; Glucose 77 mg/dl (70-99); Magnesium 1.8 mg/dl (1.6-2.3); Potassium 3.9 mmol/L (3.5-5.1); Sodium 140 mmol/L (135-145); eGFR 53.07
[2025-08-09] MEDS: ASPIR LOW (ENTERIC COATED) 81 MG PO (08:31)
[2025-08-09] MEDS: APRESOLINE 25 MG PO ×2 (08:31→20:32)
[2025-08-09] MEDS: DIFICID 200 MG PO ×2 (08:31→20:32)
[2025-08-09] MEDS: COREG 6.25 MG PO ×2 (08:34→20:32)
--- NOTE | 2025-08-09 08:45 | VNURNOTE ---
Chart reviewed. Patient is current with [facility]. Will continue to follow hospital course and DC plans.
--- NOTE | 2025-08-09 09:12 | PN.CDI ---
CDI
- -
CDI:
Physician Documentation Request
Admit Date: 08/06/25 22:33
Dear Doctor Mckinley,
Clinical Indicators:
Patient admitted with recurrent/persistent C diff colitis.
08/07 note/assessment, -'significant 13lb 10% weight loss <1month.'
-'Pt meets criteria for severe protein calorie malnutrition of acute illness with >5%
wt loss x 1 month, >2% wt loss x 1week & prolonged poor po intake prior to hospital
admit <50% estimated energy needs >5days'
Based on the above information and your assessment, which of the following most accurately represents the patient's nutritional status?
Severe Protein Calorie Malnutrition
Other (please specify)
[place] Criteria ([facility] Hospitalist 2017)
2 or more criteria must be present for either
non severe or severe malnutrition
Note that the criteria differs related to the
presence of an acute or chronic illness
Acute Illness
Energy Intake Non Severe: <75% for >7 days
Severe: <50% for >5 days
Weight Loss Non Severe: 1-2% over 1 week
5% over 1 month
7.5% over 3 months
1 year N/A
Severe: >2% over 1 week
>5% over 1 month
>7.5% over 3 months
1 year N/A
Body Fat Non Severe: Mild Decrease
Severe: Moderate Decrease
Muscle Mass Non Severe: Mild Decrease
Severe: Moderate Decrease
Fluid Accumulation Non Severe: Mild Accumulation
Severe: Moderate to severe
accumulation
Reduced Pooling Operator Strength Non Severe: N/A
Severe: Measurably reduced
Additional criteria that can be used to Determine if Mild or Moderate Malnutrition ([employer] Manual 2018)
Mild Moderate Severe
Albumin gm/dl <3.0 gm/dl <2.5 gm/dl <2.0 gm/dl
Pre Albumin mg/dl <15 gm/dl <10 mg/dl <5.0 mg/dl
BMI <18.5 <17 <16
Use of terms such as suspected, likely, concern for, or probable (associated with a specific diagnosis that is being evaluated, monitored, or treated as if it exists) are acceptable and can be coded in the inpatient setting, when documented at the
time of discharge.
Thank you,
ERWIN Ramirez RN
CDI Specialist
available via tiger text
Please use your independent medical judgment in providing your response.
--- NOTE | 2025-08-09 09:21 | CM ---
Reviewed the chart notes and spoke with the patient at the bedside. CM continues to be available to patient/family and is monitoring medical plan for needs at discharge.
Plan: Discharge to home with resumption of [facility] services. Referral placed on [facility].
--- NOTE | 2025-08-09 11:20 | W.PN.HOSP.TC ---
Addendum entered and electronically signed by Debbi Sen MD 08/09/25 12:39:
# Severe Protein Calorie Malnutrition
Original Note:
Today's Communication/Plan
-
see A/P
Assessment / Plan
Assessment / Plan
HPI: 75 yo M with PMH significant for ASCVD, AAA and recent admission for R ureteral re-implantation / diversion, who presented to ED complaining of abdominal pain and diarrhea. Patient was recently admitted to 07/14 - 07/19 with similar
symptoms and was diagnosed with C Diff colitis. He was treated with 10 day course of oral vancomycin. Patient states that his diarrhea has not significant improved - and has become worse since completing the course of abx. He complained of crampy
lower abdominal pain. He reports watery, frequent stools - more after eating or drinking. He denies any fevers / chills. No N/V. No other current complaints.
A/P:
# Recurrent / Persistent severe C Diff pancolitis
first recurrence per ID
CT scan showed severe pancolitis.
Cont with Fidaxomicin, added IV metronidazole.
IVF support, pain control, etc.
ID on board
# Hypokalemia
repleted
# ASCVD, stable.
No chest pain or dyspnea.
Continue current CV med regimen including ASA.
# Benign Hypertension
# Chronic HFpEF
Stable. Continue antihypertensive medications with holding parameters.
No evidence of volume overload on exam. Follow closely with IVFs for persistent diarrhea / volume losses.
Patient is not on chronic diuretic regimen.
# ADAN on CKD III
SCr 1.8 -> 1.4 today
# AAA / Iliac Artery Aneurysm
# s/p Ureteral Re-implantation
# s/p AAA repair March 2024.
# s/p R ureter re-implantation in June 2025.
DVT Prophylaxis: SCDs
Code Status: Full
Anticipated Discharge: > 48 hours
Subjective/Interval History
-
Date of Service: August 09, 2025
Objective Data
-
Labs:
Laboratory Results
08/09/25
06:50
WBC 17.4 H
Hgb 8.5 L
Hct 27.3 L
Plt Count 262
Sodium 140
Potassium 3.9
Chloride 117 H
Carbon Dioxide 18 L
BUN 17
Creatinine 1.4 H
Glucose 77
Calcium 8.1 L
Vital Signs:
Vital Signs
Temp Pulse Resp BP Pulse Ox
36.7 C 58 16 145/76 97
08/09/25 07:30 08/09/25 08:31 08/09/25 07:30 08/09/25 08:31 08/09/25 07:30
I&O
08/08/25 08/09/25 08/10/25
06:59 06:59 06:59
Intake Total 690 / 690 2059
Balance 690 / 690 2059
Review of Systems
-
History Source: Patient
Abdomen/GI: Reports Diarrhea (still with lots of diarrhea per pt )
Physical Exam
-
General: Well Developed, Well Nourished, No Apparent Distress, Comfortable and Conversant
HEENT: Normocephalic and Atraumatic
Respiratory: Non Labored Respirations; Negative Accessory Resp Muscle Use
Cardiac: Regular Rhythm and S1/S2
GI: Soft and Tender (diffusely)
Neuro: Awake and Alert
Psych: Calm and Intact Judgement/Insight
Data Reviewed
-
CT Scan: Report Reviewed by me
Labs: Labs Reviewed by me
--- NOTE | 2025-08-09 12:46 | W.PN.ID1 ---
Date of Service
Date of Service: August 09, 2025
Today's Communication
Continue fidaxomicin and IV metronidazole.
Assessment / Plan
#Severe C. difficile pancolitis, first recurrence
. Recently completed 10d course of po Vanco for first episode of severe C. diff colitis
# Leukocytosis
# ADAN on CKD3, improved
- Abd tenderness improved. Diarrhea stable.
- Continue Fidaxomicin (d4)
- Continue IV metronidazole (d3)
- Follow stool output and abd pain.
- Trend wbc
- Avoid systemic abx at this time.
- Monitor closely.
-Enhanced contact isolation
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
Hypertension
CAD status post stents
Chronic HFpEF
CKD 3
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
Cystoscopy, clot evacuation, SPC placement , SPC subsequently removed
Right inguinal hernia repair
Chief Complaint
-: C-diff
Subjective / Review of Systems
Abd pain better. Watery diarrhea stable.
Vital Signs / Physical Exam
Vital Signs
Vital Signs
Temp Pulse Resp BP Pulse Ox
98.0 F 58 16 145/76 97
08/09/25 07:30 08/09/25 08:31 08/09/25 07:30 08/09/25 08:31 08/09/25 07:30
Physical Exam
Constitutional: No Acute Distress
Cardiovascular: Regular Rate and S1/S2
Pulmonary: Clear
Gastrointestinal: Soft, Tender (improved diffuse tenderness), Distended (mild) and No Guarding
Extremities: Negative Edema
Neurological: AO x 3
Objective Data
Lab Data
Lab Results
08/09/25 06:50
08/09/25 06:50
Estimated Creat Clear 40 ml/min 08/09/25 06:50
Total Bilirubin 0.6 mg/dl (0.2-1.3) 08/06/25 17:35
AST 20 U/L (17-59) 08/06/25 17:35
ALT 11 U/L (0-50) 08/06/25 17:35
Alkaline Phosphatase 75 U/L (38-126) 08/06/25 17:35
Most recent labs reviewed.
Micro Results:
08/06/25 19:23 Salmonella/Shigella Culture - Final
Feces/Stool No Salmonella, Shigella, Aeromonas or Plesiomonas species
isolated.
Campylobacter Culture - Final
No Campylobacter species isolated.
Shiga Toxin Test - Final
No E. coli Shiga Toxin 1 or 2 detected.
08/06/25 19:23 Urine Culture - Final
Urine
08/06/25 19:23 C. difficile GDH Antigen & Toxins - Final
Feces/Stool Toxigenic C.difficile Positive
08/06/25 CT a/p:
1. SEVERE ACUTE C. DIFFICILE PANCOLITIS.
2. SEVERE ACUTE CYSTITIS.
3. Small volume of ascites.
4. Moderate chronic bilateral renal disease with urothelial thickening in the right renal pelvis and right ureter which could be secondary to ascending urinary tract infection, inflammation, or urothelial carcinoma.
5. Mild retroperitoneal lymphadenopathy.
6. Stents in the right common and external iliac arteries and embolization coils in the right side of the pelvis bordering a large 7.9 cm right-sided pelvic mass (probably a chronic hematoma).
[2025-08-09] MEDS: LIPITOR 80 MG PO (14:35)
[2025-08-09 15:25] VITALS: BP 141/82
[2025-08-09 23:50] VITALS: BP 133/75
[2025-08-10] MEDS: NSS with KCL 40 MEQ 1000 IV (02:38)
[2025-08-10 05:01] VITALS: BMI 20.9
[2025-08-10] MEDS: FLAGYL 500 MG 100 IV ×3 (05:42→21:43)
[2025-08-10 07:34] LABS: Hematocrit 26.7 % (39.0-52.0); Hemoglobin 8.2 g/dL (13.0-18.0); Mean Corp Hgb Conc. 30.7 g/dL (33.0-37.0); Mean Corpuscular Volume 85.6 fL (80.0-94.0); Nucleated Red Blood Cells % 0 % (-); Platelet Count 251 10^3/uL (130-400); Red Cell Dist. Width 17.0 % (11.5-14.5)
[2025-08-10 07:53] VITALS: BP 143/85
[2025-08-10 08:12] LABS: Blood Urea Nitrogen 12 mg/dl (9-20); Calcium 7.6 mg/dl (8.4-10.2); Carbon Dioxide 16 mmol/L (22-30); Chloride 119 mmol/L (98-107); Estimated Creatinine Clearance 41 ml/min; Glucose 92 mg/dl (70-99); Magnesium 1.7 mg/dl (1.6-2.3); Potassium 4.2 mmol/L (3.5-5.1); Sodium 141 mmol/L (135-145); eGFR 53.07
[2025-08-10] MEDS: DIFICID 200 MG PO ×2 (09:32→20:00)
[2025-08-10] MEDS: APRESOLINE 25 MG PO ×2 (09:32→20:00)
[2025-08-10] MEDS: ASPIR LOW (ENTERIC COATED) 81 MG PO (09:33)
[2025-08-10] MEDS: COREG 6.25 MG PO ×2 (09:33→20:00)
--- NOTE | 2025-08-10 11:14 | W.PN.ID1 ---
Date of Service
Date of Service: August 10, 2025
Today's Communication
Continue current abx's.
Assessment / Plan
#Severe C. difficile pancolitis, first recurrence
. Recently completed 10d course of po Vanco for first episode of severe C. diff colitis
# Leukocytosis, trending down
# ADAN on CKD3, improved
- Abd tenderness continues to improve.
Diarrhea slightly improving.
- Continue Fidaxomicin (d5)
- Continue IV metronidazole (d4)
- Follow stool output and abd pain.
- Trend wbc
- Avoid systemic abx at this time.
- Monitor closely.
-Enhanced contact isolation
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
Hypertension
CAD status post stents
Chronic HFpEF
CKD 3
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
Cystoscopy, clot evacuation, SPC placement , SPC subsequently removed
Right inguinal hernia repair
Chief Complaint
-: C-diff
Subjective / Review of Systems
Abd pain continues to improve.
Stool frequency slightly less.
Vital Signs / Physical Exam
Vital Signs
Vital Signs
Temp Pulse Resp BP Pulse Ox
97.6 F 65 18 143/85 97
08/10/25 07:53 08/10/25 07:53 08/10/25 07:53 08/10/25 09:32 08/10/25 07:53
Physical Exam
Constitutional: No Acute Distress
Cardiovascular: Regular Rate and S1/S2
Pulmonary: Clear
Gastrointestinal: Soft, Tender (mild lower abd), Distended (mild) and Decreased Bowel Sounds
Neurological: AO x 3
Objective Data
Lab Data
Lab Results
08/10/25 06:53
08/10/25 06:53
Estimated Creat Clear 41 ml/min 08/10/25 06:53
Total Bilirubin 0.6 mg/dl (0.2-1.3) 08/06/25 17:35
AST 20 U/L (17-59) 08/06/25 17:35
ALT 11 U/L (0-50) 08/06/25 17:35
Alkaline Phosphatase 75 U/L (38-126) 08/06/25 17:35
Most recent labs reviewed.
Micro Results:
08/06/25 19:23 Salmonella/Shigella Culture - Final
Feces/Stool No Salmonella, Shigella, Aeromonas or Plesiomonas species
isolated.
Campylobacter Culture - Final
No Campylobacter species isolated.
Shiga Toxin Test - Final
No E. coli Shiga Toxin 1 or 2 detected.
08/06/25 19:23 Urine Culture - Final
Urine
08/06/25 19:23 C. difficile GDH Antigen & Toxins - Final
Feces/Stool Toxigenic C.difficile Positive
08/06/25 CT a/p:
1. SEVERE ACUTE C. DIFFICILE PANCOLITIS.
2. SEVERE ACUTE CYSTITIS.
3. Small volume of ascites.
4. Moderate chronic bilateral renal disease with urothelial thickening in the right renal pelvis and right ureter which could be secondary to ascending urinary tract infection, inflammation, or urothelial carcinoma.
5. Mild retroperitoneal lymphadenopathy.
6. Stents in the right common and external iliac arteries and embolization coils in the right side of the pelvis bordering a large 7.9 cm right-sided pelvic mass (probably a chronic hematoma).
--- NOTE | 2025-08-10 11:34 | W.PN.HOSP.TC ---
Today's Communication/Plan
-
see A/P
Assessment / Plan
Assessment / Plan
HPI: 75 yo M with PMH significant for ASCVD, AAA and recent admission for R ureteral re-implantation / diversion, who presented to ED complaining of abdominal pain and diarrhea. Patient was recently admitted to 07/14 - 07/19 with similar
symptoms and was diagnosed with C Diff colitis. He was treated with 10 day course of oral vancomycin. Patient states that his diarrhea has not significant improved - and has become worse since completing the course of abx. He complained of crampy
lower abdominal pain. He reports watery, frequent stools - more after eating or drinking. He denies any fevers / chills. No N/V. No other current complaints.
A/P:
# Recurrent / Persistent severe C Diff pancolitis
first recurrence per ID
CT scan showed severe pancolitis.
Cont with Fidaxomicin, added IV metronidazole.
Still with profuse diarrhea, cont IVF support,
pain control etc.
ID on board
# Hypokalemia
repleted
# ASCVD, stable.
No chest pain or dyspnea.
Continue current CV med regimen including ASA.
# Benign Hypertension
# Chronic HFpEF
Stable. Continue antihypertensive medications with holding parameters.
No evidence of volume overload on exam. Follow closely with IVFs for persistent diarrhea / volume losses.
Patient is not on chronic diuretic regimen.
# ADAN on CKD III
SCr 1.8 -> 1.4 today
# AAA / Iliac Artery Aneurysm
# s/p Ureteral Re-implantation
# s/p AAA repair March 2024.
# s/p R ureter re-implantation in June 2025.
DVT Prophylaxis: SCDs
Code Status: Full
DW RN
Anticipated Discharge: 24 - 48 hours
Subjective/Interval History
-
Date of Service: August 10, 2025
Objective Data
-
Labs:
Laboratory Results
08/10/25
06:53
WBC 13.2 H
Hgb 8.2 L
Hct 26.7 L
Plt Count 251
Sodium 141
Potassium 4.2
Chloride 119 H
Carbon Dioxide 16 L
BUN 12
Creatinine 1.4 H
Glucose 92
Calcium 7.6 L
Vital Signs:
Vital Signs
Temp Pulse Resp BP Pulse Ox
36.4 C 65 18 143/85 97
08/10/25 07:53 08/10/25 07:53 08/10/25 07:53 08/10/25 09:32 08/10/25 07:53
I&O
08/09/25 08/10/25 08/11/25
06:59 06:59 06:59
Intake Total 2059 306 / 306
Balance 2059 / 306
Review of Systems
-
History Source: Patient
Abdomen/GI: Reports Diarrhea (still with lots of diarrhea per pt ); Denies Abdominal Pain
Physical Exam
-
General: Well Developed, Well Nourished, No Apparent Distress, Comfortable and Conversant
HEENT: Normocephalic and Atraumatic
Respiratory: Non Labored Respirations; Negative Accessory Resp Muscle Use
Cardiac: Regular Rhythm and S1/S2
GI: Soft, Nontender and Nondistended
Neuro: Awake and Alert
Psych: Calm and Intact Judgement/Insight
Data Reviewed
-
CT Scan: Report Reviewed by me
Labs: Labs Reviewed by me
[2025-08-10] MEDS: NSS with KCL 40 MEQ IV (12:12)
--- NOTE | 2025-08-10 12:17 | CM ---
Reviewed the chart notes and spoke with the patient at the bedside. Continues on IV abx and IVF. CM continues to be available to patient/family and is monitoring medical plan for needs at discharge.
Plan: Discharge to home with resumption of [facility] services.
[2025-08-10] MEDS: NSS 1000 IV (12:29)
[2025-08-10] MEDS: LIPITOR 80 MG PO (14:42)
[2025-08-10 15:17] VITALS: BP 168/82
[2025-08-10 17:20] VITALS: BP 147/80
[2025-08-10 23:37] VITALS: BP 183/105
[2025-08-11] MEDS: NSS 1000 IV (01:18)
[2025-08-11 01:21] VITALS: BP 157/86
[2025-08-11] MEDS: FLAGYL 500 MG 100 IV (05:12)
[2025-08-11 05:47] VITALS: BMI 21.2
[2025-08-11 07:30] VITALS: BP 148/83
[2025-08-11 08:21] LABS: Hematocrit 27.2 % (39.0-52.0); Hemoglobin 8.6 g/dL (13.0-18.0); Mean Corp Hgb Conc. 31.6 g/dL (33.0-37.0); Mean Corpuscular Volume 84.7 fL (80.0-94.0); Nucleated Red Blood Cells % 0 % (-); Platelet Count 234 10^3/uL (130-400); Red Cell Dist. Width 17.1 % (11.5-14.5)
[2025-08-11] MEDS: APRESOLINE 25 MG PO ×3 (08:31→21:08)
[2025-08-11] MEDS: DIFICID 200 MG PO ×2 (08:31→21:01)
[2025-08-11] MEDS: ASPIR LOW (ENTERIC COATED) 81 MG PO (08:32)
[2025-08-11] MEDS: COREG 6.25 MG PO ×2 (08:32→21:08)
[2025-08-11 10:02] LABS: Blood Urea Nitrogen 10 mg/dl (9-20); Calcium 7.9 mg/dl (8.4-10.2); Carbon Dioxide 13 mmol/L (22-30); Chloride 119 mmol/L (98-107); Estimated Creatinine Clearance 45 ml/min; Glucose 80 mg/dl (70-99); Potassium 3.6 mmol/L (3.5-5.1); Sodium 139 mmol/L (135-145); eGFR 58.01
--- NOTE | 2025-08-11 10:22 | PTCARENOTE ---
Dr. Adan made aware of pt's labs CO2 13. No new orders at this time. Pt noted with no s/s of distress at this time. plan of care ongoing. call golden within reach.
--- NOTE | 2025-08-11 10:35 | W.PN.ID1 ---
Date of Service
Date of Service: August 11, 2025
Today's Communication
Continue fidaxomicin.
Assessment / Plan
#Severe C. difficile pancolitis, first recurrence
. Recently completed 10d course of po Vanco for first episode of severe C. diff colitis
# Leukocytosis, resolved
# ADAN on CKD3, improved
- Abd tenderness continues to improve.
Diarrhea slightly improving.
- Continue Fidaxomicin (d6)
- Discontinue IV metronidazole (d5)
- Follow stool output
-Enhanced contact isolation
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
Hypertension
CAD status post stents
Chronic HFpEF
CKD 3
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
Cystoscopy, clot evacuation, SPC placement , SPC subsequently removed
Right inguinal hernia repair
Chief Complaint
-: C-diff
Subjective / Review of Systems
Abd pain improving.
Still with watery stools.
Vital Signs / Physical Exam
Vital Signs
Vital Signs
Temp Pulse Resp BP Pulse Ox
97.5 F 66 16 148/83 98
08/11/25 07:30 08/11/25 08:32 08/11/25 07:30 08/11/25 08:32 08/11/25 09:24
Physical Exam
Constitutional: Comfortable
Pulmonary: Clear
Gastrointestinal: Soft, Tender (mild lower abd) and Distended (minimal)
Neurological: AO x 3
Objective Data
Lab Data
Lab Results
08/11/25 07:34
08/11/25 07:35
Estimated Creat Clear 45 ml/min 08/11/25 07:35
Total Bilirubin 0.6 mg/dl (0.2-1.3) 08/06/25 17:35
AST 20 U/L (17-59) 08/06/25 17:35
ALT 11 U/L (0-50) 08/06/25 17:35
Alkaline Phosphatase 75 U/L (38-126) 08/06/25 17:35
Most recent labs reviewed.
Micro Results:
08/06/25 19:23 Salmonella/Shigella Culture - Final
Feces/Stool No Salmonella, Shigella, Aeromonas or Plesiomonas species
isolated.
Campylobacter Culture - Final
No Campylobacter species isolated.
Shiga Toxin Test - Final
No E. coli Shiga Toxin 1 or 2 detected.
08/06/25 19:23 Urine Culture - Final
Urine
08/06/25 19:23 C. difficile GDH Antigen & Toxins - Final
Feces/Stool Toxigenic C.difficile Positive
08/06/25 CT a/p:
1. SEVERE ACUTE C. DIFFICILE PANCOLITIS.
2. SEVERE ACUTE CYSTITIS.
3. Small volume of ascites.
4. Moderate chronic bilateral renal disease with urothelial thickening in the right renal pelvis and right ureter which could be secondary to ascending urinary tract infection, inflammation, or urothelial carcinoma.
5. Mild retroperitoneal lymphadenopathy.
6. Stents in the right common and external iliac arteries and embolization coils in the right side of the pelvis bordering a large 7.9 cm right-sided pelvic mass (probably a chronic hematoma).
[2025-08-11] MEDS: SODIUM BICARBONATE 1150 MEQ IV ×2 (12:06→22:19)
--- NOTE | 2025-08-11 13:27 | W.PN.HOSP.TC ---
Today's Communication/Plan
-
change IVF to include bicarb
advance diet
PT/OT
Assessment / Plan
Assessment / Plan
pt is a 75 yo male
Recurrent/Persistent severe C. Diff pancolitis with metabolic acidosis--cont Dificid, IV flagyl--change IVF to include bicarb--advance diet--apprec ID
Hypokalemia--repleted
ASCVD, stable--No chest pain or dyspnea--Continue current CV med regimen including ASA.
Essential Hypertension/Chronic HFpEF--adjusting BP meds given significant volume loss with diarrhea--Patient is not on chronic diuretic regimen.
ADAN on CKD III--SCr 1.8 -> 1.3 today
AAA / Iliac Artery Aneurysm--s/p AAA repair March 2024.
s/p R ureter re-implantation in June 2025.
DVT Proph--SCDs
Code Status--Full
Anticipated Discharge: > 48 hours
Subjective/Interval History
-
Date of Service: August 11, 2025
pt wants to eat more than what he has---diarrhea lessened--still with some pain
Objective Data
-
Labs:
Laboratory Results
08/11/25 08/11/25
07:34 07:35
WBC 9.8
Hgb 8.6 L
Hct 27.2 L
Plt Count 234
Sodium 139
Potassium 3.6
Chloride 119 H
Carbon Dioxide 13 L*
BUN 10
Creatinine 1.3
Glucose 80
Calcium 7.9 L
Vital Signs:
max temp for 24 hours
08/10/25
23:37
Temp 97.8 F
Vital Signs
Temp Pulse Resp BP Pulse Ox
97.5 F 66 16 148/83 98
08/11/25 07:30 08/11/25 08:32 08/11/25 07:30 08/11/25 08:32 08/11/25 09:24
I&O
08/10/25 08/11/25 08/12/25
06:59 06:59 06:59
Intake Total 3060 / 3060 3100 / 3100
Balance 3060 / 3060 3100 / 3100
Review of Systems
-
All other systems: Reviewed and negative
Abdomen/GI: Reports Abdominal Pain; Denies Diarrhea
Physical Exam
-
General: Well Developed, Well Nourished and No Apparent Distress
HEENT: Normocephalic and Atraumatic; Negative Oxygen
Respiratory: Clear to Auscultation; Negative Wheezes or Rhonchi
Cardiac: Regular Rhythm and S1/S2; Negative Murmur
GI: Soft, Nontender, Nondistended and Normal Bowel Sounds
Musculoskeletal: No Clubbing, No Cyanosis and No Edema
Neuro: Awake
Psych: Calm
--- NOTE | 2025-08-11 13:38 | CM ---
Patient seen at bedside with physician on . Patient plan is for discharge home when medically appropriate but he did not feel that he would need [facility] support at discharge. CM will continue to follow for discharge planning needs.
Plan; home with family support
[2025-08-11] MEDS: LIPITOR 80 MG PO (15:09)
[2025-08-11 15:20] VITALS: BP 161/90
[2025-08-11 15:48] VITALS: BP 176/91; PULSE 59; O2SAT 96
[2025-08-11 18:23] VITALS: BP 152/80
[2025-08-11 23:25] VITALS: BP 136/81
[2025-08-12 05:21] VITALS: BMI 21.2
[2025-08-12 07:00] VITALS: BP 150/84
[2025-08-12] MEDS: APRESOLINE 25 MG PO ×3 (08:09→22:25)
[2025-08-12] MEDS: COREG 6.25 MG PO ×2 (08:09→20:20)
[2025-08-12] MEDS: ASPIR LOW (ENTERIC COATED) 81 MG PO (08:09)
[2025-08-12] MEDS: DIFICID 200 MG PO ×2 (08:10→20:20)
[2025-08-12 08:45] LABS: Hematocrit 26.8 % (39.0-52.0); Hemoglobin 8.8 g/dL (13.0-18.0); Mean Corp Hgb Conc. 32.8 g/dL (33.0-37.0); Mean Corpuscular Volume 82.7 fL (80.0-94.0); Platelet Count 227 10^3/uL (130-400); Red Cell Dist. Width 16.8 % (11.5-14.5)
--- NOTE | 2025-08-12 09:06 | W.PN.ID1 ---
Addendum entered and electronically signed by Leanna Holt MD 08/12/25 11:55:
I saw and evaluated the patient. I reviewed the resident�s note and agree with findings and plan as documented in the resident�s note.
S: Stools still liquid but less frequent.
O: minimal tenderness lower mid abd.
A/P:
#Severe C. difficile pancolitis, first recurrence
Recently completed 10d course of po Vanco for first episode of severe C. diff colitis
# Leukocytosis, resolved
# ADAN on CKD3, improved
- Abd tenderness resolving.
Diarrhea less frequent
- Continue Fidaxomicin (d8 of 10)
- s/p 5 days IV metronidazole
- Follow stool output
- If diarrhea not resolved by day 10 fidaxomicin, consider extending C. diff treatment with po Vancomycin.
- Continue enhanced contact isolation
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
Hypertension
CAD status post stents
Chronic HFpEF
CKD 3
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
Cystoscopy, clot evacuation, SPC placement , SPC subsequently removed
Right inguinal hernia repair
Original Note:
Date of Service
Date of Service: August 12, 2025
offers no new complaints today
Today's Communication
Continue fidaxomicin.
follow stool output
Assessment / Plan
#Severe C. difficile pancolitis, first recurrence
Recently completed 10d course of po Vanco for first episode of severe C. diff colitis
# Leukocytosis, resolved
# ADAN on CKD3, improved
- Abd tenderness continues to improve. minimal lower abd tenderness today
Diarrhea slightly improving. ongoing wastery stools
- Continue Fidaxomicin (d7)
- completed IV metronidazole (5 days)
- Follow stool output
- Enhanced contact isolation
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
Hypertension
CAD status post stents
Chronic HFpEF
CKD 3
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
Cystoscopy, clot evacuation, SPC placement , SPC subsequently removed
Right inguinal hernia repair
Chief Complaint
-: C-diff
Subjective / Review of Systems
Review of Systems: No Fever, No Chills, No Chest Pain, Abdominal Pain (significantly improved) and Diarrhea (watery stools)
Vital Signs / Physical Exam
Vital Signs
Vital Signs
Temp Pulse Resp BP Pulse Ox
98.0 F 60 16 150/84 97
08/11/25 23:25 08/12/25 08:09 08/11/25 23:25 08/12/25 08:09 08/11/25 23:56
Physical Exam
Constitutional: Comfortable
Cardiovascular: Regular Rate
Pulmonary: Clear
Gastrointestinal: Soft, Tender (minimal in lower abd) and Non Distended
Skin: Warm
Neurological: Awake, Alert and Oriented
Psychological: Calm
Objective Data
Lab Data
Lab Results
08/12/25 08:02
Estimated Creat Clear 45 ml/min 08/11/25 07:35
Total Bilirubin 0.6 mg/dl (0.2-1.3) 08/06/25 17:35
AST 20 U/L (17-59) 08/06/25 17:35
ALT 11 U/L (0-50) 08/06/25 17:35
Alkaline Phosphatase 75 U/L (38-126) 08/06/25 17:35
Most recent labs reviewed.
Micro Results:
08/06/25 19:23 Salmonella/Shigella Culture - Final
Feces/Stool No Salmonella, Shigella, Aeromonas or Plesiomonas species
isolated.
Campylobacter Culture - Final
No Campylobacter species isolated.
Shiga Toxin Test - Final
No E. coli Shiga Toxin 1 or 2 detected.
08/06/25 19:23 Urine Culture - Final
Urine
08/06/25 19:23 C. difficile GDH Antigen & Toxins - Final
Feces/Stool Toxigenic C.difficile Positive
08/06/25 CT a/p:
1. SEVERE ACUTE C. DIFFICILE PANCOLITIS.
2. SEVERE ACUTE CYSTITIS.
3. Small volume of ascites.
4. Moderate chronic bilateral renal disease with urothelial thickening in the right renal pelvis and right ureter which could be secondary to ascending urinary tract infection, inflammation, or urothelial carcinoma.
5. Mild retroperitoneal lymphadenopathy.
6. Stents in the right common and external iliac arteries and embolization coils in the right side of the pelvis bordering a large 7.9 cm right-sided pelvic mass (probably a chronic hematoma).
[2025-08-12 09:16] LABS: ALT (SGPT) < 10 U/L (0-50); AST (SGOT) 18 U/L (17-59); Albumin 2.0 g/dl (3.5-5.0); Alkaline Phosphatase 54 U/L (38-126); Blood Urea Nitrogen 9 mg/dl (9-20); Calcium 7.6 mg/dl (8.4-10.2); Carbon Dioxide 21 mmol/L (22-30); Chloride 111 mmol/L (98-107); Estimated Creatinine Clearance 45 ml/min; Glucose 78 mg/dl (70-99); Magnesium 1.5 mg/dl (1.6-2.3); Potassium 3.2 mmol/L (3.5-5.1); Sodium 137 mmol/L (135-145); Total Protein 4.7 g/dl (6.3-8.2); eGFR 58.01
[2025-08-12] MEDS: SODIUM BICARBONATE 1150 MEQ IV (09:49)
--- NOTE | 2025-08-12 13:53 | CM ---
Patient seen at bedside with physician and daughter on . Patient plan is for discharge home with [facility]. today daughter confirmed they want [facility] and patient agreed. CM will continue to follow for discharge planning needs.
Plan; home with [facility]
[2025-08-12] MEDS: LIPITOR 80 MG PO (14:33)
[2025-08-12] MEDS: MAGNESIUM SULFATE 50 IV (14:34)
[2025-08-12 15:01] VITALS: BP 159/81
--- NOTE | 2025-08-12 15:09 | W.PN.HOSP.TC ---
Today's Communication/Plan
-
if tolerating oral meds, then hopefully home in AM if diarrhea resolved
Assessment / Plan
Assessment / Plan
pt is a 75 yo male
Recurrent/Persistent severe C. Diff pancolitis with metabolic acidosis--cont Dificid, s/p IV flagyl x 5 days--stop IVF--advance diet--apprec ID
Hypokalemia--repleted
ASCVD, stable--No chest pain or dyspnea--Continue current CV med regimen including ASA.
Essential Hypertension/Chronic HFpEF--adjusting BP meds given significant volume loss with diarrhea--Patient is not on chronic diuretic regimen.
ADAN on CKD III--SCr 1.8 -> 1.3 today
AAA / Iliac Artery Aneurysm--s/p AAA repair March 2024.
s/p R ureter re-implantation in June 2025.
DVT Proph--SCDs
Code Status--Full
Anticipated Discharge: Within 24 hours
Subjective/Interval History
-
Date of Service: August 12, 2025
pt states that he has had only 1 BM at 8 AM--nursing reports more
Objective Data
-
Labs:
Laboratory Results
08/12/25
08:02
WBC 8.4
Hgb 8.8 L
Hct 26.8 L
Plt Count 227
Sodium 137
Potassium 3.2 L
Chloride 111 H
Carbon Dioxide 21 L
BUN 9
Creatinine 1.3
Glucose 78
Calcium 7.6 L
Total Bilirubin 0.4
AST 18
ALT < 10
Alkaline Phosphatase 54
Vital Signs:
max temp for 24 hours
08/11/25
15:20
Temp 98.4 F
Vital Signs
Temp Pulse Resp BP Pulse Ox
98.3 F 59 18 159/81 98
08/12/25 15:01 08/12/25 15:01 08/12/25 15:01 08/12/25 15:01 08/12/25 15:01
I&O
08/11/25 08/12/25 08/13/25
06:59 06:59 06:59
Intake Total 3100 / 3100 2787 / 2787
Balance 3100 / 3100 2787 / 2787
Review of Systems
-
All other systems: Reviewed and negative
Physical Exam
-
General: Well Developed, Well Nourished and No Apparent Distress
HEENT: Normocephalic and Atraumatic
Respiratory: Clear to Auscultation; Negative Wheezes or Rhonchi
Cardiac: Regular Rhythm and S1/S2; Negative Murmur
GI: Soft, Nontender, Nondistended and Normal Bowel Sounds
Musculoskeletal: No Clubbing, No Cyanosis and No Edema
[2025-08-12 23:12] VITALS: BP 124/85
[2025-08-13 06:00] VITALS: BMI 21.5
[2025-08-13 07:04] VITALS: BP 121/80
[2025-08-13 07:35] LABS: Blood Urea Nitrogen 9 mg/dl (9-20); Calcium 7.4 mg/dl (8.4-10.2); Carbon Dioxide 25 mmol/L (22-30); Chloride 108 mmol/L (98-107); Estimated Creatinine Clearance 50 ml/min; Glucose 71 mg/dl (70-99); Magnesium 2.0 mg/dl (1.6-2.3); Potassium 3.5 mmol/L (3.5-5.1); Sodium 136 mmol/L (135-145); eGFR > 60.00
[2025-08-13 07:39] LABS: Hematocrit 27.3 % (39.0-52.0); Hemoglobin 8.7 g/dL (13.0-18.0); Mean Corp Hgb Conc. 31.9 g/dL (33.0-37.0); Mean Corpuscular Volume 82.7 fL (80.0-94.0); Platelet Count 222 10^3/uL (130-400); Red Cell Dist. Width 17.0 % (11.5-14.5)
--- NOTE | 2025-08-13 08:14 | W.PN.ID1 ---
Addendum entered and electronically signed by Xi Corona MD 08/13/25 11:50:
I saw and evaluated the patient. I reviewed the resident�s note and agree with findings and plan as documented in the resident�s note with the following additions/corrections.
No events overnight
Labs reviewed
A/P:
#Severe C. difficile pancolitis, first recurrence
Recently completed 10d course of po Vanco for first episode of severe C. diff colitis
# Leukocytosis, resolved
# ADAN on CKD3, improved
- Abd tenderness resolving, Diarrhea less frequent
- Continue Fidaxomicin (d9 of 10) while inpatient
- on discharge switch to oral vancomycin taper
- week 1 vancomycin 125 mg PO QID
- week 2 vancomycin 125 mg PO TID
- week 3 vancomycin 125 mg PO BID
- week 4 vancomycin 125 mg PO Qday
- week 5 vancomycin 125 mg PO Q48 hours
- then stop
- s/p 5 days IV metronidazole
- Follow stool output If diarrhea not resolved by day 10 fidaxomicin, consider extending C. diff treatment with po Vancomycin.
- Continue enhanced contact isolation while inpatient
AW
Original Note:
Date of Service
Date of Service: August 13, 2025
offers no new complaints
Today's Communication
switch dificid to vanco taper, 125mg PO QID for 1 week; TID for 1 week; bid for one week, daily for one week, every other day for one week.
ok for dc on taper
Assessment / Plan
#Severe C. difficile pancolitis, first recurrence
Recently completed 10d course of po Vanco for first episode of severe C. diff colitis
# Leukocytosis, resolved
# ADAN on CKD3, improved
- Abd tenderness resolved. no abd tenderness today
Diarrhea slightly improving. ongoing wastery stools
- Fidaxomicin (d8) ; since diarrhea did not resolve completely on fidaxomicin, will extend C. diff treatment with po Vancomycin. ordering 5 week vanco taper
- Received IV metronidazole (5 days)
- Enhanced contact isolation
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
Hypertension
CAD status post stents
Chronic HFpEF
CKD 3
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
Cystoscopy, clot evacuation, SPC placement , SPC subsequently removed
Right inguinal hernia repair
Chief Complaint
-: C-diff
Subjective / Review of Systems
Review of Systems: No Fever, No Chills, No Chest Pain, Abdominal Pain (significantly improved) and Diarrhea (watery stools 3-4/day)
Vital Signs / Physical Exam
Vital Signs
Vital Signs
Temp Pulse Resp BP Pulse Ox
98 F 64 18 121/80 95
08/13/25 07:04 08/13/25 07:04 08/13/25 07:04 08/13/25 07:04 08/13/25 07:04
Physical Exam
Constitutional: No Acute Distress
Cardiovascular: Regular Rate
Pulmonary: Clear
Gastrointestinal: Soft, Non Tender, Non Distended and No Rebound
Skin: Warm
Neurological: Awake, Alert and Oriented
Psychological: Calm
Objective Data
Lab Data
Lab Results
08/13/25 06:12
08/13/25 06:12
Estimated Creat Clear 50 ml/min 08/13/25 06:12
Total Bilirubin 0.4 mg/dl (0.2-1.3) 08/12/25 08:02
AST 18 U/L (17-59) 08/12/25 08:02
ALT < 10 U/L (0-50) 08/12/25 08:02
Alkaline Phosphatase 54 U/L (38-126) 08/12/25 08:02
Most recent labs reviewed.
Micro Results:
08/06/25 19:23 Salmonella/Shigella Culture - Final
Feces/Stool No Salmonella, Shigella, Aeromonas or Plesiomonas species
isolated.
Campylobacter Culture - Final
No Campylobacter species isolated.
Shiga Toxin Test - Final
No E. coli Shiga Toxin 1 or 2 detected.
08/06/25 19:23 Urine Culture - Final
Urine
08/06/25 19:23 C. difficile GDH Antigen & Toxins - Final
Feces/Stool Toxigenic C.difficile Positive
08/06/25 CT a/p:
1. SEVERE ACUTE C. DIFFICILE PANCOLITIS.
2. SEVERE ACUTE CYSTITIS.
3. Small volume of ascites.
4. Moderate chronic bilateral renal disease with urothelial thickening in the right renal pelvis and right ureter which could be secondary to ascending urinary tract infection, inflammation, or urothelial carcinoma.
5. Mild retroperitoneal lymphadenopathy.
6. Stents in the right common and external iliac arteries and embolization coils in the right side of the pelvis bordering a large 7.9 cm right-sided pelvic mass (probably a chronic hematoma).
[2025-08-13] MEDS: DIFICID 200 MG PO (08:25)
[2025-08-13] MEDS: APRESOLINE 25 MG PO ×2 (08:25→16:14)
[2025-08-13] MEDS: ASPIR LOW (ENTERIC COATED) 81 MG PO (08:25)
[2025-08-13] MEDS: COREG 6.25 MG PO (08:26)
--- NOTE | 2025-08-13 08:54 | W.PN.UPDATE ---
Update Note
Progress Note Update
I saw and evaluated the patient. I reviewed the resident�s note and agree with findings and plan as documented in the resident�s note with the following additions/corrections.
No events overnight
Labs reviewed
A/P:
#Severe C. difficile pancolitis, first recurrence
Recently completed 10d course of po Vanco for first episode of severe C. diff colitis
# Leukocytosis, resolved
# ADAN on CKD3, improved
- Abd tenderness resolving, Diarrhea less frequent
- Continue Fidaxomicin (d9 of 10) while inpatient
- on discharge switch to oral vancomycin taper
- week 1 vancomycin 125 mg PO QID
- week 2 vancomycin 125 mg PO TID
- week 3 vancomycin 125 mg PO BID
- week 4 vancomycin 125 mg PO Qday
- week 5 vancomycin 125 mg PO Q48 hours
- then stop
- s/p 5 days IV metronidazole
- Follow stool output If diarrhea not resolved by day 10 fidaxomicin, consider extending C. diff treatment with po Vancomycin.
- Continue enhanced contact isolation while inpatient
AW
[2025-08-13] MEDS: FIRVANQ 125 MG PO (12:06)
--- NOTE | 2025-08-13 14:42 | W.PN.HOSP.TC ---
Today's Communication/Plan
-
d/c
Assessment / Plan
Assessment / Plan
pt is a 75 yo male
Recurrent/Persistent severe C. Diff pancolitis with metabolic acidosis--cont Dificid, s/p IV flagyl x 5 days--stop IVF--advance diet--apprec ID--5 week taper of vanco
Hypokalemia--repleted
ASCVD, stable--No chest pain or dyspnea--Continue current CV med regimen including ASA.
Essential Hypertension/Chronic HFpEF--adjusting BP meds given significant volume loss with diarrhea--Patient is not on chronic diuretic regimen.
ADAN on CKD III--SCr 1.8 -> 1.3 today
AAA / Iliac Artery Aneurysm--s/p AAA repair March 2024.
s/p R ureter re-implantation in June 2025.
DVT Proph--SCDs
Code Status--Full
ok for d/c
Anticipated Discharge: Today
Subjective/Interval History
-
Date of Service: August 13, 2025
pt ready for d/c
Objective Data
-
Labs:
Laboratory Results
08/13/25
06:12
WBC 8.6
Hgb 8.7 L
Hct 27.3 L
Plt Count 222
Sodium 136
Potassium 3.5
Chloride 108 H
Carbon Dioxide 25
BUN 9
Creatinine 1.2
Glucose 71
Calcium 7.4 L
Vital Signs:
max temp for 24 hours
08/12/25
23:12
Temp 98.5 F
Vital Signs
Temp Pulse Resp BP Pulse Ox
98 F 64 18 121/80 95
08/13/25 07:04 08/13/25 08:26 08/13/25 07:04 08/13/25 08:26 08/13/25 09:17
I&O
08/12/25 08/13/25 08/14/25
06:59 06:59 06:59
Intake Total 2786 / 2786 1570 / 1570
Balance 2786 / 2786 1570 / 1570
Review of Systems
-
All other systems: Reviewed and negative
Physical Exam
-
General: Well Developed, Well Nourished and No Apparent Distress
HEENT: Normocephalic and Atraumatic; Negative Oxygen
Respiratory: Clear to Auscultation; Negative Wheezes or Rhonchi
Cardiac: Regular Rhythm and S1/S2; Negative Murmur
GI: Soft, Nontender, Nondistended and Normal Bowel Sounds
Musculoskeletal: No Clubbing, No Cyanosis and No Edema
Neuro: Awake
Psych: Calm
--- NOTE | 2025-08-13 14:49 | CM ---
Patient seen at bedside with physician on . Patient states that he is ready to go home. CM reviewed IMM and patient declined to sign and asked CM to call to daughter. CM reviewed with Stephanie and she will be here approx 5pm to take patient
home with [facility] to follow. CM will continue to follow for discharge needs.
Plan; discharge home with [facility] to follow
[2025-08-13 15:00] VITALS: BP 143/80
[2025-08-13] MEDS: LIPITOR 80 MG PO (15:09)
--- NOTE | 2025-08-14 12:11 | W.DCSUMMARY ---
Discharge Summary
Discharge Data
Date of Admission: 08/06/25
Date of Discharge: 08/13/25
-
Pending Results: No
Hospital Course
Primary care physician : Thong Calderon
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
Chronic Discharge diagnosis : Atherosclerotic cardiovascular disease, essential hypertension, chronic heart failure with preserved ejection fraction without exacerbation, acute kidney injury on chronic kidney disease stage III, abdominal aortic
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
Hospital Course : Patient is a 75-year-old male who presented with abdominal pain and diarrhea. He was admitted to [facility] from 07/14 to 07/19/2025 with similar symptoms and was diagnosed with C. difficile colitis at that time. He
completed a 10-day course of oral vancomycin. He stated his diarrhea has not improved. In fact, it has become worse since coming off the antibiotics. Patient was admitted.
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 Patient was admitted and seen in consultation by infectious disease. He was started on oral Dificid and completed 5 days of IV Flagyl. He was given IV
fluids. His diet was advanced. Diarrhea did improve. Dificid was stopped at discharge. Instead, he has been discharged on a 5-week taper of oral vancomycin. Patient is stable for discharge home at this time.
Problem #2: All other medical issues. These include Atherosclerotic cardiovascular disease, essential hypertension, chronic heart failure with preserved ejection fraction without exacerbation, acute kidney injury on chronic kidney disease stage
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 These medical issues were stable during his hospitalization. Medications were continued as able.
Patient is stable for discharge at this time. If there are any questions regarding this dictation or his hospital stay, please do not hesitate to call. Our office number is [phone].
Time for discharge 34 minutes.
Important imaging findings :
CT SCAN ABDOMEN/PELVIS IMPRESSION:
1. SEVERE ACUTE C. DIFFICILE PANCOLITIS.
2. SEVERE ACUTE CYSTITIS.
3. Small volume of ascites.
4. Moderate chronic bilateral renal disease with urothelial thickening in the right renal pelvis and right ureter which could be secondary to ascending urinary tract infection, inflammation, or urothelial carcinoma.
5. Mild retroperitoneal lymphadenopathy.
6. Stents in the right common and external iliac arteries and embolization coils in the right side of the pelvis bordering a large 7.9 cm right-sided pelvic mass (probably a chronic hematoma).
7. Severe calcific atherosclerotic plaque in the abdominal aorta.
8. Small pericardial effusion.
9. Minimal pleural effusions.
10. 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
11. Very severe osteoarthritis in the right hip.
Discharge Plan
-
Patient Disposition: Home with Home Care
Condition: Good
Diet: As tolerated and Regular
Activity: As tolerated
Driving Restrictions: As prior to admission
Bathing Restrictions: None
Other Services: VN, PT and OT
Referrals:
Thong Calderon CRNP [Family Provider] - in less than 1 week
Prescriptions:
New
vancomycin 50 mg/mL Recon Soln
125 mg PO Q6 7 Days Qty: 70 0RF
Rx Instructions:
take from 08/13-08/20
vancomycin 50 mg/mL Recon Soln
125 mg PO Q8 7 Days Qty: 52.5 0RF
Rx Instructions:
take from 08/21 to 08/28
vancomycin 50 mg/mL Recon Soln
125 mg PO Q12 7 Days Qty: 35 0RF
Rx Instructions:
take from 08/29 to 09/04
vancomycin 50 mg/mL Recon Soln
125 mg PO DAILY 7 Days Qty: 17.5 0RF
Rx Instructions:
take from 09/05 to 09/12
vancomycin 50 mg/mL Recon Soln
125 mg PO Q48H 7 Days Qty: 10 0RF
Rx Instructions:
take from 09/13-09/20
Continued
atorvastatin [Lipitor] 80 mg Tablet
80 mg PO 1400
aspirin 81 mg Tablet,Delayed Release (Dr/Ec)
81 mg PO DAILY
carvedilol 6.25 mg Tablet
6.25 mg PO BID Qty: 60 0RF
hydralazine 50 mg Tablet
50 mg PO TID Qty: 90 0RF
multivitamin Tablet
1 tab PO DAILY
tramadol 50 mg tablet
50 mg PO Q8H PRN (Reason: mild to moderate pain) Qty: 14 0RF
Discharge Orders:
Discharge Patient (As Directed); Ordered 08/13/25
Ordered By: Lisa Adan
Discharge Date and Time
Discharge Date/Time: 08/13/25 17:56
Print Language: [id number]
== END 2025-08-13 17:56 | disposition home health service (06) | DRG 371 ==
LOC: 2 NORTH 22:33
PROVIDERS: Internal Medicine; ADMITTING PHYSICIAN Hospitalist; ATTENDING PHYSICIAN Internal Medicine; CONSULT PHYSICIAN Internal Medicine Infectious Disease; EMERGENCY PHYSICIAN Emergency Medicine
DX: A04.71 Enterocolitis due to Clostridium difficile, recurrent (principal); E43 Unspecified severe protein-calorie malnutrition; I13.0 Hypertensive heart and chronic kidney disease with heart failure and stage 1 through stage 4 chronic kidney disease, or unspecified chronic kidney disease; I50.32 Chronic diastolic (congestive) heart failure; N13.6 Pyonephrosis; R18.8 Other ascites; I31.39 Other pericardial effusion (noninflammatory); E87.20 Acidosis, unspecified; N18.30 Chronic kidney disease, stage 3 unspecified; R59.0 Localized enlarged lymph nodes; E87.6 Hypokalemia; R19.03 Right lower quadrant abdominal swelling, mass and lump; M16.11 Unilateral primary osteoarthritis, right hip; M51.369 Other intervertebral disc degeneration, lumbar region without mention of lumbar back pain or lower extremity pain; M51.379 Other intervertebral disc degeneration, lumbosacral region without mention of lumbar back pain or lower extremity pain; E78.00 Pure hypercholesterolemia, unspecified; K59.00 Constipation, unspecified; I25.10 Atherosclerotic heart disease of native coronary artery without angina pectoris; I25.2 Old myocardial infarction; Z86.79 Personal history of other diseases of the circulatory system; Z87.440 Personal history of urinary (tract) infections; Z79.82 Long term (current) use of aspirin; Z95.5 Presence of coronary angioplasty implant and graft; Z68.21 Body mass index [BMI] 21.0-21.9, adult
CPT/HCPCS: 74177; 80048; 80053; 81003; 81015; 83690; 83735; 85025; 85027; 87045; 87046; 87077; 87086; 87324; 87427; 87449; 96360; 97162; 99291; Q9967

== ENCOUNTER → 2025-09-13 08:15 | Outpatient (REF) | payer OTHER, SELFPAY | LOC: RAD 08:15 | PROVIDERS: ATTENDING PHYSICIAN Urology | DX: N13.8 Other obstructive and reflux uropathy (principal); N13.5 Crossing vessel and stricture of ureter without hydronephrosis | CPT/HCPCS: 74176 ==